=== PATIENT | male | born 1940 | race Caucasian/White ===

== ENCOUNTER 2023-01-02 13:15 | Outpatient (RCR) | payer MEDICARE, SELFPAY | END 2023-05-02 23:59 | disposition home or self-care (01) | PROVIDERS: PCP Family Medicine; Visit Provider Family Medicine | DX: R41.3 Other amnesia (principal); R29.6 Repeated falls; Z51.89 Encounter for other specified aftercare | CPT/HCPCS: 97165; 97535 ==

== ENCOUNTER 2023-03-12 10:10 | Emergency (ER) | payer MEDICARE, BC, SELFPAY ==
[2023-03-12 10:23] VITALS: BP 113/68; PULSE 103; RESP 18; TEMP 36.9; O2SAT 95; BMI 29.8
--- NOTE | 2023-03-12 10:35 | CRLHL7_ITS ---
For Patients: As a result of the Cures Act, medical imaging exams and procedure reports are released immediately into your electronic medical record. You may view this report before your referring provider. If you have questions, please contact your health care provider. Indication: Fever Technique: Chest 2 views Comparison: None Findings/Impression: Cardiovascular and mediastinum: Normal heart size with atherosclerotic calcification. Lungs and pleural spaces: Elevated left hemidiaphragm. No pleural effusion or pneumothorax. No acute consolidation. Bones and soft tissues: Old healed surgical neck left humeral fracture. Dictated by Javi Torres MD @ 03/12/2023 12:23:05 PM (Electronically Signed)
--- NOTE | 2023-03-12 10:46 | ED_ITS ---
HPI - General Adult General Chief complaint: Fever Stated complaint: Fever, lethargy Time Seen by Provider: 03/12/23 10:20 Source: patient Limitations: no limitations History of Present Illness HPI narrative: 83-year-old male presenting today with 3 days of not feeling well. States that he has had a fevers high as 101.6. He feels achy, tired and weak. Appetite has been good. He denies any diarrhea, endorses constipation on and off. He denies any urinary symptoms such as increased frequency urgency or dysuria but he states that his urine looks off. He denies chest or abdominal pain. He has a very mild cough. He does have tinnitus which has worsened over the last couple days. No changes in his hearing. He has a mild headache. No pain in his neck or back that are new. Patient is a resident at [facility]. Past medical history significant for BPH, depression, recent PE on anticoagulation therapy, dementia. Related Data Home Medications Medication Instructions Recorded Confirmed donepezil 10 mg tablet 10 mg PO DAILY 03/12/23 03/12/23 rivaroxaban 20 mg tablet (Xarelto) 20 mg PO QPM 03/12/23 03/12/23 sertraline 50 mg tablet 50 mg PO DAILY 03/12/23 03/12/23 tamsulosin 0.4 mg capsule 0.4 mg PO DAILY 03/12/23 03/12/23 Previous Rx's Medication Instructions Recorded cephalexin 500 mg capsule 500 mg PO TID 7 days #21 caps 03/12/23 Allergies Allergy/AdvReac Type Severity Reaction Status Date / Time aspirin Allergy Verified 03/12/23 10:26 Review of Systems Status of ROS: Reports: 10 or more systems reviewed and unremarkable except as noted in History and below Exam Narrative: Exam Narrative: Well-nourished well-developed patient in no acute distress. Alert and oriented. Answers questions appropriately. Mood and affect are appropriate. Thoughts are goal oriented and rational. No tangential or magical thinking noted. Patient speaks in full sentences without needing to catch his breath. Speech is not slurred or pressured. HEENT: Normocephalic atraumatic. Pupils are equally round reactive to light. Extraocular muscles are intact. Conjunctivae are moist without any icterus noted. Slightly dry mucous membranes. Posterior pharynx is normal. Neck is soft without any lymphadenopathy or thyromegaly. No masses are appreciated. Cardiovascular: Heart is tachycardic with regular rhythm, S1 and S2 are present without any murmurs. Lungs: Clear to auscultation bilaterally no wheezes rhonchi or rales are appreciated. Patient takes deep breaths without any discomfort. Abdomen: Soft and nontender nondistended with normal bowel sounds. Abdomen is protuberant. Patient tells me this is not new. Extremities: Bilateral lower extremities show 2+ pitting edema. Skin: Well perfused without any obvious rashes. Const: Vital Signs, click to edit/add: Vital Signs - 24 hr 03/12/23 10:23 Temperature 98.4 F Pulse Rate [Right Pulse Oximeter] 103 H Respiratory Rate 18 Blood Pressure [Ri ght Upper Arm] 113/68 Pulse Oximetry 95 Oxygen Delivery Me thod Room Air Course Course ED Course: EKG, read by me, shows sinus tachycardia with a pulse of 103. Lab work done included a CBC, chemistries: Both unremarkable. UA does look grossly positive for signs of infection. Triple swab is positive for COVID-19. Discussed with the patient that the Paxlovid is available, however, it does interact with his rivaroxaban and COVID administration is not recommended. Given that the patient is generally doing pretty well, I think it is okay for him to continue treating his symptoms as is. Vital Signs Vital signs: Initial Vital Signs Temperature 98.4 F 03/12/23 10:23 Temperature Source Temporal Artery Scan 03/12/23 10:23 Pulse Rate 103 H 03/12/23 10:23 Respiratory Rate 18 03/12/23 10:23 Blood Pressure 113/68 03/12/23 10:23 Blood Pressure Mean 83 03/12/23 10:23 Blood Pressure Position Sitting 03/12/23 10:23 Pulse Oximetry 95 03/12/23 10:23 Oxygen Delivery Method Room Air 03/12/23 10:23 Vital Signs Temperature 98.4 F 03/12/23 10:23 Pulse Rate 103 H 03/12/23 10:23 Respiratory Rate 18 03/12/23 10:23 Blood Pressure 113/68 03/12/23 10:23 Pulse Oximetry 95 03/12/23 10:23 Oxygen Delivery Method Room Air 03/12/23 10:23 Temperature 98.4 F 01/29/24 10:23 Pulse Rate 103 H 03/12/23 10:23 Respiratory Rate 18 03/12/23 10:23 Blood Pressure 113/68 03/12/23 10:23 Pulse Oximetry 95 03/12/23 10:23 Oxygen Delivery Method Room Air 03/12/23 10:23 Medical Decision Making MDM Narrative Medical decision making narrative: 83-year-old male with COVID-19. We discussed symptomatic treatment reasons for follow-up. Probable UTI. Will cover patient with Keflex. Mild dehydration-recommend increased fluid intake. Lab Data Lab results reviewed: Yes I reviewed the patient's lab results Labs: Lab Results 03/12/23 03/12/23 03/12/23 Range/Units 10:45 10:48 Unknown WBC 9.57 (4.50-11.00) K/uL RBC 4.87 (4.30-5.90) m/uL Hgb 15.1 (13.5-17.5) gm/dL Hct 48.2 (37.0-53.0) % MCV 99 (80-100) fL MCH 31 (26-34) pg MCHC 31 L (32-36) gm/dL RDW Coeff of Marisa 13.3 (11.5-15.5) % Plt Count 188 (140-440) K/uL Neut % (Auto) 79.6 H (42.0-72.0) % Lymph % (Auto) 10.1 L (20-44) % [place] % (Auto) 8.4 (0.0-11.0) % Eos % (Auto) 1.4 (0.0-7.0) % Baso % (Auto) 0.2 (0.0-3.0) % Neut # (Auto) 7.60 H (1.7-7.0) K/uL Lymph # (Auto) 1.00 (0.90-2.90) K/uL [place] # (Auto) 0.80 (0.00-0.90) K/UL Eos # (Auto) 0.13 (0.00-0.50) K/uL Baso # (Auto) 0.02 (0.00-0.30) K/uL Abs Immat Gran (auto) 0.03 (0.00-0.30) K/uL Imm/Tot Granulo (auto) 0.3 % Sodium 140 (135-149) mmol/L Potassium 3.9 (3.6-5.1) mmol/L Chloride 101 (96-114) mmol/L Carbon Dioxide 33 H (20-32) mmol/L Anion Gap 6 L (7-15) mEq/L BUN 20 (7-30) mg/dL Creatinine 1.0 (0.5-1.5) mg/dL Estimated Creat Clear 59.28 Estimated GFR 74 ml/min Glucose 113 (60-115) mg/dL Calcium 8.9 (8.4-10.6) mg/dL Urine Color Christian A (Yellow) Urine Appearance Cloudy A (Clear) Urine pH 5.5 (5.0-8.5) Ur Specific [place] >= 1.030 (1.000-1.030) Urine Protein 1+ A (Negative) Urine Glucose (UA) Negative (Negative) Urine Ketones Negative (Negative) Urine Blood 1+ A (Negative) Urine Nitrite Negative (Negative) Urine Bilirubin 1+ A (Negative) Urine Urobilinogen 1.0 (0.2-1.0) Ur Leukocyte Esterase 1+ A (Negative) Urine RBC 2-5 A (0-2) Urine WBC 50-100 A (0-5) Urine WBC Clumps Few A (None) Ur Squamous Epith Cells Few (None-Few) Urine Bacteria Moderate A (None) Urine Mucus Few A (None) SARS-CoV-2 (PCR) POSITIVE SARS-CoV-2 A (Negative) Influenza Type A (PCR) Negative PCR FLU A (Negative) Influenza Type B (PCR) Negative PCR FLU B (Negative) RSV (PCR) Negative PCR RSV (Negative) Imaging Data Chest x-ray: Attestation: I have reviewed the pertinent imaging results. Radiologist's impression: Chest 2 views Comparison: None Findings/Impression: Cardiovascular and mediastinum: Normal heart size with atherosclerotic calcification. Lungs and pleural spaces: Elevated left hemidiaphragm. No pleural effusion or pneumothorax. No acute consolidation. Bones and soft tissues: Old healed surgical neck left humeral fracture. ECG Data Attestation: I personally reviewed and interpreted this ECG as follows: Discharge Plan Discharge Clinical Impression: COVID-19, Dehydration, mild, Acute UTI Patient Disposition: Home, Self-Care Condition: Stable Additional Instructions: The medication to treat COVID-19,Paxlovid, is not recommended for you at this time as it interacts with your medications. Therefore at this time, I recommend that you rest as much as you need to, eat nutritious meals and increase the amount of fluid your drinking every day. It also appears that you likely have a bladder infection-antibiotics have been sent to the pharmacy, take all as directed. Lastly, it appears that you are slightly dehydrated. Again, increased the amount of fluid that you are drinking every day. Prescriptions: New cephalexin 500 mg capsule 500 mg PO TID 7 Days Qty: 21 0RF No Action donepezil 10 mg tablet 10 mg PO DAILY tamsulosin 0.4 mg capsule 0.4 mg PO DAILY sertraline 50 mg tablet 50 mg PO DAILY Xarelto 20 mg tablet 20 mg PO QPM Follow Up/Referrals: Ruperto Kearns MD [Primary Care Provider] - Stand Alone Forms: Tal Medical Info Instructions
--- OUTSIDE RECORDS SUMMARY | 2023-03-12 10:47 | XMS_ITS | Clinical Summary ---
Author Name Unknown Organization [facility] Address [place], [place] [address] Care Team Providers Care Wastewater Operator Name Role Phone Ruperto Kearns MD Primary Care Provider [phone] Allergies Active Allergy Reactions Criticality Noted Date Comments Aspirin Hives 12/01/2022 Medications Medication Sig Dispensed Refills Start Date End Date Status rivaroxaban (Xarelto) 20 mg tabletIndications: Pulmonary embolism, bilateral (HC) Take 1 Tablet (20 mg) by mouth once daily with evening meal. 90 Tablet 3 01/17/2023 Active sertraline (ZOLOFT) 50 mg tabletIndications: Anxiety Take 1 Tablet (50 mg) by mouth once daily. 90 Tablet 3 01/17/2023 Active tamsulosin (FLOMAX) 0.4 mg capsuleIndications :BPH without urinary obstruction Take 1 Capsule (0.4 mg) by mouth once daily after a meal. 90 Capsule 3 01/17/2023 Active donepeziL (ARICEPT) 10 mg tabletIndications: Dementia in Alzheimer's disease (HC) Take 1 Tablet (10 mg) by mouth at bedtime. 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 BPH without urinary obstruction 12/01/2022 Encounters Date Type Department Care Team Description 03/12/2023 Nurse Triage [facility] [address] [place] [address] Ruperto Kearns MD Weak (Weak , fevers, ) 02/28/2023 9:15 AM SQL DATABASE PROGRAMMER Office Visit [facility] [address] [place] [address] Ruperto Kearns MD Medication Management (Follow up) 02/28/2023 Travel 02/20/2023 11:30 AM SQL DATABASE PROGRAMMER Office Visit [facility] [address] [place] [address] Gopal Jiang AuD Hearing Aid (Consultation) 02/20/2023 Travel 02/15/2023 2:00 PM SQL DATABASE PROGRAMMER Office Visit [facility] [address] [place] [address] Gopal Jiang, AuD Hearing Problem 02/15/2023 Travel 01/17/2023 11:45 AM SQL DATABASE PROGRAMMER Ancillary Procedure [address] [address] 01/17/2023 10:05 AM SQL DATABASE PROGRAMMER Office Visit [address] [address] Ruperto Kearns MD Medicare ANNUAL (subsequent) Visit (84 years); Laceration (Fell last night and patient has a cut on left knee now ) 01/17/2023 Travel 12/12/2022 Orders Only [facility] Scanner 1 scan: (1-Ord) INCOMING RECORDS-CT, [facility], 12/12/2022 from Last 3 Months Immunizations Name Administration Dates Next Due Hepatitis A (Adult) 05/04/2015 Hepatitis B (Adult) 05/04/2015 Influenza, High-dose Inactivated 12/04/2018,11/12 Influenza, High-dose Quadriv alent Inactivated 11/30/2022,01/04/2022,12/02/2020 Influenza, Injectable, Mdck, Quadrivalent, W/preservative 10/27/2019 Meningococcal Vaccine (Menomune) 07/19/2004 Td, Preservative Free (age >= 7 Years) 5 Tdap 09/30/2016 Zoster (Shingrix-RZV, recombinant) 07/29/2019 Family History Medical History Relation Name Comments Benign prostatic hyperplasia Brother Heart attack Father he of this at 65 Sarcoidosis Mother she of thi s at 55 Good Health Sister Relation Name Status Comments Brother Alive Father Mother Sister Alive Social History Tobacco Use Types Packs/Day Years Used Date Smoking Tobacco: Never Passive Smoke Exposure: Past Smokeless Tobacco: Never Tobacco Cessation:Counseling Given: Not Answered Alcohol Use Standard Drinks/Week Comments Not Currently 0 (1 standard drink = 0.6 oz pur e alcohol) PHQ-2 Answer Date Recorded PHQ-2 TOTAL SCORE 2 01/17/2023 Social Connections Answer Date Recorded Frequency of Communication with Friends and Fami ly 0 02/28/2023 Alcohol Use Answer Date Recorded How often do you have a drink containing alcohol ? 2 01/17/2023 How many drinks containing a lcohol do you have on a typical day when you are drinking? 0 01/17/2023 How often do you have five or more drinks on one occasion? 0 01/17/2023 Financial Resource Strain Answer Date R ecorded Difficulty of Paying Living Expenses 3 02/28/2023 Difficulty of Paying Living Expenses Not on file 02/28/2023 Food Insecurity Answer Date Recorded Worried About Running Out of Food in the Last Ye ar 1 02/28/2023 Transportation Needs Answer Date Record ed Lack of Transportation (Medical) 1 02/28/2023 Housing Stability Answer Date Recorded Unable to Pay for Housing in the Last Year 1 02/28/2023 Sex and Gender Information Value Date Recorded Sex Assigned at Male 11/06/2022 9:44 AM CDT Gender Identity Male 11/06/2022 9:44 AM CDT Sexual Orientation Bisexual 11/06/2022 9: 44 AM CDT Obstetrics History Last Filed Vital Signs Vital Sign Reading Time Taken Comments Blood Pressure 93/64 02/28/2023 9:19 AM SQL DATABASE PROGRAMMER Pulse 90 02/28/2023 10:12 AM SQL DATABASE PROGRAMMER Temperature - - Respiratory Rate - - Oxygen Saturation 93% 02/28/2023 9:19 AM SQL DATABASE PROGRAMMER Inhaled Oxygen Concentration - - Weight 104 kg (229 lb 3.2 oz) 02/28/2023 9:19 AM SQL DATABASE PROGRAMMER Height 178.8 cm (5' 10.39) 12/01/2022 11:19 AM CDT Body Mass Index 32.52 12/01/2022 11:19 AM CDT Plan of Treatment Upcoming Encounters Date Type Department Care Team (Late st Contact Info) Description 03/20/2023 2:30 PM SQL DATABASE PROGRAMMER Office Visit [facility] [address] [place] [address] Gopal Jiang, AuD [address] [place] [phone] 04/04/2023 10:30 AM SQL DATABASE PROGRAMMER Office Visit [facility] [address] [place] [address] Gopal Jiang, AuD [address] [place] [phone] 05/29/2023 9:35 AM CDT Office Visit [facility] [address] [place] [address] Ruperto Kearns MD [address] [place] [address] Health Maintenance Due Date Last Done Comments Pneumococcal series for age 65+ (1 of 1 - PCV) 2003 Zoster (shingles) series for age 50+ (2 of 2) 09/23/2019 07/29/2019 BMI (ht and wt on same day) for age 18+ 12/02/2023 12/01/2022 Medicare Wellness for age 65+ 01/17/2024 01/17/2023 Depression screening for age 12+ 01/18/2024 01/18/20 Tetanus booster 09/30/2026 09/30/2016, 07/19/2004 Tdap Completed 09/30/2016 COVID-19 vaccine series Completed 11/28/19, 05/30/2021, 11/22/2020, Additional history exists Influenza for age 65+ Completed 11/30/2022 , 01/04/2022, 12/02/2020, Additional history exists Procedures Procedure Name Priority Date/Time Associated Diagnosis Comments MI COMPRE AUDIOMETRY THRESHOLD EVAL SP RECOGNIJ Routine 02/15/2023 12:00 AM SQL DATABASE PROGRAMMER Sensorineural hearing loss (SNHL) of both ears XR KNEE 3 VIEWS LEFT Routine 01/17/2023 12:01 PM SQL DATABASE PROGRAMMER Injury of left knee, initial encounter CBC WITH AUTO DIFFERENTIAL Routine 01/17/2023 11:47 AM SQL DATABASE PROGRAMMER Pulmonary embolism, bilateral (HC) BASIC METABOLIC PANEL Routine 01/17/2023 11:47 AM SQL DATABASE PROGRAMMER Pulmonary embolism, bilateral (HC) CBC WITH AUTO DIFFERENTIAL Routine 01/17/2023 11:47 AM SQL DATABASE PROGRAMMER Pulmonary embolism, bilateral (HC) ALT (SGPT) Routine 01/17/2023 11:47 AM SQL DATABASE PROGRAMMER Pulmonary embolism, bilateral (HC) SCAN CORRESP-IMAGING 12/12/2022 12:00 AM CDT from Last 3 Months Results * MI COMPRE AUDIOMETRY THRESHOLD EVAL SP RECOGNIJ (02/15/2023 12:00 AM SQL DATABASE PROGRAMMER) Gopal [employer] * XR KNEE 3 VIEWS LEFT (01/17/2023 12:01 PM SQL DATABASE PROGRAMMER) Anatomical Region Laterality Modality KNEES, KNEE L Computed Radiogr aphy 01/17/2023 12:1 8 PM SQL DATABASE PROGRAMMER Narrative 01/17/2023 12:18 PM SQL DATABASE PROGRAMMER For Patients: ??As a result of the Cures Act, medical imaging exams and procedure reports are released immediately into your electronic medical record. ??You may view this report before your referring provider. ??If you have questions, please contact your health care provider. Indication: Knee pain Technique: Left knee 3 views Comparison: None Findings: Osteopenia. Mild spurring at the medial tibial spine. Vascular calcifications. Small joint effusion. Mild patellofemoral narrowing and spurring. Impression: Mild degenerative joint disease and small joint effusion. No fracture. Dictated by Raleigh Burt MD @ Jan ??2022 12:18PM (Electronically Signed) ?? Procedure Note Raleigh Burt MD - 01/17/2023 For Patients: As a result of the Cures Act, medical imagingexams and procedure reports are released immediately into your electronicmedical record. You may view this report before your referring provider.If you have questions, please contact your health care provider. Indication: Knee pain Technique: Left knee 3 views Comparison: None Findings: Osteopenia. Mild spurring at the medial tibial spine. Vascularcalcifications. Small joint effusion. Mild patellofemoral narrowing andspurring. Impression: Mild degenerative joint disease and small joint effusion. No fracture. Dictated by Ralegih Burt MD @ Jan 17 2023 12:18PM (Electronically Signed) Ruperto Kearns MD GENERAL IMAGING * (ABNORMAL) CBC WITH AUTO DIFFERENTIAL (01/17/2023 11:47 AM SQL DATABASE PROGRAMMER) WHITE BLOOD COUNT 6.4 4.5 - 11.0 thou/cu mm 01/17/2023 12:03 PM [facility] RED BLOOD COUNT 4.63 4.30 - 5.90 mil/cu mm 01/17/2023 12:03 PM [facility] HEMOGLOBIN 14.8 13.5 - 17.5 g/dL 01/17/2023 12:03 PM [facility] HEMATOCRIT 46.5 37.0 - 53.0 % 01/17/2023 12:03 PM [facility] MCV 100 80 - 100 fL 01/17/2023 12:03 PM [facility] MCH 32.0 26.0 - 34.0 pg 01/17/2023 12:03 PM [facility] MCHC 31.8(L) 32.0 - 36.0 g/dL 01/17/2023 12:03 PM [facility] RDW 14.0 11.5 - 15.5 % 01/17/2023 12:03 PM [facility] PLATELET COUNT 183 140 - 440 thou/cu mm 01/17/2023 12:03 PM [facility] MPV 9.6 6.5 - 11.0 fL 01/17/2023 12:03 PM [facility] % NEUT 66.8 % 01/17/2023 12:03 PM SQL DATABASE PROGRAMMER [facility] % LYMPH 18.2 % 01/17/2023 12:03 PM SQL DATABASE PROGRAMMER [facility] % MONO 12.0 % 01/17/2023 12:03 PM [facility] % EOS 2.5 % 01/17/2023 12:03 PM [facility] % BASO 0.5 % 01/17/2023 12:03 PM [facility] ABSOLUTE NEUTROPHILS 4.3 1.7 - 7.0 thou/cu mm 01/17/2023 12:03 PM [facility] ABSOLUTE LYMPHOCYTES 1.2 0.9 - 2.9 thou/cu mm 01/17/2023 12:03 PM [facility] ABSOLUTE MONOCYTES 0.8 <0.9 thou/cu mm 01/17/2023 12:03 PM [facility] ABSOLUTE EOSINOPHILS 0.2 <0.5 thou/cu mm 01/17/2023 12:03 PM [facility] ABSOLUTE BASOPHILS 0.0 <0.3 thou/cu mm 01/17/2023 12:03 PM [facility] Blood BLOOD SPECIMEN / Unknown Venipuncture / Unknown 01/17/2023 11:47 AM SQL DATABASE PROGRAMMER 01/17/2023 11:48 AM SQL DATABASE PROGRAMMER Ruperto Kearns MD HEMATOLOGY [facility] [address] [place] [address], * (ABNORMAL) ALT (SGPT) (01/17/2023 11:47 AM SQL DATABASE PROGRAMMER) ALT (SGPT) 9(L) 10 - 50 IU/L 01/17/2023 10:[address] [facility] Blood BLOOD SPECIMEN / Unknown Venipuncture / Unknown 01/17/2023 11:47 AM SQL DATABASE PROGRAMMER 01/17/2023 11:48 AM [facility] Ruperto Kearns MD CHEMISTRY [facility] [address] [place] [id number], * (ABNORMAL) BASIC METABOLIC PANEL (01/17/2023 11:47 AM SQL DATABASE PROGRAMMER) SODIUM 144 136 - 145 mmol/L 01/17/2023 10:[address] [facility] POTASSIUM 4.6 3.5 - 5.1 mmol/L 01/17/2023 10:[address] [facility] CHLORIDE 104 98 - 107 mmol/L 01/17/2023 10:[address] [facility] CO2,TOTAL 30(H) 22 - 29 mmol/L 01/17/2023 10:[address] [facility] ANION GAP 10 5 - 18 01/17/2023 10:[address] [facility] GLUCOSE 82 70 - 99 mg/dL 01/17/2023 10:[address] [facility] CALCIUM 9.2 8.8 - 10.2 mg/dL 01/17/2023 10:[address] [facility] BUN 16 8 - 23 mg/dL 01/17/2023 10:[address] [facility] CREATININE 1.00 0.70 - 1.20 mg/dL 01/17/2023 10:[address] [facility] BUN/CREAT RATIO 16 10 - 20 3 10:[address] [facility] eGFR 74(L) >90 mL/min/1.7 3m2 01/17/2023 10:[address] [facility] Comment:As of 2021, eG FR is calculated by the CKD-EPI creatinine equation without race adjustment. ??eGFR can be influenced by muscle mass, exercise, and diet. ??The reported eGFR is an estimation only and is only applicable if the renal function is stable. Blood BLOOD SPECIMEN / Unknown Venipuncture / Unknown 01/17/2023 11:47 AM SQL DATABASE PROGRAMMER 01/17/2023 11:48 AM SQL DATABASE PROGRAMMER Ruperto Kearns MD CHEMISTRY [facility] [address] [place] [address], [place] * SCAN CORRESP-IMAGING (12/12/2022 12:00 AM CDT) Anatomical Region Laterality Modality Other Scanner OTHER from Last 3 Months Care Teams Wastewater Operator Relationship Specialty Start Date End Date Ruperto Kearns MD [address] [place] [address] PCP - General Family Practice 09/05/22
[2023-03-12 10:55] LABS: Basophils Absolute Auto 0.02 K/uL (0.00-0.30); Basophils Percent Auto 0.2 % (0.0-3.0); Eosinophils Absolute Auto 0.13 K/uL (0.00-0.50); Eosinophils Percent Auto 1.4 % (0.0-7.0); Hematocrit 48.2 % (37.0-53.0); Hemoglobin* 15.1 gm/dL (13.5-17.5); Immature Granulocytes Abs Auto 0.03 K/uL (0.00-0.30); Immature Granulocytes Pct Auto 0.3 %; Lymphocytes Percent Auto 10.1 % (20-44); Mean Corpuscular HGB Conc 31 gm/dL (32-36); Mean Corpuscular Hemoglobin 31 pg (26-34); Mean Corpuscular Volume 99 fL (80-100); Monocytes Percent Auto 8.4 % (0.0-11.0); Neutrophils Percent Auto 79.6 % (42.0-72.0); Platelet Count* 188 K/uL (140-440); RDW Coefficient of Variation % 13.3 % (11.5-15.5); Red Blood Count 4.87 m/uL (4.30-5.90); White Blood Count* 9.57 K/uL (4.50-11.00)
[2023-03-12 10:56] LABS: Slide Review Reflex No
[2023-03-12 11:05] LABS: Chloride* 101 mmol/L (96-114); Potassium* 3.9 mmol/L (3.6-5.1); Sodium* 140 mmol/L (135-149)
[2023-03-12 11:08] LABS: Anion Gap 6 mEq/L (7-15); Blood Urea Nitrogen* 20 mg/dL (7-30); Carbon Dioxide* 33 mmol/L (20-32); Est. Creatinine Clearance* 59.28; Estimated Glomerular Filt Rate 74 ml/min
[2023-03-12 11:09] LABS: Calcium* 8.9 mg/dL (8.4-10.6); Glucose* 113 mg/dL (60-115)
[2023-03-12 11:59] LABS: Appearance Urine Cloudy (Clear); Bilirubin Urine 1+ (Negative); Blood Urine 1+ (Negative); Color Urine Orange (Yellow); Glucose Urine Negative (Negative); Ketones Urine Negative (Negative); Leukocyte Esterase Urine 1+ (Negative); Nitrite Urine Negative (Negative); Protein Urine 1+ (Negative); Specific Gravity Urine >= 1.030 (1.000-1.030); pH Urine 5.5 (5.0-8.5)
[2023-03-12 12:36] LABS: PCR FLU A Negative PCR FLU A (Negative); PCR FLU B Negative PCR FLU B (Negative); PCR RSV Negative PCR RSV (Negative); SARS PCR* POSITIVE SARS-CoV-2 (Negative)
[2023-03-12 12:46] LABS: Bacteria Urine Moderate; Squamous Epithelial Cell Urine Few (None-Few); WBC Clumps Urine Few; WBC Urine 50-100 (0-5)
[2023-03-12 12:50] LABS: Mucus Urine Few
== END 2023-03-12 13:11 | disposition home or self-care (01) ==
PROVIDERS: Emergency Provider Family Medicine; PCP Family Medicine
DX: U07.1 COVID-19 (principal); N39.0 Urinary tract infection, site not specified
CPT/HCPCS: 36415; 71046; 80048; 81001; 85025; 87086; 87631; 93005; 99284

== ENCOUNTER 2023-06-15 15:31 | Outpatient (CLI) | payer MEDICARE, BC, SELFPAY ==
--- OUTSIDE RECORDS SUMMARY | 2023-06-19 17:37 | XMS_ITS | Clinical Summary ---
Author Name Unknown Organization [facility] Address [place], [place] [address] Care Team Providers Care Lead Designer Name Role Phone Ruperto Kearns MD Primary Care Provider [phone]- [phone] Allergies Active Allergy Reactions Criticality Noted Date [...] Type Department Care Team Description 06/06/2023 Refill [facility] [address] [place] [address] Ruperto Kearns MD Refill Request (Donepezil) 05/29/2023 9:35 AM CDT Office Visit [facility] [address] [place] [address] Ruperto Kearns MD Medication Management (Routine follow up) 05/29/2023 Travel 05/02/2023 9:40 AM CDT Telemedicine [facility] [address] [place] [address] Ruperto Kearns MD Depression; Telehealth (No vitals obtained for virtual visit) 05/02/2023 Travel 04/30/2023 9:00 AM CDT Office Visit [facility] [address] [place] [address] Gopal Jiang, [facility] 04/30/2023 Travel 04/04/2023 10:30 AM LABORATORY MECHANICAL 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 Office Visit [facility] [address] [place] [address] Gopal Jiang, [facility] 04/04/2023 Travel from Last 3 Months Immunizations Name [...] Description 08/14/2023 9:35 AM CDT Office Visit [facility] [address] [place] [address] Ruperto Kearns MD [address] [place] [address] Health Maintenance Due Date Last Done Comments [...] growth (<1,000 CFU/mL) 05/30/2023 3:07 PM CDT [facility] Urine URINE SPECIMEN / Unknown Non-Blood / Unknown 05/29/2023 10:59 AM CDT 05/29/2023 10:59 AM CDT Ruperto Kearns MD MICROBIOLOGY [facility] [address] [place] [id number], * UA W/ SEDIMENT EXAM REFLEXED PER CRITERIA (05/29/2023 10:59 AM CDT) COLOR Yellow Yellow Color 05/29/2023 11:05 AM CDT [facility] CLARITY Clear Clear Clarity 05/29/2023 11:05 AM CDT [facility] SPECIFIC GRAVITY,URINE 1.025 1.010, 1.015, 1.020, 1.025 05/29/2023 11:05 AM CDT [facility] PH,URINE 5.5 6.0, 7.0, 8.0, 5.5, 6.5, 7.5, 8.5 05/29/2023 11:05 AM CDT [facility] UROBILINOGEN, QUALITATIVE Normal Normal EU/dl 05/29/2023 11:05 AM CDT [facility] PROTEIN, URINE Negative Negative mg/dL 05/29/2023 11:05 AM CDT [facility] GLUCOSE, URINE Negative Negative mg/dL 05/29/2023 11:05 AM CDT [facility] KETONES,URINE Negative Negative mg/dL 05/29/2023 11:05 AM CDT [facility] BILIRUBIN,URI NE Negative Negative 05/29/2023 11:05 AM CDT [facility] OCCULT BLOOD,URINE Negative Negative 05/29/2023 11:05 AM CDT [facility] NITRITE Negative Negative 05/29/2023 11:05 AM CDT [facility] LEUKOCYTE ESTERASE Negative Negative 05/29/2023 11:05 AM CDT [facility] Urine URINE SPECIMEN / Unknown Non-Blood / Unknown 05/29/2023 10:59 AM CDT 05/29/2023 10:59 AM CDT Ruperto Kearns MD URINE [facility] [address] [place] [address], from Last 3 Months Care Teams Lead Designer Relationship Specialty Start Date End Date Ruperto Kearns MD [address] [place] [address] PCP - General Family Practice 09/05/22
== END 2023-06-15 15:32 | disposition home or self-care (01) ==
LOC: AMB 06-19 17:35
PROVIDERS: PCP Family Medicine; Visit Provider Family Medicine
DX: S09.93XA Unspecified injury of face, initial encounter (principal); W18.39XA Other fall on same level, initial encounter; Y92.096 Garden or yard of other non-institutional residence as the place of occurrence of the external cause
CPT/HCPCS: A0998

== ENCOUNTER 2023-06-15 16:18 | Emergency (ER) | payer MEDICARE, BC, SELFPAY ==
[2023-06-15 16:27] VITALS: BP 132/84; PULSE 104; RESP 16; TEMP 36.9; O2SAT 95; BMI 32.5
--- NOTE | 2023-06-15 16:40 | ED.GENADULT ---
HPI - General Adult General Chief complaint: Fall/Minor Trauma Stated complaint: Fell twice-hit head and knee. No Loss of con Time Seen by Provider: 06/15/23 16:40 History of Present Illness HPI narrative: Patient here today after falling twice outside while pushing groceries back to his assisted living facility from the grocery store. was present as well. He states he tripped because of the weight of the groceries on his wheelchair and going down an hill. No LOC . Abrasion to left knee and small abrasion to right tenriism area. He does take Xarelto 83-year-old man presenting to the emergency depart after a few falls. These sound to be trip and fall events. Had been pushing groceries. Apparently using wheelchair to hold groceries? Tripped while going down a must small decline. Sounds as though may have hit his head. No neck or back pain. No abdominal pain. No chest pain. Also bumped his knee. Is anticoagulated. No loss of consciousness. Is anxious to get out of the ER as there is a concert at [employer] that he would like to attend. He jokes that the wind may have knocked him over Related Data Home Medications ?Medication ?Instructions ?Recorded ?Confirmed donepezil 10 mg tablet 10 mg PO DAILY 03/12/23 07/07/23 rivaroxaban 20 mg tablet (Xarelto) 20 mg PO QPM 03/12/23 07/07/23 tamsulosin 0.4 mg capsule 0.4 mg PO DAILY 03/12/23 07/07/23 sertraline 100 mg tablet 100 mg PO QAM 06/15/23 07/07/23 Allergies Allergy/AdvReac Type Severity Reaction Status Date / Time aspirin Allergy Verified 07/07/23 07:09 [facility] Social History Smoking Status: Never smoker Do you use any of these nicotine containing products: None Second hand tobacco smoke exposure: No How often do you have a drink containing alcohol: never How often do you have six or more drinks on one occasion: Never AUDIT-C Alcohol total score: 0 Non-prescribed substance use: denies use service: No Exam Narrative: Exam Narrative: Pleasant. NAD. Cranial nerves 2-12 intact. Pupils are equal. Breathing easily. Lungs appear to be clear. Heart in mildly elevated rate in a regular rhythm. Abdomen is soft and nontender. Does appear to have light abrasion or maybe more of a contusion about the right tenriism. Light abrasion at the left knee as well. Flexing extending the knee without difficulty. Rotates the hips without difficulty. No pain to palpation of the neck or back. Forearms with intradermal bruising consistent with age and anticoagulation. Const: Vital Signs, click to edit/add: Vital Signs - 24 hr 06/15/23 16:27 Temperature 98.4 F Pulse Rate [Pulse Oximeter] 104 H Respiratory Rate 16 Blood Pressure [Ri ght Upper Arm] 132/84 Pulse Oximetry 95 Oxygen Delivery Me thod Room Air Documenting provider has reviewed patient's vital signs: yes Course Vital Signs Vital signs: Initial Vital Signs Temperature 98.4 F 06/15/23 16:27 Temperature Source Temporal Artery Scan 06/15/23 16:27 Pulse Rate 104 H 06/15/23 16:27 Pulse Rhythm Regular 06/15/23 16:27 Respiratory Rate 16 06/15/23 16:27 Blood Pressure 132/84 06/15/23 16:27 Blood Pressure Mean 100 06/15/23 16:27 Blood Pressure Position Sitting 06/15/23 16:27 Pulse Oximetry 95 06/15/23 16:27 Oxygen Delivery Method Room Air 06/15/23 16:27 Vital Signs Temperature 98.4 F 06/15/23 16:27 Pulse Rate 104 H 06/15/23 16:27 Respiratory Rate 16 06/15/23 16:27 Blood Pressure 132/84 06/15/23 16:27 Pulse Oximetry 95 06/15/23 16:27 Oxygen Delivery Method Room Air 06/15/23 16:27 Temperature 98.4 F 06/15/23 16:27 Pulse Rate 104 H 06/15/23 16:27 Respiratory Rate 16 06/15/23 16:27 Blood Pressure 132/84 06/15/23 16:27 Pulse Oximetry 95 06/15/23 16:27 Oxygen Delivery Method Room Air 06/15/23 16:27 Medical Decision Making MDM Narrative Medical decision making narrative: Considering anticoagulation and what looks to have been injury to the head, it would be prudent to scan head. I do not think needs imaging elsewhere. CT head is unremarkable by my read for acute abnormality. Radiology over-read below Study:?CT-Head W/O-06/15/2023 5:08:01 PM Ordering Physician:ADÁN Final Report: INDICATION: Falls. Likely trauma. TECHNIQUE: Noncontrast CT images of the brain. COMPARISON: None. FINDINGS: [id number] diffuse cerebral volume loss. No mass effect or midline shift. The prescott-white differentiation is maintained. No acute intracranial hemorrhage or pathologic extra-axial fluid collection. Patchy hypoattenuation in the supratentorial white matter, suggestive of moderate chronic microvascular ischemic changes. Dense intracranial atherosclerotic calcifications. Thinning of the ocular lenses. The calvarium is intact. The visualized paranasal sinuses and mastoid air cells are clear. IMPRESSION: No acute intracranial hemorrhage or mass effect. Cleaned wounds. See patient discharge plan for further discussion/plan Medical Records Medical records reviewed: Yes I reviewed the patient's medical records Discharge Plan Discharge Clinical Impression: Closed head injury, Contusion, Abrasion, Fall Patient Disposition: Home w/ Parent or Adult Condition: Improved Additional Instructions: I would consider icing the areas that hurt a couple of times daily over the next few days. Follow-up for re-evaluation for persistent increasing pain, repeated vomiting, unusual somnolence, severe headache. Continue to ambulate only with your walker. Be aware of prevailing winds. I hope you can enjoy the concert this evening. Prescriptions: No Action donepezil 10 mg tablet 10 mg PO DAILY tamsulosin 0.4 mg capsule 0.4 mg PO DAILY Xarelto 20 mg tablet 20 mg PO QPM sertraline 100 mg tablet 100 mg PO QAM Follow Up/Referrals: Ruperto Kearns MD [Primary Care Provider] - Stand Alone Forms: [employer] Info Instructions
--- NOTE | 2023-06-15 16:53 | CT_ITS ---
Patient: LAMAR CHARLTON Facility:?[facility] Patient ID:?[id number] Site Patient ID:?[id number] Site :?[id number] Study:?CT-Head W/O-06/15/2023 5:08:01 PM Ordering Physician:ADÁN Final Report: INDICATION: Falls. Likely trauma. TECHNIQUE: Noncontrast CT images of the brain. COMPARISON: None. FINDINGS: [id number] diffuse cerebral volume loss. No mass effect or midline shift. The prescott-white differentiation is maintained. No acute intracranial hemorrhage or pathologic extra-axial fluid collection. Patchy hypoattenuation in the supratentorial white matter, suggestive of moderate chronic microvascular ischemic changes. Dense intracranial atherosclerotic calcifications. Thinning of the ocular lenses. The calvarium is intact. The visualized paranasal sinuses and mastoid air cells are clear. IMPRESSION: No acute intracranial hemorrhage or mass effect. Please note that all CT scans at this facility use dose modulation, iterative reconstruction, and/or weight-based dosing when appropriate to reduce radiation dose to as low as reasonably achievable. Dictated by Lucian Bradley MD @ 06/15/2023 5:27:55 PM Signed by:?Lucina Bradley MD @06/15/2023 5:27:55 PM (Electronic Signature)
--- OUTSIDE RECORDS SUMMARY | 2023-06-15 17:10 | XMS_ITS | Clinical Summary ---
Author Name Unknown Organization [facility] Address [place], [place] [address] Care Team Providers Care Ram Press Operator Name Role Phone Ruperto Kearns MD Primary Care Provider [phone]- [phone] Allergies Active Allergy Reactions Criticality Noted Date Comments Aspirin Hives 12/01/2022 Medications Medication Sig Dispensed Refills Start Date End Date Status rivaroxaban (Xarelto) 20 mg tabletIndications :Pulmonary embolism, bilateral (HC) Take 1 Tablet (20 mg) by mouth once daily with evening meal. 90 Tablet 3 01/17/2023 Active donepeziL (ARICEPT) 10 mg tabletIndications :Dementia in Alzheimer's disease (HC) Take 1 Tablet (10 mg) by mouth at bedtime. 90 Tablet 3 02/28/2023 Active sertraline (ZOLOFT) 100 mg tabletIndications :Depression, recurrent (HC) Take 1 Tablet (100 mg) by mouth every morning. 90 Tablet 3 05/02/2023 Active tamsulosin (FLOMAX) 0.4 mg capsuleIndication s:BPH without urinary obstruction Take 2 Capsules (0.8 mg) by mouth once daily after a meal. 180 Capsule 3 05/29/2023 Active tamsulosin (FLOMAX) 0.4 mg capsuleIndication s:BPH without urinary obstruction Take 1 Capsule (0.4 mg) by mouth once daily after a meal. 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 BPH without urinary obstruction 12/01/2022 Encounters Date Type Department Care Team Description 06/06/2023 Refill [facility] [address] [place] [address] Ruperto Kearns MD Refill Request (Donepezil) 05/29/2023 9:35 AM CDT Office Visit [facility] [address] [place] [address] Ruperto Kearns MD Medication Management (Routine follow up) 05/29/2023 Travel 05/02/2023 9:40 AM CDT Telemedicine [facility] [address] [place] [address] Ruperto Kearns MD Depression; Telehealth (No vitals obtained for virtual visit) 05/02/2023 Travel 04/30/2023 9:00 AM CDT Office Visit [address] [address] Gopal Jiang [facility] 04/30/2023 Travel 04/04/2023 10:30 AM PIG FARMER Office Visit [address] [address] Gopal Jiang [facility] 04/04/2023 Travel 03/20/2023 2:30 PM PIG FARMER Office Visit [address] [address] Gopal Jiang [facility] (Fitting) 03/20/2023 Travel from Last 3 Months Immunizations Name Administration [...] PHQ-2 Answer Date Recorded PHQ-2 TOTAL SCORE 3 05/29/2023 Social Connections Answer Date Recorded Frequency of [...] Male 11/06/2022 9:44 AM CDT Sexual Orientation Straight 05/02/2023 8: 55 AM CDT Obstetrics History Last Filed Vital Signs Vital Sign Reading Time Taken Comments Blood Pressure 120/82 05/29/2023 9:37 AM CDT Pulse 70 05/29/2023 10:28 AM CDT Temperature - - Respiratory Rate - - Oxygen Saturation 94% 05/29/2023 9:37 AM CDT Inhaled Oxygen Concentration - - Weight 103.9 kg (229 lb) 05/29/2023 9:37 AM CDT Height 178.8 cm (5' 10.39) 12/01/2022 11:19 AM CDT Body Mass Index 32.49 12/01/2022 11:19 AM CDT Plan of Treatment Upcoming Encounters Date Type Department Care Team (Late st Contact Info) Description 08/14/2023 9:35 AM CDT Office Visit [facility] [address] [place] [address] Rupreto Kearns MD [address] [place] [address] Health Maintenance Due Date Last Done Comments Pneumococcal series for age 65+ (1 of 1 - PCV) 2003 Zoster (shingles) series for age 50+ (2 of 2) 09/23/2019 07/29/2019 Influenza for age 65+ 10/14/2023 11/30/2022 , 01/04/2022, 12/02/2020, Additional history exists BMI (ht and wt on same day) for age 18+ 12/02/2023 12/01/2022 Medicare Wellness for age 65+ 01/18/2024 01/17/2023 Depression screening for age 12+ 05/28/2024 05/29/2023, 05/02/2023, 01/17/2023 Tetanus booster 09/30/2026 09/30/2016, 07/19/2004 Tdap Completed 09/30/2016 COVID-19 vaccine series Completed 11/28/19, 05/30/2021, 11/22/2020, Additional history exists Procedures Procedure Name Priority Date/Time Associated Diagnosis Comments URINE CULTURE Routine 05/29/2023 10:59 AM CDT Nocturnal enuresis UA W/ SEDIMENT EXAM REFLEXED PER CRITERIA Routine 05/29/2023 10:59 AM CDT Nocturnal enuresis from Last 3 Months Results * URINE CULTURE (05/29/2023 10:59 AM CDT) CULTURE No growth (<1,000 CFU/mL) 05/30/2023 3:07 PM CDT [facility] Urine URINE SPECIMEN / Unknown Non-Blood / Unknown 05/29/2023 10:59 AM CDT 05/29/2023 10:59 AM CDT Ruperto Kearns MD MICROBIOLOGY [facility] [address] [place] [address], [place] * UA W/ SEDIMENT EXAM REFLEXED PER CRITERIA (05/29/2023 10:59 AM CDT) COLOR Yellow Yellow Color 05/29/2023 11:05 AM CDT [facility] CLARITY Clear Clear Clarity 05/29/2023 11:05 AM CDT [facility] SPECIFIC GRAVITY,URINE 1.025 1.010, 1.015, 1.020, 1.025 05/29/2023 11:05 AM T [facility] PH,URINE 5.5 6.0, 7.0, 8.0, 5.5, 6.5, 7.5, 8.5 05/29/2023 11:05 AM CDT [facility] UROBILINOGEN, QUALITATIVE Normal Normal EU/dl 05/29/2023 11:05 AM T [facility] PROTEIN, URINE Negative Negative mg/dL 05/29/2023 11:05 AM CDT [facility] GLUCOSE, URINE Negative Negative mg/dL 05/29/2023 11:05 AM T [facility] KETONES,URINE Negative Negative mg/dL 05/29/2023 11:05 AM CDT [facility] BILIRUBIN,URI NE Negative Negative 05/29/2023 11:05 AM CDT [facility] OCCULT BLOOD,URINE Negative Negative 05/29/2023 11:05 AM CDT [facility] NITRITE Negative Negative 05/29/2023 11:05 AM CDT [facility] LEUKOCYTE ESTERASE Negative Negative 05/29/2023 11:05 AM T [facility] Urine URINE SPECIMEN / Unknown Non-Blood / Unknown 05/29/2023 10:59 AM CDT 05/29/2023 10:59 AM CDT Ruperto Kearns MD URINE [facility] [address] [place] [address], [place] [phone] from Last 3 Months Care Teams Ram Press Operator Relationship Specialty Start Date End Date Ruperto Kearns MD [address] [place] [address] PCP - General Family Practice 09/05/22
== END 2023-06-15 18:09 | disposition home or self-care (01) ==
PROVIDERS: Emergency Provider Family Medicine; PCP Family Medicine
DX: S00.31XA Abrasion of nose, initial encounter (principal); S01.511A Laceration without foreign body of lip, initial encounter; W06.XXXA Fall from bed, initial encounter
CPT/HCPCS: 70450; 99283; 99284

== ENCOUNTER 2023-07-07 06:25 | Outpatient (CLI) | payer MEDICARE, BC, SELFPAY ==
--- OUTSIDE RECORDS SUMMARY | 2023-07-13 06:20 | XMS_ITS | Clinical Summary ---
Author Organization [employer] [facility] [employer] [facility] Address [place], [place] [address] Care Team Providers Care [employer] Name Role Phone Ruperto Kearns MD Primary Care Provider +1- [phone] Allergies Active Allergy Reactions Criticality Noted Date [...] Encounters Date Type Department Care Team Description 07/10/2023 Orders Only [facility] Scanner 1 scan: (1-Ord) INCOMING RECORDS-CT, [facility], 07/10/2023 07/10/2023 Telephone [facility] [address] [place] [place] [id number] Ruperto Kearns MD Physical Therapy; Occ Therapy 07/07/2023 Orders Only [facility] Scanner 1 scan: (1-Ord) SN[place], HEAD/ BRAIN WO CON, 07/07/2023 06/15/2023 Orders Only [facility] Scanner 1 scan: (1-Ord) [facility], CT HEAD/BRAIN WO, 06/15/2023 06/06/2023 Refill [facility] [address] [place] [address] Ruperto Kearns MD Refill Request (Donepezil) 05/29/2023 9:35 AM CDT Office Visit [facility] [address] [place] [address] Ruperto Kearns MD Medication Management (Routine follow up) 05/29/2023 Travel 05/02/2023 9:40 AM CDT Telemedicine [facility] [address] [place] [address] Ruperto Kearns MD Depression; Telehealth (No vitals obtained for virtual visit) 05/02/2023 Travel 04/30/2023 9:00 AM CDT Office Visit [facility] [address] [place] [address] Gopal Jiang, AuD Hearing Aid 04/30/2023 Travel [...] Description 08/14/2023 9:35 AM CDT Office Visit [facility] [address] [place] [address] Ruperto Kearns MD [address] [place] [address] Health Maintenance Due Date Last Done Comments [...] Procedure Name Priority Date/Time Associated Diagnosis Comments SCAN CORRESP-IMAGING 07/10/2023 12:00 AM CDT SCAN-CT INTERPRETATION 4 12:00 AM CDT SCAN-CT INTERPRETATION 4 12:00 AM CDT URINE CULTURE Routine 05/29/2023 10:59 AM CDT Nocturnal enuresis UA W/ SEDIMENT EXAM REFLEXED PER CRITERIA Routine 05/29/2023 10:59 AM CDT Nocturnal enuresis from Last 3 Months Results * SCAN CORRESP-IMAGING (07/10/2023 12:00 AM CDT) Anatomical Region Laterality Modality Other Scanner OTHER * SCAN-CT INTERPRETATION (07/07/2023 12:00 AM CDT) Only the most recent of2 resultswithin the time period is included. Anatomical Region Laterality Modality Other Scanner OTHER * URINE CULTURE (05/29/2023 10:59 AM CDT) CULTURE No growth (<1,000 CFU/mL) 05/30/2023 3:07 PM CDT [facility] Urine URINE SPECIMEN / Unknown Non-Blood / Unknown 05/29/2023 10:59 AM CDT 05/29/2023 10:59 AM CDT Ruperto Kearns MD MICROBIOLOGY [facility] [address] [place] [id number], * UA W/ SEDIMENT EXAM REFLEXED PER CRITERIA (05/29/2023 10:59 AM CDT) COLOR Yellow Yellow Color 05/29/2023 11:05 AM CDT [facility] CLARITY Clear Clear Clarity 05/29/2023 11:05 AM CDT [facility] SPECIFIC GRAVITY,URINE 1.025 1.010, 1.015, 1.020, 1.025 05/29/2023 11:05 AM CDT [facility] PH,URINE 5.5 6.0, 7.0, 8.0, 5.5, 6.5, 7.5, 8.5 05/29/2023 11:05 AM CDT [facility] UROBILINOGEN, QUALITATIVE Normal Normal EU/dl 05/29/2023 11:05 AM CDT [facility] PROTEIN, URINE Negative Negative mg/dL 05/29/2023 11:05 AM CDT [facility] GLUCOSE, URINE Negative Negative mg/dL 05/29/2023 11:05 AM CDT [facility] KETONES,URINE Negative Negative mg/dL 05/29/2023 11:05 AM CDT [facility] BILIRUBIN,URI NE Negative Negative 05/29/2023 11:05 AM CDT [facility] OCCULT BLOOD,URINE Negative Negative 05/29/2023 11:05 AM CDT [facility] NITRITE Negative Negative 05/29/2023 11:05 AM CDT [facility] LEUKOCYTE ESTERASE Negative Negative 05/29/2023 11:05 AM CDT [facility] Urine URINE SPECIMEN / Unknown Non-Blood / Unknown 05/29/2023 10:59 AM CDT 05/29/2023 10:59 AM CDT Ruperto Kearns MD URINE [facility] [address] [place] [address], from Last 3 Months Care Teams [employer] Relationship Specialty Start Date End Date Ruperto Kearns MD [address] [place] [address] PCP - General Family Practice 09/05/22
== END 2023-07-07 06:26 | disposition home or self-care (01) ==
LOC: AMB 07-13 06:18
PROVIDERS: PCP Family Medicine; Visit Provider Family Medicine
DX: S09.90XA Unspecified injury of head, initial encounter (principal); W06.XXXA Fall from bed, initial encounter; Y92.032 Bedroom in apartment as the place of occurrence of the external cause
CPT/HCPCS: A0425; A0427

== ENCOUNTER 2023-07-07 06:49 | Emergency (ER) | payer MEDICARE, BC, SELFPAY ==
--- NOTE | 2023-07-07 06:56 | ED.GENADULT ---
HPI - General Adult General Time Seen by Provider: 06:56 Date Seen: 07/07/23 Chief complaint: Fall/Minor Trauma Stated complaint: Fall Time Seen by Provider: 07/07/23 07:02 Source: patient, EMS, RN notes reviewed and old records reviewed Mode of arrival: EMS Limitations: no limitations History of Present Illness HPI narrative: 83-year-old male brought in by ambulance after a fall at home. Patient thinks he rolled out of bed, hit his head but is unsure what he hit it on. Also complaining of some right upper chest pain. Denies neck pain, back pain, abdominal pain, pain in the arms or legs. Related Data Home Medications ?Medication ?Instructions ?Recorded ?Confirmed donepezil 10 mg tablet 10 mg PO DAILY 03/12/23 07/07/23 rivaroxaban 20 mg tablet (Xarelto) 20 mg PO QPM 03/12/23 07/07/23 tamsulosin 0.4 mg capsule 0.4 mg PO DAILY 03/12/23 07/07/23 sertraline 100 mg tablet 100 mg PO QAM 06/15/23 07/07/23 Allergies Allergy/AdvReac Type Severity Reaction Status Date / Time aspirin Allergy Verified 07/07/23 07:09 [facility] Social History How often do you have a drink containing alcohol: never AUDIT-C Alcohol total score: 0 Non-prescribed substance use: denies use Exam Narrative: Exam Narrative: Airway- intact Breathing- nonlabored, lungs are clear Circulation- heart is regular Disability- GCS 15, no focal neurologic deficits General: Well-developed and well-nourished, no acute distress Head: Swelling abrasion of the right forehead with abrasion on the nasal bridge Eyes: Pupils are equal reactive, extraocular motions intact, conjunctiva clear ENT: 6 mm chevron laceration on the inner lower lip, no loose teeth Neck: No midline cervical tenderness, full spontaneous range of motion the neck, trachea midline, no adenopathy Heart: Regular rate and rhythm no murmurs or thrills Lungs: Clear to auscultation bilaterally without wheezes or crackles, right upper chest tenderness Abdomen: Soft, nontender, nondistended with active bowel sounds Musculoskeletal: No tenderness, deformity, or edema Neurologic: Awake, alert, and oriented x3, no gross focal neurologic deficits, cranial nerves intact as tested Psych: Mood and affect are appropriate Skin: No rashes Const: Vital Signs, click to edit/add: Vital Signs - 24 hr 07/07/23 07:09 Temperature 98 F Pulse Rate [Pulse Oximeter] 71 Respiratory Rate 20 Blood Pressure [Ri ght Upper Arm] 163/80 H Pulse Oximetry 97 Oxygen Delivery Me thod Room Air Course Course ED Course: Patient seen examined, additional information from EMS. Also reviewed prior emergency department note from June 14 when he was seen for a fall also, had some abrasions and hit his head at that time as well. Patient presents today after rolling out of bed, has abrasion contusion of the right forehead as well as nasal bridge. Also has a laceration of the inner lip on the right lower but no loose teeth or dental fractures. He is complaining of some right-sided chest pain, no deformity, no tenderness the clavicle but does have some tenderness of the ribs on that side. CT scan of the head, neck, face, and chest are ordered. Lungs are clear, no diminished breath sounds on the right to suggest pneumothorax or hemothorax at this time. Reevaluation(s) Time of Reevaluation #1: 07:28 Reevaluation #1: CT scan of the head intermittently interpreted by me is negative for acute findings. CT scan of the chest independently interpreted by me does not demonstrate hemothorax, pneumothorax, or rib fracture. Time of Reevaluation #2: 07:57 Reevaluation #2: Reviewed radiology interpretation of CT scan of the head, face, and cervical spine, all of which are negative for acute findings other than right frontal hematoma which is seen on physical exam. Time of Reevaluation #3: 08:13 Reevaluation #3: Reviewed radiology interpretation chest CT which is negative for acute traumatic findings. Patient is stable for discharge Vital Signs Vital signs: Initial Vital Signs Temperature 98 F 07/07/23 07:09 Temperature Source Temporal Artery Scan 07/07/23 07:09 Pulse Rate 71 07/07/23 07:09 Respiratory Rate 20 07/07/23 07:09 Blood Pressure 163/80 H 07/07/23 07:09 Blood Pressure Mean 107 H 07/07/23 07:09 Pulse Oximetry 97 07/07/23 07:09 Oxygen Delivery Method Room Air 07/07/23 07:09 Vital Signs Temperature 98 F 07/07/23 07:09 Pulse Rate 71 07/07/23 07:09 Respiratory Rate 20 07/07/23 07:09 Blood Pressure 163/80 H 07/07/23 07:09 Pulse Oximetry 97 07/07/23 07:09 Oxygen Delivery Method Room Air 07/07/23 07:09 Temperature 98 F 07/07/23 07:09 Pulse Rate 71 07/07/23 07:09 Respiratory Rate 20 07/07/23 07:09 Blood Pressure 163/80 H 07/07/23 07:09 Pulse Oximetry 97 07/07/23 07:09 Oxygen Delivery Method Room Air 07/07/23 07:09 Discharge Plan Discharge Instructions: Contusion in Adults (ED), Facial Contusion (ED), Dental Laceration (ED) Additional Instructions: Soft/liquid diet for 1 week Discharge Diet: Other Diet Detail: Soft/liquid diet Prescriptions: No Action donepezil 10 mg tablet 10 mg PO DAILY tamsulosin 0.4 mg capsule 0.4 mg PO DAILY Xarelto 20 mg tablet 20 mg PO QPM sertraline 100 mg tablet 100 mg PO QAM Follow Up/Referrals: Ruperto Kearns MD [Primary Care Provider] - Stand Alone Forms: [facility] Inst[facility]
--- NOTE | 2023-07-07 07:02 | CRLHL7_ITS ---
For Patients: As a result of the Century Cures Act, medical imaging exams and procedure reports are released immediately into your electronic medical record. You may view this report before your referring provider. If you have questions, please contact your health care provider. INDICATION: fall, head injury TECHNIQUE: CT cervical spine without contrast. COMPARISON: None. FINDINGS: Vertebrae: Alignment is normal. There are no fractures or suspicious bony lesions. Discs and facet joints: There are mild-moderate diffuse degenerative changes in the disc spaces and facet joints. Degenerative grade 1 anterolisthesis of C6 on C7. Extraspinal findings: Paraspinous soft tissues are unremarkable. IMPRESSION: 1. No sign of acute cervical spine fracture. 2. Multilevel degenerative spondylosis. Please note that all CT scans at this facility use dose modulation, iterative reconstruction, and/or weight-based dosing when appropriate to reduce radiation dose to as low as reasonably achievable. Dictated by Linus Munoz MD @ 07/07/2023 7:48:08 AM (Electronically Signed)
--- NOTE | 2023-07-07 07:02 | CRLHL7_ITS ---
For Patients: As a result of the Century Cures Act, medical imaging exams and procedure reports are released immediately into your electronic medical record. You may view this report before your referring provider. If you have questions, please contact your health care provider. INDICATION: fall, head injury TECHNIQUE: Head CT without contrast. COMPARISON: CT head June 15, 2023. FINDINGS: CSF spaces: Global parenchymal volume loss. Brain parenchyma and extra-axial spaces: There are nonspecific low attenuation white matter changes consistent with chronic microvascular disease. No sign of mass effect, hemorrhage, or midline shift. Skull base and calvarium: The visualized paranasal sinuses and mastoid air cells demonstrate no acute or significant findings. The visualized orbits are grossly unremarkable. Small right frontal scalp contusion without evidence of underlying skull fracture. Carotid siphon atherosclerotic calcifications. IMPRESSION: 1. Small right frontal scalp contusion without evidence of underlying skull fracture or intracranial hemorrhage. 2. Global parenchymal volume loss and chronic microvascular ischemic changes. Please note that all CT scans at this facility use dose modulation, iterative reconstruction, and/or weight-based dosing when appropriate to reduce radiation dose to as low as reasonably achievable. Dictated by Linus Munoz MD @ 07/07/2023 7:43:58 AM (Electronically Signed)
--- NOTE | 2023-07-07 07:02 | CRLHL7_ITS ---
For Patients: As a result of the Century Cures Act, medical imaging exams and procedure reports are released immediately into your electronic medical record. You may view this report before your referring provider. If you have questions, please contact your health care provider. INDICATION: fall, right chest pain rt shoulder pain TECHNIQUE: CT chest without contrast. COMPARISON: None. FINDINGS: Lungs and pleura: Marked elevation of left hemidiaphragm with basilar atelectasis. No pleural effusions, pleural thickening, or pneumothorax. Heart and vasculature: Heart size is normal. Thoracic aorta and pulmonary artery are normal in caliber.Coronary artery and thoracic aortic calcifications. Lymph nodes/mediastinum: No mediastinal, hilar, or axillary adenopathy. Chest wall: No masses. Upper abdomen: No significant findings. Bones: Age-indeterminate mild T8 anterior wedge compression deformity. Suspect that this is chronic given appearance but cannot be certain. IMPRESSION: 1. Age-indeterminate mild T8 anterior wedge compression deformity. Suspect that this is chronic given appearance but cannot be certain. 2. Otherwise, no evidence of traumatic injury to the chest on this unenhanced CT. 3. Coronary artery and thoracic aortic calcifications. 4. Marked elevation of left hemidiaphragm with basilar atelectasis. Please note that all CT scans at this facility use dose modulation, iterative reconstruction, and/or weight-based dosing when appropriate to reduce radiation dose to as low as reasonably achievable. Dictated by Linus Munoz MD @ 07/07/2023 8:12:48 AM (Electronically Signed)
--- NOTE | 2023-07-07 07:04 | CRLHL7_ITS ---
For Patients: As a result of the Cures Act, medical imaging exams and procedure reports are released immediately into your electronic medical record. You may view this report before your referring provider. If you have questions, please contact your health care provider. INDICATION: fall, head injury TECHNIQUE: CT maxillofacial without contrast. COMPARISON: None. FINDINGS: Facial bones: No fractures or bone lesions. Specifically the nasal bones, temporomandibular joints, maxilla and mandible appear intact. Orbits and globes: Unremarkable. Globes are intact. No sign of intraorbital hemorrhage or emphysema. Sinuses: Minimal mucosal thickening of the maxillary sinuses. Soft tissues: Small right frontal scalp contusion. IMPRESSION: 1. No evidence of facial fracture. 2. Small right frontal scalp contusion. Please note that all CT scans at this facility use dose modulation, iterative reconstruction, and/or weight-based dosing when appropriate to reduce radiation dose to as low as reasonably achievable. Dictated by Linus Munoz MD @ 07/07/2023 7:54:09 AM (Electronically Signed)
[2023-07-07 07:09] VITALS: BP 163/80; PULSE 71; RESP 20; TEMP 36.6; O2SAT 97
--- OUTSIDE RECORDS SUMMARY | 2023-07-07 07:31 | XMS_ITS | Clinical Summary ---
Author Organization [employer] Address [place], [place] [address] Care Team Providers Care Cripple Chaser Name Role Phone Ruperto Kearns MD Primary Care Provider [phone]- [phone] Allergies Active Allergy Reactions Criticality Noted Date Comments Aspirin Hives 12/01/2022 Medications Medication Sig Dispensed Refills Start Date End Date Status rivaroxaban (Xarelto) 20 mg tabletIndications:Pu lmonary embolism, bilateral (HC) Take 1 Tablet (20 mg) by mouth once daily with evening meal. 90 Tablet 3 01/17/2023 Active donepeziL (ARICEPT) 10 mg tabletIndications:De mentia in Alzheimer's disease (HC) Take 1 Tablet (10 mg) by mouth at bedtime. 90 Tablet 3 02/28/2023 Active sertraline (ZOLOFT) 100 mg tabletIndications:De pression, recurrent (HC) Take 1 Tablet (100 mg) by mouth every morning. 90 Tablet 3 05/02/2023 Active tamsulosin (FLOMAX) 0.4 mg capsuleIndications:B PH without urinary obstruction Take 2 Capsules (0.8 mg) by mouth once daily after a meal. 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 BPH without urinary obstruction 12/01/2022 Encounters Date Type Department Care Team Description 06/15/2023 Orders Only [facility] Scanner 1 scan: (1-Ord) [facility], CT HEAD/BRAIN WO, 06/15/2023 06/06/2023 Refill [facility] [address] [facility] [place] [address] Ruperto Kearns MD Refill Request (Donepezil) 05/29/2023 9:35 AM CDT Office Visit [facility] [address] [place] [address] Ruperto Kearns MD Medication Management (Routine follow up) 05/29/2023 Travel 05/02/2023 9:40 AM CDT Telemedicine [facility] [address] [place] [address] Ruperto Kearns MD Depression; Telehealth (No vitals obtained for virtual visit) 05/02/2023 Travel 04/30/2023 9:00 AM CDT Office Visit [facility] [address] [place] [address] Gopal Jiang, AuD Hearing Aid 04/30/2023 Travel from Last 3 Months Immunizations Name [...] Description 08/14/2023 9:35 AM CDT Office Visit [facility] [address] [place] [address] Ruperto Kearns MD [address] [place] [address] Health Maintenance Due Date Last Done Comments [...] Procedure Name Priority Date/Time Associated Diagnosis Comments SCAN-CT INTERPRETATION 12:00 AM CDT URINE CULTURE Routine 05/29/2023 10:59 AM CDT Nocturnal enuresis UA W/ SEDIMENT EXAM REFLEXED PER CRITERIA Routine 05/29/2023 10:59 AM CDT Nocturnal enuresis from Last 3 Months Results * SCAN-CT INTERPRETATION (06/15/2023 12:00 AM CDT) Anatomical Region Laterality Modality Other Scanner OTHER * URINE CULTURE (05/29/2023 10:59 AM CDT) CULTURE No growth (<1,000 CFU/mL) 05/30/2023 3:07 PM CDT [facility] Urine URINE SPECIMEN / Unknown Non-Blood / Unknown 05/29/2023 10:59 AM CDT 05/29/2023 10:59 AM CDT Ruperto Kearns MD MICROBIOLOGY [facility] [address] [place] [address], [place] * UA W/ SEDIMENT EXAM REFLEXED PER CRITERIA (05/29/2023 10:59 AM CDT) COLOR Yellow Yellow Color 05/29/2023 11:05 AM CDT [facility] CLARITY Clear Clear Clarity 05/29/2023 11:05 AM CDT [facility] SPECIFIC GRAVITY,URINE 1.025 1.010, 1.015, 1.020, 1.025 05/29/2023 11:05 AM CDT [facility] PH,URINE 5.5 6.0, 7.0, 8.0, 5.5, 6.5, 7.5, 8.5 05/29/2023 11:05 AM CDT [facility] UROBILINOGEN, QUALITATIVE Normal Normal EU/dl 05/29/2023 11:05 AM CDT [facility] PROTEIN, URINE Negative Negative mg/dL 05/29/2023 11:05 AM CDT [facility] GLUCOSE, URINE Negative Negative mg/dL 05/29/2023 11:05 AM CDT [facility] KETONES,URINE Negative Negative mg/dL 05/29/2023 11:05 AM CDT [facility] BILIRUBIN,URI NE Negative Negative 05/29/2023 11:05 AM CDT [facility] OCCULT BLOOD,URINE Negative Negative 05/29/2023 11:05 AM CDT [facility] NITRITE Negative Negative 05/29/2023 11:05 AM CDT [facility] LEUKOCYTE ESTERASE Negative Negative 05/29/2023 11:05 AM T [facility] Urine URINE SPECIMEN / Unknown Non-Blood / Unknown 05/29/2023 10:59 AM CDT 05/29/2023 10:59 AM CDT Ruperto Kearns MD URINE [facility] [address] [place] [address], [place] [phone] from Last 3 Months Care Teams Cripple Chaser Relationship Specialty Start Date End Date Ruperto Kearns MD [address] [place] [address] PCP - General Family Practice 09/05/22
== END 2023-07-07 08:34 | disposition home or self-care (01) ==
LOC: ED 07:29
PROVIDERS: Emergency Provider Family Medicine; PCP Family Medicine
DX: R07.89 Other chest pain (principal); S01.511A Laceration without foreign body of lip, initial encounter; W06.XXXA Fall from bed, initial encounter
CPT/HCPCS: 70450; 70486; 71250; 72125; 99285; 99291; G0390

== ENCOUNTER 2023-10-23 13:45 | Outpatient (RCR) | payer MEDICARE, BC, SELFPAY | END 2024-02-12 07:34 | disposition home or self-care (01) | PROVIDERS: PCP Family Medicine; Visit Provider Family Medicine | DX: R26.81 Unsteadiness on feet (principal); Z91.81 History of falling; W19.XXXD Unspecified fall, subsequent encounter; Z51.89 Encounter for other specified aftercare | CPT/HCPCS: 97110; 97112; 97116; 97161 ==

== ENCOUNTER 2023-10-29 14:29 | Outpatient (CLI) | payer MEDICARE, BC, SELFPAY ==
--- OUTSIDE RECORDS SUMMARY | 2023-10-31 00:56 | XMS_ITS | Clinical Summary ---
Author Organization [facility] Address [place], [place] [address] Care Team Providers Care Shampoo Technician Name Role Phone Ruperto Kearns MD Primary Care Provider [phone] Allergies Active Allergy Reactions Criticality Noted Date [...] Encounters Date Type Department Care Team Description 10/29/2023 Orders Only [facility] Scanner 1 scan: (1-Ord) [facility], US ABDOMEN LIMITED , 10/29/2023 10/29/2023 Orders Only [facility] Scanner 1 scan: (1-Ord) [facility], CT HEAD/BRAIN WO CON, 10/29/2023 10/29/2023 Orders Only [facility] Scanner 1 scan: (1-Ord) [place], XR CHEST 1V PORTABLE, 10/29/2023 08/14/2023 9:35 AM CDT Office Visit [facility] [address] [place] [address] Ruperto Kearns MD Medication Management (Routine follow [...] st Contact Info) Description 01/21/2024 9:15 AM LCAC OPERATOR Orders Only [facility] [address] [place] [address] Lab, [place] 01/23/2024 9:15 AM LCAC OPERATOR Office Visit [facility] [address] [place] [address] Ruperto Kearns MD [address] [place] [address] Health Maintenance Due Date Last Done Comments RSV vaccine for adults or (1 - 1-dose 60+ series) 1998 Pneumococcal series for age 65+ (1 of 1 - PCV) 2003 Zoster (shingles) series for age 50+ (2 of 2) 09/23/2019 07/29/2019 COVID-19 vaccine series (6 - 2022-24 season) 2023 11/27/2022, 05/30/2021, 11/22/2020, Additional history exists Influenza for age 65+ 10/14/2023 11/30/2022 , 01/04/2022, 12/02/2020, Additional history exists BMI (ht and wt on same day) for age 18+ 12/02/2023 12/01/2022 Medicare Wellness for age 65+ 01/18/2024 01/17/2023 Depression screening for age 12+ 08/13/2024 08/14/2023, 05/29/2023, 05/02/2023, Additional history exists Tetanus booster 09/30/2026 09/30/2016, 07/19/2004 Tdap Completed 09/30/2016 Procedures Procedure Name Priority Date/Time Associated Diagnosis Comments SCAN-ULTRASOUND REPORT 12:00 AM CDT SCAN-CT INTERPRETATION 12:00 AM CDT SCAN-RADIOLOGY REPORT 10/29/2023 12:00 AM CDT from Last 3 Months Results * SCAN-RADIOLOGY REPORT (10/29/2023 12:00 AM CDT) Anatomical Region Laterality Modality Other Scanner OTHER * SCAN-ULTRASOUND REPORT (10/29/2023 12:00 AM CDT) Anatomical Region Laterality Modality Other Scanner OTHER * SCAN-CT INTERPRETATION (10/29/2023 12:00 AM CDT) Anatomical Region Laterality Modality Other Scanner OTHER from Last 3 Months Care Teams Shampoo Technician Relationship Specialty Start Date End Date Ruperto Kearns MD [address] [place] [address] PCP - General Family Practice 09/05/22
== END 2023-10-29 14:30 | disposition home or self-care (01) ==
LOC: AMB 10-31 00:55
PROVIDERS: PCP Family Medicine; Visit Provider Family Medicine
DX: R53.1 Weakness (principal); M79.605 Pain in left leg
CPT/HCPCS: A0425; A0429

== ENCOUNTER 2023-10-29 15:09 | Inpatient (IN) | payer MEDICARE, BC, SELFPAY ==
[2023-10-29] VITALS (29 sets, daily range): BP systolic 109–157; BP diastolic 66–94; PULSE 98–137; RESP 18–24; TEMP 36.6–38.6; O2SAT 90–95; BMI 30.9
--- NOTE | 2023-10-29 15:22 | ED_ITS ---
HPI - Weakness General Time Seen by Provider: 15:22 <Mirlande Uriostegui MD - Last Filed: 11/01/23 14:08> Date Seen: 10/29/23 <Mirlande Uriostegui MD - Last Filed: 11/01/23 14:08> Chief complaint: Weakness <Mirlande Uriostegui MD - Last Filed: 11/01/23 14:08> Stated complaint: fall <Mirlande Uriostegui MD - Last Filed: 11/01/23 14:08> Time Seen by Provider: 10/29/23 15:18 <Mirlande Uriostegui MD - Last Filed: 11/01/23 14:08> Source: patient and RN notes reviewed <Mirlande Uriostegui MD - Last Filed: 11/01/23 14:08> Mode of arrival: ambulatory <Mirlande Uriostegui MD - Last Filed: 11/01/23 14:08> Limitations: no limitations <Mirlande Uriostegui MD - Last Filed: 11/01/23 14:08> History of Present Illness HPI Narrative: This 83-year-old male is brought in by EMS from [facility] for 2 falls today and patient feeling weak. On arrival patient is febrile here. He states he has felt achy the last couple a days. He has not noted a fever. When I ask if he has abdominal pain he states ?probably?. He he then states that he has not eaten all day., asked if he has any abdominal pain at this time he states no. He has had no nausea vomiting, no diarrhea. Denies any cough for urinary symptoms. Denies any sore throat, no congestion. He told nursing staff that he might have some stomach problems. Patient does have dementia. Per EMS his heart rate was 130-140, EKG was not done. Patient is anticoagulated on Xarelto. He does have a history of falls. <Mirlande Uriostegui MD - Last Filed: 11/01/23 14:08> Related Data Home medications: Home Medications ?Medication ?Instructions ?Recorded ?Confirmed donepezil 10 mg tablet 10 mg PO HS 03/12/23 10/29/23 rivaroxaban 20 mg tablet (Xarelto) 20 mg PO QPM 03/12/23 10/29/23 tamsulosin 0.4 mg capsule 0.8 mg PO DAILY 03/12/23 10/29/23 sertraline 100 mg tablet 100 mg PO QAM 06/15/23 10/29/23 Previous Rx's ?Medication ?Instructions ?Recorded cephalexin 500 mg capsule 500 mg PO TID #15 caps 11/01/23 <Mirlande Uriostegui MD - Last Filed: 11/01/23 14:08> Allergies/Adverse reactions: Allergies Allergy/AdvReac Type Severity Reaction Status Date / Time aspirin Allergy Verified 07/07/23 07:09 <Mirlande Uriostegui MD - Last Filed: 11/01/23 14:08> [facility] Medical History: Medical History Depression, recurrent ?F33.9 - Major depressive disorder, recurrent, unspecified (ICD-10) Alzheimer dementia ?G30.9 - Alzheimer's disease, unspecified (ICD-10) ?F02.80 - Dementia in other diseases classified elsewhere, unspecified severity, without behavioral disturbance, psychotic disturbance, mood disturbance, and anxiety (ICD-10) BPH without obstruction/lower urinary tract symptoms ?N40.0 - Benign prostatic hyperplasia without lower urinary tract symptoms (ICD-10) Pulmonary embolism ?I26.99 - Other pulmonary embolism without acute cor pulmonale (ICD-10) COVID-19 ?U07.1 - COVID-19 (ICD-10) Health care directive on file ?Z78.9 - Other specified health status (ICD-10) <Mirlande Uriostegui MD - Last Filed: 11/01/23 14:08> Surgical History: Surgical History (Updated 10/29/23 @ 23:16 by Samantha Marie MD) H/O abdominal surgery ?Z98.890 - Other specified postprocedural states (ICD-10) <Mirlande Uriostegui MD - Last Filed: 11/01/23 14:08> Social History: Social History (Updated 10/29/23 @ 23:17 by Samantha Marie MD) Narrative: Living at [facility] with his . His daughter, Nargis, is here with him today. Denies tobacco or alcohol use. What is your current living situation?: I presently have a place to live Problems where you live: no known problems Problems where you live details: N/A In the past 12 months, utilities in danger of being shut off: no In past 12 months, lack of transportation kept you from medical appts, meetings, work, or getting things needed for daily living: no In the past 12 mos, have been you worried that your food would run out before you had money to buy more?: never true In the past 12 mos, the food you bought just didn't last and you didn't have money to buy more?: never true Smoking Status: Never smoker Do you use any of these nicotine containing products: None Second hand tobacco smoke exposure: No How often do you have a drink containing alcohol: monthly or less How often do you have six or more drinks on one occasion: Never AUDIT-C Alcohol total score: 1 Non-prescribed substance use: denies use How often does anyone, including family, friends and others, physically hurt you : never How often does anyone, including family, friends and others, insult or talk down to you: never How often does anyone, including family, friends and others, threaten you with harm: never How often does anyone, including family, friends and others, scream or curse at you: never service: No <Mirlande Uriostegui MD - Last Filed: 11/01/23 14:08> Exam Const: Vital Signs, click to edit/add: Vital Signs - 24 hr 10/29/23 15:17 10/29/23 15:23 10/29/23 15:24 Temperature 100.9 F H Pulse Rate 128 H Pulse Rate [Pulse Oximeter] 121 H Respiratory Rate 20 Blood Pressure 151/91 H Blood Pressure [Ri ght Upper Arm] 146/84 H Pulse Oximetry 92 93 Oxygen Delivery Me thod Room Air 10/29/23 15:30 10/29/23 15:30 10/29/23 15:31 Temperature Pulse Rate 121 H 113 H Pulse Rate [Pulse Oximeter] Respiratory Rate Blood Pressure 157/94 H Blood Pressure [Ri ght Upper Arm] Pulse Oximetry 95 92 92 Oxygen Delivery Me thod 10/29/23 15:45 10/29/23 16:00 10/29/23 16:01 Temperature Pulse Rate 117 H 117 H 112 H Pulse Rate [Pulse Oximeter] Respiratory Rate Blood Pressure 151/88 H Blood Pressure [Ri ght Upper Arm] Pulse Oximetry 94 91 90 Oxygen Delivery Me thod 10/29/23 16:15 10/29/23 16:30 10/29/23 16:31 Temperature Pulse Rate 124 H 117 H 118 H Pulse Rate [Pulse Oximeter] Respiratory Rate Blood Pressure 127/91 H Blood Pressure [Ri ght Upper Arm] Pulse Oximetry 91 92 92 Oxygen Delivery Ne thod 10/29/23 16:45 10/29/23 16:50 10/29/23 17:00 Temperature 101.4 F H Pulse Rate 113 H 136 H Pulse Rate [Pulse Oximeter] Respiratory Rate Blood Pressure Blood Pressure [Ri ght Upper Arm] Pulse Oximetry 93 91 Oxygen Delivery Me thod 10/29/23 17:01 10/29/23 17:02 10/29/23 17:15 Temperature Pulse Rate 137 H 125 H 134 H Pulse Rate [Pulse Oximeter] Respiratory Rate Blood Pressure 145/84 H Blood Pressure [Ri ght Upper Arm] Pulse Oximetry 95 93 [facility] 17:30 10/29/23 17:31 10/29/23 17:45 Temperature Pulse Rate 134 H 135 H 133 H Pulse Rate [Pulse Oximeter] Respiratory Rate Blood Pressure 140/75 H Blood Pressure [Ri ght Upper Arm] Pulse Oximetry 94 94 93 Oxygen Delivery Ne thod 10/29/23 18:00 Temperature 101.2 F H Pulse Rate Pulse Rate [Pulse Oximeter] Respiratory Rate 18 Blood Pressure Blood Pressure [Ri ght Upper Arm] Pulse Oximetry [facility] This 83-year-old male is seen in exam room 3. He is lying in the bed but alert, interactive. Sclera clear, pupils equal round reactive, conjugate gaze. Symmetrical facial function. Face is slightly flushed but no rash. Skin is warm and dry. Neck without any jugular venous distension, no cervical adenopathy, no thyromegaly masses or nodules. Erythematous lesions left neck that certainly could be a skin cancer, is not infected. With assistance I am able to sit him up, poor effort but do not hear any wheezing or crackles, no tachypnea. CV is fast but regular, harsh systolic murmur heard, normal S1-S2, no S3-S4. Abdomen looks slightly distended but is completely soft, he has no complaints of any abdominal pain on palpation, no rebound or guarding. Bowel sounds are present. Do not feel any masses or any organomegaly. He has trace pretibial edema along his lower shins, no other skin changes noted. <Mirlande Uriostegui MD - Last Filed: 11/01/23 14:08> Vital Signs, click to edit/add: Vital Signs - 24 hr 10/29/23 15:17 10/29/23 15:23 10/29/23 15:24 Temperature 100.9 F H Pulse Rate 128 H Pulse Rate [Pulse Oximeter] 121 H Respiratory Rate 20 Blood Pressure 151/91 H Blood Pressure [Ri ght Upper Arm] 146/84 H Pulse Oximetry 92 93 Oxygen Delivery Me thod Room Air 10/29/23 15:30 10/29/23 15:30 10/29/23 15:31 Temperature Pulse Rate 121 H 113 H Pulse Rate [Pulse Oximeter] Respiratory Rate Blood Pressure 157/94 H Blood Pressure [Ri ght Upper Arm] Pulse Oximetry 95 92 92 Oxygen Delivery Me thod 10/29/23 15:45 10/29/23 16:00 10/29/23 16:01 Temperature Pulse Rate 117 H 117 H 112 H Pulse Rate [Pulse Oximeter] Respiratory Rate Blood Pressure 151/88 H Blood Pressure [Ri ght Upper Arm] Pulse Oximetry 94 91 90 Oxygen Delivery Me thod 10/29/23 16:15 10/29/23 16:30 10/29/23 16:31 Temperature Pulse Rate 124 H 117 H 118 H Pulse Rate [Pulse Oximeter] Respiratory Rate Blood Pressure 127/91 H Blood Pressure [Ri ght Upper Arm] Pulse Oximetry 91 92 92 Oxygen Delivery Me thod 10/29/23 16:45 10/29/23 16:50 10/29/23 17:00 Temperature 101.4 F H Pulse Rate 113 H 136 H Pulse Rate [Pulse Oximeter] Respiratory Rate Blood Pressure Blood Pressure [Ri ght Upper Arm] Pulse Oximetry 93 91 Oxygen Delivery Me thod 10/29/23 17:01 10/29/23 17:02 10/29/23 17:15 Temperature Pulse Rate 137 H 125 H 134 H Pulse Rate [Pulse Oximeter] Respiratory Rate Blood Pressure 145/84 H Blood Pressure [Ri ght Upper Arm] Pulse Oximetry 95 93 92 Oxygen Delivery Me thod 10/29/23 17:30 10/29/23 17:31 10/29/23 17:45 Temperature Pulse Rate 134 H 135 H 133 H Pulse Rate [Pulse Oximeter] Respiratory Rate Blood Pressure 140/75 H Blood Pressure [Ri ght Upper Arm] Pulse Oximetry 94 94 93 Oxygen Delivery Me thod 10/29/23 18:00 Temperature 101.2 F H Pulse Rate Pulse Rate [Pulse Oximeter] Respiratory Rate 18 Blood Pressure Blood Pressure [Ri ght Upper Arm] Pulse Oximetry Oxygen Delivery Me thod <Aubrey Joshi MD - Last Filed: 10/29/23 18:27> Documenting provider has reviewed patient's vital signs: yes <Mirlande Uriostegui MD - Last Filed: 11/01/23 14:08> Course Course ED Course: This [age]-year-old male is febrile, obviously infectious etiology need to be considered. His sources nonfocal at this point. Certainly this could be COVID or other viral illness, pneumonia, urinary. Will get a full complement of labs. Will give him some Tylenol and see how his pulse response to that. Blood culture not done at this point due to the severe shortage but may need to be considered depending on his workup here. Have done a procalcitonin. We certainly are seen significant COVID, patient is not hypoxic. Will have him on cardiac monitoring and pulse oximetry. Will get an EKG to define his tachyc ardia. <Mirlande Uriostegui MD - Last Filed: 11/01/23 14:08> Reevaluation(s) Time of Reevaluation #1: 16:12 <Mirlande Uriostegui MD - Last Filed: 11/01/23 14:08> Reevaluation #1: Patient's lactate is mildly elevated at 2.9 in his white count is significantly elevated. Have ordered a L of normal saline over 2 hours at this point, will ask nursing staff to do in and out catheter. If there is no evidence of infection on the chest x-ray or urine, likely need to proceed with CT imaging. <Mirlande Uriostegui MD - Last Filed: 11/01/23 14:08> Vital Signs Vital signs: Initial Vital Signs Temperature 100.9 F H 10/29/23 15:17 Temperature Source Temporal Artery Scan 10/29/23 15:17 Pulse Rate 121 H 10/29/23 15:17 Respiratory Rate 20 10/29/23 15:17 Blood Pressure 146/84 H 10/29/23 15:17 Blood Pressure Mean 104 10/29/23 15:17 Blood Pressure Position Supine 10/29/23 15:17 Pulse Oximetry 92 10/29/23 15:17 Oxygen Delivery Method Room Air 10/29/23 15:17 Vital Signs Temperature 100.9 F H 10/29/23 15:17 Pulse Rate 121 H 10/29/23 15:17 Respiratory Rate 20 10/29/23 15:17 Blood Pressure 146/84 H 10/29/23 15:17 Pulse Oximetry 92 10/29/23 15:17 Oxygen Delivery Method Room Air 10/29/23 15:17 Temperature 97.8 F 11/01/23 08:07 Pulse Rate 82 11/01/23 08:07 Respiratory Rate 20 11/01/23 08:07 Blood Pressure 118/79 11/01/23 08:07 Pulse Oximetry 94 11/01/23 08:07 Oxygen Delivery Method Room Air 11/01/23 08:07 Oxygen Flow Rate 1 10/31/23 02:24 <Mirlande Uriostegui MD - Last Filed: 11/01/23 14:08> Initial Vital Signs Temperature 100.9 F H 10/29/23 15:17 Temperature Source Temporal Artery Scan 10/29/23 15:17 Pulse Rate 121 H 10/29/23 15:17 Respiratory Rate 20 10/29/23 15:17 Blood Pressure 146/84 H 10/29/23 15:17 Blood Pressure Mean 104 10/29/23 15:17 Blood Pressure Position Supine 10/29/23 15:17 Pulse Oximetry 92 10/29/23 15:17 Oxygen Delivery Method Room Air 10/29/23 15:17 Vital Signs Temperature 100.9 F H 10/29/23 15:17 Pulse Rate 121 H 10/29/23 15:17 Respiratory Rate 20 10/29/23 15:17 Blood Pressure 146/84 H 10/29/23 15:17 Pulse Oximetry 92 10/29/23 15:17 Oxygen Delivery Method Room Air 10/29/23 15:17 Temperature 97.8 F 11/01/23 08:07 Pulse Rate 82 11/01/23 08:07 Respiratory Rate 20 11/01/23 08:07 Blood Pressure 118/79 11/01/23 08:07 Pulse Oximetry 94 11/01/23 08:07 Oxygen Delivery Method Room Air 11/01/23 08:07 Oxygen Flow Rate 1 10/31/23 02:24 <Aubrey Joshi MD - Last Filed: 10/29/23 18:27> Medications Administered Medications: Discontinued Medications Generic Name Dose Route Start Last Admin Trade Name Freq PRN Reason Stop Dose Admin Acetaminophen 1,000 mg 10/29/23 15:34 10/29/23 15:48 Acetaminophen 500 Mg Tablet PO 10/29/23 15:35 1,000 mg ONCE ONE Administration Acetaminophen 975 mg 10/29/23 20:28 10/30/23 21:44 Acetaminophen 325 Mg Tablet PO 975 mg Q6H PRN Administration pain or fever Donepezil HCl 10 mg 10/29/23 23:15 10/31/23 20:30 Donepezil 10 Mg Tablet PO 10 mg HS LORI Administration Sodium Chloride 1,000 mls @ 500 mls/hr 10/29/23 16:11 10/29/23 18:30 0.9 % Sodium Chloride 1000 Ml IV 10/29/23 18:10 Infused .Q2H LORI Infusion Ceftriaxone Sodium 1 gm/ 100 mls @ 200 mls/hr 10/29/23 18:45 10/29/23 22:37 Sodium Chloride IVPB 10/29/23 19:14 Infused ONCE ONE Infusion Ceftriaxone Sodium 1 gm/ 100 mls @ 200 mls/hr 10/29/23 18:25 10/29/23 21:20 Sodium Chloride IVPB 10/29/23 18:26 Infused ONCE ONE Infusion Ceftriaxone Sodium 2 gm/ 100 mls @ 200 mls/hr 10/30/23 12:00 10/31/23 02:05 Sodium Chloride IVPB Infused Q24H LORI Infusion Sodium Chloride 1,000 mls @ 500 mls/hr 10/30/23 23:24 10/31/23 02:05 0.9 % Sodium Chloride 1000 Ml IV 10/31/23 01:23 Infused .Q2H LORI Infusion Ceftriaxone Sodium 2 gm/ 100 mls @ 200 mls/hr 10/31/23 13:05 11/01/23 10:39 Sodium Chloride IVPB 200 mls/hr Q24H LORI Administration Melatonin 3 mg 10/29/23 20:28 10/31/23 20:30 Melatonin 3 Mg Tablet PO 3 mg HS PRN Administration Insomnia Omeprazole 20 mg 10/30/23 11:40 10/30/23 12:43 Omeprazole [address] PO 10/30/23 11:41 20 mg ONCE ONE Administration Omeprazole 20 mg 10/31/23 07:00 11/01/23 06:24 Omeprazole [address] PO 20 mg DAILY@0700 LORI Administration Rivaroxaban 20 mg 10/29/23 23:15 10/31/23 18:19 Rivaroxaban 10 Mg Tablet PO 20 mg QPM LORI Administration Sertraline HCl 100 mg 10/30/23 09:00 11/01/23 08:15 Sertraline 100 Mg Tablet PO 100 mg QAM LORI Administration Sodium Chloride 5 ml 10/29/23 21:00 11/01/23 08:15 Sodium Chloride 0.9 % (Flush) 10 Ml Syringe IVF 5 ml BID LORI Administration Sodium Chloride 250 ml 10/30/23 00:15 11/01/23 03:14 0.9 % Sodium Chloride 250 Ml IV Not Given Q24H LORI Tamsulosin HCl 0.8 mg 10/30/23 09:00 11/01/23 08:15 Tamsulosin Hcl 0.4 Mg Capsule PO 0.8 mg DAILY LORI Administration <Mirlande Uriostegui MD - Last Filed: 11/01/23 14:08> Discontinued Medications Generic Name Dose Route Start Last Admin Trade Name Freq PRN Reason Stop Dose Admin Acetaminophen 1,000 mg 10/29/23 15:34 10/29/23 15:48 Acetaminophen 500 Mg Tablet PO 10/29/23 15:35 1,000 mg ONCE ONE Administration Acetaminophen 975 mg 10/29/23 20:28 10/30/23 21:44 Acetaminophen 325 Mg Tablet PO 975 mg Q6H PRN Administration pain or fever Donepezil HCl 10 mg 10/29/23 23:15 10/31/23 20:30 Donepezil 10 Mg Tablet PO 10 mg HS LORI Administration Sodium Chloride 1,000 mls @ 500 mls/hr 10/29/23 16:11 10/29/23 18:30 0.9 % Sodium Chloride 1000 Ml IV 10/29/23 18:10 Infused .Q2H LORI Infusion Ceftriaxone Sodium 1 gm/ 100 mls @ 200 mls/hr 10/29/23 18:45 10/29/23 22:37 Sodium Chloride IVPB 10/29/23 19:14 Infused ONCE ONE Infusion Ceftriaxone Sodium 1 gm/ 100 mls @ 200 mls/hr 10/29/23 18:25 10/29/23 21:20 Sodium Chloride IVPB 10/29/23 18:26 Infused ONCE ONE Infusion Ceftriaxone Sodium 2 gm/ 100 mls @ 200 mls/hr 10/30/23 12:00 10/31/23 02:05 Sodium Chloride IVPB Infused Q24H LORI Infusion Sodium Chloride 1,000 mls @ 500 mls/hr 10/30/23 23:24 10/31/23 02:05 0.9 % Sodium Chloride 1000 Ml IV 10/31/23 01:23 Infused .Q2H LORI Infusion Ceftriaxone Sodium 2 gm/ 100 mls @ 200 mls/hr 10/31/23 13:05 11/01/23 10:39 Sodium Chloride IVPB 200 mls/hr Q24H LORI Administration Melatonin 3 mg 10/29/23 20:28 10/31/23 20:30 Melatonin 3 Mg Tablet PO 3 mg HS PRN Administration Insomnia Omeprazole 20 mg 10/30/23 11:40 10/30/23 12:43 Omeprazole [address] PO 10/30/23 11:41 20 mg ONCE ONE Administration Omeprazole 20 mg 10/31/23 07:00 11/01/23 06:24 Omeprazole [address] PO 20 mg DAILY@0700 LORI Administration Rivaroxaban 20 mg 10/29/23 23:15 10/31/23 18:19 Rivaroxaban 10 Mg Tablet PO 20 mg QPM LORI Administration Sertraline HCl 100 mg 10/30/23 09:00 11/01/23 08:15 Sertraline 100 Mg Tablet PO 100 mg QAM LORI Administration Sodium Chloride 5 ml 10/29/23 21:00 11/01/23 08:15 Sodium Chloride 0.9 % (Flush) 10 Ml Syringe IVF 5 ml BID LORI Administration Sodium Chloride 250 ml 10/30/23 00:15 11/01/23 03:14 0.9 % Sodium Chloride 250 Ml IV Not Given Q24H LORI Tamsulosin HCl 0.8 mg 10/30/23 09:00 11/01/23 08:15 Tamsulosin Hcl 0.4 Mg Capsule PO 0.8 mg DAILY LORI Administration <Aubrey Joshi MD - Last Filed: 10/29/23 18:27> MDM - Weakness MDM Narrative Medical decision making narrative: This patient comes in as a poor historian but describes some weakness and not feeling right for several days. He arrives with increased heart rate and a fever and is tripping triggers for sepsis workup. His initial lactate returned at 2.9. The patient received a L of normal saline intravenously but Dr. Patricio did not want to give more fluids as he has findings of congestive heart failure. The patient did have a culture drawn and after culture was obtained he did receive a g of Rocephin intravenously. Repeat lactate is ordered and pending. Urinalysis shows evidence of urinary tract infection as the cause for his symptoms. I did speak with the hospitalist on-call, Dr. Marie, who agrees to his admission. <Aubrey Joshi MD - Last Filed: 10/29/23 18:27> Lab Data Attestation: I reviewed the patient's lab results. <Mirlande Uriostegui MD - Last Filed: 11/01/23 14:08> Labs: Lab Results 10/29/23 10/29/23 10/29/23 Range/Units 15:40 16:43 18:25 WBC 19.38 H (4.50-11.00) K/uL RBC 5.20 (4.30-5.90) m/uL Hgb 16.2 (13.5-17.5) gm/dL Hct 50.6 (37.0-53.0) % MCV 97 (80-100) fL MCH 31 (26-34) pg MCHC 32 (32-36) gm/dL RDW Coeff of Marisa 13.3 (11.5-15.5) % Plt Count 180 (140-440) K/uL Neut % (Auto) 89.8 H (42.0-72.0) % Lymph % (Auto) 2.3 L (20-44) % Clarke % (Auto) 7.2 (0.0-11.0) % Eos % (Auto) 0.0 (0.0-7.0) % Baso % (Auto) 0.2 (0.0-3.0) % Neut # (Auto) 17.40 H (1.7-7.0) K/uL Lymph # (Auto) 0.40 L (0.90-2.90) K/uL Clarke # (Auto) 1.40 H (0.00-0.90) K/UL Eos # (Auto) 0.00 (0.00-0.50) K/uL Baso # (Auto) 0.00 (0.00-0.30) K/uL Abs Immat Gran (auto) 0.10 (0.00-0.30) K/uL Imm/Tot Granulo (auto) 0.5 % Sodium 137 (135-149) mmol/L Potassium 4.1 (3.6-5.1) mmol/L Chloride 98 (96-114) mmol/L Carbon Dioxide 28 (20-32) mmol/L Anion Gap 11 (7-15) mEq/L BUN 19 (7-30) mg/dL Creatinine 1.1 (0.5-1.5) mg/dL Estimated Creat Clear Estimated GFR 66 ml/min Glucose 121 H (60-115) mg/dL Lactate 2.9 H 1.1 (0.5-1.9) mmol/L Calcium 9.3 (8.4-10.6) mg/dL Total Bilirubin 1.2 (0.1-1.5) mg/dL AST 24 (12-35) U/L ALT 16 (4-50) U/L Alkaline Phosphatase 69 (40-150) U/L Troponin I < 0.01 L (0.01-0.04) ng/mL C-Reactive Protein 3.0 H (0.5-1.0) mg/dL NT-Pro-B Natriuret Pep 496 pg/mL Total Protein 7.7 (6.0-8.3) g/dL Albumin 4.5 (3.3-5.0) g/dL Procalcitonin 0.13 (<0.50) ng/mL Urine Color Yellow (Yellow) Urine Appearance Clear (Clear) Urine pH 7.5 (5.0-8.5) Ur Specific [employer] 1.020 (1.000-1.030) Urine Protein Trace A (Negative) Urine Glucose (UA) Negative (Negative) Urine Ketones Negative (Negative) Urine Blood Trace-intact A (Negative) Urine Nitrite Positive A (Negative) Urine Bilirubin Negative (Negative) Urine Urobilinogen 2.0 A (0.2-1.0) Ur Leukocyte Esterase Trace A (Negative) Urine RBC 0-2 (0-2) Urine WBC 5-10 A (0-5) Ur Squamous Epith Cells None (None-Few) Urine Bacteria Moderate A (None) SARS-CoV-2 (PCR) Negative SARS-CoV-2 (Negative) Influenza Type A (PCR) Negative PCR FLU A (Negative) Influenza Type B (PCR) Negative PCR FLU B (Negative) RSV (PCR) Negative PCR RSV (Negative) 10/30/23 Range/Units 06:02 WBC 20.37 H (4.50-11.00) K/uL RBC 4.61 (4.30-5.90) m/uL Hgb 14.0 (13.5-17.5) gm/dL Hct 44.6 (37.0-53.0) % MCV 97 (80-100) fL MCH 30 (26-34) pg MCHC 31 L (32-36) gm/dL RDW Coeff of Marisa 13.5 (11.5-15.5) % Plt Count 139 L (140-440) K/uL Neut % (Auto) 88.2 H (42.0-72.0) % Lymph % (Auto) 3.2 L (20-44) % Clarke % (Auto) 6.5 (0.0-11.0) % Eos % (Auto) 0.0 (0.0-7.0) % Baso % (Auto) 0.1 (0.0-3.0) % Neut # (Auto) 18.00 H (1.7-7.0) K/uL Lymph # (Auto) 0.70 L (0.90-2.90) K/uL Clarke # (Auto) 1.30 H (0.00-0.90) K/UL Eos # (Auto) 0.00 (0.00-0.50) K/uL Baso # (Auto) 0.00 (0.00-0.30) K/uL Abs Immat Gran (auto) 0.40 H (0.00-0.30) K/uL Imm/Tot Granulo (auto) 2.0 % Sodium 135 (135-149) mmol/L Potassium 3.7 (3.6-5.1) mmol/L Chloride 101 (96-114) mmol/L Carbon Dioxide 27 (20-32) mmol/L Anion Gap 7 (7-15) mEq/L BUN 17 (7-30) mg/dL Creatinine 0.9 (0.5-1.5) mg/dL Estimated Creat Clear 59.28 Estimated GFR 84 ml/min Glucose 134 H (60-115) mg/dL Lactate (0.5-1.9) mmol/L Calcium 8.3 L (8.4-10.6) mg/dL Total Bilirubin 1.5 (0.1-1.5) mg/dL AST 21 (12-35) U/L ALT 13 (4-50) U/L Alkaline Phosphatase 58 (40-150) U/L Troponin I (0.01-0.04) ng/mL C-Reactive Protein 16.3 H (0.5-1.0) mg/dL NT-Pro-B Natriuret Pep pg/mL Total Protein 6.3 (6.0-8.3) g/dL Albumin 3.6 (3.3-5.0) g/dL Procalcitonin (<0.50) ng/mL Urine Color (Yellow) Urine Appearance (Clear) Urine pH (5.0-8.5) Ur Specific [employer] (1.000-1.030) Urine Protein (Negative) Urine Glucose (UA) (Negative) Urine Ketones (Negative) Urine Blood (Negative) Urine Nitrite (Negative) Urine Bilirubin (Negative) Urine Urobilinogen (0.2-1.0) Ur Leukocyte Esterase (Negative) Urine RBC (0-2) Urine WBC (0-5) Ur Squamous Epith Cells (None-Few) Urine Bacteria (None) SARS-CoV-2 (PCR) (Negative) Influenza Type A (PCR) (Negative) Influenza Type B (PCR) (Negative) RSV (PCR) (Negative) <Mirlande Uriostegui MD - Last Filed: 11/01/23 14:08> Lab Results 10/29/23 10/29/23 10/29/23 Range/Units 15:40 16:43 18:25 WBC 19.38 H (4.50-11.00) K/uL RBC 5.20 (4.30-5.90) m/uL Hgb 16.2 (13.5-17.5) gm/dL Hct 50.6 (37.0-53.0) % MCV 97 (80-100) fL MCH 31 (26-34) pg MCHC 32 (32-36) gm/dL RDW Coeff of Marisa 13.3 (11.5-15.5) % Plt Count 180 (140-440) K/uL Neut % (Auto) 89.8 H (42.0-72.0) % Lymph % (Auto) 2.3 L (20-44) % Clarke % (Auto) 7.2 (0.0-11.0) % Eos % (Auto) 0.0 (0.0-7.0) % Baso % (Auto) 0.2 (0.0-3.0) % Neut # (Auto) 17.40 H (1.7-7.0) K/uL Lymph # (Auto) 0.40 L (0.90-2.90) K/uL Clarke # (Auto) 1.40 H (0.00-0.90) K/UL Eos # (Auto) 0.00 (0.00-0.50) K/uL Baso # (Auto) 0.00 (0.00-0.30) K/uL Abs Immat Gran (auto) 0.10 (0.00-0.30) K/uL Imm/Tot Granulo (auto) 0.5 % Sodium 137 (135-149) mmol/L Potassium 4.1 (3.6-5.1) mmol/L Chloride 98 (96-114) mmol/L Carbon Dioxide 28 (20-32) mmol/L Anion Gap 11 (7-15) mEq/L BUN 19 (7-30) mg/dL Creatinine 1.1 (0.5-1.5) mg/dL Estimated Creat Clear Estimated GFR 66 ml/min Glucose 121 H (60-115) mg/dL Lactate 2.9 H 1.1 (0.5-1.9) mmol/L Calcium 9.3 (8.4-10.6) mg/dL Total Bilirubin 1.2 (0.1-1.5) mg/dL AST 24 (12-35) U/L ALT 16 (4-50) U/L Alkaline Phosphatase 69 (40-150) U/L Troponin I < 0.01 L (0.01-0.04) ng/mL C-Reactive Protein 3.0 H (0.5-1.0) mg/dL NT-Pro-B Natriuret Pep 496 pg/mL Total Protein 7.7 (6.0-8.3) g/dL Albumin 4.5 (3.3-5.0) g/dL Procalcitonin 0.13 (<0.50) ng/mL Urine Color Yellow (Yellow) Urine Appearance Clear (Clear) Urine pH 7.5 (5.0-8.5) Ur Specific [employer] 1.020 (1.000-1.030) Urine Protein Trace A (Negative) Urine Glucose (UA) Negative (Negative) Urine Ketones Negative (Negative) Urine Blood Trace-intact A (Negative) Urine Nitrite Positive A (Negative) Urine Bilirubin Negative (Negative) Urine Urobilinogen 2.0 A (0.2-1.0) Ur Leukocyte Esterase Trace A (Negative) Urine RBC 0-2 (0-2) Urine WBC 5-10 A (0-5) Ur Squamous Epith Cells None (None-Few) Urine Bacteria Moderate A (None) SARS-CoV-2 (PCR) Negative SARS-CoV-2 (Negative) Influenza Type A (PCR) Negative PCR FLU A (Negative) Influenza Type B (PCR) Negative PCR FLU B (Negative) RSV (PCR) Negative PCR RSV (Negative) 10/30/23 Range/Units 06:02 WBC 20.37 H (4.50-11.00) K/uL RBC 4.61 (4.30-5.90) m/uL Hgb 14.0 (13.5-17.5) gm/dL Hct 44.6 (37.0-53.0) % MCV 97 (80-100) fL MCH 30 (26-34) pg MCHC 31 L (32-36) gm/dL RDW Coeff of Marisa 13.5 (11.5-15.5) % Plt Count 139 L (140-440) K/uL Neut % (Auto) 88.2 H (42.0-72.0) % Lymph % (Auto) 3.2 L (20-44) % Clarke % (Auto) 6.5 (0.0-11.0) % Eos % (Auto) 0.0 (0.0-7.0) % Baso % (Auto) 0.1 (0.0-3.0) % Neut # (Auto) 18.00 H (1.7-7.0) K/uL Lymph # (Auto) 0.70 L (0.90-2.90) K/uL Clarke # (Auto) 1.30 H (0.00-0.90) K/UL Eos # (Auto) 0.00 (0.00-0.50) K/uL Baso # (Auto) 0.00 (0.00-0.30) K/uL Abs Immat Gran (auto) 0.40 H (0.00-0.30) K/uL Imm/Tot Granulo (auto) 2.0 % Sodium 135 (135-149) mmol/L Potassium 3.7 (3.6-5.1) mmol/L Chloride 101 (96-114) mmol/L Carbon Dioxide 27 (20-32) mmol/L Anion Gap 7 (7-15) mEq/L BUN 17 (7-30) mg/dL Creatinine 0.9 (0.5-1.5) mg/dL Estimated Creat Clear 59.28 Estimated GFR 84 ml/min Glucose 134 H (60-115) mg/dL Lactate (0.5-1.9) mmol/L Calcium 8.3 L (8.4-10.6) mg/dL Total Bilirubin 1.5 (0.1-1.5) mg/dL AST 21 (12-35) U/L ALT 13 (4-50) U/L Alkaline Phosphatase 58 (40-150) U/L Troponin I (0.01-0.04) ng/mL C-Reactive Protein 16.3 H (0.5-1.0) mg/dL NT-Pro-B Natriuret Pep pg/mL Total Protein 6.3 (6.0-8.3) g/dL Albumin 3.6 (3.3-5.0) g/dL Procalcitonin (<0.50) ng/mL Urine Color (Yellow) Urine Appearance (Clear) Urine pH (5.0-8.5) Ur Specific [employer] (1.000-1.030) Urine Protein (Negative) Urine Glucose (UA) (Negative) Urine Ketones (Negative) Urine Blood (Negative) Urine Nitrite (Negative) Urine Bilirubin (Negative) Urine Urobilinogen (0.2-1.0) Ur Leukocyte Esterase (Negative) Urine RBC (0-2) Urine WBC (0-5) Ur Squamous Epith Cells (None-Few) Urine Bacteria (None) SARS-CoV-2 (PCR) (Negative) Influenza Type A (PCR) (Negative) Influenza Type B (PCR) (Negative) RSV (PCR) (Negative) <Aubrey Joshi MD - Last Filed: 10/29/23 18:27> Imaging Data Chest x-ray: Attestation: I have reviewed the pertinent imaging results. <Mirlande Dotson MD - Last Filed: 11/01/23 14:08> Radiologist's impression: Patient: LAMAR CHARLTON Facility:?[facility] [place] Patient ID:?[id number] Site Patient ID:?[id number]. Site :?[id number] Study:?XRay-Chest 1 VIEW PORTABLE-10/29/2023 3:50:33 PM Ordering Physician:Christopher Nogueira Final Report: INDICATION: Fever TECHNIQUE: Chest radiograph 1 view on 2 films COMPARISON: 03/12/2023 FINDINGS: The sensitivity and specificity of the exam are severely limited by the patient`s body habitus. Mediastinum: The mediastinum is normal in appearance. The heart silhouette is normal in size and morphology. Severe elevation of the left hemidiaphragm is noted without change and may be due to diaphragmatic paralysis or weakness. Lung: Mild pulmonary vascular congestion, bibasilar atelectasis, and mild suspected perihilar edema noted. No sign of pleural effusion seen. No pneumothorax is identified. Bone and Soft tissue: Remote fracture deformity of the left proximal humerus is noted. IMPRESSION: 1. Mild pulmonary vascular congestion, bibasilar atelectasis, and mild suspected perihilar edema noted. Dictated by Bennett Davis MD @ 10/29/2023 4:26:40 PM Dictated by: Bennett Davis MD @ 10/29/2023 16:26:43 (Electronic Signature) <Mirlande Uriostegui MD - Last Filed: 11/01/23 14:08> ECG Data Attestation: I personally reviewed and interpreted this ECG as follows: (Sinus tachycardia with a premature supraventricular complex, 122 beats per minute.) <Mirlande Uriostegui MD - Last Filed: 11/01/23 14:08> ECG interpretation date: 10/29/23 <Mirlande Uriostegui MD - Last Filed: 11/01/23 14:08> ECG interpretation time: 15:39 <Mirlande Uriostegui MD - Last Filed: 11/01/23 14:08> Prior ECG tracings: available for review <Mirlande Uriostegui MD - Last Filed: 11/01/23 14:08> Discharge Plan Discharge Clinical Impression: Urinary tract infection, Sepsis <Mirlande Uriostegui MD - Last Filed: 11/01/23 14:08> Patient Disposition: Admitted As Inpatient <Mirlande Uriostegui MD - Last Filed: 11/01/23 14:08> Condition: Unchanged <Mirlande Uriostegui MD - Last Filed: 11/01/23 14:08> Activity Level: Activity as Tolerated and Use Walker <Mirlande Uriostegui MD - Last Filed: 11/01/23 14:08> Activity as Tolerated and Use Walker <Aubrey Joshi MD - Last Filed: 10/29/23 18:27> Discharge Diet: Regular <Mirlande Uriostegui MD - Last Filed: 11/01/23 14:08> Regular <Aubrey Joshi MD - Last Filed: 10/29/23 18:27>
--- NOTE | 2023-10-29 15:30 | CRLHL7_ITS ---
For Patients: As a result of the Cures Act, medical imaging exams and procedure reports are released immediately into your electronic medical record. You may view this report before your referring provider. If you have questions, please contact your health care provider. INDICATION: Fever TECHNIQUE: Chest radiograph 1 view on 2 films COMPARISON: 03/12/2023 FINDINGS: The sensitivity and specificity of the exam are severely limited by the patient`s body habitus. Mediastinum: The mediastinum is normal in appearance. The heart silhouette is normal in size and morphology. Severe elevation of the left hemidiaphragm is noted without change and may be due to diaphragmatic paralysis or weakness. Lung: Mild pulmonary vascular congestion, bibasilar atelectasis, and mild suspected perihilar edema noted. No sign of pleural effusion seen. No pneumothorax is identified. Bone and Soft tissue: Remote fracture deformity of the left proximal humerus is noted. IMPRESSION: 1. Mild pulmonary vascular congestion, bibasilar atelectasis, and mild suspected perihilar edema noted. Dictated by Bennett Davis MD @ 10/29/2023 4:26:40 PM Dictated by: Bennett Davis MD @ 10/29/2023 16:26:43 (Electronically Signed)
[2023-10-29 15:48] LABS: Lactate* 2.9 mmol/L (0.5-1.9)
[2023-10-29] MEDS: ACETAMINOPHEN 500 MG TABLET 1000 MG PO (15:48)
[2023-10-29 15:52] LABS: Basophils Percent Auto 0.2 % (0.0-3.0); Hematocrit 50.6 % (37.0-53.0); Hemoglobin* 16.2 gm/dL (13.5-17.5); Immature Granulocytes Pct Auto 0.5 %; Lymphocytes Percent Auto 2.3 % (20-44); Mean Corpuscular HGB Conc 32 gm/dL (32-36); Mean Corpuscular Hemoglobin 31 pg (26-34); Mean Corpuscular Volume 97 fL (80-100); Monocytes Percent Auto 7.2 % (0.0-11.0); Neutrophils Percent Auto 89.8 % (42.0-72.0); Platelet Count* 180 K/uL (140-440); RDW Coefficient of Variation % 13.3 % (11.5-15.5); White Blood Count* 19.38 K/uL (4.50-11.00)
[2023-10-29 15:54] LABS: Slide Review Reflex No
--- OUTSIDE RECORDS SUMMARY | 2023-10-29 15:55 | XMS_ITS | Clinical Summary ---
Author Organization [employer] [facility] Address [place], [place] [address] Care Team Providers Care [employer] Name Role Phone Ruperto Kearns MD Primary Care Provider [phone] Allergies Active Allergy Reactions Criticality Noted Date [...] recurrent 01/17/2023 Pulmonary embolism on right 12/01/2022 Overview (12/01/2022): He was told he needed to be on lifelong anticoagulation. BPH without urinary obstruction 12/01/2022 Encounters Date Type Department Care Team Description 08/14/2023 9:35 AM CDT Office Visit [facility] [address] [place] [address] Ruperto Kearns MD Medication Management (Routine follow up) 08/14/2023 Travel from Last 3 Months Immunizations Name [...] Not Answered Alcohol Use Standard Drinks/Week Comments Yes 0 (1 standard drink = 0.6 oz pur e alcohol) PHQ-2 Answer Date Recorded PHQ-2 TOTAL SCORE 2 08/14/2023 Social Connections Answer Date Recorded Frequency of [...] Sign Reading Time Taken Comments Blood Pressure 112/74 08/14/2023 9:47 AM CDT Pulse 82 08/14/2023 9:47 AM CDT Temperature - - Respiratory Rate - - Oxygen Saturation 95% 08/14/2023 9:47 AM CDT Inhaled Oxygen Concentration - - Weight 102 kg (224 lb 14.4 oz) 08/14/2023 9:47 A M CDT Height 178.8 cm (5' 10.39) 12/01/2022 11:19 AM CDT Body Mass Index 31.91 12/01/2022 11:19 AM CDT Plan of Treatment Upcoming Encounters Date Type Department Care Team (Late st Contact Info) Description 01/21/2024 9:15 AM [employer] Orders Only [facility] [address] [place] [address] Jluián Trujillo 01/23/2024 9:15 AM [employer] Office Visit [facility] [address] [place] [address] Ruperto Kearns MD [address] [place] [address] Health Maintenance Due Date Last Done Comments RSV vaccine for adults or (1 - 1-dose 60+ series) 1998 Pneumococcal series for age 65+ (1 of 1 - PCV) 2003 Zoster (shingles) series for age 50+ (2 of 2) 09/23/2019 07/29/2019 COVID-19 vaccine series (2022- season) 2023 11/27/2022, 05/30/2021, 11/22/2020, Additional history exists Influenza for age 65+ 10/14/2023 11/30/2022 , 01/04/2022, 12/02/2020, Additional history exists BMI (ht and wt on same day) for age 18+ 12/02/2023 12/01/2022 Medicare Wellness for age 65+ 01/18/2024 01/17/2023 Depression screening for age 12+ 08/13/2024 08/14/2023, 05/29/2023, 05/02/2023, Additional history exists Tetanus booster 09/30/2026 09/30/2016, 07/19/2004 Tdap Completed 09/30/2016 Care Teams [employer] Relationship Specialty Start Date End Date Ruperto Kearns MD [address] [facility] [place] [address] PCP - General Family Practice 09/05/22
[2023-10-29 16:02] LABS: Albumin* 4.5 g/dL (3.3-5.0); Chloride* 98 mmol/L (96-114)
[2023-10-29 16:03] LABS: Potassium* 4.1 mmol/L (3.6-5.1); Sodium* 137 mmol/L (135-149)
[2023-10-29 16:05] LABS: Bilirubin Total* 1.2 mg/dL (0.1-1.5); Creatinine* 1.1 mg/dL (0.5-1.5); Estimated Glomerular Filt Rate 66 ml/min
[2023-10-29 16:06] LABS: Alanine Aminotransferase* 16 U/L (4-50); Alkaline Phosphatase* 69 U/L (40-150); Anion Gap 11 mEq/L (7-15); Aspartate Amino Transferase* 24 U/L (12-35); Blood Urea Nitrogen* 19 mg/dL (7-30); Calcium* 9.3 mg/dL (8.4-10.6); Carbon Dioxide* 28 mmol/L (20-32); Glucose* 121 mg/dL (60-115); Total Protein* 7.7 g/dL (6.0-8.3)
[2023-10-29 16:23] LABS: NT Pro B Type NatriureticPept* 496 pg/mL; Procalcitonin* 0.13 ng/mL (<0.50); Troponin I* < 0.01 ng/mL (0.01-0.04)
[2023-10-29 16:30] LABS: PCR FLU A Negative PCR FLU A (Negative); PCR FLU B Negative PCR FLU B (Negative); PCR RSV Negative PCR RSV (Negative); SARS PCR* Negative SARS-CoV-2 (Negative)
[2023-10-29] MEDS: 0.9 % SODIUM CHLORIDE 1000 ml 1,000 ML 500 ML IV (16:35)
[2023-10-29 16:48] LABS: Appearance Urine Clear (Clear); Bilirubin Urine Negative (Negative); Blood Urine Trace-intact (Negative); Color Urine Yellow (Yellow); Glucose Urine Negative (Negative); Ketones Urine Negative (Negative); Leukocyte Esterase Urine Trace (Negative); Nitrite Urine Positive (Negative); Protein Urine Trace (Negative); pH Urine 7.5 (5.0-8.5)
--- NOTE | 2023-10-29 17:06 | ED.NURSE ---
Straight cath done on pt, pt drained 75cc. Groin appearing bright red.
[2023-10-29 17:25] LABS: Bacteria Urine Moderate; RBC Urine 0-2 (0-2)
[2023-10-29] MEDS: cefTRIAXone 1 GM in 0.9 % SODIUM CHLORIDE Mini-bag 100 ML IVPB ×2 (18:27→21:45)
[2023-10-29 18:30] LABS: Lactate* 1.1 mmol/L (0.5-1.9)
--- NOTE | 2023-10-29 18:42 | ED.NURSE ---
Pt report given to tatiana HILARIO. Pt to room 247
--- NOTE | 2023-10-29 18:43 | ED.NURSE ---
[facility] called to update on pt status, no one answered. Voicemail left for them to call back.
--- NOTE | 2023-10-29 20:28 | CRLHL7_ITS ---
For Patients: As a result of the Century Cures Act, medical imaging exams and procedure reports are released immediately into your electronic medical record. You may view this report before your referring provider. If you have questions, please contact your health care provider. INDICATION: Right upper quadrant abdominal Pain, nausea, fever, diarrhea TECHNIQUE: Ultrasound abdomen limited. Sonographic images of the right upper quadrant were obtained using prescott-scale and color Doppler images. COMPARISON: None FINDINGS: Liver: The liver parenchyma is normal in echotexture. Gallbladder: The neck of the gallbladder is not well demonstrated. No gallstones or sludge seen in the lumen. The gallbladder wall is normal in appearance. No pericholecystic fluid is present. No sonographic Sanchez???s sign is present. Common bile duct: 5 mm. No intrahepatic biliary ductal dilatation seen. Pancreas: The visualized portions of the pancreatic head and body are normal in appearance. Right Kidney: 13 cm. No hydronephrosis or ureterectasis is seen. Vascular: The visualized abdominal aorta and IVC are unremarkable. IMPRESSION: 1. The right upper quadrant is unremarkable in appearance. Dictated by Bennett Davis MD @ 10/29/2023 10:55:03 PM Dictated by: Bennett Davis MD @ 10/29/2023 22:58:49 (Electronically Signed)
--- NOTE | 2023-10-29 20:28 | CRLHL7_ITS ---
For Patients: As a result of the Century Cures Act, medical imaging exams and procedure reports are released immediately into your electronic medical record. You may view this report before your referring provider. If you have questions, please contact your health care provider. INDICATION: Falls, confusion, headache, nausea, fever, sepsis, distended abd, RUQ pain TECHNIQUE: CT of the head without contrast. Coronal and sagittal reformats. Bone and soft tissue algorithms. COMPARISON: CT 07/07/2023 FINDINGS: No acute intracranial hemorrhage or extra-axial collection. No evidence of acute cortical infarction. No mass effect or midline shift. Moderate generalized parenchymal volume loss. Moderate regions of decreased attenuation within the periventricular and subcortical white matter of both cerebral hemispheres most likely reflect chronic microvascular ischemic disease and age related change in this patient. Vascular calcifications within the carotid siphons and vertebral arteries. Orbital contents are normal. No calvarial fractures. No lytic or sclerotic osseous lesions within the calvarium or skull base. Scalp and other imaged soft tissue structures are normal. Mastoid air cells are clear. IMPRESSION: No acute intracranial abnormality. No significant changes compared to the prior study. Please note that all CT scans at this facility use dose modulation, iterative reconstruction, and/or weight-based dosing when appropriate to reduce radiation dose to as low as reasonably achievable. Dictated by Raleigh Mackenzie MD @ 10/29/2023 10:03:55 PM (Electronically Signed)
--- NOTE | 2023-10-29 20:28 | CRLHL7_ITS ---
For Patients: As a result of the Century Cures Act, medical imaging exams and procedure reports are released immediately into your electronic medical record. You may view this report before your referring provider. If you have questions, please contact your health care provider. INDICATION: Falls, confusion, headache, nausea, fever, sepsis, distended abdominal, right upper quadrant pain TECHNIQUE: CT Abdomen and pelvis with i.v. contrast. Coronal and sagittal reformats were obtained. CONTRAST: 111 mL Isovue 370 COMPARISON: 07/07/2023 FINDINGS: Lower chest: On image 1, there is a focus of gas density in the anterior left chest is partially visualized and may be due to volume averaging with the lung base. No pneumoperitoneum is seen within the abdomen. Severe elevation of the left hemidiaphragm is noted without interval change. Liver: Unremarkable. Spleen: Unremarkable. Pancreas: Unremarkable. Gallbladder: Unremarkable. Kidney: Unremarkable. No kidney or ureteral stones or obstruction seen. Adrenal: Unremarkable. Bowel: Large amount of colonic stool is present in the rectosigmoid colon. There is a bowel staple line near the junction of the descending and sigmoid colon. The appendix is normal in appearance and size. Vascular: Unremarkable. Lymph: Unremarkable. Peritoneum: Unremarkable. No significant ascites is noted. Pelvis: Moderate enlargement of the prostate gland is noted. The bladder is decompressed and difficult to evaluate but there is suspected mild wall thickening with infiltration of the perivesicular fat. Soft tissue: Unremarkable. Bone: A chronic compression deformity of T8 is present without interval change. IMPRESSION: 1. The bladder is decompressed and difficult to evaluate but there is suspected mild wall thickening with infiltration of the perivesicular fat. Correlation with urinalysis is recommended to exclude cystitis. Dictated by Bennett Davis MD @ 10/29/2023 10:13:36 PM Please note that all CT scans at this facility use dose modulation, iterative reconstruction, and/or weight-based dosing when appropriate to reduce radiation dose to as low as reasonably achievable. Dictated by: Bennett Davis MD @ 10/29/2023 22:13:45 (Electronically Signed)
[2023-10-29] MEDS: SODIUM CHLORIDE 0.9 % (FLUSH) 10 ML SYRINGE 5 ML IVF (21:45)
[2023-10-29] MEDS: ACETAMINOPHEN 325 MG TABLET 975 MG PO (21:46)
--- NOTE | 2023-10-29 23:09 | PM.IMHP1 ---
Hospitalist- H&P: HPI History of Present Illness Date Seen: 10/29/23 Chief complaint: fall Narrative: Judah Roger is a 83 year old male with a history of dementia who lives with his at [facility] and has become weak and confused over the last day. He also notes that he has had some nausea off and on lately. He thinks he might have diarrhea as well. He thinks he might have some abdominal pain at times, but cannot give me details of this. His daughter tells me that he has fallen twice today. The patient confirms this but says he did not had anything and did not lose consciousness. He is on Xarelto for history of PE. He notes increased frequency of urination. Denies dysuria. He complains of a headache. In the ER he was febrile and tachycardic. Lactate was elevated. He was not hypotensive. He was given IV fluid bolus of 1 L and ceftriaxone IV. Lactate came down to 1.1. Review of Systems Status of ROS: Reports: unobtainable due to medical condition (dementia) and unobtainable due to mental status (confusion) PFSH PFSH Medical History Depression, recurrent ?F33.9 - Major depressive disorder, recurrent, unspecified (ICD-10) Alzheimer dementia ?G30.9 - Alzheimer's disease, unspecified (ICD-10) ?F02.80 - Dementia in other diseases classified elsewhere, unspecified severity, without behavioral disturbance, psychotic disturbance, mood disturbance, and anxiety (ICD-10) BPH without obstruction/lower urinary tract symptoms ?N40.0 - Benign prostatic hyperplasia without lower urinary tract symptoms (ICD-10) Pulmonary embolism ?I26.99 - Other pulmonary embolism without acute cor pulmonale (ICD-10) COVID-19 ?U07.1 - COVID-19 (ICD-10) Health care directive on file ?Z78.9 - Other specified health status (ICD-10) Surgical History (Updated 10/29/23 @ 23:16 by Samantha Marie MD) H/O abdominal surgery ?Z98.890 - Other specified postprocedural states (ICD-10) Social History (Updated 10/29/23 @ 23:17 by Samantha Marie MD) Narrative: Living at [facility] with his . His daughter, Nargis, is here with him today. Denies tobacco or alcohol use. What is your current living situation?: I presently have a place to live Problems where you live: no known problems Problems where you live details: N/A In the past 12 months, utilities in danger of being shut off: no In past 12 months, lack of transportation kept you from medical appts, meetings, work, or getting things needed for daily living: no In the past 12 mos, have been you worried that your food would run out before you had money to buy more?: never true In the past 12 mos, the food you bought just didn't last and you didn't have money to buy more?: never true Smoking Status: Never smoker Do you use any of these nicotine containing products: None Second hand tobacco smoke exposure: No How often do you have a drink containing alcohol: monthly or less How often do you have six or more drinks on one occasion: Never AUDIT-C Alcohol total score: 1 Non-prescribed substance use: denies use How often does anyone, including family, friends and others, physically hurt you: never How often does anyone, including family, friends and others, insult or talk down to you: never How often does anyone, including family, friends and others, threaten you with harm: never How often does anyone, including family, friends and others, scream or curse at you: never service: No Meds Home Medications and Allergies Home Medications ?Medication ?Instructions ?Recorded ?Confirmed ?Type donepezil 10 mg tablet 10 mg PO HS 03/12/23 10/29/23 History rivaroxaban 20 mg tablet (Xarelto) 20 mg PO QPM 03/12/23 10/29/23 History tamsulosin 0.4 mg capsule 0.8 mg PO DAILY 03/12/23 10/29/23 History sertraline 100 mg tablet 100 mg PO QAM 06/15/23 10/29/23 History Allergies Allergy/AdvReac Type Severity Reaction Status Date / Time aspirin Allergy Verified 07/07/23 07:09 Exam Narrative: Exam Narrative: General: No acute distress. Awake alert oriented x3. HEENT: Normocephalic atraumatic, pupils equally round and reactive to light and accommodation. Oropharynx clear. Mucous membranes are moist. No cervical lymphadenopathy, thyromegaly or carotid bruits. No JVD. Cardiovascular: Tachycardia, regular. No murmurs, gallops, or rubs. Chest: No increased work of breathing. Clear to auscultation bilaterally. No crackles or wheezes. Abdomen: Bowel sounds present. Soft, distended, mildly tender in the right upper quadrant. No hepatosplenomegaly or masses. Extremities: No edema, no cyanosis or clubbing. Skin: No jaundice, no pallor, no rashes. Neuro: There are no focal deficits. Romberg is negative. Cranial nerves 2-12 are intact. Extraocular movements are full. No nystagmus. No facial asymmetry. Tongue is midline. Strength is 5/5 in all 4 extremities. Light touch sensation is intact in face body and extremities. Const: Vital Signs, click to edit/add: Vital Signs - 24 hr 10/29/23 15:17 10/29/23 15:23 10/29/23 15:24 Temperature 100.9 F H Pulse Rate 128 H Pulse Rate [Left P ulse Oximeter] Pulse Rate [Pulse Oximeter] 121 H Respiratory Rate 20 Blood Pressure 151/91 H Blood Pressure [Ri ght Arm] Blood Pressure [Ri ght Upper Arm] 146/84 H Pulse Oximetry 92 93 Oxygen Delivery Me thod Room Air Oxygen Flow Rate 10/29/23 15:30 10/29/23 15:30 10/29/23 15:31 Temperature Pulse Rate 121 H 113 H Pulse Rate [Left P ulse Oximeter] Pulse Rate [Pulse Oximeter] Respiratory Rate Blood Pressure 157/94 H Blood Pressure [Ri ght Arm] Blood Pressure [Ri ght Upper Arm] Pulse Oximetry 95 92 92 Oxygen Delivery Me thod Oxygen Flow Rate 10/29/23 15:45 10/29/23 16:00 10/29/23 16:01 Temperature Pulse Rate 117 H 117 H 112 H Pulse Rate [Left P ulse Oximeter] Pulse Rate [Pulse Oximeter] Respiratory Rate Blood Pressure 151/88 H Blood Pressure [Ri ght Arm] Blood Pressure [Ri ght Upper Arm] Pulse Oximetry 94 91 90 Oxygen Delivery Me thod Oxygen Flow Rate 10/29/23 16:15 10/29/23 16:30 10/29/23 16:31 Temperature Pulse Rate 124 H 117 H 118 H Pulse Rate [Left P ulse Oximeter] Pulse Rate [Pulse Oximeter] Respiratory Rate Blood Pressure 127/91 H Blood Pressure [Ri ght Arm] Blood Pressure [Ri ght Upper Arm] Pulse Oximetry 91 92 92 Oxygen Delivery Me thod Oxygen Flow Rate 10/29/23 16:45 10/29/23 16:50 10/29/23 17:00 Temperature 101.4 F H Pulse Rate 113 H 136 H Pulse Rate [Left P ulse Oximeter] Pulse Rate [Pulse Oximeter] Respiratory Rate Blood Pressure Blood Pressure [Ri ght Arm] Blood Pressure [Ri ght Upper Arm] Pulse Oximetry 93 91 Oxygen Delivery Me thod Oxygen Flow Rate 10/29/23 17:01 10/29/23 17:02 10/29/23 17:15 Temperature Pulse Rate 137 H 125 H 134 H Pulse Rate [Left P ulse Oximeter] Pulse Rate [Pulse Oximeter] Respiratory Rate Blood Pressure 145/84 H Blood Pressure [Ri ght Arm] Blood Pressure [Ri ght Upper Arm] Pulse Oximetry 95 93 92 Oxygen Delivery Me thod Oxygen Flow Rate 10/29/23 17:30 10/29/23 17:31 10/29/23 17:45 Temperature Pulse Rate 134 H 135 H 133 H Pulse Rate [Left P ulse Oximeter] Pulse Rate [Pulse Oximeter] Respiratory Rate Blood Pressure 140/75 H Blood Pressure [Ri ght Arm] Blood Pressure [Ri ght Upper Arm] Pulse Oximetry 94 94 93 Oxygen Delivery Me thod Oxygen Flow Rate 10/29/23 18:00 10/29/23 18:00 10/29/23 18:01 Temperature 101.2 F H Pulse Rate 132 H 133 H Pulse Rate [Left P ulse Oximeter] Pulse Rate [Pulse Oximeter] Respiratory Rate 18 Blood Pressure 142/90 H Blood Pressure [Ri ght Arm] Blood Pressure [Ri ght Upper Arm] Pulse Oximetry 93 95 Oxygen Delivery Me thod Oxygen Flow Rate 10/29/23 18:17 10/29/23 18:30 10/29/23 18:31 Temperature Pulse Rate 131 H 127 H 125 H Pulse Rate [Left P ulse Oximeter] Pulse Rate [Pulse Oximeter] Respiratory Rate Blood Pressure 132/76 Blood Pressure [Ri ght Arm] Blood Pressure [Ri ght Upper Arm] Pulse Oximetry 94 93 91 Oxygen Delivery Me thod Oxygen Flow Rate 10/29/23 19:19 10/29/23 19:19 10/29/23 19:19 Temperature 98.1 F 98 F Pulse Rate Pulse Rate [Left P ulse Oximeter] 134 H 129 H Pulse Rate [Pulse Oximeter] Respiratory Rate 20 24 24 Blood Pressure Blood Pressure [Ri ght Arm] 109/91 H 112/66 Blood Pressure [Ri ght Upper Arm] Pulse Oximetry 93 95 Oxygen Delivery Me thod Room Air Room Air Room Air Oxygen Flow Rate 0 10/29/23 19:40 10/29/23 22:30 10/29/23 23:00 Temperature 99 F Pulse Rate Pulse Rate [Left P ulse Oximeter] 98 Pulse Rate [Pulse Oximeter] Respiratory Rate 24 24 Blood Pressure Blood Pressure [Ri ght Arm] 148/87 H 122/79 Blood Pressure [Ri ght Upper Arm] Pulse Oximetry 93 93 Oxygen Delivery Me thod Room Air Room Air Oxygen Flow Rate 0 0 Hospitalist - H&P: Result Labs Labs: Short CBC 10/29/23 Range/Units 15:40 WBC 19.38 H (4.50-11.00) K/uL Hgb 16.2 (13.5-17.5) gm/dL Hct 50.6 (37.0-53.0) % Plt Count 180 (140-440) K/uL BMP 10/29/23 15:40 Sodium 137 Potassium 4.1 Chloride 98 Carbon Dioxide 28 BUN 19 Creatinine 1.1 Glucose 121 H Calcium 9.3 Cardiac Enzymes 10/29/23 Range/Units 15:40 Troponin I < 0.01 L (0.01-0.04) ng/mL Liver Function 10/29/23 Range/Units 15:40 Total Bilirubin 1.2 (0.1-1.5) mg/dL AST 24 (12-35) U/L ALT 16 (4-50) U/L Alkaline Phosphatase 69 (40-150) U/L Albumin 4.5 (3.3-5.0) g/dL Urine 10/29/23 Range/Units 16:43 Urine Color Yellow (Yellow) Urine Appearance Clear (Clear) Urine pH 7.5 (5.0-8.5) Ur Specific [place] 1.020 (1.000-1.030) Urine Protein Trace A (Negative) Urine Glucose (UA) Negative (Negative) 10/29/2023 1533 EKG: Sinus tachycardia with premature supraventricular complexes, 122 beats per minute. Increased RS ratio in V1, consider early transition or posterior infarct. 10/29/20232201 EKG: Sinus tachycardia, 101 beats per minute, otherwise normal EKG. Ordering Physician: Mirlande Uriostegui M.D. Date of Service: 10/29/23 Procedure(s): XR chest 1V portable Accession Number(s): [id number] cc: Ruperto Kearns M.D.; Mirlande Uriostegui M.D.~ For Patients: As a result of the Cures Act, medical imaging exams and procedure reports are released immediately into your electronic medical record. You may view this report before your referring provider. If you have questions, please contact your health care provider. INDICATION: Fever TECHNIQUE: Chest radiograph 1 view on 2 films COMPARISON: 03/12/2023 FINDINGS: The sensitivity and specificity of the exam are severely limited by the patient`s body habitus. Mediastinum: The mediastinum is normal in appearance. The heart silhouette is normal in size and morphology. Severe elevation of the left hemidiaphragm is noted without change and may be due to diaphragmatic paralysis or weakness. Lung: Mild pulmonary vascular congestion, bibasilar atelectasis, and mild suspected perihilar edema noted. No sign of pleural effusion seen. No pneumothorax is identified. Bone and Soft tissue: Remote fracture deformity of the left proximal humerus is noted. IMPRESSION: 1. Mild pulmonary vascular congestion, bibasilar atelectasis, and mild suspected perihilar edema noted. Dictated by Bennett Davis MD @ 10/29/2023 4:26:40 PM Dictated by: Bennett Davis MD @ 10/29/2023 16:26:43 (Electronically Signed) Ordering Physician: Samantha Marie M.D. Date of Service: 10/29/23 Procedure(s): US abdomen limited Accession Number(s): [id number] cc: Samantha Marie M.D.; Ruperto Kearns M.D.~ For Patients: As a result of the Cures Act, medical imaging exams and procedure reports are released immediately into your electronic medical record. You may view this report before your referring provider. If you have questions, please contact your health care provider. INDICATION: Right upper quadrant abdominal Pain, nausea, fever, diarrhea TECHNIQUE: Ultrasound abdomen limited. Sonographic images of the right upper quadrant were obtained using prescott-scale and color Doppler images. COMPARISON: None FINDINGS: Liver: The liver parenchyma is normal in echotexture. Gallbladder: The neck of the gallbladder is not well demonstrated. No gallstones or sludge seen in the lumen. The gallbladder wall is normal in appearance. No pericholecystic fluid is present. No sonographic Sanchez???s sign is present. Common bile duct: 5 mm. No intrahepatic biliary ductal dilatation seen. Pancreas: The visualized portions of the pancreatic head and body are normal in appearance. Right Kidney: 13 cm. No hydronephrosis or ureterectasis is seen. Vascular: The visualized abdominal aorta and IVC are unremarkable. IMPRESSION: 1. The right upper quadrant is unremarkable in appearance. Dictated by Bennett Davis MD @ 10/29/2023 10:55:03 PM Dictated by: Bennett Davis MD @ 10/29/2023 22:58:49 (Electronically Signed) Ordering Physician: Samantha Marie M.D. Date of Service: 10/29/23 Procedure(s): CT abdomen pelvis w con Accession Number(s): [id number] cc: Samantha Marie M.D.; Ruperto Kearns M.D.~ For Patients: As a result of the Century Cures Act, medical imaging exams and procedure reports are released immediately into your electronic medical record. You may view this report before your referring provider. If you have questions, please contact your health care provider. INDICATION: Falls, confusion, headache, nausea, fever, sepsis, distended abdominal, right upper quadrant pain TECHNIQUE: CT Abdomen and pelvis with i.v. contrast. Coronal and sagittal reformats were obtained. CONTRAST: 111 mL Isovue 370 COMPARISON: 07/07/2023 FINDINGS: Lower chest: On image 1, there is a focus of gas density in the anterior left chest is partially visualized and may be due to volume averaging with the lung base. No pneumoperitoneum is seen within the abdomen. Severe elevation of the left hemidiaphragm is noted without interval change. Liver: Unremarkable. Spleen: Unremarkable. Pancreas: Unremarkable. Gallbladder: Unremarkable. Kidney: Unremarkable. No kidney or ureteral stones or obstruction seen. Adrenal: Unremarkable. Bowel: Large amount of colonic stool is present in the rectosigmoid colon. There is a bowel staple line near the junction of the descending and sigmoid colon. The appendix is normal in appearance and size. Vascular: Unremarkable. Lymph: Unremarkable. Peritoneum: Unremarkable. No significant ascites is noted. Pelvis: Moderate enlargement of the prostate gland is noted. The bladder is decompressed and difficult to evaluate but there is suspected mild wall thickening with infiltration of the perivesicular fat. Soft tissue: Unremarkable. Bone: A chronic compression deformity of T8 is present without interval change. IMPRESSION: 1. The bladder is decompressed and difficult to evaluate but there is suspected mild wall thickening with infiltration of the perivesicular fat. Correlation with urinalysis is recommended to exclude cystitis. Dictated by Bennett Davis MD @ 10/29/2023 10:13:36 PM Please note that all CT scans at this facility use dose modulation, iterative reconstruction, and/or weight-based dosing when appropriate to reduce radiation dose to as low as reasonably achievable. Dictated by: Bennett Davis MD @ 10/29/2023 22:13:45 (Electronically Signed) Ordering Physician: Samantha Marie M.D. Date of Service: 10/29/23 Procedure(s): CT head/brain wo con Accession Number(s): [id number] cc: Samantha Marie M.D.; Ruperto Kearns M.D.~ For Patients: As a result of the Century Cures Act, medical imaging exams and procedure reports are released immediately into your electronic medical record. You may view this report before your referring provider. If you have questions, please contact your health care provider. INDICATION: Falls, confusion, headache, nausea, fever, sepsis, distended abd, RUQ pain TECHNIQUE: CT of the head without contrast. Coronal and sagittal reformats. Bone and soft tissue algorithms. COMPARISON: CT 07/07/2023 FINDINGS: No acute intracranial hemorrhage or extra-axial collection. No evidence of acute cortical infarction. No mass effect or midline shift. Moderate generalized parenchymal volume loss. Moderate regions of decreased attenuation within the periventricular and subcortical white matter of both cerebral hemispheres most likely reflect chronic microvascular ischemic disease and age related change in this patient. Vascular calcifications within the carotid siphons and vertebral arteries. Orbital contents are normal. No calvarial fractures. No lytic or sclerotic osseous lesions within the calvarium or skull base. Scalp and other imaged soft tissue structures are normal. Mastoid air cells are clear. IMPRESSION: No acute intracranial abnormality. No significant changes compared to the prior study. Please note that all CT scans at this facility use dose modulation, iterative reconstruction, and/or weight-based dosing when appropriate to reduce radiation dose to as low as reasonably achievable. Dictated by Raleigh Mackenzie MD @ 10/29/2023 10:03:55 PM (Electronically Signed) Assessment and Plan Assessment and plan (1) Sepsis: Problem comment: - severe sepsis with fever, tachycardia, tachypnea, elevated white count, elevated lactate. He was not hypotensive. He was given 1 L normal saline in the emergency department and lactate has normalized. Blood pressure remained stable. He remains tachycardic. A repeat EKG as above shows sinus tachycardia. I suspect the source is urinary tract infection as below. - Due to right upper quadrant pain and bloating, I obtained CT abdomen and pelvis and right upper quadrant ultrasound. These were unremarkable with the exception of possible bladder wall thickening, concern for cystitis. Also note that LFTs were unremarkable. Status: Acute (2) Urinary tract infection: Problem comment: - AP he likely has urinary tract infection. Urinalysis is abnormal, he is having increased urinary frequency, and there is possible bladder wall thickening consistent with cystitis on CT abdomen pelvis today. Continue Rocephin started in the emergency department. Await blood cultures and urine culture. Status: Acute (3) Alzheimer dementia: Problem comment: Continue donepezil Status: Chronic (4) Sinus tachycardia: Problem comment: May be related to sepsis versus other. Patient has a history of BPH and now has probable urinary tract infection. Will obtain bladder scan to look for urinary retention. Status: Acute Plan PT and OT to evaluate as patient has had weakness associated with sepsis. Continue rivaroxaban for history of PE
[2023-10-29] MEDS: RIVAROXABAN 10 MG TABLET 20 MG PO (23:57)
[2023-10-29] MEDS: DONEPEZIL 10 MG TABLET PO (23:57)
[2023-10-30] VITALS (8 sets, daily range): BP systolic 83–120; BP diastolic 45–80; PULSE 81–112; RESP 18–24; TEMP 36.7–37.4; O2SAT 90–94
[2023-10-30] MEDS: 0.9 % SODIUM CHLORIDE 250 ml IV (02:09)
[2023-10-30] MEDS: MELATONIN 3 MG TABLET PO ×2 (02:10→21:43)
[2023-10-30] MEDS: ACETAMINOPHEN 325 MG TABLET 975 MG PO ×2 (04:06→21:44)
--- NOTE | 2023-10-30 06:06 | PC.NURSE ---
End of shift : Pt AXO x3, cooperative, and pleasant. Occasional forgetfulness/confusion, hx of dementia. Pt ripped off TELE stickers multiple times. Pt denied CP/SOB/N/V. Pt stated having a headache. PRN Tylenol given, and warm wash cloth applied. Pt was diaphoretic during the night, removed covers and turned down the temperature. Pt remained afebrile during shift. TELE: sinus tach. Pt x1 GB and W. Pt urinated a small amount in the toilet during shift. Bladder scanned Pt per MD orders and there was a scant amount of fluid found.?Pt tolerating fluids well. Pt states ?not having much of an appetite.? PRN melatonin given per Pt upon request and stating, ?I don't sleep well.? Pt appears resting comfortably with call light in reach. ?
[2023-10-30 06:19] LABS: Basophils Percent Auto 0.1 % (0.0-3.0); Hematocrit 44.6 % (37.0-53.0); Lymphocytes Percent Auto 3.2 % (20-44); Mean Corpuscular HGB Conc 31 gm/dL (32-36); Mean Corpuscular Hemoglobin 30 pg (26-34); Mean Corpuscular Volume 97 fL (80-100); Monocytes Percent Auto 6.5 % (0.0-11.0); Neutrophils Percent Auto 88.2 % (42.0-72.0); Platelet Count* 139 K/uL (140-440); RDW Coefficient of Variation % 13.5 % (11.5-15.5); Red Blood Count 4.61 m/uL (4.30-5.90); White Blood Count* 20.37 K/uL (4.50-11.00)
[2023-10-30 06:22] LABS: Slide Review Reflex No
[2023-10-30 06:32] LABS: Chloride* 101 mmol/L (96-114)
[2023-10-30 06:33] LABS: Albumin* 3.6 g/dL (3.3-5.0); Sodium* 135 mmol/L (135-149)
[2023-10-30 06:34] LABS: Potassium* 3.7 mmol/L (3.6-5.1)
[2023-10-30 06:36] LABS: Alanine Aminotransferase* 13 U/L (4-50); Alkaline Phosphatase* 58 U/L (40-150); Anion Gap 7 mEq/L (7-15); Aspartate Amino Transferase* 21 U/L (12-35); Bilirubin Total* 1.5 mg/dL (0.1-1.5); Carbon Dioxide* 27 mmol/L (20-32); Creatinine* 0.9 mg/dL (0.5-1.5); Est. Creatinine Clearance* 59.28; Estimated Glomerular Filt Rate 84 ml/min; Total Protein* 6.3 g/dL (6.0-8.3)
[2023-10-30 06:37] LABS: Blood Urea Nitrogen* 17 mg/dL (7-30); Calcium* 8.3 mg/dL (8.4-10.6); Glucose* 134 mg/dL (60-115)
[2023-10-30 06:53] LABS: C Reactive Protein* 16.3 mg/dL (0.5-1.0)
[2023-10-30] MEDS: SODIUM CHLORIDE 0.9 % (FLUSH) 10 ML SYRINGE 5 ML IVF ×2 (09:08→21:43)
[2023-10-30] MEDS: TAMSULOSIN HCL 0.4 MG CAPSULE 0.8 MG PO (09:08)
[2023-10-30] MEDS: SERTRALINE 100 MG TABLET PO (09:08)
--- NOTE | 2023-10-30 12:41 | P.IMPN_ITS ---
Progress Note: A&P Assessment and plan (1) Sepsis: Problem details: - severe sepsis with fever, tachycardia, tachypnea, elevated white count, elevated lactate. He was not hypotensive. He was given 1 L normal saline in the emergency department and lactate has normalized. Blood pressure remained stable. He remains tachycardic. A repeat EKG as above shows sinus tachycardia. I suspect the source is urinary tract infection as below. - Due to right upper quadrant pain and bloating, I obtained CT abdomen and pelvis and right upper quadrant ultrasound. These were unremarkable with the exception of possible bladder wall thickening, concern for cystitis. Also note that LFTs were unremarkable. Status: Acute (2) Urinary tract infection: Problem details: - AP he likely has urinary tract infection. Urinalysis is abnormal, he is having increased urinary frequency, and there is possible bladder wall thickening consistent with cystitis on CT abdomen pelvis today. Continue Rocephin started in the emergency department. Await blood cultures and urine culture. Status: Acute (3) Alzheimer dementia: Problem details: Continue donepezil. At risk for hospital delirium Status: Chronic (4) Sinus tachycardia: Problem details: May be related to sepsis versus other. Patient has a history of BPH and now has probable urinary tract infection. Will obtain bladder scan to look for urinary retention. Status: Acute (5) BPH without obstruction/lower urinary tract symptoms: Problem details: Check bladder scan Status: Acute Plan Patient is admitted with the to the hospital for ongoing treatment of sepsis. Continue in hospital pending clinical course and cultures. Therapy to evaluate functional status for possible return to [facility]. Time Spent With Patient Total time spent: Total time spent today is 60 minutes in coordination of care discussing with patient and family ongoing evaluation management of sepsis Subjective Date Seen: 10/30/23 Interval history: Judah Roger is a 83 year old male with a history of dementia who lives with his at the [facility] assisted living and has become weak and confused over the last day. He also notes that he has had some nausea off and on lately. He thinks he might have diarrhea as well. He thinks he might have some abdominal pain at times, but cannot give me details of this. His daughter tells me that he has fallen twice today. The patient confirms this but says he did not had anything and did not lose consciousness. He is on Xarelto for history of PE. He notes increased frequency of urination. Denies dysuria. He complains of a headache. In the ER he was febrile and tachycardic. Lactate was elevated. He was not hypotensive. He was given IV fluid bolus of 1 L and ceftriaxone IV. Lactate came down to 1.1. Sepsis thought secondary to urinary infection is working diagnosis Today patient reports no concerns. He is seen with his and daughter. He is somewhat confused and only limited ability to give history. and daughter indicate that he has had weakness and falls yesterday. Fever was noted. No other obvious acute symptoms of illness He does have chronic urinary incontinence according to his family. Does not recall being diagnosed with prostate problems but he is on chronic tamsulosin. He does report that he has chronic problems with burping or belching as well. No chest pain. No aspiration that he or is are aware Exam Narrative: Exam Narrative: He is alert and appears in no distress. He is sitting up in a chair eating breakfast and talking with his family. Head is without obvious trauma. Eyes normal. Pupils equal round reactive to light. Extraocular movements are full. Visual caballero are intact. Oropharynx is normal. Tongue is midline. No facial asymmetry. Neck is supple without mass or adenopathy. Respirations are clear to auscultation. Cardiovascular: S1, S2, regular tachycardia. No murmur gall op or rub. Abdomen: Bowel sounds active. Abdomen is protuberant but without any tenderness or mass. External genitalia normal. He moves all 4 extremities with full and symmetric strength in all 4 extremities [id number] and heel-hollingsworth are normal without ataxia. Const: Vital Signs, click to edit/add: Vital Signs - 24 hr 10/29/23 15:17 10/29/23 15:23 10/29/23 15:24 Temperature 100.9 F H Pulse Rate 128 H Pulse Rate [Left P ulse Oximeter] Pulse Rate [Pulse Oximeter] 121 H Respiratory Rate 20 Blood Pressure 151/91 H Blood Pressure [Ri ght Arm] Blood Pressure [Ri ght Upper Arm] 146/84 H Pulse Oximetry 92 93 Oxygen Delivery Me thod Room Air Oxygen Flow Rate 10/29/23 15:30 10/29/23 15:30 10/29/23 15:31 Temperature Pulse Rate 121 H 113 H Pulse Rate [Left P ulse Oximeter] Pulse Rate [Pulse Oximeter] Respiratory Rate Blood Pressure 157/94 H Blood Pressure [Ri ght Arm] Blood Pressure [Ri ght Upper Arm] Pulse Oximetry 95 92 92 Oxygen Delivery Me thod Oxygen Flow Rate 10/29/23 15:45 10/29/23 16:00 10/29/23 16:01 Temperature Pulse Rate 117 H 117 H 112 H Pulse Rate [Left P ulse Oximeter] Pulse Rate [Pulse Oximeter] Respiratory Rate Blood Pressure 151/88 H Blood Pressure [Ri ght Arm] Blood Pressure [Ri ght Upper Arm] Pulse Oximetry 94 91 90 Oxygen Delivery Me thod Oxygen Flow Rate 10/29/23 16:15 10/29/23 16:30 10/29/23 16:31 Temperature Pulse Rate 124 H 117 H 118 H Pulse Rate [Left P ulse Oximeter] Pulse Rate [Pulse Oximeter] Respiratory Rate Blood Pressure 127/91 H Blood Pressure [Ri ght Arm] Blood Pressure [Ri ght Upper Arm] Pulse Oximetry 91 92 92 Oxygen Delivery Me thod Oxygen Flow Rate 10/29/23 16:45 10/29/23 16:50 10/29/23 17:00 Temperature 101.4 F H Pulse Rate 113 H 136 H Pulse Rate [Left P ulse Oximeter] Pulse Rate [Pulse Oximeter] Respiratory Rate Blood Pressure Blood Pressure [Ri ght Arm] Blood Pressure [Ri ght Upper Arm] Pulse Oximetry 93 91 Oxygen Delivery Me thod Oxygen Flow Rate 10/29/23 17:01 10/29/23 17:02 10/29/23 17:15 Temperature Pulse Rate 137 H 125 H 134 H Pulse Rate [Left P ulse Oximeter] Pulse Rate [Pulse Oximeter] Respiratory Rate Blood Pressure 145/84 H Blood Pressure [Ri ght Arm] Blood Pressure [Ri ght Upper Arm] Pulse Oximetry 95 93 92 Oxygen Delivery Me thod Oxygen Flow Rate 10/29/23 17:30 10/29/23 17:31 10/29/23 17:45 Temperature Pulse Rate 134 H 135 H 133 H Pulse Rate [Left P ulse Oximeter] Pulse Rate [Pulse Oximeter] Respiratory Rate Blood Pressure 140/75 H Blood Pressure [Ri ght Arm] Blood Pressure [Ri ght Upper Arm] Pulse Oximetry 94 94 93 Oxygen Delivery Me thod Oxygen Flow Rate 10/29/23 18:00 10/29/23 18:00 10/29/23 18:01 Temperature 101.2 F H Pulse Rate 132 H 133 H Pulse Rate [Left P ulse Oximeter] Pulse Rate [Pulse Oximeter] Respiratory Rate 18 Blood Pressure 142/90 H Blood Pressure [Ri ght Arm] Blood Pressure [Ri ght Upper Arm] Pulse Oximetry 93 95 Oxygen Delivery Me thod Oxygen Flow Rate 10/29/23 18:17 10/29/23 18:30 10/29/23 18:31 Temperature Pulse Rate 131 H 127 H 125 H Pulse Rate [Left P ulse Oximeter] Pulse Rate [Pulse Oximeter] Respiratory Rate Blood Pressure 132/76 Blood Pressure [Ri ght Arm] Blood Pressure [Ri ght Upper Arm] Pulse Oximetry 94 93 91 Oxygen Delivery Me thod Oxygen Flow Rate 10/29/23 19:19 10/29/23 19:19 10/29/23 19:19 Temperature 98.1 F 98 F Pulse Rate Pulse Rate [Left P ulse Oximeter] 134 H 129 H Pulse Rate [Pulse Oximeter] Respiratory Rate 20 24 24 Blood Pressure Blood Pressure [Ri ght Arm] 109/91 H 112/66 Blood Pressure [Ri ght Upper Arm] Pulse Oximetry 93 95 Oxygen Delivery Me thod Room Air Room Air Room Air Oxygen Flow Rate 0 10/29/23 19:40 10/29/23 22:30 10/29/23 23:00 Temperature 99 F Pulse Rate Pulse Rate [Left P ulse Oximeter] 98 Pulse Rate [Pulse Oximeter] Respiratory Rate 24 24 Blood Pressure Blood Pressure [Ri ght Arm] 148/87 H 122/79 Blood Pressure [Ri ght Upper Arm] Pulse Oximetry 93 93 Oxygen Delivery Me thod Room Air Room Air Oxygen Flow Rate 0 0 10/29/23 23:00 10/30/23 02:11 10/30/23 07:00 Temperature 99.3 F Pulse Rate 111 H 95 Pulse Rate [Left P ulse Oximeter] 106 H Pulse Rate [Pulse Oximeter] Respiratory Rate 24 Blood Pressure Blood Pressure [Ri ght Arm] 120/79 Blood Pressure [Ri ght Upper Arm] Pulse Oximetry 92 Oxygen Delivery Me thod Room Air Oxygen Flow Rate 0 10/30/23 07:00 10/30/23 07:00 10/30/23 07:00 Temperature Pulse Rate Pulse Rate [Left P ulse Oximeter] 93 93 Pulse Rate [Pulse Oximeter] Respiratory Rate 18 18 18 Blood Pressure Blood Pressure [Ri ght Arm] 116/80 Blood Pressure [Ri t Upper Arm] Pulse Oximetry 92 92 Oxygen Delivery Me thod Room Air Room Air Oxygen Flow Rate 0 0 Documenting provider has reviewed patient's vital signs: yes Labs Labs: Laboratory Results - last 24 hr 10/29/23 10/29/23 10/29/23 15:40 16:43 18:25 WBC 19.38 H RBC 5.20 Hgb 16.2 Hct 50.6 MCV 97 MCH 31 MCHC 32 RDW Coeff of Marisa 13.3 Plt Count 180 Neut % (Auto) 89.8 H Lymph % (Auto) 2.3 L [place] % (Auto) 7.2 Eos % (Auto) 0.0 Baso % (Auto) 0.2 Neut # (Auto) 17.40 H Lymph # (Auto) 0.40 L [place] # (Auto) 1.40 H Eos # (Auto) 0.00 Baso # (Auto) 0.00 Abs Immat Gran (auto) 0.10 Imm/Tot Granulo (auto) 0.5 Sodium 137 Potassium 4.1 Chloride 98 Carbon Dioxide 28 Anion Gap 11 BUN 19 Creatinine 1.1 Estimated Creat Clear Estimated GFR 66 Glucose 121 H Lactate 2.9 H 1.1 Calcium 9.3 Total Bilirubin 1.2 AST 24 ALT 16 Alkaline Phosphatase 69 Troponin I < 0.01 L C-Reactive Protein 3.0 H NT-Pro-B Natriuret Pep 496 Total Protein 7.7 Albumin 4.5 Procalcitonin 0.13 Urine Color Yellow Urine Appearance Clear Urine pH 7.5 Ur Specific [place] 1.020 Urine Protein Trace A Urine Glucose (UA) Negative Urine Ketones Negative Urine Blood Trace-intact A Urine Nitrite Positive A Urine Bilirubin Negative Urine Urobilinogen 2.0 A Ur Leukocyte Esterase Trace A Urine RBC 0-2 Urine WBC 5-10 A Ur Squamous Epith Cells None Urine Bacteria Moderate A SARS-CoV-2 (PCR) Negative SARS-CoV-2 Influenza Type A (PCR) Negative PCR FLU A Influenza Type B (PCR) Negative PCR FLU B RSV (PCR) Negative PCR RSV 10/30/23 06:02 WBC 20.37 H RBC 4.61 Hgb 14.0 Hct 44.6 MCV 97 MCH 30 MCHC 31 L RDW Coeff of Marisa 13.5 Plt Count 139 L Neut % (Auto) 88.2 H Lymph % (Auto) 3.2 L Newton % (Auto) 6.5 Eos % (Auto) 0.0 Baso % (Auto) 0.1 Neut # (Auto) 18.00 H Lymph # (Auto) 0.70 L [place] # (Auto) 1.30 H Eos # (Auto) 0.00 Baso # (Auto) 0.00 Abs Immat Gran (auto) 0.40 H Imm/Tot Granulo (auto) 2.0 Sodium 135 Potassium 3.7 Chloride 101 Carbon Dioxide 27 Anion Gap 7 BUN 17 Creatinine 0.9 Estimated Creat Clear 59.28 Estimated GFR 84 Glucose 134 H Lactate Calcium 8.3 L Total Bilirubin 1.5 AST 21 ALT 13 Alkaline Phosphatase 58 Troponin I C-Reactive Protein 16.3 H NT-Pro-B Natriuret Pep Total Protein 6.3 Albumin 3.6 Procalcitonin Urine Color Urine Appearance Urine pH Ur Specific [place] Urine Protein Urine Glucose (UA) Urine Ketones Urine Blood Urine Nitrite Urine Bilirubin Urine Urobilinogen Ur Leukocyte Esterase Urine RBC Urine WBC Ur Squamous Epith Cells Urine Bacteria SARS-CoV-2 (PCR) Influenza Type A (PCR) Influenza Type B (PCR) RSV (PCR)
[2023-10-30] MEDS: OMEPRAZOLE 20 MG CAPSULE DR PO (12:43)
[2023-10-30] MEDS: cefTRIAXone 2 GM in 0.9 % SODIUM CHLORIDE Mini-bag 100 ML IVPB (12:46)
[2023-10-30] MEDS: RIVAROXABAN 10 MG TABLET 20 MG PO (19:07)
[2023-10-30] MEDS: DONEPEZIL 10 MG TABLET PO (21:43)
[2023-10-31] VITALS (10 sets, daily range): BP systolic 86–123; BP diastolic 56–82; PULSE 74–110; RESP 18–20; TEMP 36.6–37; O2SAT 91–96
[2023-10-31] MEDS: 0.9 % SODIUM CHLORIDE 1000 ml 1,000 ML 500 ML IV (00:20)
[2023-10-31] MEDS: OMEPRAZOLE 20 MG CAPSULE DR PO (06:44)
--- NOTE | 2023-10-31 06:48 | PC.NURSE ---
End of shift : Pt AXO x3, cooperative, and pleasant. Occasional forgetfulness/confusion, hx of dementia. Pt denied CP/SOB/N/V. Pt stated having a headache as far as pain. PRN Tylenol requested and given; aromatherapy patch applied. Pt noted relief. Pt remained afebrile during shift. PRN melatonin requested. Pt had low bps @ 2300 VS, MD notified, and NS bolus given. 0300 VS: continued soft bps automatic and manually. MD notified, no further interventions per MD orders. See worklist.?TELE: NSR. Pt x1 GB and W. Incontinent of the bladder, wet brief during shift. Pt tolerating fluids/diet well. IV L AC SL, IV R HAND SL. Pt appears resting comfortably with call light in reach. ??
[2023-10-31 06:50] LABS: Lactate* 1.4 mmol/L (0.5-1.9)
[2023-10-31 06:54] LABS: Basophils Percent Auto 0.2 % (0.0-3.0); Eosinophils Percent Auto 1.5 % (0.0-7.0); Hematocrit 43.8 % (37.0-53.0); Hemoglobin* 13.7 gm/dL (13.5-17.5); Immature Granulocytes Pct Auto 1.3 %; Lymphocytes Percent Auto 9.9 % (20-44); Mean Corpuscular HGB Conc 31 gm/dL (32-36); Mean Corpuscular Hemoglobin 31 pg (26-34); Mean Corpuscular Volume 98 fL (80-100); Monocytes Percent Auto 8.9 % (0.0-11.0); Neutrophils Percent Auto 78.2 % (42.0-72.0); Platelet Count* 136 K/uL (140-440); RDW Coefficient of Variation % 13.6 % (11.5-15.5); Red Blood Count 4.45 m/uL (4.30-5.90); White Blood Count* 14.37 K/uL (4.50-11.00)
[2023-10-31 07:00] LABS: Slide Review Reflex No
[2023-10-31 07:12] LABS: Chloride* 103 mmol/L (96-114); Potassium* 4.2 mmol/L (3.6-5.1); Sodium* 138 mmol/L (135-149)
[2023-10-31 07:14] LABS: Est. Creatinine Clearance* 59.28; Estimated Glomerular Filt Rate 74 ml/min
[2023-10-31 07:15] LABS: Anion Gap 6 mEq/L (7-15); Blood Urea Nitrogen* 23 mg/dL (7-30); Carbon Dioxide* 29 mmol/L (20-32)
[2023-10-31 07:16] LABS: Calcium* 8.1 mg/dL (8.4-10.6); Glucose* 97 mg/dL (60-115)
[2023-10-31 07:32] LABS: C Reactive Protein* 22.5 mg/dL (0.5-1.0)
[2023-10-31] MEDS: SERTRALINE 100 MG TABLET PO (08:59)
[2023-10-31] MEDS: TAMSULOSIN HCL 0.4 MG CAPSULE 0.8 MG PO (08:59)
[2023-10-31] MEDS: SODIUM CHLORIDE 0.9 % (FLUSH) 10 ML SYRINGE 5 ML IVF ×2 (09:00→20:31)
[2023-10-31] MEDS: cefTRIAXone 2 GM in 0.9 % SODIUM CHLORIDE Mini-bag 100 ML IVPB (13:11)
--- NOTE | 2023-10-31 13:14 | PM.IMPN1 ---
Progress Note: A&P Assessment and plan (1) Sepsis: Problem details: Clinically improving. Fever resolved. Tachycardia and tachypnea resolved. Elevated lactate resolved - severe sepsis with fever, tachycardia, tachypnea, elevated white count, elevated lactate. Likely source urinary with pansensitive E coli Status: Acute (2) Urinary tract infection: Problem details: - AP he likely has urinary tract infection. Urinalysis is abnormal, he is having increased urinary frequency, and there is possible bladder wall thickening consistent with cystitis on CT abdomen pelvis today. Continue Rocephin started in the emergency department. Await blood cultures. Urine culture has pansensitive E coli Status: Acute (3) Alzheimer dementia: Problem details: Continue donepezil. At risk for hospital delirium Status: Chronic (4) Sinus tachycardia: Problem details: Resolved with treatment of sepsis Status: Acute (5) BPH without obstruction/lower urinary tract symptoms: Problem details: Bladder scan shows no significant residual. Status: Acute Plan Continue in hospital for ongoing evaluation management of sepsis and urinary infection. Therapy to assess. Anticipate discharge to home tomorrow if he is able to ambulate. Time Spent With Patient Total time spent: Total time spent today is 35 minutes in evaluation management and discussion with other providers ongoing evaluation management Subjective Date Seen: 10/31/23 Interval history: Judah Roger is a 83 year old male with a history of dementia who lives with his at [facility] and has become weak and confused over the last day. He also notes that he has had some nausea off and on lately. He thinks he might have diarrhea as well. He thinks he might have some abdominal pain at times, but cannot give me details of this. His daughter tells me that he has fallen twice today. The patient confirms this but says he did not had anything and did not lose consciousness. He is on Xarelto for history of PE. He notes increased frequency of urination. Denies dysuria. He complains of a headache. In the ER he was febrile and tachycardic. Lactate was elevated. He was not hypotensive. He was given IV fluid bolus of 1 L and ceftriaxone IV. Lactate came down to 1.1. Sepsis thought secondary to urinary infection is working diagnosis 10/30/2023: patient reports no concerns. He is seen with his and daughter. He is somewhat confused and only limited ability to give history. and daughter indicate that he has had weakness and falls yesterday. Fever was noted. No other obvious acute symptoms of illness He does have chronic urinary incontinence according to his family. Does not recall being diagnosed with prostate problems but he is on chronic tamsulosin. He does report that he has chronic problems with burping or belching as well. No chest pain. No aspiration that he or is are aware. 10/31/2023: Patient reports feeling well today. He is not oriented to his circumstances. Confused and pleasant. Bladder scan yesterday showed minimal postvoid residual. Urine culture growing pansensitive E coli Exam Narrative: Exam Narrative: He is alert and pleasant and confused. Respirations are clear to auscultation. Cardiovascular: S1, S2, regular rate and rhythm. No tachycardia. Abdomen: Bowel sounds active. Abdomen is soft without tenderness or mass. Extremities with 1+ edema bilaterally Const: Vital Signs, click to edit/add: Vital Signs - 24 hr 10/30/23 15:00 10/30/23 15:00 10/30/23 15:00 Temperature Pulse Rate 109 H Pulse Rate [Left P ulse Oximeter] 112 H Respiratory Rate 18 18 Blood Pressure [Le ft Arm] Blood Pressure [Ri ght Arm] Pulse Oximetry 92 Oxygen Delivery Me thod Room Air Oxygen Flow Rate 0 10/30/23 15:00 10/30/23 19:00 10/30/23 23:00 Temperature 98.1 F 98.5 F Pulse Rate 81 Pulse Rate [Left P ulse Oximeter] 112 H 96 Respiratory Rate 18 18 Blood Pressure [Le ft Arm] Blood Pressure [Ri ght Arm] 113/80 102/69 Pulse Oximetry 92 93 Oxygen Delivery Me thod Room Air Room Air Oxygen Flow Rate 0 10/30/23 23:30 10/30/23 23:45 10/31/23 00:22 Temperature 98.4 F Pulse Rate Pulse Rate [Left P ulse Oximeter] 97 Respiratory Rate 22 22 Blood Pressure [Le ft Arm] 83/45 L Blood Pressure [Ri ght Arm] 99/61 101/63 Pulse Oximetry 90 90 Oxygen Delivery Me thod Room Air Room Air Oxygen Flow Rate 0 10/31/23 02:24 10/31/23 08:06 10/31/23 09:56 Temperature 98.6 F 97.8 F Pulse Rate Pulse Rate [Left P ulse Oximeter] 74 78 Respiratory Rate 20 18 18 Blood Pressure [Le ft Arm] 100/60 120/75 Blood Pressure [Ri ght Arm] 86/56 L Pulse Oximetry 94 96 94 Oxygen Delivery Me thod Nasal Cannula Room Air Room Air Oxygen Flow Rate 1 10/31/23 09:58 Temperature Pulse Rate 96 Pulse Rate [Left P ulse Oximeter] Respiratory Rate Blood Pressure [Le ft Arm] Blood Pressure [Ri ght Arm] Pulse Oximetry Oxygen Delivery Me thod Oxygen Flow Rate Labs Labs: Laboratory Results - last 24 hr 10/31/23 06:08 WBC 14.37 H RBC 4.45 Hgb 13.7 Hct 43.8 MCV 98 MCH 31 MCHC 31 L RDW Coeff of Marisa 13.6 Plt Count 136 L Neut % (Auto) 78.2 H Lymph % (Auto) 9.9 L [place] % (Auto) 8.9 Eos % (Auto) 1.5 Baso % (Auto) 0.2 Neut # (Auto) 11.20 H Lymph # (Auto) 1.40 [place] # (Auto) 1.30 H Eos # (Auto) 0.20 Baso # (Auto) 0.00 Abs Immat Gran (auto) 0.20 Imm/Tot Granulo (auto) 1.3 Sodium 138 Potassium 4.2 Chloride 103 Carbon Dioxide 29 Anion Gap 6 L BUN 23 Creatinine 1.0 Estimated Creat Clear 59.28 Estimated GFR 74 Glucose 97 Lactate 1.4 Calcium 8.1 L C-Reactive Protein 22.5 H
--- NOTE | 2023-10-31 13:55 | PC.SOCIAL ---
Addendum entered by CHARY Galaviz 11/01/23 11:48: Discharge planning/late entry: egg worker spoke to pt again in the afternoon of 10/31/2023 about doing PT/OT through [facility] that comes to [facility]. Pt shared that he really likes his physical therapist, Gordy, [facility], but he is willing to work with [facility], as well. Pt shared he was looking forward to returning home. Social work to follow-up as needed. Original Note: Discharge planning: Met with pt today to discuss PT/OT at home at [facility] where pt resides through [facility](home care PT/OT agency that comes to [facility] to meet with residents there for therapies). Pt stated he would think about it. egg worker spoke to pt's daughter, Nargis, and she shared that sometimes her father can be stubborn, but she does think that it would be good for him and that he would participate. Pt was completing outpatient PT/OT recently before admitting into the hospital and enjoyed going to those appointments. Pt did state to this worker when meeting with him that he doesn't have a car. egg worker will check back in with the pt to discuss PT/OT at home. egg worker also left a message with Norma, nurse at [facility], to connect about services. Social work to follow-up as needed.
[2023-10-31 15:57] LABS: C.Difficile Negative (Negative); CDIFFEPI 027 PRESUMPTIVE NEGATIVE (Negative)
[2023-10-31] MEDS: RIVAROXABAN 10 MG TABLET 20 MG PO (18:19)
[2023-10-31] MEDS: DONEPEZIL 10 MG TABLET PO (20:30)
[2023-10-31] MEDS: MELATONIN 3 MG TABLET PO (20:30)
[2023-11-01 03:00] VITALS: BP 143/85; PULSE 104; RESP 18; TEMP 36.8; O2SAT 93
[2023-11-01] MEDS: OMEPRAZOLE 20 MG CAPSULE DR PO (06:24)
[2023-11-01 06:32] LABS: Basophils Absolute Auto 0.02 K/uL (0.00-0.30); Basophils Percent Auto 0.3 % (0.0-3.0); Eosinophils Absolute Auto 0.12 K/uL (0.00-0.50); Eosinophils Percent Auto 1.7 % (0.0-7.0); Hematocrit 41.5 % (37.0-53.0); Hemoglobin* 13.1 gm/dL (13.5-17.5); Immature Granulocytes Abs Auto 0.04 K/uL (0.00-0.30); Immature Granulocytes Pct Auto 0.6 %; Lymphocytes Percent Auto 8.7 % (20-44); Mean Corpuscular HGB Conc 32 gm/dL (32-36); Mean Corpuscular Hemoglobin 31 pg (26-34); Mean Corpuscular Volume 98 fL (80-100); Monocytes Percent Auto 10.1 % (0.0-11.0); Neutrophils Percent Auto 78.6 % (42.0-72.0); Platelet Count* 139 K/uL (140-440); RDW Coefficient of Variation % 13.4 % (11.5-15.5); Red Blood Count 4.22 m/uL (4.30-5.90); White Blood Count* 7.12 K/uL (4.50-11.00)
[2023-11-01 06:33] LABS: Slide Review Reflex No
--- NOTE | 2023-11-01 06:41 | PC.NURSE ---
End of shift : Pt AXO x3, cooperative, and pleasant. Occasional forgetfulness/confusion, hx of dementia. Pt denied CP/SOB/N/V/H. PRN melatonin?requested and given. Pt remained afebrile during shift. Pt x1 GB and W. Incontinent of the bladder, wet brief during shift. Pt tolerating fluids/diet well. IV L AC SL, IV R HAND SL. Pt had severe confusion this am when awaking, real estate underwriter reoriented and spent time with patient using therapeutic communication. Pt appears resting comfortably in a chair drinking coffee with call light in reach. ?? ?
[2023-11-01 06:43] LABS: Chloride* 105 mmol/L (96-114); Potassium* 3.7 mmol/L (3.6-5.1); Sodium* 136 mmol/L (135-149)
[2023-11-01 06:46] LABS: Creatinine* 0.8 mg/dL (0.5-1.5); Est. Creatinine Clearance* 59.28; Estimated Glomerular Filt Rate 87 ml/min
[2023-11-01 06:47] LABS: Anion Gap 3 mEq/L (7-15); Blood Urea Nitrogen* 23 mg/dL (7-30); Calcium* 8.2 mg/dL (8.4-10.6); Carbon Dioxide* 28 mmol/L (20-32); Glucose* 101 mg/dL (60-115)
[2023-11-01 07:00] VITALS: PULSE 103; RESP 18; O2SAT 94
[2023-11-01 07:02] LABS: C Reactive Protein* 12.4 mg/dL (0.5-1.0)
[2023-11-01 08:07] VITALS: BP 118/79; PULSE 82; RESP 20; TEMP 36.6; O2SAT 94
[2023-11-01] MEDS: TAMSULOSIN HCL 0.4 MG CAPSULE 0.8 MG PO (08:15)
[2023-11-01] MEDS: SERTRALINE 100 MG TABLET PO (08:15)
[2023-11-01] MEDS: SODIUM CHLORIDE 0.9 % (FLUSH) 10 ML SYRINGE 5 ML IVF (08:15)
[2023-11-01] MEDS: cefTRIAXone 2 GM in 0.9 % SODIUM CHLORIDE Mini-bag 100 ML IVPB (10:39)
--- NOTE | 2023-11-01 12:54 | PC.SOCIAL ---
Discharge planning: Pt will discharge back to [facility] today with PT/OT home care orders for [facility] who come to [facility] for therapy services for residents that live there. Pt's daughter, Nargis, will be picking him up and bringing him back to [facility]. food service worker spoke with Norma at [facility] who is aware that the pt is discharging today. food service worker sent Norma pt's PT/OT home care orders via secure email. food service worker also faxed over pt's discharge orders and progress notes from his hospital stay with physical and occupational therapy at her request. Social work to follow-up as needed.
--- NOTE | 2023-11-01 14:53 | PM.DS1 ---
DS: Providers Provider Date Seen: 11/01/23 Date of admission: 10/30/23 07:09 Primary care physician: Ruperto Kearns MD Admitting Clinician: Samantha Marie MD Attending Physician on discharge: Ananda Jonas MD Date of Discharge: 11/01/23 DS: Diagnosis Discharge Diagnosis (1) Sepsis: Status: Acute Problem details: Due to E coli urinary tract infection. Pansensitive E coli. Treated with ceftriaxone in the hospital and Keflex on discharge. Clinically resolved. Fever resolved. Tachycardia and tachypnea resolved. Elevated lactate resolved - severe sepsis with fever, tachycardia, tachypnea, elevated white count, elevated lactate. (2) Urinary tract infection: Status: Acute Problem details: Urinalysis is abnormal, he is having increased urinary frequency, and there is possible bladder wall thickening consistent with cystitis on CT abdomen pelvis today. Continue Rocephin started in the emergency department. Blood cultures negative at 48 hours. Urine culture has pansensitive E coli (3) Alzheimer dementia: Status: Chronic Problem details: Continue donepezil. At risk for hospital delirium (4) Urinary incontinence: Status: Acute Problem details: Patient has chronic urinary incontinence. Bladder scan here showed less than 10 mL postvoid residual. On tamsulosin chronically. DS: Summary Hospital Course Hospital Course: Interval history: Judah Roger is a 83 year old male with a history of dementia who lives with his at [facility] and has become weak and confused over the last day. He also notes that he has had some nausea off and on lately. He thinks he might have diarrhea as well. He thinks he might have some abdominal pain at times, but cannot give me details of this. His daughter tells me that he has fallen twice today. The patient confirms this but says he did not had anything and did not lose consciousness. He is on Xarelto for history of PE. He notes increased frequency of urination. Denies dysuria. He complains of a headache. In the ER he was febrile and tachycardic. Lactate was elevated. He was not hypotensive. He was given IV fluid bolus of 1 L and ceftriaxone IV. Lactate came down to 1.1. Sepsis thought secondary to urinary infection is working diagnosis 10/30/2023: patient reports no concerns. He is seen with his and daughter. He is somewhat confused and only limited ability to give history. and daughter indicate that he has had weakness and falls yesterday. Fever was noted. No other obvious acute symptoms of illness He does have chronic urinary incontinence according to his family. Does not recall being diagnosed with prostate problems but he is on chronic tamsulosin. He does report that he has chronic problems with burping or belching as well. No chest pain. No aspiration that he or is are aware. 10/31/2023: Patient reports feeling well today. He is not oriented to his circumstances. Confused and pleasant. Bladder scan yesterday showed minimal postvoid residual. Urine culture growing pansensitive E coli 11/01/2023: Patient reports feeling well today he has no concerns. He has had no fever. He is ambulating well with his walker. Status at Discharge Functional status at discharge: uses cane/walker Overall status at discharge: patient is progressing back to baseline Time Spent with Patient Time attestation: Total time spent providing and/or coordinating discharge services: 35 minutes Time spent: Greater than 30 minutes Exam Narrative: Exam Narrative: He is alert and appears in no distress. Pleasant and cooperative and very forgetful. Respirations are clear to auscultation. Cardiovascular: S1, S2, regular rate and rhythm. Abdomen: Bowel sounds active. Abdomen is soft without tenderness or mass. Const: Vital Signs, click to edit/add: Vital Signs - 24 hr 10/31/23 15:00 10/31/23 15:00 10/31/23 15:00 Temperature 98.1 F Pulse Rate 104 H Pulse Rate [Bilate ral Dorsalis Pedis ] Pulse Rate [Left P ulse Oximeter] 84 Respiratory Rate 20 18 Blood Pressure [Le ft Arm] 107/80 Blood Pressure [Ri ght Arm] Pulse Oximetry 96 96 Oxygen Delivery Me thod Room Air Room Air 10/31/23 19:00 10/31/23 21:46 10/31/23 22:26 Temperature 98.5 F Pulse Rate 99 Pulse Rate [Bilate ral Dorsalis Pedis ] Pulse Rate [Left P ulse Oximeter] 110 H Respiratory Rate 18 Blood Pressure [Le ft Arm] Blood Pressure [Ri ght Arm] 113/82 Pulse Oximetry 92 91 Oxygen Delivery Me thod Room Air Room Air 10/31/23 22:26 11/01/23 03:00 11/01/23 07:00 Temperature 98.5 F 98.3 F Pulse Rate Pulse Rate [Bilate ral Dorsalis Pedis ] Pulse Rate [Left P ulse Oximeter] 99 104 H Respiratory Rate 18 18 18 Blood Pressure [Le ft Arm] 143/85 H Blood Pressure [Ri ght Arm] 123/81 Pulse Oximetry 91 93 94 Oxygen Delivery Me thod Room Air Room Air Room Air 11/01/23 07:00 11/01/23 08:07 Temperature 97.8 F Pulse Rate 103 H Pulse Rate [Bilate ral Dorsalis Pedis ] 82 Pulse Rate [Left P ulse Oximeter] Respiratory Rate 20 Blood Pressure [Le ft Arm] 118/79 Blood Pressure [Ri ght Arm] Pulse Oximetry 94 Oxygen Delivery Me thod Room Air Documenting provider has reviewed patient's vital signs: yes DS: Data Data Completed and Pending Labs on day of discharge: Labs from last 24 hours 11/01/23 10/31/23 05:46 14:34 WBC 7.12 RBC 4.22 L Hgb 13.1 L Hct 41.5 MCV 98 MCH 31 MCHC 32 RDW Coeff of Marisa 13.4 Plt Count 139 L Neut % (Auto) 78.6 H Lymph % (Auto) 8.7 L [place] % (Auto) 10.1 Eos % (Auto) 1.7 Baso % (Auto) 0.3 Neut # (Auto) 5.60 Lymph # (Auto) 0.60 L [place] # (Auto) 0.70 Eos # (Auto) 0.12 Baso # (Auto) 0.02 Abs Immat Gran (auto) 0.04 Imm/Tot Granulo (auto) 0.6 Sodium 136 Potassium 3.7 Chloride 105 Carbon Dioxide 28 Anion Gap 3 L BUN 23 Creatinine 0.8 Estimated Creat Clear 59.28 Estimated GFR 87 Glucose 101 Calcium 8.2 L C-Reactive Protein 12.4 H Stl C. diff Tox B Gene Negative Stl C. diff [id number] PRESUMPTIVE NEGATIVE Preliminary micro results at discharge 10/29/23 16:25 Blood Culture - Preliminary Blood NO GROWTH AFTER 48 HOURS Imaging Chest x-ray: Radiologist's impression: INDICATION: Fever TECHNIQUE: Chest radiograph 1 view on 2 films COMPARISON: 03/12/2023 FINDINGS: The sensitivity and specificity of the exam are severely limited by the patient`s body habitus. Mediastinum: The mediastinum is normal in appearance. The heart silhouette is normal in size and morphology. Severe elevation of the left hemidiaphragm is noted without change and may be due to diaphragmatic paralysis or weakness. Lung: Mild pulmonary vascular congestion, bibasilar atelectasis, and mild suspected perihilar edema noted. No sign of pleural effusion seen. No pneumothorax is identified. Bone and Soft tissue: Remote fracture deformity of the left proximal humerus is noted. IMPRESSION: 1. Mild pulmonary vascular congestion, bibasilar atelectasis, and mild suspected perihilar edema noted. US - abdomen: Radiologist's impression: INDICATION: Right upper quadrant abdominal Pain, nausea, fever, diarrhea TECHNIQUE: Ultrasound abdomen limited. Sonographic images of the right upper quadrant were obtained using prescott-scale and color Doppler images. COMPARISON: None FINDINGS: Liver: The liver parenchyma is normal in echotexture. Gallbladder: The neck of the gallbladder is not well demonstrated. No gallstones or sludge seen in the lumen. The gallbladder wall is normal in appearance. No pericholecystic fluid is present. No sonographic Sanchez???s sign is present. Common bile duct: 5 mm. No intrahepatic biliary ductal dilatation seen. Pancreas: The visualized portions of the pancreatic head and body are normal in appearance. Right Kidney: 13 cm. No hydronephrosis or ureterectasis is seen. Vascular: The visualized abdominal aorta and IVC are unremarkable. IMPRESSION: 1. The right upper quadrant is unremarkable in appearance. CT scan - abdomen: Radiologist's impression: NDICATION: Falls, confusion, headache, nausea, fever, sepsis, distended abdominal, right upper quadrant pain TECHNIQUE: CT Abdomen and pelvis with i.v. contrast. Coronal and sagittal reformats were obtained. CONTRAST: 111 mL Isovue 370 COMPARISON: 07/07/2023 FINDINGS: Lower chest: On image 1, there is a focus of gas density in the anterior left chest is partially visualized and may be due to volume averaging with the lung base. No pneumoperitoneum is seen within the abdomen. Severe elevation of the left hemidiaphragm is noted without interval change. Liver: Unremarkable. Spleen: Unremarkable. Pancreas: Unremarkable. Gallbladder: Unremarkable. Kidney: Unremarkable. No kidney or ureteral stones or obstruction seen. Adrenal: Unremarkable. Bowel: Large amount of colonic stool is present in the rectosigmoid colon. There is a bowel staple line near the junction of the descending and sigmoid colon. The appendix is normal in appearance and size. Vascular: Unremarkable. Lymph: Unremarkable. Peritoneum: Unremarkable. No significant ascites is noted. Pelvis: Moderate enlargement of the prostate gland is noted. The bladder is decompressed and difficult to evaluate but there is suspected mild wall thickening with infiltration of the perivesicular fat. Soft tissue: Unremarkable. Bone: A chronic compression deformity of T8 is present without interval change. IMPRESSION: 1. The bladder is decompressed and difficult to evaluate but there is suspected mild wall thickening with infiltration of the perivesicular fat. Correlation with urinalysis is recommended to exclude cystitis. CT scan - head: Radiologist's impression: INDICATION: Falls, confusion, headache, nausea, fever, sepsis, distended abd, RUQ pain TECHNIQUE: CT of the head without contrast. Coronal and sagittal reformats. Bone and soft tissue algorithms. COMPARISON: CT 07/07/2023 FINDINGS: No acute intracranial hemorrhage or extra-axial collection. No evidence of acute cortical infarction. No mass effect or midline shift. Moderate generalized parenchymal volume loss. Moderate regions of decreased attenuation within the periventricular and subcortical white matter of both cerebral hemispheres most likely reflect chronic microvascular ischemic disease and age related change in this patient. Vascular calcifications within the carotid siphons and vertebral arteries. Orbital contents are normal. No calvarial fractures. No lytic or sclerotic osseous lesions within the calvarium or skull base. Scalp and other imaged soft tissue structures are normal. Mastoid air cells are clear. IMPRESSION: No acute intracranial abnormality. No significant changes compared to the prior study. Please note that all CT scans at this facility use dose modulation, iterative reconstruction, and/or weight-based dosing when appropriate to reduce radiation dose to as low as reasonably achievable. Discharge Plan Discharge Disposition: Home, Self-Care Date of Admission: 10/30/23 07:09 Attending Provider on Discharge: Inder Jonas Primary Care Provider: Ruperto Kearns Condition: Unchanged Anticipated Discharge Date/Time: 11/01/23 09:39 Discharge Medications: New cephalexin 500 mg capsule 500 mg PO TID Qty: 15 0RF Continued donepezil 10 mg tablet 10 mg PO HS tamsulosin 0.4 mg capsule 0.8 mg PO DAILY Xarelto 20 mg tablet 20 mg PO QPM sertraline 100 mg tablet 100 mg PO QAM Discharge Orders: Discharge Order (Routine); Ordered 11/01/23 Ordered By: Inder Jonas Patient Education: Cephalexin (By mouth), Urinary Tract Infection in Men (DC) Additional Instructions: You are very ill when you came to the hospital. The cause of this appears to be a urinary tract infection. The antibiotics we gave you were affective in treating your urinary tract infection. I have prescribed an oral antibiotic, cephalexin, to take 3 times a day for 5 more days. Activity Level: Activity as Tolerated and Use Walker Discharge Diet: Regular Follow Up Appointments: Ruperto Kearns MD [Primary Care Provider] - (Follow-up in 5-7 days) Forms: [employer] Info Instructions
== END 2023-11-01 12:00 | disposition home or self-care (01) | DRG 872 ==
LOC: ED 18:27 → MEDSURG 18:40
PROVIDERS: Emergency Medicine Emergency Medical Services; Family Medicine; Admitting Provider Family Medicine; Emergency Provider Family Medicine; PCP Family Medicine; Visit Provider Family Medicine
DX: A41.9 Sepsis, unspecified organism (principal); N39.0 Urinary tract infection, site not specified; F33.9 Major depressive disorder, recurrent, unspecified; R65.20 Severe sepsis without septic shock; B96.20 Unspecified Escherichia coli [E. coli] as the cause of diseases classified elsewhere; G30.9 Alzheimer's disease, unspecified; F02.80 Dementia in other diseases classified elsewhere, unspecified severity, without behavioral disturbance, psychotic disturbance, mood disturbance, and anxiety; R32 Unspecified urinary incontinence; N40.0 Benign prostatic hyperplasia without lower urinary tract symptoms; Z86.711 Personal history of pulmonary embolism; Z79.01 Long term (current) use of anticoagulants; R00.0 Tachycardia, unspecified
CPT/HCPCS: 36415; 51798; 70450; 71045; 74177; 76705; 80048; 80053; 81001; 83605; 83880; 84145; 84484; 85025; 86140; 87040; 87086; 87186; 87493; 87631; 93005; 94761; 97110; 97116; 97162; 97165; 97530; 97535; 99285; G0378; A9270; J0696; J7030; J7050; Q9967

== ENCOUNTER 2024-04-02 22:09 | Emergency (ER) | payer MEDICARE, BC, SELFPAY ==
--- OUTSIDE RECORDS SUMMARY | 2024-04-02 22:10 | XMS_ITS | Clinical Summary ---
Author Organization [facility] Address [address] [place] [address] Care Team Providers Care Cena Name Role Phone Ruperto Kearns MD Primary Care Provider [phone] Allergies Active Allergy Reactions Criticality Noted Date Comments Aspirin Hives 12/01/2022 Medications rivaroxaban (Xarelto) 20 mg tabletIndication s:Pulmonary embolism, bilateral (HC) Take 1 Tablet (20 mg) by mouth once daily with evening meal. 28 Tablet 12 5 Active tamsulosin 0.4 mg capsuleIndicatio ns:BPH without urinary obstruction Take 2 Capsules (0.8 mg) by mouth once daily after a meal. 180 Capsule 3 5 Active sertraline (ZOLOFT) 100 mg tabletIndication s:Depression, recurrent Take 1 Tablet (100 mg) by mouth once daily in the morning. 90 Tablet 3 5 Active donepeziL (ARICEPT) 10 mg tabletIndication s:Dementia in Alzheimer's disease (HC) 1 tablet daily in the evening 2 hours before bed. 90 Tablet 3 5 Active melatonin 5 mg tab tabletIndication s:Insomnia, idiopathic Take 1 Tablet (5 mg) by mouth at bedtime. 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 BPH without urinary obstruction 12/01/2022 Encounters Date Type Department Care Team Description 03/27/2024 2:55 PM INCIDENT RESPONSE COORDINATOR Office Visit [facility] [address] [place] [address] Joanie George PA Throat Problem 03/27/2024 Travel 02/27/2024 2:25 PM INCIDENT RESPONSE COORDINATOR Office Visit [facility] [address] [place] [address] Ruperto Kearns MD Medicare ANNUAL (subsequent) Visit (86 years); Immunization/Injectio n 02/27/2024 Travel 02/26/2024 Refill [facility] [address] [place] [address] Ruperto Kearns MD Refill Request (Donepezil) 01/21/2024 9:15 AM INCIDENT RESPONSE COORDINATOR Orders Only [facility] [address] [place] [address] Lab, [facility] 01/21/2024 Travel 01/19/2024 Travel 01/16/2024 Travel from Last 3 Months Immunizations Name Administration Dates Next Due COVID-19 VACCINE SPIKEVAX (M ODERNA 50MCG/0.5ML) 12YO+ PFS 02/27/2024 Hepatitis A (Adult) 05/04/2015 Hepatitis B (Adult) 05/04/2015 Influenza, High-dose Inactivated 12/04/2018,11/12 Influenza, High-dose Quadriv alent Inactivated 11/30/2022,01/04/2022,12/02/2020 Influenza, Inactivated IIV3 (Age 65+ Years) Preserv Free 02/27/2024 Influenza, Injectable, Mdck, Quadrivalent, W/preservative 10/27/2019 Meningococcal [...] drink = 0.6 oz pur e alcohol) less than monthly PHQ-2 Answer Date Recorded PHQ-2 TOTAL SCORE 4 02/27/2024 Social Connections Answer Date Recorded Do you often feel lonely or isolated from those around you? 0 03/27/2024 Alcohol Use Answer Date Recorded How often do you have a drink containing alcohol ? 1 02/27/2024 How many drinks containing a lcohol do you have on a typical day when you are drinking? 0 02/27/2024 How often do you have five or more drinks on one occasion? 0 02/27/2024 Financial Resource Strain Answer Date R ecorded Difficulty of Paying Living Expenses 3 03/27/2024 Difficulty of Paying Living Expenses Not on file 03/27/2024 Food Insecurity Answer Date Recorded Do you worry your food will run out before you are able to buy more? 1 03/27/2024 Transportation Needs Answer Date Record ed Does lack of transportation keep you from medica l appointments? 1 03/27/2024 Does lack of transportation keep you from work, meetings or getting things that you need? 1 03/27/2024 Housing Stability Answer Date Recorded What is your housing situation today? 1 03/27/2024 Utilities Answer Date Recorded Do you have trouble paying f or utilities (for example, heat, electricity, water, phone)? 1 03/27/2024 Sex and Gender Information Value Date Recorded Sex Assigned at Male 11/06/2022 9:44 AM CDT Legal Sex Male 12:34 PM CDT Gender Identity Male 11/06/2022 9:44 AM CDT Sexual Orientation Straight 05/02/2023 8: 55 AM CDT Obstetrics History Last Filed Vital Signs Vital Sign Reading Time Taken Comments Blood Pressure 122/82 03/27/2024 2:26 PM INCIDENT RESPONSE COORDINATOR Pulse 84 03/27/2024 2:26 PM INCIDENT RESPONSE COORDINATOR Temperature 36.8 C (98.2 F) 03/27/2024 2:26 PM INCIDENT RESPONSE COORDINATOR Respiratory Rate - - Oxygen Saturation 95% 03/27/2024 2:26 PM INCIDENT RESPONSE COORDINATOR Inhaled Oxygen Concentration - - Weight 102.3 kg (225 lb 9.6 oz) 02/27/2024 2:41 PM INCIDENT RESPONSE COORDINATOR Height 178.8 cm (5' 10.39) 12/01/2022 11:19 AM CDT Body Mass Index 32.01 12/01/2022 11:19 AM CDT Plan of Treatment Upcoming Encounters Date Type Department Care Team (Late st Contact Info) Description 05/28/2024 10:30 AM CDT Office Visit [facility] [address] [place] [address] Ruperto Kearns MD [address] [place] [address] Health Maintenance Due Date Last Done Comments Pneumococcal series for age 50+ (1 of 1 - PCV) 02/08/1988 RSV vaccine for adults or (1 - 1-dose 75+ series) 2013 Zoster (shingles) series for age 50+ (2 of 2) 09/23/2019 07/29/2019 BMI (ht and wt on same day) for age 18+ 12/02/2023 12/01/2022 Depression screening for age 12+ 02/26/2025 02/27/2024, 08/14/2023, 05/29/2023, Additional history exists Medicare Wellness for age 65+ 02/27/2025 02/27/2024, 01/17/2023 Tetanus booster 09/30/2026 09/30/2016, 07/19/2004 Tdap Completed 09/30/2016 COVID-19 vaccine series Completed 02/26/19, 11/27/2022, 05/30/2021, Additional history exists Influenza for age 65+ Completed 02/27/2024 , 11/30/2022, 01/04/2022, Additional history exists Procedures Procedure Name Priority Date/Time Associated Diagnosis Comments BASIC METABOLIC PANEL Routine 01/21/2024 9:38 AM INCIDENT RESPONSE COORDINATOR Pulmonary embolism on right (HC) ALT (SGPT) Routine 01/21/2024 9:38 AM INCIDENT RESPONSE COORDINATOR Pulmonary embolism on right (HC) CBC WITH AUTO DIFFERENTIAL Routine 01/21/2024 9:38 AM INCIDENT RESPONSE COORDINATOR Pulmonary embolism on right (HC) from Last 3 Months Results * (ABNORMAL) CBC AND DIFFERENTIAL (01/21/2024 9:38 AM INCIDENT RESPONSE COORDINATOR) WHITE BLOOD CELL COUNT 7.2 3.8 - 10.8 Thousand/u L [facility] RED BLOOD CELL COUNT 5.06 4.20 - 5.80 Million/uL [facility] HEMOGLOBIN 15.2 13.2 - 17.1 g/dL [facility] HEMATOCRIT 47.6 38.5 - 50.0 % [facility] MCV 94.1 80.0 - 100.0 fL [facility] MCH 30.0 27.0 - 33.0 pg [facility] MCHC 31.9(L) 32.0 - 36.0 g/dL [facility] Comment: For adults, a slight decrease in the calculated MCHC value (in the range of 30 to 32 g/dL) is most likely not clinically significant; however, it should be interpreted with caution in correlation with other red cell parameters and the patient's clinical condition. RDW 12.9 11.0 - 15.0 % [facility] PLATELET COUNT 219 140 - 400 Thousand/u L [facility] MPV 10.0 7.5 - 12.5 fL [facility] ABSOLUTE NEUTROPHILS 4,522 1,500 - 7,800 cells/uL [facility] ABSOLUTE LYMPHOCYTES 1,634 850 - 3,900 cells/uL [facility] ABSOLUTE MONOCYTES 706 200 - 950 cells/uL [facility] ABSOLUTE EOSINOPHILS 252 15 - 500 cells/uL [facility] ABSOLUTE BASOPHILS 86 0 - 200 cells/uL [facility] NEUTROPHILS 62.8 % [facility] LYMPHOCYTES 22.7 % [facility] MONOCYTES 9.8 % [facility] EOSINOPHILS 3.5 % [facility] BASOPHILS 1.2 % [facility] Blood BLOOD SPECIMEN / Unknown 01/21/2024 9:38 AM INCIDENT RESPONSE COORDINATOR 01/21/2024 9:38 AM INCIDENT RESPONSE COORDINATOR Ruperto Kearns MD HEMATOLOGY Final Resu lt [facility] [address] [place] [id number], [place] [phone] [facility] [address] [place] [address] * ALT (SGPT) (01/21/2024 9:38 AM INCIDENT RESPONSE COORDINATOR) ALT 9 9 - 46 U/L [facility] Blood BLOOD SPECIMEN / Unknown 01/21/2024 9:38 AM INCIDENT RESPONSE COORDINATOR 01/21/2024 9:38 AM INCIDENT RESPONSE COORDINATOR Ruperto Kearns MD CHEMISTRY Final Resu lt Performing Organization Address [facility] Co de Phone Number [facility] [address] [address], [place] [phone] [facility] [address] [place] [address] * (ABNORMAL) BASIC METABOLIC PANEL (01/21/2024 9:38 AM INCIDENT RESPONSE COORDINATOR) GLUCOSE 95 65 - 99 mg/dL [facility] Comment: Fasting reference interval UREA NITROGEN (BUN) 19 7 - 25 mg/dL [facility] CREATININE 1.20 0.70 - 1.22 mg/dL [facility] EGFR 59(L) > OR = 60 mL/min/1. 73m2 [facility] BUN/CREATININE RATIO SEE NOTE: 6 - 22 (calc) [facility] Comment: Not Reported: BUN and Creatinine are within reference range. SODIUM 144 135 - 146 mmol/L [facility] POTASSIUM 4.4 3.5 - 5.3 mmol/L [facility] CHLORIDE 104 98 - 110 mmol/L [facility] CARBON DIOXIDE 28 20 - 32 mmol/L [facility] ELECTROLYTE BALANCE 12 7 - 17 mmol/L (calc) [facility] CALCIUM 9.0 8.6 - 10.3 mg/dL [facility] Blood BLOOD SPECIMEN / Unknown 01/21/2024 9:38 AM INCIDENT RESPONSE COORDINATOR 01/21/2024 9:38 AM INCIDENT RESPONSE COORDINATOR us Ruperto Kearns MD CHEMISTRY Final Resu lt [facility] [address] [place] [address], [facility] [address] [place] [address] from Last 3 Months Insurance [employer] [place] [place] [employer] [place] ONLY Care Teams Cena Relationship Specialty Start Date End Date Ruperto Kearns MD [facility] [place] [address] PCP - General Family Practice 09/05/22
[2024-04-02 22:19] VITALS: BP 145/101; PULSE 93; RESP 20; TEMP 38.3; O2SAT 95; BMI 30.5
--- NOTE | 2024-04-02 22:48 | ED_ITS ---
HPI - General Adult General Chief complaint: Fever Stated complaint: Weakness, fever Time Seen by Provider: 04/02/24 22:45 History of Present Illness HPI narrative: Pt called from [facility] where he resides for lift assist. When EMS arrived they observed pt to be weak, unsteady and fever of 104. Blood sugar 125 . Pt states he began feeling unwell with weakness and fatigue yesterday. Denies other symptoms. Pt. just had 's this past week, states he is feeling sad and hurts. 84-year-old man presenting to the emergency department via EMS with concern for weakness. EMS was called to residence for lift assist or Mr. Roger was noted to be quite weak and with a fever measured to 104. Started to feel unwell yesterday. Is not having any pain other than his heart, emotions as had for spouse this week. She in early February I believe. Is not feeling specifically short of breath. Has not had diarrhea. No dysuria. Noted history of UTIs. Related Data Home Medications ?Medication ?Instructions ?Recorded ?Confirmed donepezil 10 mg tablet 10 mg PO HS 03/12/23 10/29/23 rivaroxaban 20 mg tablet (Xarelto) 20 mg PO QPM 03/12/23 10/29/23 tamsulosin 0.4 mg capsule 0.8 mg PO DAILY 03/12/23 10/29/23 sertraline 100 mg tablet 100 mg PO QAM 06/15/23 10/29/23 Previous Rx's ?Medication ?Instructions ?Recorded cephalexin 500 mg capsule 500 mg PO TID #15 caps 11/01/23 Allergies Allergy/AdvReac Type Severity Reaction Status Date / Time aspirin Allergy Verified 07/07/23 07:09 Review of Systems Status of ROS: Reports: 6 or more systems reviewed and unremarkable except as noted in History and below PFSH PFSH Medical History Urinary incontinence ?R32 - Unspecified urinary incontinence (ICD-10) Depression, recurrent ?F33.9 - Major depressive disorder, recurrent, unspecified (ICD-10) Alzheimer dementia ?G30.9 - Alzheimer's disease, unspecified (ICD-10) ?F02.80 - Dementia in other diseases classified elsewhere, unspecified severity, without behavioral disturbance, psychotic disturbance, mood disturbance, and anxiety (ICD-10) BPH without obstruction/lower urinary tract symptoms ?N40.0 - Benign prostatic hyperplasia without lower urinary tract symptoms (ICD-10) Pulmonary embolism ?I26.99 - Other pulmonary embolism without acute cor pulmonale (ICD-10) COVID-19 ?U07.1 - COVID-19 (ICD-10) Health care directive on file ?Z78.9 - Other specified health status (ICD-10) Surgical History H/O abdominal surgery ?Z98.890 - Other specified postprocedural states (ICD-10) Social History Narrative: Living at [facility] with his . His daughter, Nargis, is here with him today. Denies tobacco or alcohol use. What is your current living situation?: I presently have a place to live Problems where you live: no known problems Problems where you live details: N/A In the past 12 months, utilities in danger of being shut off: no In past 12 months, lack of transportation kept you from medical appts, meetings, work, or getting things needed for daily living: no In the past 12 mos, have been you worried that your food would run out before you had money to buy more?: never true In the past 12 mos, the food you bought just didn't last and you didn't have money to buy more?: never true Smoking Status: Never smoker Do you use any of these nicotine containing products: None Second hand tobacco smoke exposure: No How often do you have a drink containing alcohol: monthly or less How many standard drinks containing alcohol do you have on a typical day: 1 or 2 How often do you have six or more drinks on one occasion: Never AUDIT-C Alcohol total score: 1 Non-prescribed substance use: denies use How often does anyone, including family, friends and others, physically hurt you : never How often does anyone, including family, friends and others, insult or talk down to you: never How often does anyone, including family, friends and others, threaten you with harm: never How often does anyone, including family, friends and others, scream or curse at you: never service: No Exam Narrative: Exam Narrative: Pleasant. Does appear fatigued. Hesitant and slower in communication. Skin is rather warm. There is a 1 cm fleshy a nodule at the left neck looks similar to basal cell. Neck otherwise is supple and without lymphadenopathy. Oropharynx is moist and nonerythematous. Lungs are clear. Heart is in elevated rate. Trace systolic murmur I think. Extremities with mild pretibial pitting edema. Abdomen is overweight soft and nontender. Const: Vital Signs, click to edit/add: Vital Signs - 24 hr 04/02/24 22:19 04/02/24 23:15 04/02/24 23:28 Temperature 101 F H 101 F H Pulse Rate Pulse Rate [Pulse Oximeter] 93 Respiratory Rate 20 18 Blood Pressure Blood Pressure [Le ft Arm] 130/80 Blood Pressure [Le ft Upper Arm] 145/101 H Pulse Oximetry 95 96 94 Oxygen Delivery Me thod Room Air Room Air 04/02/24 23:31 04/02/24 23:46 04/03/24 00:01 Temperature Pulse Rate 87 79 Pulse Rate [Pulse Oximeter] Respiratory Rate 13 66 H 21 Blood Pressure 131/92 H 133/87 107/79 Blood Pressure [Le ft Arm] Blood Pressure [Le ft Upper Arm] Pulse Oximetry 90 93 Oxygen Delivery Me thod 04/03/24 00:18 Temperature 98.0 F Pulse Rate 77 Pulse Rate [Pulse Oximeter] Respiratory Rate 16 Blood Pressure Blood Pressure [Le ft Arm] Blood Pressure [Le ft Upper Arm] Pulse Oximetry 96 Oxygen Delivery Me thod Documenting provider has reviewed patient's vital signs: yes Course Vital Signs Vital signs: Initial Vital Signs Temperature 101 F H 04/02/24 22:19 Temperature Source Temporal Artery Scan 04/02/24 22:19 Pulse Rate 93 04/02/24 22:19 Respiratory Rate 20 04/02/24 22:19 Blood Pressure 145/101 H 04/02/24 22:19 Blood Pressure Mean 115 H 04/02/24 22:19 Blood Pressure Position Supine 04/02/24 22:19 Pulse Oximetry 95 04/02/24 22:19 Oxygen Delivery Method Room Air 04/02/24 22:19 Vital Signs Temperature 101 F H 04/02/24 22:19 Pulse Rate 93 04/02/24 22:19 Respiratory Rate 20 04/02/24 22:19 Blood Pressure 145/101 H 04/02/24 22:19 Pulse Oximetry 95 04/02/24 22:19 Oxygen Delivery Method Room Air 04/02/24 22:19 Temperature 98.0 F 04/03/24 00:18 Pulse Rate 77 04/03/24 00:18 Respiratory Rate 16 04/03/24 00:18 Blood Pressure 107/79 04/03/24 00:01 Pulse Oximetry 96 04/03/24 00:18 Oxygen Delivery Method Room Air 04/02/24 23:28 Medications Administered Medications: Discontinued Medications Generic Name Dose Route Start Last Admin Trade Name Corey PRN Reason Stop Dose Admin Sodium Chloride 1,000 mls @ 1,000 mls/hr 04/02/24 22:58 04/03/24 00:28 0.9 % Sodium Chloride 1000 Ml IV 04/02/24 23:57 Infused .Q1H ONE Infusion Ibuprofen 800 mg 04/02/24 22:58 04/02/24 23:20 Ibuprofen 400 Mg Tablet PO 04/02/24 22:59 800 mg ONCE ONE Administration Medical Decision Making MDM Narrative Medical decision making narrative: Fever. Unclear source at this point. During community prevalence would look for COVID or influenza a particularly. Screen urine given history. Is not having cough that might need to check a chest looking for pneumonia. I would do blood culture no check lactate looking for further evidence of sepsis. Given normal saline IV and ibuprofen. Monitor for improvement of fever. Labs overall reassuring with normal white count and lactate and negative swabs. On reassessment appears to have more energy. Color improved. Is no longer febrile at 98?. Chest x-ray one view independently reviewed by me challenged by rotation but I do not see clear infiltrate. Elevation of left hemidiaphragm. Urinalysis is a cath specimen has he has not been able to urinate yet. Looks positive. Review of records for last urine culture results shows E coli in October 2023 (see below). Pansensitive. Order for dose of Rocephin anticipate continuing with cephalexin Specimen: [id number] COMP Collected: 10/29/23 Received: 10/29/23 Source: Urine CC Sp Descrip: Sub Dr: Mirlande Uriostegui M.D. Other Dr: Procedure Result Site Urine Culture* Final ML Organism 1 Escherichia coli Ur [place] Count >100,000 CFU/ml E coli DIEGO RX --------- --- Ampicillin <=2 S Ampicillin/Sulbactam <=2 S Cefazolin <=4 S Cefepime <=1 S Cefoxitin <=4 S Ceftazidime <=1 S Ceftriaxone <=1 S Ciprofloxacin <=0.25 S Ertapenem <=0.5 S Gentamicin <=1 S Imipenem <=0.25 S Levofloxacin <=0.12 S Nitrofurantoin <=16 S Tobramycin <=1 S Trimethoprim/Sulfamethoxazole <=20 S Piperacillin/Tazobactam <=4 S As noted, looks improved. Will need to ambulate at usual ability with his walker prior to departure. Heading off change of shift while receiving Rocephin. Stay well-hydrated. I am impressed that the fever you had initially measured represents a urinary tract infection but we have not found any other source at this point. You received a dose of ceftriaxone also known as Rocephin here in the emergency department. Urine and blood cultures are pending. Continuing with cephalexin as prescribed from [facility] over this next week. Can take ibuprofen or acetaminophen for fever or pain. Return for worsening weakness, persistent fever, vomiting. Medical Records Medical records reviewed: Yes I reviewed the patient's medical records Lab Data Lab results reviewed: Yes I reviewed the patient's lab results Labs: Lab Results 04/02/24 04/02/24 04/03/24 Range/Units 22:13 23:20 00:05 WBC 8.16 (4.50-11.00) K/uL RBC 4.92 (4.30-5.90) m/uL Hgb 14.6 (13.5-17.5) gm/dL Hct 46.9 (37.0-53.0) % MCV 95 (80-100) fL MCH 30 (26-34) pg MCHC 31 L (32-36) gm/dL RDW Coeff of Marisa 14.6 (11.5-15.5) % Plt Count 158 (140-440) K/uL Neut % (Auto) 81.6 H (42.0-72.0) % Lymph % (Auto) 7.5 L (20-44) % [place] % (Auto) 10.0 (0.0-11.0) % Eos % (Auto) 0.1 (0.0-7.0) % Baso % (Auto) 0.2 (0.0-3.0) % Neut # (Auto) 6.70 (1.7-7.0) K/uL Lymph # (Auto) 0.60 L (0.90-2.90) K/uL [place] # (Auto) 0.80 (0.00-0.90) K/UL Eos # (Auto) 0.01 (0.00-0.50) K/uL Baso # (Auto) 0.02 (0.00-0.30) K/uL Abs Immat Gran (auto) 0.05 (0.00-0.30) K/uL Imm/Tot Granulo (auto) 0.6 % Sodium 133 L (135-149) mmol/L Potassium 3.9 (3.6-5.1) mmol/L Chloride 99 (96-114) mmol/L Carbon Dioxide 29 (20-32) mmol/L Anion Gap 5 L (7-15) mEq/L BUN 21 (7-30) mg/dL Creatinine 1.1 (0.5-1.5) mg/dL Estimated Creat Clear 52.91 Estimated GFR 65 ml/min Glucose 117 H (60-115) mg/dL Lactate 0.9 (0.5-1.9) mmol/L Calcium 8.3 L (8.4-10.6) mg/dL Urine Color Yellow (Yellow) Urine Appearance Slightly Cloudy A (Clear) Urine pH 5.5 (5.0-8.5) Ur Specific Central 1.015 (1.000-1.030) Urine Protein Trace A (Negative) Urine Glucose (UA) Negative (Negative) Urine Ketones Trace A (Negative) Urine Blood 3+ A (Negative) Urine Nitrite Positive A (Negative) Urine Bilirubin Negative (Negative) Urine Urobilinogen 0.2 (0.2-1.0) Ur Leukocyte Esterase 2+ A (Negative) SARS-CoV-2 (PCR) Negative SARS-CoV-2 (Negative) Influenza Type A (PCR) Negative PCR FLU A (Negative) Influenza Type B (PCR) Negative PCR FLU B (Negative) RSV (PCR) Negative PCR RSV (Negative) Discharge Plan Discharge Clinical Impression: Urinary tract infection, Fever Condition: Improved Additional Instructions: Stay well-hydrated. I am impressed that the fever you had initially measured represents a urinary tract infection but we have not found any other source at this point. You received a dose of ceftriaxone also known as Rocephin here in the emergency department. Urine and blood cultures are pending. Continuing with cephalexin as prescribed from [facility] over this next week. Can take ibuprofen or acetaminophen for fever or pain. Return for worsening weakness, persistent fever, vomiting. Prescriptions: No Action cephalexin 500 mg capsule 500 mg PO TID Qty: 15 0RF donepezil 10 mg tablet 10 mg PO HS tamsulosin 0.4 mg capsule 0.8 mg PO DAILY Xarelto 20 mg tablet 20 mg PO QPM sertraline 100 mg tablet 100 mg PO QAM Follow Up/Referrals: Ruperto Kearns MD [Primary Care Provider] -
[2024-04-02 23:09] LABS: PCR FLU A Negative PCR FLU A (Negative); PCR FLU B Negative PCR FLU B (Negative); PCR RSV Negative PCR RSV (Negative); SARS PCR* Negative SARS-CoV-2 (Negative)
--- OUTSIDE RECORDS SUMMARY | 2024-04-02 23:12 | XMS_ITS | Clinical Summary ---
Author Organization [facility] Address [address] [place] [id number] Care Team Providers Care Heeler Machine Name Role Phone Ruperto Kearns MD Primary Care Provider [phone] Allergies Active Allergy Reactions Criticality Noted Date [...] Department Care Team Description 03/27/2024 2:55 PM [employer] Office Visit [facility] [address] [place] [address] Joanie George PA Throat Problem 03/27/2024 Travel 02/27/2024 2:25 PM [employer] Office Visit [facility] [address] [place] [address] Ruperto Kearns MD Medicare ANNUAL (subsequent) Visit (86 years); Immunization/Injectio n 02/27/2024 Travel 02/26/2024 Refill [facility] [address] [place] [address] Ruperto Kearns MD Refill Request (Donepezil) 01/21/2024 9:15 AM [employer] Orders Only [facility] [address] [place] [address] Lab, [place] [facility] 01/21/2024 Travel 01/19/2024 Travel [...] Comments Blood Pressure 122/82 03/27/2024 2:26 PM [employer] Pulse 84 03/27/2024 2:26 PM [employer] Temperature 36.8 C (98.2 F) 03/27/2024 2:26 PM [employer] Respiratory Rate - - Oxygen Saturation 95% 03/27/2024 2:26 PM [employer] Inhaled Oxygen Concentration - - Weight 102.3 kg (225 lb 9.6 oz) 02/27/2024 2:41 PM [employer] Height 178.8 cm (5' 10.39) 12/01/2022 11:19 AM CDT Body Mass Index 32.01 12/01/2022 11:19 AM CDT Plan of Treatment Upcoming Encounters Date Type Department Care Team (Late st Contact Info) Description 05/28/2024 10:30 AM CDT Office Visit [facility] [address] [place] [address] Ruperto Kearns MD [address] [place] [address] Health Maintenance Due Date Last Done Comments [...] BASIC METABOLIC PANEL Routine 01/21/2024 9:38 AM [employer] Pulmonary embolism on right (HC) ALT (SGPT) Routine 01/21/2024 9:38 AM [employer] Pulmonary embolism on right (HC) CBC WITH AUTO DIFFERENTIAL Routine 01/21/2024 9:38 AM [employer] Pulmonary embolism on right (HC) from Last 3 Months Results * (ABNORMAL) CBC AND DIFFERENTIAL (01/21/2024 9:38 AM [employer]) WHITE BLOOD CELL COUNT 7.2 3.8 - 10.8 Thousand/u L [facility] RED BLOOD CELL COUNT 5.06 4.20 - 5.80 Million/uL [facility] HEMOGLOBIN 15.2 13.2 - 17.1 g/dL [facility] HEMATOCRIT 47.6 38.5 - 50.0 % [facility] MCV 94.1 80.0 - 100.0 fL [facility] [...] BLOOD SPECIMEN / Unknown 01/21/2024 9:38 AM [employer] 01/21/2024 9:38 AM [employer] Ruperto Kearns MD HEMATOLOGY Final Resu lt [facility] [address] [place] [id number], [place] [phone] [facility] [address] [place] [address] * ALT (SGPT) (01/21/2024 9:38 AM [employer]) ALT 9 9 - 46 U/L [facility] Blood BLOOD SPECIMEN / Unknown 01/21/2024 9:38 AM [employer] 01/21/2024 9:38 AM [employer] Ruperto Kearns MD CHEMISTRY Final Resu lt Performing Organization Address [facility] Co de Phone Number [facility] [address] [address], [place] [phone] [facility] [address] [place] [address] * (ABNORMAL) BASIC METABOLIC PANEL (01/21/2024 9:38 AM [employer]) GLUCOSE 95 65 - 99 mg/dL [facility] [...] BLOOD SPECIMEN / Unknown 01/21/2024 9:38 AM [employer] 01/21/2024 9:38 AM [employer] us Ruperto Kearns MD CHEMISTRY Final Resu lt [facility] [address] [place] [address], [facility] [address] [place] [address] from Last 3 Months Insurance BLUE [employer]OSS [place] BLUE MR PB ONLY Care Teams Heeler Machine Relationship Specialty Start Date End Date Ruperto Kearns MD [facility] [place] [address] PCP - General Family Practice 09/05/22
[2024-04-02 23:15] VITALS: O2SAT 96
[2024-04-02] MEDS: IBUPROFEN 400 MG TABLET 800 MG PO (23:20)
[2024-04-02] MEDS: 0.9 % SODIUM CHLORIDE 1000 ml 1,000 ML IV (23:20)
[2024-04-02 23:28] VITALS: BP 130/80; RESP 18; TEMP 38.3; O2SAT 94
[2024-04-02 23:28] LABS: Lactate* 0.9 mmol/L (0.5-1.9)
[2024-04-02 23:31] VITALS: BP 131/92; PULSE 87; RESP 13; O2SAT 90
[2024-04-02 23:38] LABS: Basophils Absolute Auto 0.02 K/uL (0.00-0.30); Basophils Percent Auto 0.2 % (0.0-3.0); Eosinophils Absolute Auto 0.01 K/uL (0.00-0.50); Eosinophils Percent Auto 0.1 % (0.0-7.0); Hematocrit 46.9 % (37.0-53.0); Hemoglobin* 14.6 gm/dL (13.5-17.5); Immature Granulocytes Abs Auto 0.05 K/uL (0.00-0.30); Immature Granulocytes Pct Auto 0.6 %; Lymphocytes Percent Auto 7.5 % (20-44); Mean Corpuscular HGB Conc 31 gm/dL (32-36); Mean Corpuscular Hemoglobin 30 pg (26-34); Mean Corpuscular Volume 95 fL (80-100); Neutrophils Percent Auto 81.6 % (42.0-72.0); Platelet Count* 158 K/uL (140-440); RDW Coefficient of Variation % 14.6 % (11.5-15.5); Red Blood Count 4.92 m/uL (4.30-5.90); White Blood Count* 8.16 K/uL (4.50-11.00)
[2024-04-02 23:39] LABS: Slide Review Reflex No
[2024-04-02 23:46] VITALS: BP 133/87; RESP 66
[2024-04-03 00:01] VITALS: BP 107/79; PULSE 79; RESP 21; O2SAT 93
[2024-04-03 00:17] LABS: Chloride* 99 mmol/L (96-114); Potassium* 3.9 mmol/L (3.6-5.1); Sodium* 133 mmol/L (135-149)
[2024-04-03 00:18] VITALS: PULSE 77; RESP 16; TEMP 36.7; O2SAT 96
[2024-04-03 00:20] LABS: Anion Gap 5 mEq/L (7-15); Blood Urea Nitrogen* 21 mg/dL (7-30); Calcium* 8.3 mg/dL (8.4-10.6); Carbon Dioxide* 29 mmol/L (20-32); Creatinine* 1.1 mg/dL (0.5-1.5); Est. Creatinine Clearance* 52.91; Estimated Glomerular Filt Rate 65 ml/min; Glucose* 117 mg/dL (60-115)
--- NOTE | 2024-04-03 00:26 | CRLHL7_ITS ---
For Patients: As a result of the Cures Act, medical imaging exams and procedure reports are released immediately into your electronic medical record. You may view this report before your referring provider. If you have questions, please contact your health care provider. INDICATION: Fever, weakness. TECHNIQUE: Chest 1 view. COMPARISON: Chest radiographs dated 10/29/2023. FINDINGS: Similar cardiomediastinal contours, allowing for partial obscuration by the chronically asymmetrically elevated left hemidiaphragm. No discretely visualized lung consolidation. No sign of pleural effusion. No pneumothorax. No acute osseous or soft tissue findings. IMPRESSION: No acute findings. Dictated by Deo Germain MD @ 04/03/2024 12:46:02 AM (Electronically Signed)
[2024-04-03 00:57] LABS: Appearance Urine Slightly Cloudy (Clear); Bilirubin Urine Negative (Negative); Blood Urine 3+ (Negative); Color Urine Yellow (Yellow); Glucose Urine Negative (Negative); Ketones Urine Trace (Negative); Leukocyte Esterase Urine 2+ (Negative); Nitrite Urine Positive (Negative); Protein Urine Trace (Negative); Specific Gravity Urine 1.015 (1.000-1.030); Urobilinogen Urine 0.2 (0.2-1.0); pH Urine 5.5 (5.0-8.5)
[2024-04-03 01:01] VITALS: BP 104/70; PULSE 75; RESP 16; TEMP 36.6; O2SAT 94
[2024-04-03 01:05] LABS: Amorphous Sediment Urine Few; Bacteria Urine Many; Squamous Epithelial Cell Urine Moderate (None-Few); WBC Urine 25-50 (0-5)
[2024-04-03] MEDS: cefTRIAXone 1 GM in 0.9 % SODIUM CHLORIDE Mini-bag 100 ML IVPB (01:10)
[2024-04-03 01:12] VITALS: TEMP 36.7
== END 2024-04-03 01:47 | disposition home or self-care (01) ==
PROVIDERS: Emergency Provider Family Medicine; PCP Family Medicine
DX: N39.0 Urinary tract infection, site not specified (principal); R50.9 Fever, unspecified
CPT/HCPCS: 36415; 51798; 71045; 80048; 81001; 83605; 85025; 87040; 87086; 87631; 94761; 96365; 99284; A9270; J0696; J7030

== ENCOUNTER 2024-04-03 09:59 | Outpatient (CLI) | payer MEDICARE, BC, SELFPAY | END 2024-04-03 10:00 | disposition home or self-care (01) | LOC: AMB 10:01 | PROVIDERS: PCP Family Medicine; Visit Provider Family Medicine | DX: R53.1 Weakness (principal); R50.9 Fever, unspecified | CPT/HCPCS: A0425; A0429 ==

== ENCOUNTER 2024-06-28 15:38 | Outpatient (CLI) | payer MEDICARE, BC, SELFPAY | END 2024-06-28 15:39 | disposition home or self-care (01) | LOC: AMB 06-30 11:50 | PROVIDERS: PCP Family Medicine; Visit Provider Internal Medicine | DX: R53.1 Weakness (principal); R41.0 Disorientation, unspecified | CPT/HCPCS: A0425; A0427 ==

== ENCOUNTER 2024-06-28 16:24 | Emergency (ER) | payer MEDICARE, BC, SELFPAY ==
[2024-06-28] VITALS (13 sets, daily range): BP systolic 99–120; BP diastolic 65–85; PULSE 80–104; RESP 18; TEMP 37.6; O2SAT 90–95; BMI 30.9
--- NOTE | 2024-06-28 16:56 | ED.WEAKNESS ---
HPI - Weakness General Date Seen: 06/28/24 Chief complaint: Weakness Stated complaint: sick Time Seen by Provider: 06/28/24 16:33 Source: patient, EMS and other ( nursing staff from assisted living) Mode of arrival: EMS Limitations: no limitations History of Present Illness HPI Narrative: Patient is an 84-year-old male presenting to the emergency department for weakness. per report from EMS and from phone conversation with his assisted living facility the patient typically walks around with a walker and comes to all his meals. Today he not come to breakfast or lunch which is abnormal for him. When nursing staff went in there to check on him he did not eat his lunch either the was brought to his room. They were helping him up for a transfer when he slid to the ground and was unable to get back up. usually he is able to get back up if he does slightly brown. Typically he walks with a walker. They also think he seems more confused than baseline but does have some cognitive impairment at baseline. When asked the patient was going on he states he is confused why he was brought in. He has not know what is wrong with him. Does seem to know where he is but is not sure why he is here. He denies pain anywhere. Has not noticed any dysuria. Has not noticed any foul-smelling urine. Denies chest pain or shortness of breath. Has not had a cough. Not aware of any fevers. Related Data Home Medications ?Medication ?Instructions ?Recorded ?Confirmed donepezil 10 mg tablet 10 mg PO HS 03/12/23 06/28/24 rivaroxaban 20 mg tablet (Xarelto) 20 mg PO QPM 03/12/23 06/28/24 tamsulosin 0.4 mg capsule 0.8 mg PO DAILY 03/12/23 06/28/24 sertraline 100 mg tablet 100 mg PO QAM 06/15/23 06/28/24 Previous Rx's ?Medication ?Instructions ?Recorded cephalexin 500 mg capsule 500 mg PO TID #15 caps 11/01/23 Allergies Allergy/AdvReac Type Severity Reaction Status Date / Time aspirin Allergy Verified 06/28/24 16:29 Review of Systems Status of ROS: Reports: 10 or more systems reviewed and unremarkable except as noted in History and below PFSH PFSH Medical History Urinary incontinence ?R32 - Unspecified urinary incontinence (ICD-10) Depression, recurrent ?F33.9 - Major depressive disorder, recurrent, unspecified (ICD-10) Alzheimer dementia ?G30.9 - Alzheimer's disease, unspecified (ICD-10) ?F02.80 - Dementia in other diseases classified elsewhere, unspecified severity, without behavioral disturbance, psychotic disturbance, mood disturbance, and anxiety (ICD-10) BPH without obstruction/lower urinary tract symptoms ?N40.0 - Benign prostatic hyperplasia without lower urinary tract symptoms (ICD-10) Pulmonary embolism ?I26.99 - Other pulmonary embolism without acute cor pulmonale (ICD-10) COVID-19 ?U07.1 - COVID-19 (ICD-10) Health care directive on file ?Z78.9 - Other specified health status (ICD-10) Surgical History H/O abdominal surgery ?Z98.890 - Other specified postprocedural states (ICD-10) Social History Narrative: Living at [facility] with his . His daughter, Nargis, is here with him today. Denies tobacco or alcohol use. What is your current living situation?: I presently have a place to live Problems where you live: no known problems Problems where you live details: N/A In the past 12 months, utilities in danger of being shut off: no In past 12 months, lack of transportation kept you from medical appts, meetings, work, or getting things needed for daily living: no In the past 12 mos, have been you worried that your food would run out before you had money to buy more?: never true In the past 12 mos, the food you bought just didn't last and you didn't have money to buy more?: never true Smoking Status: Never smoker Do you use any of these nicotine containing products: None Second hand tobacco smoke exposure: No How often do you have a drink containing alcohol: monthly or less How many standard drinks containing alcohol do you have on a typical day: 1 or 2 How often do you have six or more drinks on one occasion: Never AUDIT-C Alcohol total score: 1 Non-prescribed substance use: denies use How often does anyone, including family, friends and others, physically hurt you: never How often does anyone, including family, friends and others, insult or talk down to you: never How often does anyone, including family, friends and others, threaten you with harm: never How often does anyone, including family, friends and others, scream or curse at you: never service: No Exam Narrative: Exam Narrative: Const: Well-nourished, Well-developed, in mild distress Eyes: PERRL, no conjunctival injection, and symmetrical lids HENT: Atraumatic external nose and ears. Moist mucous membranes. Neck: Symmetric, trachea midline, No thyromegaly. CVS: RRR, No murmurs or gallops. Peripheral pulses 2+ and equal in all extremities RESP: Unlabored respiratory effort. Clear to auscultation bilaterally. GI: Nontender/Nondistended, No rebound or guarding. MSK:Extremities w/o deformity, Normal Active ROM Skin: Warm, Dry. No rashes or lesions. Neuro: Normal Muscle tone, No focal neurological deficits. Psych: Awake, Alert, & Oriented to self and place but not situation. Appropriate mood and affect. Const: Vital Signs, click to edit/add: Vital Signs - 24 hr 06/28/24 16:25 06/28/24 17:01 06/28/24 17:02 Temperature 99.6 F Pulse Rate 98 97 Pulse Rate [Right Pulse Oximeter] 104 H Respiratory Rate 18 Blood Pressure 114/77 Blood Pressure [Le ft Upper Arm] 118/85 Pulse Oximetry 92 93 93 Oxygen Delivery Me thod Room Air 06/28/24 17:15 06/28/24 17:16 06/28/24 17:30 Temperature Pulse Rate 97 93 88 Pulse Rate [Right Pulse Oximeter] Respiratory Rate Blood Pressure 120/73 Blood Pressure [Le ft Upper Arm] Pulse Oximetry 95 94 94 Oxygen Delivery Me thod 06/28/24 17:31 06/28/24 17:53 06/28/24 17:54 Temperature Pulse Rate 93 85 80 Pulse Rate [Right Pulse Oximeter] Respiratory Rate Blood Pressure 99/69 120/77 Blood Pressure [Le ft Upper Arm] Pulse Oximetry 95 90 91 Oxygen Delivery Me thod 06/28/24 18:00 06/28/24 18:01 06/28/24 18:31 Temperature Pulse Rate 88 87 Pulse Rate [Right Pulse Oximeter] Respiratory Rate Blood Pressure 104/75 106/65 Blood Pressure [Le ft Upper Arm] Pulse Oximetry 94 94 Oxygen Delivery Me thod 06/28/24 19:02 Temperature Pulse Rate Pulse Rate [Right Pulse Oximeter] Respiratory Rate Blood Pressure 116/76 Blood Pressure [Le ft Upper Arm] Pulse Oximetry Oxygen Delivery Me thod Course Vital Signs Vital signs: Initial Vital Signs Temperature 99.6 F 06/28/24 16:25 Temperature Source Temporal Artery Scan 06/28/24 16:25 Pulse Rate 104 H 06/28/24 16:25 Pulse Rhythm Regular 06/28/24 16:25 Pulse Strength 3+ Normal 06/28/24 16:25 Respiratory Rate 18 06/28/24 16:25 Blood Pressure 118/85 06/28/24 16:25 Blood Pressure Mean 96 06/28/24 16:25 Blood Pressure Position Sitting 06/28/24 16:25 Pulse Oximetry 92 06/28/24 16:25 Oxygen Delivery Method Room Air 06/28/24 16:25 Vital Signs Temperature 99.6 F 06/28/24 16:25 Pulse Rate 104 H 06/28/24 16:25 Respiratory Rate 18 06/28/24 16:25 Blood Pressure 118/85 06/28/24 16:25 Pulse Oximetry 92 06/28/24 16:25 Oxygen Delivery Method Room Air 06/28/24 16:25 Temperature 99.6 F 06/28/24 16:25 Pulse Rate 87 06/28/24 18:01 Respiratory Rate 18 06/28/24 16:25 Blood Pressure 116/76 06/28/24 19:02 Pulse Oximetry 94 06/28/24 18:01 Oxygen Delivery Method Room Air 06/28/24 16:25 Medications Administered Medications: Discontinued Medications Generic Name Dose Route Start Last Admin Trade Name Freq PRN Reason Stop Dose Admin Sodium Chloride 1,000 mls @ 1,000 mls/hr 06/28/24 17:30 06/28/24 18:06 0.9 % Sodium Chloride 1000 Ml IV 06/28/24 18:29 1,000 mls/hr .Q1H LORI Administration Potassium Bicarbonate 25 meq 06/28/24 17:26 06/28/24 18:05 Potassium Bicarb 25 Meq Effervescent Tab PO 06/28/24 17:27 25 meq ONCE ONE Administration MDM - Weakness MDM Narrative Medical decision making narrative: patient is an 84-year-old male presenting the emergency department for weakness. The differential diagnosis of generalized weakness is broad and includes infection, electrolyte abnormalities, ACS, arrhythmia, hypoglycemia, electrolyte abnormality, respiratory failure, anemia, hypothyroidism, dehydration, medication induced etc. Ordered EKG and troponin look for signs of ACS. Also order viral swabs were possible infection. urinalysis ordered for signs of UTI and also order magnesium, CMP, CBC. He is tachycardic of 104 and a lactate and blood cultures will be ordered. Lab work returned showing no concerning abnormalities. Sodium was slightly low at 129 I will give him some fluids. Symptoms may be from dehydration. I spoke to his daughter who states he appears to be at his mental baseline. Urinalysis shows no obvious UTI. Is not having any respiratory symptoms or signs of pneumonia. Heart rate came back down to the 80s prior to any fluid given. He is feeling much better after the fluids and was able to ambulate adequately after the fluids were done. I do believe his symptoms were likely from dehydration. His family is comfortable with his discharge. Lab Data Labs: Lab Results 06/28/24 06/28/24 06/28/24 Range/Units 16:54 16:55 17:48 WBC 7.82 (4.50-11.00) K/uL RBC 4.22 L (4.30-5.90) m/uL Hgb 12.9 L (13.5-17.5) gm/dL Hct 40.6 (37.0-53.0) % MCV 96 (80-100) fL MCH 31 (26-34) pg MCHC 32 (32-36) gm/dL RDW Coeff of Marisa 14.0 (11.5-15.5) % Plt Count 261 (140-440) K/uL Neut % (Auto) 89.1 H (42.0-72.0) % Lymph % (Auto) 3.1 L (20-44) % [place] % (Auto) 7.2 (0.0-11.0) % Eos % (Auto) 0.1 (0.0-7.0) % Baso % (Auto) 0.1 (0.0-3.0) % Neut # (Auto) 7.00 (1.7-7.0) K/uL Lymph # (Auto) 0.20 L (0.90-2.90) K/uL [place] # (Auto) 0.60 (0.00-0.90) K/UL Eos # (Auto) 0.01 (0.00-0.50) K/uL Baso # (Auto) 0.01 (0.00-0.30) K/uL Abs Immat Gran (auto) 0.03 (0.00-0.30) K/uL Imm/Tot Granulo (auto) 0.4 % Sodium 129 L (135-149) mmol/L Potassium 3.4 L (3.6-5.1) mmol/L Chloride 90 L (96-114) mmol/L Carbon Dioxide 29 (20-32) mmol/L Anion Gap 10 (7-15) mEq/L BUN 17 (7-30) mg/dL Creatinine 1.0 (0.5-1.5) mg/dL Estimated Creat Clear 58.20 Estimated GFR 73 ml/min Glucose 100 (60-115) mg/dL Lactate 1.1 (0.5-1.9) mmol/L Calcium 9.8 (8.4-10.6) mg/dL Magnesium 1.6 (1.5-2.6) mg/dL Total Bilirubin 1.5 (0.1-1.5) mg/dL AST 34 (12-35) U/L ALT 27 (4-50) U/L Alkaline Phosphatase 99 (40-150) U/L Troponin I < 0.01 (0.01-0.04) ng/mL Total Protein 7.4 (6.0-8.3) g/dL Albumin 4.8 (3.3-5.0) g/dL Urine Color Yellow (Yellow) Urine Appearance Clear (Clear) Urine pH 6.0 (5.0-8.5) Ur Specific [place] 1.020 (1.000-1.030) Urine Protein 1+ A (Negative) Urine Glucose (UA) Negative (Negative) Urine Ketones Trace A (Negative) Urine Blood 1+ A (Negative) Urine Nitrite Negative (Negative) Urine Bilirubin 1+ A (Negative) Urine Urobilinogen 1.0 (0.2-1.0) Ur Leukocyte Esterase Negative (Negative) Urine RBC 2-5 A (0-2) Urine WBC 2-5 (0-5) Ur Squamous Epith Cells Moderate A (None-Few) Urine Bacteria Few A (None) Urine Mucus Moderate A (None) SARS-CoV-2 (PCR) Negative SARS-CoV-2 (Negative) Influenza Type A (PCR) Negative PCR FLU A (Negative) Influenza Type B (PCR) Negative PCR FLU B (Negative) RSV (PCR) Negative PCR RSV (Negative) ECG Data Attestation: I personally reviewed and interpreted this ECG as follows: Prior ECG tracings: available for review Interpretation: Normal sinus rhythm with a rate of 90 beats per minute, normal intervals, normal axis, no ST or T-wave abnormalities. Appears similar previous EKG on file Discharge Plan Discharge Clinical Impression: Dehydration Patient Disposition: Home w/ Parent or Adult Condition: Stable Instructions: Dehydration (DC) Additional Instructions: I do believe his symptoms were related to dehydration. No other abnormalities were seen on his lab work. Return to emergency department for new or worsening symptoms. At this time is urinalysis shows no obvious signs of UTI but if the culture comes back positive we will that you guys now. Prescriptions: No Action cephalexin 500 mg capsule 500 mg PO TID Qty: 15 0RF donepezil 10 mg tablet 10 mg PO HS tamsulosin 0.4 mg capsule 0.8 mg PO DAILY Xarelto 20 mg tablet 20 mg PO QPM sertraline 100 mg tablet 100 mg PO QAM Follow Up/Referrals: Ruperto Kearns MD [Primary Care Provider] - Stand Alone Forms: MyHealth Info Instructions
[2024-06-28 17:09] LABS: Basophils Absolute Auto 0.01 K/uL (0.00-0.30); Basophils Percent Auto 0.1 % (0.0-3.0); Eosinophils Absolute Auto 0.01 K/uL (0.00-0.50); Eosinophils Percent Auto 0.1 % (0.0-7.0); Hematocrit 40.6 % (37.0-53.0); Hemoglobin* 12.9 gm/dL (13.5-17.5); Immature Granulocytes Abs Auto 0.03 K/uL (0.00-0.30); Immature Granulocytes Pct Auto 0.4 %; Lactate Sepsis w/Reflex* 1.1 mmol/L (0.5-1.9); Lymphocytes Percent Auto 3.1 % (20-44); Mean Corpuscular HGB Conc 32 gm/dL (32-36); Mean Corpuscular Hemoglobin 31 pg (26-34); Mean Corpuscular Volume 96 fL (80-100); Monocytes Percent Auto 7.2 % (0.0-11.0); Neutrophils Percent Auto 89.1 % (42.0-72.0); Platelet Count* 261 K/uL (140-440); Red Blood Count 4.22 m/uL (4.30-5.90); White Blood Count* 7.82 K/uL (4.50-11.00)
[2024-06-28 17:13] LABS: Albumin* 4.8 g/dL (3.3-5.0); Chloride* 90 mmol/L (96-114); Potassium* 3.4 mmol/L (3.6-5.1); Sodium* 129 mmol/L (135-149)
[2024-06-28 17:16] LABS: Alanine Aminotransferase* 27 U/L (4-50); Alkaline Phosphatase* 99 U/L (40-150); Anion Gap 10 mEq/L (7-15); Aspartate Amino Transferase* 34 U/L (12-35); Bilirubin Total* 1.5 mg/dL (0.1-1.5); Blood Urea Nitrogen* 17 mg/dL (7-30); Carbon Dioxide* 29 mmol/L (20-32); Estimated Glomerular Filt Rate 73 ml/min; Slide Review Reflex No; Total Protein* 7.4 g/dL (6.0-8.3)
[2024-06-28 17:17] LABS: Calcium* 9.8 mg/dL (8.4-10.6); Glucose* 100 mg/dL (60-115); Magnesium* 1.6 mg/dL (1.5-2.6)
[2024-06-28 17:51] LABS: Troponin I* < 0.01 ng/mL (0.01-0.04)
[2024-06-28 17:53] LABS: PCR FLU A Negative PCR FLU A (Negative); PCR FLU B Negative PCR FLU B (Negative); PCR RSV Negative PCR RSV (Negative); SARS PCR* Negative SARS-CoV-2 (Negative)
[2024-06-28] MEDS: POTASSIUM BICARB 25 MEQ EFFERVESCENT TAB PO (18:05)
[2024-06-28] MEDS: 0.9 % SODIUM CHLORIDE 1000 ml 1,000 ML IV (18:06)
[2024-06-28 18:09] LABS: Appearance Urine Clear (Clear); Bilirubin Urine 1+ (Negative); Blood Urine 1+ (Negative); Color Urine Yellow (Yellow); Glucose Urine Negative (Negative); Ketones Urine Trace (Negative); Leukocyte Esterase Urine Negative (Negative); Nitrite Urine Negative (Negative); Protein Urine 1+ (Negative)
[2024-06-28 18:19] LABS: Bacteria Urine Few; Mucus Urine Moderate; Squamous Epithelial Cell Urine Moderate (None-Few)
--- OUTSIDE RECORDS SUMMARY | 2024-06-29 17:35 | XMS_ITS | Clinical Summary ---
Author Organization [facility] Address [address] [place] [id number] Care Team Providers Care Operations Scheduler Name Role Phone Ruperto Kearns MD Primary Care Provider [phone] Allergies Active Allergy Reactions Criticality Noted Date Comments Aspirin Hives 12/01/2022 Medications rivaroxaban (Xarelto) 20 mg tabletIndication s:Pulmonary embolism, bilateral (HC) Take 1 Tablet (20 mg) by mouth once daily with evening meal. 28 Tablet 12 5 Active tamsulosin 0.4 mg capsuleIndicatio ns:BPH without urinary obstruction Take 2 Capsules (0.8 mg) by mouth once daily after a meal. 180 Capsule 3 5 Active donepeziL (ARICEPT) 10 mg tabletIndication s:Dementia in Alzheimer's disease (HC) 1 tablet daily in the evening 2 hours before bed. 90 Tablet 3 5 Active melatonin 5 mg tab tabletIndication s:Insomnia, idiopathic Take 1 Tablet (5 mg) by mouth at bedtime. 90 Tablet 3 5 Active sertraline 100 mg tabletIndication s:Depression, recurrent Take 1.5 Tablets (150 mg) by mouth once daily in the morning. 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 BPH without urinary obstruction 12/01/2022 Encounters Date Type Department Care Team Description 05/28/2024 10:30 AM CDT Office Visit [facility] [address] [place] [address] Ruperto Kearns MD Medication Management (med check) 05/28/2024 Travel 04/30/2024 3:15 PM CDT [facility] [address] [address] Ruperto Kearns MD Anxiety; Depression (Symptoms getting worse) 04/30/2024 Travel 04/03/2024 Orders Only [facility] Scanner 1 scan: (1-Ord) [place], CHEST 1V PORTABLE, 04/03/2024 from Last 3 Months Immunizations Immunization Administration Dates Next Due COVID-19 VACCINE SPIKEVAX [...] PHQ-2 Answer Date Recorded PHQ-2 TOTAL SCORE 6 04/30/2024 Social Connections Answer Date Recorded Do you [...] Sign Reading Time Taken Comments Blood Pressure 114/72 05/28/2024 10:46 AM CDT Pulse 86 05/28/2024 10:46 AM CDT Temperature 36.9 C (98.4 F) 04/30/2024 3:22 PM CDT Respiratory Rate - - Oxygen Saturation 96% 05/28/2024 10:46 AM CDT Inhaled Oxygen Concentration - - Weight 99.1 kg (218 lb 8 oz) 05/28/2024 10:46 AM CDT Height 178.8 cm (5' 10.39) 12/01/2022 11:19 AM CDT Body Mass Index 31 12/01/2022 11:19 AM CDT Plan of Treatment Upcoming Encounters Date Type Department Care Team (Late st Contact Info) Description 08/13/2024 10:30 AM CDT Office Visit [facility] [address] [place] [address] Ruperto Kearns MD [address] [place] [address] Health Maintenance Due Date Last Done Comments Pneumococcal series for age 50+ (1 of 1 - PCV) 02/08/1988 RSV vaccine for adults or (1 - 1-dose 75+ series) 2013 Zoster (shingles) series for age 50+ (2 of 2) 09/23/2019 07/29/2019 BMI (ht and wt on same day) for age 18+ 12/02/2023 12/01/2022 COVID-19 vaccine series ( season) 2024 02/27/2024, 11/27/2022, 05/30/2021, Additional history exists Medicare Wellness for age 65+ 02/27/2025 02/27/2024, 01/17/2023 Tetanus booster 09/30/2026 09/30/2016, 07/19/2004 Tdap Completed 09/30/2016 Influenza Vaccine Completed 02/27/2024, , 12/04/2018, Additional history exists Procedures Procedure Name Priority Date/Time Associated Diagnosis Comments SCAN-RADIOLOGY REPORT 04/03/2024 12:00 AM PEN TENDER from Last 3 Months Results * SCAN-RADIOLOGY REPORT (04/03/2024 12:00 AM PEN TENDER) Anatomical Region Laterality Modality Other us Scanner OTHER Final Result from Last 3 Months Insurance BLUE CROSS [place] BLUE MR PB ONLY Advance Directives Documents on File Type Date Recorded 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
== END 2024-06-28 20:26 | disposition home or self-care (01) ==
PROVIDERS: Emergency Provider Student in an Organized Health Care Education/Training Program; PCP Family Medicine
DX: E86.0 Dehydration (principal)
CPT/HCPCS: 36415; 80053; 81001; 83605; 83735; 84484; 85025; 87040; 87086; 87631; 99283; 99284; A9270; J7030

== ENCOUNTER 2024-06-29 09:36 | Outpatient (CLI) | payer MEDICARE, BC, SELFPAY | END 2024-06-29 09:37 | disposition home or self-care (01) | LOC: AMB 06-30 13:45 | PROVIDERS: PCP Family Medicine; Visit Provider Emergency Medicine | DX: R41.82 Altered mental status, unspecified (principal); R53.1 Weakness | CPT/HCPCS: A0425; A0429 ==

== ENCOUNTER 2024-06-29 10:18 | Inpatient (IN) | payer MEDICARE, BC, SELFPAY ==
[2024-06-29] VITALS (31 sets, daily range): BP systolic 86–112; BP diastolic 53–72; PULSE 76–115; RESP 16–28; TEMP 35.9–36.9; O2SAT 92–98; BMI 30.9; BMI 29.5
--- NOTE | 2024-06-29 10:32 | CRLHL7_ITS ---
For Patients: As a result of the Century Cures Act, medical imaging exams and procedure reports are released immediately into your electronic medical record. You may view this report before your referring provider. If you have questions, please contact your health care provider. INDICATION: Shortness of breath. TECHNIQUE: Chest 1 views. COMPARISON: 04/03/2024. FINDINGS: Cardiovasculature and mediastinum: Heart size is normal. Unremarkable mediastinum. Lungs and pleural spaces: Left infrahilar opacity is indistinct. Remainder of the lungs and pleural spaces are clear. No pneumothorax. Bones and soft tissues: Elevation of the left diaphragm, unchanged. IMPRESSION: Left infrahilar opacity could be secondary to compressive atelectasis from an elevated diaphragm which is chronic. No other findings to explain shortness of breath. Dictated by Saul Beltran MD @ 06/29/2024 12:03:57 PM (Electronically Signed)
--- NOTE | 2024-06-29 10:38 | ED_ITS ---
HPI - General Adult General Date Seen: 06/29/24 Chief complaint: Weakness Stated complaint: Weakness Time Seen by Provider: 06/29/24 10:29 History of Present Illness HPI narrative: Patient is an 84-year-old from [facility], here yesterday for generalized weakness and possibly a little more confused than usual, does have a baseline history of Alzheimer's dementia. Evaluation yesterday was pretty unrevealing, was given some fluids and discharge back home. Brought in today because of confusion. He comes in by EMS smelling strongly of urine, he is in clothes that are drenched, unclear whether this is urine or sweat or a combination of both. He does have a saturated depends on. His daughter says that she was with him until about 9:00 a.m. last night and he seemed better than the knee is this morning. They usually go in to give him his meds and help him get dressed around 9:00 a.m., and when they found him he was or ill-appearing. Reportedly had blood pressures in the 80s, medics given 500 mL of normal saline. No reported fevers today although there may have been fevers yesterday apparently. He was reportedly diaphoretic earlier. He does not provide a lot of history, he denies pain, his daughter says that he has been complaining the past couple of days of pain under his armpits, and has seemed a little more confused than usual over the past week. Related Data Home Medications ?Medication ?Instructions ?Recorded ?Confirmed donepezil 10 mg tablet 10 mg PO HS 03/12/23 06/29/24 rivaroxaban 20 mg tablet (Xarelto) 20 mg PO QPM 03/12/23 06/29/24 tamsulosin 0.4 mg capsule 0.8 mg PO DAILY 03/12/23 06/29/24 sertraline 100 mg tablet 150 mg PO QAM 06/15/23 06/29/24 melatonin 5 mg tablet 5 mg PO HS 06/29/24 06/29/24 Allergies Allergy/AdvReac Type Severity Reaction Status Date / Time aspirin Allergy Verified 06/29/24 10:32 Review of Systems Status of ROS: Reports: unobtainable due to medical condition PFSH PFSH Medical History History of pulmonary embolism ?Z86.711 - Personal history of pulmonary embolism (ICD-10) Urinary incontinence ?R32 - Unspecified urinary incontinence (ICD-10) Depression, recurrent ?F33.9 - Major depressive disorder, recurrent, unspecified (ICD-10) Alzheimer dementia ?G30.9 - Alzheimer's disease, unspecified (ICD-10) ?F02.80 - Dementia in other diseases classified elsewhere, unspecified severity, without behavioral disturbance, psychotic disturbance, mood disturbance, and anxiety (ICD-10) BPH without obstruction/lower urinary tract symptoms ?N40.0 - Benign prostatic hyperplasia without lower urinary tract symptoms (ICD-10) Pulmonary embolism ?I26.99 - Other pulmonary embolism without acute cor pulmonale (ICD-10) COVID-19 ?U07.1 - COVID-19 (ICD-10) Health care directive on file ?Z78.9 - Other specified health status (ICD-10) Surgical History H/O abdominal surgery ?Z98.890 - Other specified postprocedural states (ICD-10) Social History Narrative: Living at [facility] with his . His daughter, Nargis, is here with him today. Denies tobacco or alcohol use. What is your current living situation?: I presently have a place to live Problems where you live: no known problems Problems where you live details: N/A In the past 12 months, utilities in danger of being shut off: no In past 12 months, lack of transportation kept you from medical appts, meetings, work, or getting things needed for daily living: no In the past 12 mos, have been you worried that your food would run out before you had money to buy more?: never true In the past 12 mos, the food you bought just didn't last and you didn't have money to buy more?: never true Smoking Status: Never smoker Do you use any of these nicotine containing products: None Second hand tobacco smoke exposure: No How often do you have a drink containing alcohol: monthly or less How many standard drinks containing alcohol do you have on a typical day: 1 or 2 How often do you have six or more drinks on one occasion: Never AUDIT-C Alcohol total score: 1 Non-prescribed substance use: denies use How often does anyone, including family, friends and others, physically hurt you : never How often does anyone, including family, friends and others, insult or talk down to you: never How often does anyone, including family, friends and others, threaten you with harm: never How often does anyone, including family, friends and others, scream or curse at you: never service: No Exam Narrative: Exam Narrative: Vital signs reviewed In general, an alert elderly male. Head: Normocephalic, atraumatic. Eyes: Sclera mildly injected bilaterally. Pupils are equal. ENT: Mucous membranes moist. Neck: Supple without adenopathy. No meningeal signs. Heart: Mildly tachycardic, regular. Lungs: Clear anteriorly, no increased work of breathing. Abdomen: Soft, nontender to palpation. Obese. Extremities: Well perfused, pulses intact. No significant edema. Neurologic: He is awake, he answers some questions, but not all. He was oriented to person and place, not time. It sounds like this is pretty close to baseline. Follows commands. Skin: Warm, not currently diaphoretic but his hair is damp, seems as if he was recently diaphoretic. Affect: Normal. Const: Vital Signs, click to edit/add: Vital Signs - 24 hr 06/29/24 10:20 06/29/24 10:24 06/29/24 10:40 Temperature 96.6 F L Pulse Rate 112 H Pulse Rate [Left P ulse Oximeter] 108 H Respiratory Rate 20 Blood Pressure Blood Pressure [Le ft Upper Arm] 91/61 Pulse Oximetry 92 94 Oxygen Delivery Me thod Nasal Cannula Nasal Cannula Oxygen Flow Rate 2 2 06/29/24 10:45 06/29/24 10:47 06/29/24 11:00 Temperature Pulse Rate 115 H 112 H 111 H Pulse Rate [Left P ulse Oximeter] Respiratory Rate 28 H Blood Pressure 91/59 L Blood Pressure [Le ft Upper Arm] Pulse Oximetry 95 94 93 Oxygen Delivery Me thod Nasal Cannula Oxygen Flow Rate 2 06/29/24 11:02 06/29/24 11:15 06/29/24 11:16 Temperature Pulse Rate 114 H 109 H 109 H Pulse Rate [Left P ulse Oximeter] Respiratory Rate 28 H Blood Pressure 94/65 91/66 Blood Pressure [Le ft Upper Arm] Pulse Oximetry 94 95 96 Oxygen Delivery Me thod Nasal Cannula Oxygen Flow Rate 2 06/29/24 11:30 06/29/24 11:32 06/29/24 11:35 Temperature Pulse Rate 108 H 108 H 108 H Pulse Rate [Left P ulse Oximeter] Respiratory Rate Blood Pressure 86/64 L 100/67 Blood Pressure [Le ft Upper Arm] Pulse Oximetry 96 96 97 Oxygen Delivery Me thod Oxygen Flow Rate 06/29/24 11:45 06/29/24 12:00 06/29/24 12:02 Temperature Pulse Rate 104 H 99 104 H Pulse Rate [Left P ulse Oximeter] Respiratory Rate 26 H Blood Pressure 95/67 Blood Pressure [Le ft Upper Arm] Pulse Oximetry 97 97 97 Oxygen Delivery Me thod Nasal Cannula Oxygen Flow Rate 2 06/29/24 12:22 06/29/24 12:27 06/29/24 12:30 Temperature Pulse Rate 103 H 104 H 104 H Pulse Rate [Left P ulse Oximeter] Respiratory Rate Blood Pressure 99/65 Blood Pressure [Le ft Upper Arm] Pulse Oximetry 94 94 94 Oxygen Delivery Me thod Oxygen Flow Rate 06/29/24 12:31 06/29/24 12:35 Temperature Pulse Rate 101 H 102 H Pulse Rate [Left P ulse Oximeter] Respiratory Rate 26 H Blood Pressure 86/65 L 97/71 Blood Pressure [Le ft Upper Arm] Pulse Oximetry 98 97 Oxygen Delivery Me thod Nasal Cannula Oxygen Flow Rate 2 Course Course ED Course: Patient presents with hypotension, tachycardia, his recorded temperature here is mildly hypothermic. Dementia, not able to provide much history. Evaluation yesterday was unrevealing, but would suspect possible sepsis, infectious source unclear at this time. Other diagnostic considerations would be metabolic derangement, acute coronary syndrome, he is currently anticoagulated on Xarelto, PE less likely. To start, will obtain labs, give another 500 mL of normal saline, I would like to see a chest x-ray make sure he does not have any evidence of fluid overload before giving large amounts of fluid given that he had IV fluids yesterday. He does not have a prior listed history of congestive heart failure however. Patient had 2 L of fluid here, I have ordered another 500 mL, 30 mL/kilos based on his actual body weight would be 3 L but based on ideal body weight would be 2300. I think 2500 is reasonable landing point for now. His blood pressures are remaining in the 90-100 range but his maps are in the 70s. I did a chest x- ray, I found this kind of hard to interpret as he was somewhat rotated, radiology noted perhaps compressive atelectasis. His labs are notable for an elevated white blood cell count today of 15.8, it was normal yesterday. Hemoglobin is 12.6, he does have a left shift with 91.4% neutrophils. Metabolic panel overall pretty normal, blood sugar is 151. His LFTs are unremarkable, CRP is 16.4 procalcitonin is 28.5 and lactate was 1.6. It took a while to get a urine as other things were going on, but ultimately this did come back showing 25-50 red cells and 10-25 white cells, again yesterday was unremarkable. His initial point of care troponin was 1.25, an EKG showed sinus tachycardia with a ventricular rate of 108 but I do not see acute ST segment changes. Unremarkable T-waves. I did recheck a 2nd troponin a little over an hour later was 1.31. I did a CT scan of his chest abdomen and pelvis, looking for pneumonia, or any intra-abdominal source, signs of pyelonephritis etcetera. I did not see evidence of PE, he is anticoagulated. I did not see significant consolidation, does have some atelectasis at the bases. In the abdomen, maybe a little stranding around the kidneys, no hydronephrosis. I reviewed all of the radiology reads, there are some minor findings in the abdomen which I do not think likely are related to his sepsis picture. I have talked at length with his daughter in terms of how aggressively she thinks he would want to manage things. He has dementia, his in February and she said that she thinks he is very lonely. His POLST says DNR DNI, they are okay with treating things but she does not think he would want anything aggressive done. As such, they are okay with staying here in medical management for whatever we were able to manage. He had Zosyn 3.375 g IV for presumed urinary tract infection with sepsis. Be admitted to our hospitalist service. Vital Signs Vital signs: Initial Vital Signs Oxygen Delivery Method Nasal Cannula 06/29/24 10:20 Oxygen Flow Rate 2 06/29/24 10:20 Vital Signs Oxygen Delivery Method Nasal Cannula 06/29/24 10:20 Oxygen Flow Rate 2 06/29/24 10:20 Temperature 96.6 F L 06/29/24 10:24 Pulse Rate 102 H 06/29/24 12:35 Respiratory Rate 26 H 06/29/24 12:35 Blood Pressure 97/71 06/29/24 12:35 Pulse Oximetry 97 06/29/24 12:35 Oxygen Delivery Method Nasal Cannula 06/29/24 12:35 Oxygen Flow Rate 2 06/29/24 12:35 Medications Administered Medications: Discontinued Medications Generic Name Dose Route Start Last Admin Trade Name Freq PRN Reason Stop Dose Admin Sodium Chloride 1,000 mls @ 1,000 mls/hr 06/29/24 10:45 06/29/24 11:37 0.9 % Sodium Chloride 1000 Ml IV 06/29/24 11:44 Not Given .Q1H LORI Sodium Chloride 500 mls @ 500 mls/hr 06/29/24 11:22 06/29/24 11:50 0.9 % Sodium Chloride 500 Ml IV 06/29/24 12:21 Infused .Q1H ONE Infusion Sodium Chloride 1,000 mls @ 1,000 mls/hr 06/29/24 11:30 06/29/24 12:50 0.9 % Sodium Chloride 1000 Ml IV 06/29/24 12:29 Infused .Q1H LORI Infusion Piperacillin Sod/Tazobactam 100 mls @ 100 mls/hr 06/29/24 11:55 06/29/24 13:35 Sod 3.375 gm/ Sodium Chloride IVPB 06/29/24 11:56 Infused ONCE ONE Infusion Medical Decision Making Lab Data Lab results reviewed: Yes I reviewed the patient's lab results Labs: Lab Results 06/29/24 06/29/24 06/29/24 Range/Units 10:50 12:25 12:30 WBC 15.80 H (4.50-11.00) K/uL RBC 4.12 L (4.30-5.90) m/uL Hgb 12.6 L (13.5-17.5) gm/dL Hct 39.7 (37.0-53.0) % MCV 96 (80-100) fL MCH 31 (26-34) pg MCHC 32 (32-36) gm/dL RDW Coeff of Marisa 14.1 (11.5-15.5) % Plt Count 217 (140-440) K/uL Neut % (Auto) 91.4 H (42.0-72.0) % Lymph % (Auto) 2.1 L (20-44) % [place] % (Auto) 5.5 (0.0-11.0) % Eos % (Auto) 0.0 (0.0-7.0) % Baso % (Auto) 0.1 (0.0-3.0) % Neut # (Auto) 14.40 H (1.7-7.0) K/uL Lymph # (Auto) 0.30 L (0.90-2.90) K/uL [place] # (Auto) 0.90 (0.00-0.90) K/UL Eos # (Auto) 0.00 (0.00-0.50) K/uL Baso # (Auto) 0.00 (0.00-0.30) K/uL Abs Immat Gran (auto) 0.10 (0.00-0.30) K/uL Imm/Tot Granulo (auto) 0.9 % Sodium 138 (135-149) mmol/L Potassium 3.5 L (3.6-5.1) mmol/L Chloride 105 (96-114) mmol/L Carbon Dioxide 26 (20-32) mmol/L Anion Gap 7 (7-15) mEq/L BUN 21 (7-30) mg/dL Creatinine 1.1 (0.5-1.5) mg/dL Estimated Creat Clear 52.91 Estimated GFR 65 ml/min Glucose 151 H (60-115) mg/dL Lactate 1.6 (0.5-1.9) mmol/L Calcium 8.3 L (8.4-10.6) mg/dL Total Bilirubin 0.7 (0.1-1.5) mg/dL Direct Bilirubin 0.4 (0.0-0.5) mg/dL AST 68 H (12-35) U/L ALT 26 (4-50) U/L Alkaline Phosphatase 60 (40-150) U/L C-Reactive Protein 16.4 H (0.5-1.0) mg/dL NT-Pro-B Natriuret Pep 3430 pg/mL Total Protein 6.4 (6.0-8.3) g/dL Albumin 3.4 (3.3-5.0) g/dL Procalcitonin 28.50 H (<0.50) ng/mL TSH 0.982 (0.270-4.200) uIU/mL Urine Color [place] A (Yellow) Urine Appearance Cloudy A (Clear) Urine pH 5.5 (5.0-8.5) Ur Specific [place] 1.020 (1.000-1.030) Urine Protein 2+ A (Negative) Urine Glucose (UA) Negative (Negative) Urine Ketones Trace A (Negative) Urine Blood 3+ A (Negative) Urine Nitrite Negative (Negative) Urine Bilirubin 2+ A (Negative) Urine Urobilinogen 4.0 A (0.2-1.0) Ur Leukocyte Esterase Negative (Negative) Urine RBC 25-50 A (0-2) Urine WBC 10-25 A (0-5) Ur Squamous Epith Cells Few (None-Few) Amorphous Sediment Moderate A (None) Other Sediment FEW GRANULAR CASTS (None) Urine Bacteria Moderate A (None) Urine Mucus Many A (None) Lab Acknowledgement POC Troponin I 1.25 H 1.31 H (0.01-0.04) ng/ml 06/29/24 Range/Units 13:38 WBC (4.50-11.00) K/uL RBC (4.30-5.90) m/uL Hgb (13.5-17.5) gm/dL Hct (37.0-53.0) % MCV (80-100) fL MCH (26-34) pg MCHC (32-36) gm/dL RDW Coeff of Marisa (11.5-15.5) % Plt Count (140-440) K/uL Neut % (Auto) (42.0-72.0) % Lymph % (Auto) (20-44) % [place] % (Auto) (0.0-11.0) % Eos % (Auto) (0.0-7.0) % Baso % (Auto) (0.0-3.0) % Neut # (Auto) (1.7-7.0) K/uL Lymph # (Auto) (0.90-2.90) K/uL [place] # (Auto) (0.00-0.90) K/UL Eos # (Auto) (0.00-0.50) K/uL Baso # (Auto) (0.00-0.30) K/uL Abs Immat Gran (auto) (0.00-0.30) K/uL Imm/Tot Granulo (auto) % Sodium (135-149) mmol/L Potassium (3.6-5.1) mmol/L Chloride (96-114) mmol/L Carbon Dioxide (20-32) mmol/L Anion Gap (7-15) mEq/L BUN (7-30) mg/dL Creatinine (0.5-1.5) mg/dL Estimated Creat Clear Estimated GFR ml/min Glucose (60-115) mg/dL Lactate (0.5-1.9) mmol/L Calcium (8.4-10.6) mg/dL Total Bilirubin (0.1-1.5) mg/dL Direct Bilirubin (0.0-0.5) mg/dL AST (12-35) U/L ALT (4-50) U/L Alkaline Phosphatase (40-150) U/L C-Reactive Protein (0.5-1.0) mg/dL NT-Pro-B Natriuret Pep pg/mL Total Protein (6.0-8.3) g/dL Albumin (3.3-5.0) g/dL Procalcitonin (<0.50) ng/mL TSH (0.270-4.200) uIU/mL Urine Color (Yellow) Urine Appearance (Clear) Urine pH (5.0-8.5) Ur Specific [place] (1.000-1.030) Urine Protein (Negative) Urine Glucose (UA) (Negative) Urine Ketones (Negative) Urine Blood (Negative) Urine Nitrite (Negative) Urine Bilirubin (Negative) Urine Urobilinogen (0.2-1.0) Ur Leukocyte Esterase (Negative) Urine RBC (0-2) Urine WBC (0-5) Ur Squamous Epith Cells (None-Few) Amorphous Sediment (None) Other Sediment (None) Urine Bacteria (None) Urine Mucus (None) Lab Acknowledgement Test Added POC Troponin I (0.01-0.04) ng/ml Imaging Data CT Chest/Ab/Pelvis: Attestation: I have reviewed the pertinent imaging results. Radiologist's impression: Patient: Judah Roger MR#: [id number] : 1940 Acct:[id number] Loc: ED Service Date: 06/29/[address]: Ordering Physician: Neha Spicer M.D. Date of Service: 06/29/24 Procedure(s): CT abdomen pelvis w con Accession Number(s): [id number] cc: Neha Spicer M.D.; Ruperto Kearns M.D.~ For Patients: As a result of the Cures Act, medical imaging exams and procedure reports are released immediately into your electronic medical record. You may view this report before your referring provider. If you have questions, please contact your health care provider. INDICATION: Sepsis. TECHNIQUE: CT abdomen and pelvis acquired with 95 mL Isovue 370 IV contrast. COMPARISON: [address] abdomen and pelvis PE chest 29 Jun 2024. FINDINGS: Lower chest: Unremarkable. Liver: Mild diffuse low attenuation steatosis. Spleen: Unremarkable. Pancreas: Unremarkable. Gallbladder and bile ducts: Unremarkable. Kidneys: Unremarkable. Adrenal glands: Unremarkable. GI tract: Small focus of fluid and inflammation dorsal from the gastric cardia just abutting the diaphragm and medial spleen margin (image 38 series 2). Some subtle peripheral enhancement. No inflammation or dilatation of large or small bowel. Appendix is not apparent. Moderate dilatation of the proximal sigmoid anastomotic staple site. This is chronic but somewhat increased from before. No wall thickening. No mass. Vascular structures: Negative. No sign of aneurysm. Lymph nodes: Unremarkable. Miscellaneous: Unremarkable. No free air or significant free fluid. Pelvic Organs: Unremarkable. Bones: Unremarkable for age. IMPRESSION: Possible diverticulum or ill-defined fluid collection posterior from the gastric cardia under the hemidiaphragm. This would be an unusual position for gastric ulcer. No definite source for sepsis. Chronic increased aneurysmal dilatation at the site of proximal sigmoid primary anastomosis. Please note that all CT scans at this facility use dose modulation, iterative reconstruction, and/or weight-based dosing when appropriate to reduce radiation dose to as low as reasonably achievable. Dictated by Alberto Andrews MD @ 06/29/2024 1:17:14 PM Patient: Judah Roger MR#: [id number] : 1940 Acct:[id number] Loc: ED Service Date: 06/29/[address]: Ordering Physician: Neha Spicer M.D. Date of Service: 06/29/24 Procedure(s): CT angio chest PE protocol Accession Number(s): [id number] cc: Neha Spicer M.D.; Ruperto Kearns M.D.~ For Patients: As a result of the Cures Act, medical imaging exams and procedure reports are released immediately into your electronic medical record. You may view this report before your referring provider. If you have questions, please contact your health care provider. INDICATION: Hypoxia. TECHNIQUE: CT chest was acquired with 95 cc Omnipaque 350 IV contrast. Coronal and MIP reconstructions were performed. COMPARISON: CT 07/07/2023 FINDINGS: Lungs and pleura: No suspicious nodules or infiltrates. No pleural effusions, pleural thickening, or pneumothorax. Heart and vasculature: Aneurysmal dilatation ascending thoracic aorta measuring 4.8 centimeters. No pulmonary emboli seen. Heart is enlarged. Lymph nodes/mediastinum: No mediastinal, hilar, or axillary adenopathy. Chest wall: No masses. Upper abdomen: Marked elevation of the left hemidiaphragm. With right-sided mild mediastinal shift which is unchanged. There is no effusion. Basilar mild atelectasis. Bones: No aggressive. Mild T8 compression deformity unchanged IMPRESSION: 1. No pulmonary emboli. No acute pulmonary findings. Basilar atelectasis. Marked elevation left hemidiaphragm unchanged 2. 4.8 centimeter aneurysmal dilatation of the ascending thoracic aorta. Please note that all CT scans at this facility use dose modulation, iterative reconstruction, and/or weight-based dosing when appropriate to reduce radiation dose to as low as reasonably achievable. Dictated by Radha Arrieta MD @ 06/29/2024 1:10:50 PM Chest x-ray: Attestation: I have reviewed the pertinent imaging results. Radiologist's impression: Patient: Judah Roger MR#: [id number] : 1940 Acct:[id number] Loc: ED Service Date: 06/29/[address]: Ordering Physician: Neha Spicer M.D. Date of Service: 06/29/24 Procedure(s): XR chest 1V portable Accession Number(s): [id number] cc: Neha Spicer M.D.; Ruperto Kearns M.D.~ For Patients: As a result of the Century Cures Act, medical imaging exams and procedure reports are released immediately into your electronic medical record. You may view this report before your referring provider. If you have questions, please contact your health care provider. INDICATION: Shortness of breath. TECHNIQUE: Chest 1 views. COMPARISON: 04/03/2024. FINDINGS: Cardiovasculature and mediastinum: Heart size is normal. Unremarkable mediastinum. Lungs and pleural spaces: Left infrahilar opacity is indistinct. Remainder of the lungs and pleural spaces are clear. No pneumothorax. Bones and soft tissues: Elevation of the left diaphragm, unchanged. IMPRESSION: Left infrahilar opacity could be secondary to compressive atelectasis from an elevated diaphragm which is chronic. No other findings to explain shortness of breath. Dictated by Saul Beltran MD @ 06/29/2024 12:03:57 PM
[2024-06-29] MEDS: 0.9 % SODIUM CHLORIDE 500 ML 500 ML IV (10:55)
[2024-06-29 10:57] LABS: Lactate Sepsis w/Reflex* 1.6 mmol/L (0.5-1.9)
[2024-06-29 11:00] LABS: Basophils Percent Auto 0.1 % (0.0-3.0); Hematocrit 39.7 % (37.0-53.0); Hemoglobin* 12.6 gm/dL (13.5-17.5); Immature Granulocytes Pct Auto 0.9 %; Lymphocytes Percent Auto 2.1 % (20-44); Mean Corpuscular HGB Conc 32 gm/dL (32-36); Mean Corpuscular Hemoglobin 31 pg (26-34); Mean Corpuscular Volume 96 fL (80-100); Monocytes Percent Auto 5.5 % (0.0-11.0); Neutrophils Percent Auto 91.4 % (42.0-72.0); Platelet Count* 217 K/uL (140-440); RDW Coefficient of Variation % 14.1 % (11.5-15.5); Red Blood Count 4.12 m/uL (4.30-5.90)
[2024-06-29 11:15] LABS: Albumin* 3.4 g/dL (3.3-5.0); Chloride* 105 mmol/L (96-114)
[2024-06-29 11:16] LABS: Potassium* 3.5 mmol/L (3.6-5.1); Sodium* 138 mmol/L (135-149)
[2024-06-29 11:17] LABS: Slide Review Reflex No
[2024-06-29 11:18] LABS: Blood Urea Nitrogen* 21 mg/dL (7-30); Creatinine* 1.1 mg/dL (0.5-1.5); Est. Creatinine Clearance* 52.91; Estimated Glomerular Filt Rate 65 ml/min
[2024-06-29 11:19] LABS: Alanine Aminotransferase* 26 U/L (4-50); Alkaline Phosphatase* 60 U/L (40-150); Anion Gap 7 mEq/L (7-15); Aspartate Amino Transferase* 68 U/L (12-35); Bilirubin Direct* 0.4 mg/dL (0.0-0.5); Bilirubin Total* 0.7 mg/dL (0.1-1.5); Calcium* 8.3 mg/dL (8.4-10.6); Carbon Dioxide* 26 mmol/L (20-32); Glucose* 151 mg/dL (60-115); Total Protein* 6.4 g/dL (6.0-8.3)
[2024-06-29 11:32] LABS: C Reactive Protein* 16.4 mg/dL (0.5-1.0); NT Pro B Type NatriureticPept* 3430 pg/mL
--- NOTE | 2024-06-29 11:36 | CRLHL7_ITS ---
For Patients: As a result of the Century Cures Act, medical imaging exams and procedure reports are released immediately into your electronic medical record. You may view this report before your referring provider. If you have questions, please contact your health care provider. INDICATION: Hypoxia. TECHNIQUE: CT chest was acquired with 95 cc Omnipaque 350 IV contrast. Coronal and MIP reconstructions were performed. COMPARISON: CT 07/07/2023 FINDINGS: Lungs and pleura: No suspicious nodules or infiltrates. No pleural effusions, pleural thickening, or pneumothorax. Heart and vasculature: Aneurysmal dilatation ascending thoracic aorta measuring 4.8 centimeters. No pulmonary emboli seen. Heart is enlarged. Lymph nodes/mediastinum: No mediastinal, hilar, or axillary adenopathy. Chest wall: No masses. Upper abdomen: Marked elevation of the left hemidiaphragm. With right-sided mild mediastinal shift which is unchanged. There is no effusion. Basilar mild atelectasis. Bones: No aggressive. Mild T8 compression deformity unchanged IMPRESSION: 1. No pulmonary emboli. No acute pulmonary findings. Basilar atelectasis. Marked elevation left hemidiaphragm unchanged 2. 4.8 centimeter aneurysmal dilatation of the ascending thoracic aorta. Please note that all CT scans at this facility use dose modulation, iterative reconstruction, and/or weight-based dosing when appropriate to reduce radiation dose to as low as reasonably achievable. Dictated by Radha Arrieta MD @ 06/29/2024 1:10:50 PM (Electronically Signed)
[2024-06-29 11:50] LABS: TSH With Reflex to FT4* 0.982 uIU/mL (0.270-4.200)
[2024-06-29] MEDS: 0.9 % SODIUM CHLORIDE 1000 ml 1,000 ML IV (11:50)
[2024-06-29 12:05] LABS: Troponin, Point-of-Care* 1.25 ng/ml (0.01-0.04)
--- NOTE | 2024-06-29 12:10 | CRLHL7_ITS ---
For Patients: As a result of the Century Cures Act, medical imaging exams and procedure reports are released immediately into your electronic medical record. You may view this report before your referring provider. If you have questions, please contact your health care provider. INDICATION: Sepsis. TECHNIQUE: CT abdomen and pelvis acquired with 95 mL Isovue 370 IV contrast. COMPARISON: [address] abdomen and pelvis PE chest 29 Jun 2024. FINDINGS: Lower chest: Unremarkable. Liver: Mild diffuse low attenuation steatosis. Spleen: Unremarkable. Pancreas: Unremarkable. Gallbladder and bile ducts: Unremarkable. Kidneys: Unremarkable. Adrenal glands: Unremarkable. GI tract: Small focus of fluid and inflammation dorsal from the gastric cardia just abutting the diaphragm and medial spleen margin (image 38 series 2). Some subtle peripheral enhancement. No inflammation or dilatation of large or small bowel. Appendix is not apparent. Moderate dilatation of the proximal sigmoid anastomotic staple site. This is chronic but somewhat increased from before. No wall thickening. No mass. Vascular structures: Negative. No sign of aneurysm. Lymph nodes: Unremarkable. Miscellaneous: Unremarkable. No free air or significant free fluid. Pelvic Organs: Unremarkable. Bones: Unremarkable for age. IMPRESSION: Possible diverticulum or ill-defined fluid collection posterior from the gastric cardia under the hemidiaphragm. This would be an unusual position for gastric ulcer. No definite source for sepsis. Chronic increased aneurysmal dilatation at the site of proximal sigmoid primary anastomosis. Please note that all CT scans at this facility use dose modulation, iterative reconstruction, and/or weight-based dosing when appropriate to reduce radiation dose to as low as reasonably achievable. Dictated by Alberto Andrews MD @ 06/29/2024 1:17:14 PM (Electronically Signed)
[2024-06-29] MEDS: PIPERACILLIN/TAZOBACTAM 3.375 GM in 0.9 % SODIUM CHLORIDE Mini-bag 100 ML IVPB ×2 (12:35→18:51)
[2024-06-29 12:39] LABS: Appearance Urine Cloudy (Clear); Bilirubin Urine 2+ (Negative); Blood Urine 3+ (Negative); Color Urine Orange (Yellow); Glucose Urine Negative (Negative); Ketones Urine Trace (Negative); Leukocyte Esterase Urine Negative (Negative); Nitrite Urine Negative (Negative); Protein Urine 2+ (Negative); pH Urine 5.5 (5.0-8.5)
[2024-06-29 12:50] LABS: Amorphous Sediment Urine Moderate; Bacteria Urine Moderate; RBC Urine 25-50 (0-2); Squamous Epithelial Cell Urine Few (None-Few)
[2024-06-29 12:51] LABS: Mucus Urine Many; Other Sediment Urine FEW GRANULAR CASTS
[2024-06-29 12:52] LABS: Troponin, Point-of-Care* 1.31 ng/ml (0.01-0.04)
--- NOTE | 2024-06-29 13:36 | P.IMHP_ITS ---
Assessment and Plan Assessment and plan (1) Sepsis: Problem comment: Reported fevers at [facility], hypotensive (MAP 70s), tachycardic, tachypneic, WBC 15.8 with left shift Lactate 1.6, procalcitonin 28.5, CRP 16.4 CXR without acute infectious process CT chest abdomen pelvis without definite source for sepsis BC x 2 pending, UC from 06/28 and 06/29 pending History of E coli UTI sepsis - working diagnosis for now Zosyn and vancomycin - deescalate when appropriate Received 2.5 L IVF NS in ED Saline lock for now and encourage oral intake Daughter verbalizes consent for use of pressors if necessary. Does not want her father transferred to ICU level care, would consider alternative management options if progresses/worsens or no improvement Status: Acute (2) Urinary tract infection: Problem comment: Suspected source of sepsis for now UA cloudy, 3+ blood, WBC 10/25, moderate bacteria, however nitrites and LE negative Was not started on abx in ED yesterday 06/28 UC pending from 06/28 and 06/29 Continue Zosyn and vancomycin, deescalating when appropriate H/o E coli UTI Status: Acute (3) Shortness of breath: Problem comment: Without hypoxia CT negative for PE or acute pulmonary findings, shows basilar atelectasis, marked elevation left hemidiaphragm -chronic BNP 3430 May need diuresis if becomes fluid overloaded Oxygen supplementation per nasal cannula for comfort in setting of acute sepsis, wean as able Status: Acute (4) Elevated troponin: Problem comment: POC troponin in ED 1.25 -> 1.31 EKG in the ED earlier this morning shows NSR, rate 99, QTC 451 Daughter verbalizes she does not want her father transferred for ICU or cardiac interventions. Therefore, will not trend troponin Status: Acute (5) Weakness: Problem comment: In setting of sepsis PT/OT when able Status: Acute (6) Alzheimer dementia: Problem comment: Continue donepezil. At risk for hospital delirium, monitor Status: Chronic (7) BPH without obstruction/lower urinary tract symptoms: Problem comment: Tamsulosin Status: Acute (8) Urinary incontinence: Problem comment: Patient has chronic urinary incontinence. On tamsulosin chronically. Status: Acute (9) History of pulmonary embolism: Problem comment: Lifelong anticoagulation, rivaroxaban Status: Acute Total Time Spent Total Time Spent: Today I spent 90 minutes seeing the patient, reviewing [facility] and EPIC notes/diagnostics, discussing the care plan with our care time that includes social work, PT/OT, pharmacy, RT, mcfp and documenting my impressions and plan in the medical record. Hospitalist- H&P: HPI History of Present Illness Date Seen: 06/29/24 Chief complaint: Weakness Narrative: Judah Roger is a 84 year old male past medical history significant for BPH, urinary incontinence, h/o PE on chronic anticoaulation, depression, alzheimer dementia is admitted to the medical floor from the ED for sepsis, working diagnosis UTI for now. Patient was seen in the ED yesterday returns today with increased confusion and weakness, shortness of breath, reported fevers. Malodorous urine noted in the ED. Found to be septic with tachypnea, tachycardia, hypotension. History of E coli UTI sepsis in the past. Has been started on Zosyn and has received 2 L IV NS in the ED. UA yesterday was negative for nitrites and LE, few WBC. No antibiotic prescribed. Currently, patient denies headache or dizziness. Denies chest pain. Mild persistent shortness of breath on 2 L NC with mild tachypnea noted. Denies abdominal or flank pain. Urinates on his own. No change in bowels. No recent nausea or vomiting. Resident at [facility]. PCP is Dr. Kearns. Daughter, Nargis, is POA. Nonsmoker. Rare alcohol use. Wishes to be DNR/DNI. Review of Systems Narrative: REVIEW OF SYSTEMS: Complete review of systems performed and negative unless otherwise stated in HPI or below. PFSH PFSH Medical History History of pulmonary embolism ?Z86.711 - Personal history of pulmonary embolism (ICD-10) Urinary incontinence ?R32 - Unspecified urinary incontinence (ICD-10) Depression, recurrent ?F33.9 - Major depressive disorder, recurrent, unspecified (ICD-10) Alzheimer dementia ?G30.9 - Alzheimer's disease, unspecified (ICD-10) ?F02.80 - Dementia in other diseases classified elsewhere, unspecified severity, without behavioral disturbance, psychotic disturbance, mood disturbance, and anxiety (ICD-10) BPH without obstruction/lower urinary tract symptoms ?N40.0 - Benign prostatic hyperplasia without lower urinary tract symptoms (ICD-10) Pulmonary embolism ?I26.99 - Other pulmonary embolism without acute cor pulmonale (ICD-10) COVID-19 ?U07.1 - COVID-19 (ICD-10) Health care directive on file ?Z78.9 - Other specified health status (ICD-10) Surgical History H/O abdominal surgery ?Z98.890 - Other specified postprocedural states (ICD-10) Social History Narrative: Living at [facility] with his . His daughter, Nargis, is here with him today. Denies tobacco or alcohol use. What is your current living situation?: I presently have a place to live Problems where you live: no known problems Problems where you live details: none In the past 12 months, utilities in danger of being shut off: no In past 12 months, lack of transportation kept you from medical appts, meetings, work, or getting things needed for daily living: yes In the past 12 mos, have been you worried that your food would run out before you had money to buy more?: never true In the past 12 mos, the food you bought just didn't last and you didn't have money to buy more?: never true Highest level of school completed/degree received: Bachelor's degree Smoking Status: Never smoker Do you use any of these nicotine containing products: None Second hand tobacco smoke exposure: No How often do you have a drink containing alcohol: monthly or less How many standard drinks containing alcohol do you have on a typical day: 1 or 2 How often do you have six or more drinks on one occasion: Never AUDIT-C Alcohol total score: 1 Non-prescribed substance use: denies use Caffeine: Yes (ceffee) How often does anyone, including family, friends and others, physically hurt you : never How often does anyone, including family, friends and others, insult or talk down to you: never How often does anyone, including family, friends and others, threaten you with harm: never How often does anyone, including family, friends and others, scream or curse at you: never service: No Health Related Social Needs: transportation insecurity (Z59.82) Meds Home Medications and Allergies Home Medications ?Medication ?Instructions ?Recorded ?Confirmed ?Type donepezil 10 mg tablet 10 mg PO HS 03/12/23 06/29/24 History rivaroxaban 20 mg tablet (Xarelto) 20 mg PO QPM 03/12/23 06/29/24 History tamsulosin 0.4 mg capsule 0.8 mg PO DAILY 03/12/23 06/29/24 History sertraline 100 mg tablet 150 mg PO QAM 06/15/23 06/29/24 History melatonin 5 mg tablet 5 mg PO HS 06/29/24 06/29/24 History Allergies Allergy/AdvReac Type Severity Reaction Status Date / Time aspirin Allergy Verified 06/29/24 10:32 Exam Narrative: Exam Narrative: PHYSICAL EXAM General: Pleasant, smiling, appears tired but otherwise NAD HEENT: Normocephalic, atraumatic, sclera white, EOMI, oral mucosa moist Cardiovascular: RRR, S1S2. No pitting edema currently Pulmonary: CTA bilaterally without rhonchi, rales, expiratory wheezes. Mild tachypnea on 2 L Abdominal: Soft, nondistended, no guarding, NTTP Neurological: Alert, answering questions appropriately currently, no obvious confusion, cranial nerves intact, no focal findings Extremities: No gross joint deformity or swelling. AROMI. Neurovascularly intact Skin: Warm, dry. Const: Vital Signs, click to edit/add: Vital Signs - 24 hr 06/29/24 10:24 06/29/24 10:40 06/29/24 10:45 Temperature 96.6 F L Pulse Rate 112 H 115 H Pulse Rate [Left P ulse Oximeter] 108 H Respiratory Rate 20 Blood Pressure Blood Pressure [Le ft Upper Arm] 91/61 Pulse Oximetry 92 94 95 Oxygen Delivery Me thod Nasal Cannula Oxygen Flow Rate 2 06/29/24 10:47 06/29/24 11:00 06/29/24 11:02 Temperature Pulse Rate 112 H 111 H 114 H Pulse Rate [Left P ulse Oximeter] Respiratory Rate 28 H Blood Pressure 91/59 L 94/65 Blood Pressure [Le ft Upper Arm] Pulse Oximetry 94 93 94 Oxygen Delivery Me thod Nasal Cannula Oxygen Flow Rate 2 06/29/24 11:15 06/29/24 11:16 06/29/24 11:30 Temperature Pulse Rate 109 H 109 H 108 H Pulse Rate [Left P ulse Oximeter] Respiratory Rate 28 H Blood Pressure 91/66 Blood Pressure [Le ft Upper Arm] Pulse Oximetry 95 96 96 Oxygen Delivery Me thod Nasal Cannula Oxygen Flow Rate 2 06/29/24 11:32 06/29/24 11:35 06/29/24 11:45 Temperature Pulse Rate 108 H 108 H 104 H Pulse Rate [Left P ulse Oximeter] Respiratory Rate Blood Pressure 86/64 L 100/67 Blood Pressure [Le ft Upper Arm] Pulse Oximetry 96 97 97 Oxygen Delivery Me thod Oxygen Flow Rate 06/29/24 12:00 06/29/24 12:02 06/29/24 12:22 Temperature Pulse Rate 99 104 H 103 H Pulse Rate [Left P ulse Oximeter] Respiratory Rate 26 H Blood Pressure 95/67 Blood Pressure [Le ft Upper Arm] Pulse Oximetry 97 97 94 Oxygen Delivery Me thod Nasal Cannula Oxygen Flow Rate 2 06/29/24 12:27 06/29/24 12:30 06/29/24 12:31 Temperature Pulse Rate 104 H 104 H 101 H Pulse Rate [Left P ulse Oximeter] Respiratory Rate Blood Pressure 99/65 86/65 L Blood Pressure [Le ft Upper Arm] Pulse Oximetry 94 94 98 Oxygen Delivery Me thod Oxygen Flow Rate 06/29/24 12:35 Temperature Pulse Rate 102 H Pulse Rate [Left P ulse Oximeter] Respiratory Rate 26 H Blood Pressure 97/71 Blood Pressure [Le ft Upper Arm] Pulse Oximetry 97 Oxygen Delivery Me thod Nasal Cannula Oxygen Flow Rate 2 Hospitalist - H&P: Result Labs Labs: Short CBC 06/29/24 Range/Units 10:50 WBC 15.80 H (4.50-11.00) K/uL Hgb 12.6 L (13.5-17.5) gm/dL Hct 39.7 (37.0-53.0) % Plt Count 217 (140-440) K/uL BMP 06/29/24 10:50 Sodium 138 Potassium 3.5 L Chloride 105 Carbon Dioxide 26 BUN 21 Creatinine 1.1 Glucose 151 H Calcium 8.3 L Liver Function 06/29/24 Range/Units 10:50 Total Bilirubin 0.7 (0.1-1.5) mg/dL Direct Bilirubin 0.4 (0.0-0.5) mg/dL AST 68 H (12-35) U/L ALT 26 (4-50) U/L Alkaline Phosphatase 60 (40-150) U/L Albumin 3.4 (3.3-5.0) g/dL Urine 06/29/24 Range/Units 12:30 Urine Color [place] A (Yellow) Urine Appearance Cloudy A (Clear) Urine pH 5.5 (5.0-8.5) Ur Specific [place] 1.020 (1.000-1.030) Urine Protein 2+ A (Negative) Urine Glucose (UA) Negative (Negative) ECG Attestation: I personally reviewed and interpreted this ECG as follows: ECG interpretation date: 06/29/24 Interpretation: NSR, rate 99 Imaging Chest x-ray: Attestation: I have reviewed the pertinent imaging results. Radiologist's impression: Cardiovasculature and mediastinum: Heart size is normal. Unremarkable mediastinum. Lungs and pleural spaces: Left infrahilar opacity is indistinct. Remainder of the lungs and pleural spaces are clear. No pneumothorax. Bones and soft tissues: Elevation of the left diaphragm, unchanged. IMPRESSION: Left infrahilar opacity could be secondary to compressive atelectasis from an elevated diaphragm which is chronic. No other findings to explain shortness of breath. CTA chest: Attestation: I have reviewed the pertinent imaging results. Radiologist's impression: Lungs and pleura: No suspicious nodules or infiltrates. No pleural effusions, pleural thickening, or pneumothorax. Heart and vasculature: Aneurysmal dilatation ascending thoracic aorta measuring 4.8 centimeters. No pulmonary emboli seen. Heart is enlarged. Lymph nodes/mediastinum: No mediastinal, hilar, or axillary adenopathy. Chest wall: No masses. Upper abdomen: Marked elevation of the left hemidiaphragm. With right-sided mild mediastinal shift which is unchanged. There is no effusion. Basilar mild atelectasis. Bones: No aggressive. Mild T8 compression deformity unchanged IMPRESSION: 1. No pulmonary emboli. No acute pulmonary findings. Basilar atelectasis. Marked elevation left hemidiaphragm unchanged 2. 4.8 centimeter aneurysmal dilatation of the ascending thoracic aorta. CT abdomen pelvis: Attestation: I have reviewed the pertinent imaging results. Radiologist's impression: Lower chest: Unremarkable. Liver: Mild diffuse low attenuation steatosis. Spleen: Unremarkable. Pancreas: Unremarkable. Gallbladder and bile ducts: Unremarkable. Kidneys: Unremarkable. Adrenal glands: Unremarkable. GI tract: Small focus of fluid and inflammation dorsal from the gastric cardia just abutting the diaphragm and medial spleen margin (image 38 series 2). Some subtle peripheral enhancement. No inflammation or dilatation of large or small bowel. Appendix is not apparent. Moderate dilatation of the proximal sigmoid anastomotic staple site. This is chronic but somewhat increased from before. No wall thickening. No mass. Vascular structures: Negative. No sign of aneurysm. Lymph nodes: Unremarkable. Miscellaneous: Unremarkable. No free air or significant free fluid. Pelvic Organs: Unremarkable. Bones: Unremarkable for age. IMPRESSION: Possible diverticulum or ill-defined fluid collection posterior from the gastric cardia under the hemidiaphragm. This would be an unusual position for gastric ulcer. No definite source for sepsis. Chronic increased aneurysmal dilatation at the site of proximal sigmoid primary anastomosis.
[2024-06-29] MEDS: VANCOMYCIN 1.75 GM/350 ML 1.75 GM/350 ML PIGGYBACK IVPB (14:48)
[2024-06-29] MEDS: RIVAROXABAN 10 MG TABLET 20 MG PO (17:40)
[2024-06-29 18:21] LABS: Lactate* 5.2 mmol/L (0.5-1.9)
[2024-06-29] MEDS: LACTATED RINGERS 1000 ML 1,000 ML 500 ML IV (18:26)
--- NOTE | 2024-06-29 18:55 | P.CCN_ITS ---
Subjective Subjective Time Seen by Provider: 18:00 Interval history: 84-year-old male admitted today with fevers, weakness, low blood pressure. Was seen yesterday in the emergency department with similar symptoms but no obvious sign of infection. Got worse overnight. Today it appears he has a urinary tract infection which has been a cause of his admission with sepsis in the past. On admission he was treated with IV fluids, vancomycin, piperacillin tazobactam. I saw him earlier, around 3:00 p.m. and he looked well. He was confused and forgetful as is his baseline. Breathing was unlabored. He was well perfused in his extremities and he had a adequate blood pressure. Later this afternoon the nurse noted his blood pressure was a little lower and he was borderline tachycardic. Repeat lactate came back elevated at 5.2 compared to 1.6 in the emergency department. Objective Objective Data Details: Blood pressure is 92/57 and pulse is 98. O2 sat is 96% on room air. He is a lert and appears in no distress. He is confused but speech is clear. Respirations are clear to auscultation without wheezing rales or rhonchi. Breathing is unlabored on room air. Cardiovascular: S1, S2, regular rate and rhythm. No murmur gallop or rub. Abdomen: Bowel sounds active. Abdomen is soft without tenderness or mass. Extremities without significant edema. He has intact pedal pulses and good capillary refill. Feet are warm to touch. Assessment and Plan Assessment and plan (1) Sepsis: Problem comment: Reported fevers at [facility], hypotensive (MAP 70s), tachycardic, tachypneic, WBC 15.8 with left shift Lactate 1.6, procalcitonin 28.5, CRP 16.4. Lactate now increased to 5.2. CXR without acute infectious process CT chest abdomen pelvis without definite source for sepsis BC x 2 pending, UC from 06/28 and 06/29 pending History of E coli UTI sepsis - working diagnosis for now Zosyn and vancomycin - deescalate when appropriate Received 2.5 L IVF NS in ED Saline lock for now and encourage oral intake Daughter verbalizes consent for use of pressors if necessary. Does not want her father transferred to ICU level care, would consider alternative management options if progresses/worsens or no improvement Status: Acute Plan With increase in lactate will give additional fluid bolus. Continue broad- spectrum antibiotics, close monitoring of vital signs. Change status to CCU. Total Time Spent Total Time Spent: Total time spent in critical care evaluation management is 45 minutes
--- NOTE | 2024-06-29 19:03 | PC.NURSE ---
End of Shift: Patient pleasant and cooperative, orient to self, place, and situation. Patient with soft BP's MD aware but stable, lungs clear, BS WNL, IV running LR bolus and antibiotic. Patient denies pain and is 1 assist walker. Patient ambulated to the toilet and had a BM. Duong is intact and draining. Patient tolerating regular diet. Patient is comfortably sitting in recliner.
[2024-06-29] MEDS: MELATONIN 3 MG TABLET 6 MG PO (20:11)
[2024-06-29] MEDS: SODIUM CHLORIDE 0.9 % (FLUSH) 10 ML SYRINGE 5 ML IVF (20:12)
[2024-06-29] MEDS: DONEPEZIL 10 MG TABLET PO (20:12)
[2024-06-29] MEDS: SENNOSIDES/DOCUSATE TABLET 1 TAB PO (20:12)
[2024-06-29 20:29] LABS: Lactate* 2.3 mmol/L (0.5-1.9)
[2024-06-30] VITALS (12 sets, daily range): BP systolic 96–133; BP diastolic 57–94; PULSE 61–101; RESP 18–24; TEMP 36.3–36.8; O2SAT 90–97
[2024-06-30] MEDS: PIPERACILLIN/TAZOBACTAM 3.375 GM in 0.9 % SODIUM CHLORIDE Mini-bag 100 ML IVPB ×4 (01:20→18:55)
[2024-06-30 06:18] LABS: Hematocrit 36.7 % (37.0-53.0); Hemoglobin* 11.4 gm/dL (13.5-17.5); Mean Corpuscular HGB Conc 31 gm/dL (32-36); Mean Corpuscular Hemoglobin 30 pg (26-34); Mean Corpuscular Volume 98 fL (80-100); Platelet Count* 195 K/uL (140-440); Red Blood Count 3.76 m/uL (4.30-5.90); White Blood Count* 14.31 K/uL (4.50-11.00)
[2024-06-30 06:20] LABS: Slide Review Reflex No
--- NOTE | 2024-06-30 06:35 | PC.NURSE ---
-: pleasant and cooperative. A x 1 with gb and walker to BR. 2 large soft BMs, 1 incont. Duong patent and draining bloody urine, no clots noted, Duong occasionally leaking from penis with ambulation ? bladder scanned for 5mL. Pt reports discomfort from Duong ? production underwriter believes there is some trauma d/t Duong insertion. BP improved following bolus, lactate improved as well. Encouraging PO fluid intake. HR 90s-110 now down to 60s-70s at end of shift. Afebrile throughout shift. Pts gown was moist, production underwriter changed the gown & linens, bed bath given.
[2024-06-30 06:46] LABS: C Reactive Protein* 17.9 mg/dL (0.5-1.0)
[2024-06-30 06:48] LABS: Sodium* 139 mmol/L (135-149)
[2024-06-30 06:49] LABS: Anion Gap 5 mEq/L (7-15); Blood Urea Nitrogen* 26 mg/dL (7-30); Calcium* 8.3 mg/dL (8.4-10.6); Carbon Dioxide* 29 mmol/L (20-32); Chloride* 105 mmol/L (96-114); Estimated Glomerular Filt Rate 73 ml/min; Glucose* 107 mg/dL (60-115); Potassium* 3.6 mmol/L (3.6-5.1)
--- NOTE | 2024-06-30 07:17 | PM.IMPN1 ---
Assessment and Plan Assessment and plan (1) Sepsis: Problem comment: - subjective fevers at [place], hypotensive (MAP 70s), tachycardic, tachypneic, WBC 15.8 with left shift - lactate 1.6 (up to 5.2, then down to 2.3) - CXR without acute infectious process, CT chest abdomen pelvis without definite source for sepsis - history of E Coli UTI sepsis, currently has blood and urine cultures pending - on Zosyn and Vancomycin (06/29/24), IVFs. STOPPING Vancomycin 06/30 given no growth on cultures and negative MRSA screen - goals of care do not include transfer Status: Acute (2) Urinary tract infection: Problem comment: - UA cloudy, 3+ blood, WBC 10/25, moderate bacteria, however nitrites and LE negative - culture pending, h/o E coli UTI Status: Acute (3) Elevated troponin: Problem comment: - POC troponin in ED 1.25 -> 1.31 (however, serum troponin negative) - EKG in the ER on admission without STEMI - Daughter verbalizes she does not want her father transferred for ICU or cardiac interventions, patient without CP so will not trend troponin Status: Acute (4) Weakness: Problem comment: - in setting of acute illness, therapies ordered Status: Acute (5) Shortness of breath: Problem comment: - no hypoxia - CT negative for PE or acute pulmonary findings, shows basilar atelectasis, marked elevation left hemidiaphragm -chronic - BNP 3430 - follow clinically, appears improved 06/30 Status: Acute (6) History of pulmonary embolism: Problem comment: - on lifelong anticoagulation with rivaroxaban Status: Acute Plan - per above - daughter Nargis updated at bedside, questions answered Subjective Date Seen: 06/30/24 Interval history: Judah was admitted to the hospital yesterday for presumed sepsis (fever, hypotension, WBC 15 with PMN predominance, elevated lactate). CT C/A/P without obvious nidus of infection. History of E Coli UTI, currently NGTD on urine and blood culture. On Zosyn and Vancomycin, tolerating well. This morning, BPs have improved from 80/50s to 100s/60s, no tachycardia or hypoxia. WBC 14 <-- 15 on admission. Reynaldo is seeing therapies today, ambulating without chest pain or dizziness. No concerns for hospitalist team. Amenable to taking Duong out today. Exam Narrative: Exam Narrative: GEN: Alert and sitting comfortably in bedside chair, nontoxic HEENT: EOMIs bilaterally, no scleral icterus CV: RRR, No concerning murmurs R: LCTA bilaterally without concerning wheezing, air movement adequate Ext: wwp, no concerning edema Skin: Scattered SKs, no concerning rashes or lesions Neuro: No focal deficits, ambulating with walker Psych: MCI evident, no agitation Const: Vital Signs, click to edit/add: Vital Signs - 24 hr 06/29/24 10:20 06/29/24 10:24 06/29/24 10:40 Temperature 96.6 F L Pulse Rate 112 H Pulse Rate [Left P ulse Oximeter] 108 H Pulse Rate [Pulse Oximeter] Respiratory Rate 20 Blood Pressure Blood Pressure [Le ft Arm] Blood Pressure [Le ft Upper Arm] 91/61 Pulse Oximetry 92 94 Oxygen Delivery Me thod Nasal Cannula Nasal Cannula Oxygen Flow Rate 2 2 06/29/24 10:45 06/29/24 10:47 06/29/24 11:00 Temperature Pulse Rate 115 H 112 H 111 H Pulse Rate [Left P ulse Oximeter] Pulse Rate [Pulse Oximeter] Respiratory Rate 28 H Blood Pressure 91/59 L Blood Pressure [Le ft Arm] Blood Pressure [Le ft Upper Arm] Pulse Oximetry 95 94 93 Oxygen Delivery Me thod Nasal Cannula Oxygen Flow Rate 2 06/29/24 11:02 06/29/24 11:15 06/29/24 11:16 Temperature Pulse Rate 114 H 109 H 109 H Pulse Rate [Left P ulse Oximeter] Pulse Rate [Pulse Oximeter] Respiratory Rate 28 H Blood Pressure 94/65 91/66 Blood Pressure [Le ft Arm] Blood Pressure [Le ft Upper Arm] Pulse Oximetry 94 95 96 Oxygen Delivery Me thod Nasal Cannula Oxygen Flow Rate 2 06/29/24 11:30 06/29/24 11:32 06/29/24 11:35 Temperature Pulse Rate 108 H 108 H 108 H Pulse Rate [Left P ulse Oximeter] Pulse Rate [Pulse Oximeter] Respiratory Rate Blood Pressure 86/64 L 100/67 Blood Pressure [Le ft Arm] Blood Pressure [Le ft Upper Arm] Pulse Oximetry 96 96 97 Oxygen Delivery Me thod Oxygen Flow Rate 06/29/24 11:45 06/29/24 12:00 06/29/24 12:02 Temperature Pulse Rate 104 H 99 104 H Pulse Rate [Left P ulse Oximeter] Pulse Rate [Pulse Oximeter] Respiratory Rate 26 H Blood Pressure 95/67 Blood Pressure [Le ft Arm] Blood Pressure [Le ft Upper Arm] Pulse Oximetry 97 97 97 Oxygen Delivery Me thod Nasal Cannula Oxygen Flow Rate 2 06/29/24 12:22 06/29/24 12:27 06/29/24 12:30 Temperature Pulse Rate 103 H 104 H 104 H Pulse Rate [Left P ulse Oximeter] Pulse Rate [Pulse Oximeter] Respiratory Rate Blood Pressure 99/65 Blood Pressure [Le ft Arm] Blood Pressure [Le ft Upper Arm] Pulse Oximetry 94 94 94 Oxygen Delivery Me thod Oxygen Flow Rate 06/29/24 12:31 06/29/24 12:35 06/29/24 13:44 Temperature Pulse Rate 101 H 102 H Pulse Rate [Left P ulse Oximeter] Pulse Rate [Pulse Oximeter] Respiratory Rate 26 H 16 Blood Pressure 86/65 L 97/71 Blood Pressure [Le ft Arm] Blood Pressure [Le ft Upper Arm] Pulse Oximetry 98 97 93 Oxygen Delivery Me thod Nasal Cannula Room Air Oxygen Flow Rate 2 06/29/24 13:44 06/29/24 15:12 06/29/24 15:15 Temperature 98.5 F Pulse Rate 103 H Pulse Rate [Left P ulse Oximeter] Pulse Rate [Pulse Oximeter] 103 H Respiratory Rate 16 Blood Pressure Blood Pressure [Le ft Arm] 112/72 Blood Pressure [Le ft Upper Arm] Pulse Oximetry 93 94 Oxygen Delivery Me thod Room Air Room Air Oxygen Flow Rate 06/29/24 15:18 06/29/24 15:47 06/29/24 15:56 Temperature 97.8 F Pulse Rate Pulse Rate [Left P ulse Oximeter] Pulse Rate [Pulse Oximeter] 98 98 Respiratory Rate 18 24 Blood Pressure Blood Pressure [Le ft Arm] 87/56 L 96/53 L Blood Pressure [Le ft Upper Arm] Pulse Oximetry 96 Oxygen Delivery Me thod Room Air Oxygen Flow Rate 06/29/24 19:00 06/29/24 19:36 06/29/24 20:00 Temperature Pulse Rate 100 Pulse Rate [Left P ulse Oximeter] Pulse Rate [Pulse Oximeter] 99 Respiratory Rate 16 Blood Pressure Blood Pressure [Le ft Arm] 92/57 L Blood Pressure [Le ft Upper Arm] Pulse Oximetry Oxygen Delivery Me thod Oxygen Flow Rate 06/29/24 20:10 06/29/24 22:00 06/29/24 23:12 Temperature 97.8 F 98.3 F Pulse Rate 100 Pulse Rate [Left P ulse Oximeter] Pulse Rate [Pulse Oximeter] 77 76 Respiratory Rate 16 18 Blood Pressure Blood Pressure [Le ft Arm] 95/69 107/69 Blood Pressure [Le ft Upper Arm] Pulse Oximetry 95 94 Oxygen Delivery Me thod Room Air Room Air Oxygen Flow Rate 06/30/24 00:00 06/30/24 02:30 06/30/24 03:17 Temperature 98.3 F 98.2 F Pulse Rate 69 Pulse Rate [Left P ulse Oximeter] Pulse Rate [Pulse Oximeter] 81 70 Respiratory Rate 24 24 Blood Pressure Blood Pressure [Le ft Arm] 111/77 96/57 L Blood Pressure [Le ft Upper Arm] Pulse Oximetry 90 93 Oxygen Delivery Me thod Room Air Room Air Oxygen Flow Rate 06/30/24 04:00 06/30/24 06:00 Temperature 97.4 F L 97.8 F Pulse Rate Pulse Rate [Left P ulse Oximeter] Pulse Rate [Pulse Oximeter] 70 61 Respiratory Rate 20 20 Blood Pressure Blood Pressure [Le ft Arm] 100/64 101/69 Blood Pressure [Le ft Upper Arm] Pulse Oximetry 97 93 Oxygen Delivery Me thod Room Air Room Air Oxygen Flow Rate Labs Labs: Laboratory Results - last 24 hr 06/29/24 06/29/24 06/29/24 10:50 12:25 12:30 WBC 15.80 H RBC 4.12 L Hgb 12.6 L Hct 39.7 MCV 96 MCH 31 MCHC 32 RDW Coeff of Marisa 14.1 Plt Count 217 Neut % (Auto) 91.4 H Lymph % (Auto) 2.1 L [place] % (Auto) 5.5 Eos % (Auto) 0.0 Baso % (Auto) 0.1 Neut # (Auto) 14.40 H Lymph # (Auto) 0.30 L [place] # (Auto) 0.90 Eos # (Auto) 0.00 Baso # (Auto) 0.00 Abs Immat Gran (auto) 0.10 Imm/Tot Granulo (auto) 0.9 Sodium 138 Potassium 3.5 L Chloride 105 Carbon Dioxide 26 Anion Gap 7 BUN 21 Creatinine 1.1 Estimated Creat Clear 52.91 Estimated GFR 65 Glucose 151 H Lactate 1.6 Calcium 8.3 L Total Bilirubin 0.7 Direct Bilirubin 0.4 AST 68 H ALT 26 Alkaline Phosphatase 60 C-Reactive Protein 16.4 H NT-Pro-B Natriuret Pep 3430 Total Protein 6.4 Albumin 3.4 Procalcitonin 28.50 H TSH 0.982 Urine Color [place] A Urine Appearance Cloudy A Urine pH 5.5 Ur Specific [place] 1.020 Urine Protein 2+ A Urine Glucose (UA) Negative Urine Ketones Trace A Urine Blood 3+ A Urine Nitrite Negative Urine Bilirubin 2+ A Urine Urobilinogen 4.0 A Ur Leukocyte Esterase Negative Urine RBC 25-50 A Urine WBC 10-25 A Ur Squamous Epith Cells Few Amorphous Sediment Moderate A Other Sediment FEW GRANULAR CASTS Urine Bacteria Moderate A Urine Mucus Many A Lab Acknowledgement POC Troponin I 1.25 H 1.31 H 06/29/24 06/29/24 06/29/24 13:38 18:02 20:23 WBC RBC Hgb Hct MCV MCH MCHC RDW Coeff of Marisa Plt Count Neut % (Auto) Lymph % (Auto) [place] % (Auto) Eos % (Auto) Baso % (Auto) Neut # (Auto) Lymph # (Auto) [place] # (Auto) Eos # (Auto) Baso # (Auto) Abs Immat Gran (auto) Imm/Tot Granulo (auto) Sodium Potassium Chloride Carbon Dioxide Anion Gap BUN Creatinine Estimated Creat Clear Estimated GFR Glucose Lactate 5.2 H* 2.3 H Calcium Total Bilirubin Direct Bilirubin AST ALT Alkaline Phosphatase C-Reactive Protein NT-Pro-B Natriuret Pep Total Protein Albumin Procalcitonin TSH Urine Color Urine Appearance Urine pH Ur Specific [place] Urine Protein Urine Glucose (UA) Urine Ketones Urine Blood Urine Nitrite Urine Bilirubin Urine Urobilinogen Ur Leukocyte Esterase Urine RBC Urine WBC Ur Squamous Epith Cells Amorphous Sediment Other Sediment Urine Bacteria Urine Mucus Lab Acknowledgement Test Added POC Troponin I 06/30/24 05:53 WBC 14.31 H RBC 3.76 L Hgb 11.4 L Hct 36.7 L MCV 98 MCH 30 MCHC 31 L RDW Coeff of Marisa Plt Count 195 Neut % (Auto) Lymph % (Auto) [place] % (Auto) Eos % (Auto) Baso % (Auto) Neut # (Auto) Lymph # (Auto) [place] # (Auto) Eos # (Auto) Baso # (Auto) Abs Immat Gran (auto) Imm/Tot Granulo (auto) Sodium 139 Potassium 3.6 Chloride 105 Carbon Dioxide 29 Anion Gap 5 L BUN 26 Creatinine 1.0 Estimated Creat Clear 58.20 Estimated GFR 73 Glucose 107 Lactate Calcium 8.3 L Total Bilirubin Direct Bilirubin AST ALT Alkaline Phosphatase C-Reactive Protein 17.9 H NT-Pro-B Natriuret Pep Total Protein Albumin Procalcitonin TSH Urine Color Urine Appearance Urine pH Ur Specific [place] Urine Protein Urine Glucose (UA) Urine Ketones Urine Blood Urine Nitrite Urine Bilirubin Urine Urobilinogen Ur Leukocyte Esterase Urine RBC Urine WBC Ur Squamous Epith Cells Amorphous Sediment Other Sediment Urine Bacteria Urine Mucus Lab Acknowledgement POC Troponin I
[2024-06-30] MEDS: SERTRALINE 100 MG TABLET 150 MG PO (08:47)
[2024-06-30] MEDS: TAMSULOSIN HCL 0.4 MG CAPSULE 0.8 MG PO (08:48)
[2024-06-30] MEDS: 0.9 % SODIUM CHLORIDE 1000 ml 1,000 ML 75 ML IV (10:52)
--- NOTE | 2024-06-30 14:31 | PC.SOCIAL ---
Addendum entered and electronically signed by Susan Lama LCSW 06/30/24 15:40: MAYDA spoke with Monica and provided update on PT/OT recs for homecare PT/OT. Monica states there shouldn't be concerns with him coming back as long as he's no more than an assist of 1, as they don't have any lifts. Monica states for home care they use [facility] and MAYDA would need to send referral directly to them. MAYDA to update Monica in the morning. Original Note: Discharge planning: MAYDA called [facility] and left a voicemail for nursing to call back. MAYDA received voicemail from Monica requested a call back at [phone]. MAYDA called Monica back, however, she had left for the day. The mortgage counselor states they will reach out to her and she may call MAYDA back today or tomorrow.
[2024-06-30 15:11] LABS: Basophils Percent Auto 0.1 % (0.0-3.0); Eosinophils Percent Auto 0.9 % (0.0-7.0); Hematocrit 37.3 % (37.0-53.0); Hemoglobin* 11.7 gm/dL (13.5-17.5); Immature Granulocytes Pct Auto 0.5 %; Lymphocytes Percent Auto 5.6 % (20-44); Mean Corpuscular HGB Conc 31 gm/dL (32-36); Mean Corpuscular Hemoglobin 31 pg (26-34); Mean Corpuscular Volume 97 fL (80-100); Monocytes Percent Auto 6.2 % (0.0-11.0); Neutrophils Percent Auto 86.7 % (42.0-72.0); Platelet Count* 211 K/uL (140-440); RDW Coefficient of Variation % 14.4 % (11.5-15.5); Red Blood Count 3.83 m/uL (4.30-5.90); Slide Review Reflex No; White Blood Count* 12.99 K/uL (4.50-11.00)
[2024-06-30] MEDS: RIVAROXABAN 10 MG TABLET 20 MG PO (17:54)
--- NOTE | 2024-06-30 19:19 | PC.NURSE ---
The patient is alert to self and place only, intermittent confusion noted as well throughout the day. Duong was removed and the patient has been voiding since. Foul smelling urine. No reports of pain this shift, afebrile. NS @ 75 in L forearm. Appetite is reassuring, poor PO intake. Alarms are on, The patients daughter visited today. Tele is sinus arrhythmia. Any HILARIO BSN
[2024-06-30] MEDS: DONEPEZIL 10 MG TABLET PO (20:17)
[2024-06-30] MEDS: SENNOSIDES/DOCUSATE TABLET 1 TAB PO (20:18)
[2024-06-30] MEDS: MELATONIN 3 MG TABLET 6 MG PO (20:19)
[2024-06-30] MEDS: ACETAMINOPHEN 325 MG TABLET 975 MG PO (21:41)
[2024-07-01] VITALS (7 sets, daily range): BP systolic 105–147; BP diastolic 73–95; PULSE 69–101; RESP 16–20; TEMP 36.4–36.6; O2SAT 92–97
[2024-07-01] MEDS: PIPERACILLIN/TAZOBACTAM 3.375 GM in 0.9 % SODIUM CHLORIDE Mini-bag 100 ML IVPB ×4 (00:42→19:00)
[2024-07-01] MEDS: 0.9 % SODIUM CHLORIDE 1000 ml 1,000 ML 75 ML IV ×2 (00:42→20:03)
--- NOTE | 2024-07-01 06:36 | PC.NURSE ---
Shift note: Patient continue to have confusion and disoriented to time, person and place per baseline dementia. He is easily re-directible. Ambulated with A1, walker and GB. Incontinence of bladder. Patient was awake as early as 330. Vital signs have remained stable throughout the shift. Denied pain, no fever recorded.
[2024-07-01 07:01] LABS: Chloride* 108 mmol/L (96-114); Sodium* 139 mmol/L (135-149)
[2024-07-01 07:02] LABS: Potassium* 3.6 mmol/L (3.6-5.1)
[2024-07-01 07:05] LABS: Anion Gap 4 mEq/L (7-15); Blood Urea Nitrogen* 22 mg/dL (7-30); Calcium* 8.3 mg/dL (8.4-10.6); Carbon Dioxide* 27 mmol/L (20-32); Creatinine* 0.9 mg/dL (0.5-1.5); Estimated Glomerular Filt Rate 83 ml/min; Glucose* 99 mg/dL (60-115)
[2024-07-01 07:24] LABS: C Reactive Protein* 11.7 mg/dL (0.5-1.0)
--- NOTE | 2024-07-01 08:11 | PM.IMPN1 ---
Assessment and Plan Assessment and plan (1) Sepsis: Problem comment: - + BLOOD CULTURE x2 GPC noted 07/01, awaiting further sensitivities - presented with + fevers at [place], hypotensive (MAP 70s), tachycardic, tachypneic, WBC 15.8 with left shift - lactate 1.6 (up to 5.2, then improved) - CXR without acute infectious process, CT chest abdomen pelvis without definite source for sepsis - history of E Coli UTI sepsis, current urine culture negative - on Zosyn and Vancomycin (06/29/24), IVFs. STOPPED Vancomycin 06/30 given negative MRSA screen, RESTARTED 07/01 given + Blood cultures - goals of care do not include transfer - MRI of R shoulder ordered 07/01 to evaluate Status: Acute (2) Urinary tract infection: Problem comment: - UA cloudy, 3+ blood, WBC 10/25, moderate bacteria, however nitrites and LE negative and culture NGTD - h/o E coli UTI Status: Acute (3) Elevated troponin: Problem comment: - POC troponin in ED 1.25 -> 1.31 (however, serum troponin negative) - EKG in the ER on admission without STEMI - Daughter verbalizes she does not want her father transferred for ICU or cardiac interventions, patient without CP so will not trend troponin Status: Acute (4) Weakness: Problem comment: - in setting of acute illness, therapies following Status: Acute (5) Shortness of breath: Problem comment: - subjectively noted on admission, improving - no hypoxia - CT negative for PE or acute pulmonary findings, shows basilar atelectasis, marked elevation left hemidiaphragm -chronic - BNP 3430 Status: Acute (6) History of pulmonary embolism: Problem comment: - on lifelong anticoagulation with rivaroxaban Status: Acute Plan - per above (continue IV abx, follow blood cultures, MRI shoulder) - plan pending further ID of bacteremia - daughter Nargis updated bedside, questions answered Subjective Date Seen: 07/01/24 Interval history: Judah was admitted to the hospital on 06/29/24 for presumed sepsis (fever, hypotension, WBC 15 with PMN predominance, elevated lactate). History of E Coli UTI with bacteremia, urine culture currently NGTD. CT C/A/P without obvious nidus of infection in ER. MRSA screen negative. This morning (07/01), 2/2 blood cultures + for GPC. WBC 12.99 (was 15.8 on admission) Remains on Zosyn and Vancomycin. Afebrile, stable on RA, BP has improved to baseline 130s/90s. This morning, has a little irritation in R eye (history of dry eyes, easily irritated, per daughter). No known foreign body. No changes in vision. Has had some shoulder pain (R>L) for a few weeks, worse with movement. No back pain. No recent dental visits. No chest pain. No skin concerns. Exam Narrative: Exam Narrative: GEN: Alert and sitting comfortably in bedside chair, nontoxic HEENT: EOMIs bilaterally, + mild conjunctival injection on R, no obvious foreign body CV: RRR, No concerning murmurs R: LCTA bilaterally without concerning wheezing Back: no ttp over spinous processes over thoracic and lumbar regions, no skin lesions Ext: wwp, no concerning edema MS: Full ROM of R shoulder with some discomfort during abduction. + ttp over inferolateral scapula Skin: No concerning skin lesions or rashes on exposed skin Neuro: No focal deficits Psych: Appropriate Const: Vital Signs, click to edit/add: Vital Signs - 24 hr 06/30/24 10:57 06/30/24 15:00 06/30/24 15:00 Temperature 98.3 F 97.8 F Pulse Rate Pulse Rate [Pulse Oximeter] 98 101 H Respiratory Rate 18 20 20 Blood Pressure [Le ft Arm] 133/80 122/74 Pulse Oximetry 93 94 Oxygen Delivery Me thod Room Air Room Air 06/30/24 19:00 06/30/24 22:38 06/30/24 22:38 Temperature 97.9 F 97.7 F Pulse Rate Pulse Rate [Pulse Oximeter] 101 H 72 72 Respiratory Rate 20 20 20 Blood Pressure [Le ft Arm] 117/77 121/72 Pulse Oximetry 93 93 Oxygen Delivery Dc thod Room Air Room Air 06/30/24 23:00 07/01/24 03:00 07/01/24 07:00 Temperature 97.9 F 97.7 F Pulse Rate 71 Pulse Rate [Pulse Oximeter] 69 82 Respiratory Rate 20 18 Blood Pressure [Le ft Arm] 105/73 131/93 H Pulse Oximetry 94 96 [facility] Room [facility] 07/01/24 07:00 Temperature Pulse Rate Pulse Rate [Pulse Oximeter] 79 Respiratory Rate 18 Blood Pressure [Le ft Arm] Pulse Oximetry Oxygen Delivery Me thod Labs Labs: Laboratory Results - last 24 hr 06/30/24 07/01/24 14:56 06:28 WBC 12.99 H RBC 3.83 L Hgb 11.7 L Hct 37.3 MCV 97 MCH 31 MCHC 31 L RDW Coeff of Marisa 14.4 Plt Count 211 Neut % (Auto) 86.7 H Lymph % (Auto) 5.6 L [place] % (Auto) 6.2 Eos % (Auto) 0.9 Baso % (Auto) 0.1 Neut # (Auto) 11.30 H Lymph # (Auto) 0.70 L [place] # (Auto) 0.80 Eos # (Auto) 0.10 Baso # (Auto) 0.00 Abs Immat Gran (auto) 0.10 Imm/Tot Granulo (auto) 0.5 Sodium 139 Potassium 3.6 Chloride 108 Carbon Dioxide 27 Anion Gap 4 L BUN 22 Creatinine 0.9 Estimated Creat Clear 58.20 Estimated GFR 83 Glucose 99 Calcium 8.3 L C-Reactive Protein 11.7 H
[2024-07-01] MEDS: VANCOMYCIN 1.75 GM/350 ML 1.75 GM/350 ML PIGGYBACK IVPB (08:24)
[2024-07-01] MEDS: ACETAMINOPHEN 325 MG TABLET 975 MG PO ×2 (09:07→21:25)
[2024-07-01] MEDS: SERTRALINE 100 MG TABLET 150 MG PO (09:08)
[2024-07-01] MEDS: TAMSULOSIN HCL 0.4 MG CAPSULE 0.8 MG PO (09:08)
--- NOTE | 2024-07-01 10:35 | CRLHL7_ITS ---
For Patients: As a result of the 21st Century Cures Act, medical imaging exams and procedure reports are released immediately into your electronic medical record. You may view this report before your referring provider. If you have questions, please contact your health care provider. CLINICAL INDICATION: Right shoulder pain. Positive blood culture. COMPARISON IMAGING STUDIES: None available at time of interpretation. TECHNICAL: Non-contrast MRI of the right shoulder. Axial, sagittal oblique and coronal oblique T1, PD, PD FS, T2 and T2 FS images. 1.5 Laura MR scanner. FINDINGS: GLENOHUMERAL JOINT: Effusion: Small right glenoid joint effusion with synovitis and intra-articular debris. Humeral Head Articular Cartilage: Mild osteophyte formation. There is high-grade humeral head cartilage wear (grade 3/4). Glenoid Articular Cartilage: Mild osteophyte formation. High-grade glenoid cartilage wear superiorly (grade 3/4). Alignment: Maintained. Capsule: No generalized capsular edema. OSSEOUS STRUCTURES: There is no acute fracture or avascular necrosis. CORACOACROMIAL ARCH: Acromial Morphology: Type 1 acromial morphology. No abnormal lateral or anterior downward sloping of the acromion. No os acromiale. No significant subacromial spur. Lateral acromial thickness is 9 mm. Acromiohumeral Interval: At its narrowest, the interval measures 7 mm. Coracohumeral Interval: At its narrowest, the coracohumeral interval measures 10 mm. Coracoid index is 9 mm. ACROMIOCLAVICULAR JOINT REGION: AC joint degenerative arthrosis. Coracoclavicular ligament intact. BURSAE: Mild subacromial-subdeltoid bursal edema without bursal fluid collection. ROTATOR CUFF TENDONS AND MUSCLES AND DELTOID: Supraspinatus and Infraspinatus: There is tendinosis of the distal supraspinatus and infraspinatus tendons. There is a small proximally 1 centimeter area of more focal severe tendon signal abnormality involving the supraspinatus tendon at the footplate which likely reflects a area of partial-thickness intrasubstance distal tendon tearing which is at least moderate grade in severity. Mild fraying of the tendons otherwise. No supraspinatus or infraspinatus muscle atrophy. There is edema involving posterior inferior fibers of the infraspinatus muscle. No intramuscular collection. Teres Minor: Distal teres minor tendon is intact. No significant muscle atrophy. Subscapularis: Distal subscapularis tendinosis with subcentimeter area of partial tearing superiorly. No muscle atrophy. Deltoid: There is posterior deltoid localized muscle edema without intramuscular collection. No muscle atrophy. BICEPS TENDON, LONG HEAD: Degenerative labral tearing extends to involve the biceps anchor. There is tendinosis of the proximal long head of the biceps tendon. No dislocation of tendon from bicipital groove. GLENOID LABRUM: Degenerative labral tearing is present both above and below the level of the equator. OTHER FINDINGS: No soft tissue fluid collection. IMPRESSION: 1. No soft tissue fluid collection to suggest an abscess. 2. 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 Small effusion with synovitis and debris. Extensive degenerative labral tearing. 3. Tendinosis of the rotator cuff tendons. Areas of partial-thickness tendon tearing involving the supraspinatus and subscapularis tendons. Additional tendon fraying. 4. Localized edema within the posterior deltoid muscle which could relate to localized myositis, strain or contusion versus recent injection. No intramuscular collection. 5. AC joint degenerative changes. 6. Degenerative labral tearing extends to involve the biceps anchor. Tendinosis of the proximal long head of the biceps tendon. Dictated by Jared Montes MD @ 07/01/2024 1:56:39 PM (Electronically Signed)
--- NOTE | 2024-07-01 15:15 | PC.SOCIAL ---
Discharge Planning: MAYDA called Monica at [facility] and provided update that patient will remain in the hospital likely for another day or so depending on cultures.
[2024-07-01] MEDS: RIVAROXABAN 10 MG TABLET 20 MG PO (19:00)
--- NOTE | 2024-07-01 19:24 | PC.NURSE ---
Nursing Care Hours: [id number] Pt this shift calm and cooperative, alert and oriented to self, year and month. C/o shoulder pain when lifting items and when pressure is applied. VSS with tele showing NSR to Sinus tach. Ax1 with walker and gait belt. At times will set chair alarm off but occasionally will use call light. Pt rubbing R eye this morning repeatedly with tissue and redness and watery drainage noted. Pt declined eye drops, hospitalist made aware. Throughout shift, eye continues to get more red and by late afternoon, goopy discharge noted. Staff advised to wash hands with soap and water after leaving pt room.
--- NOTE | 2024-07-01 19:30 | PC.NURSE ---
Nursing Care Hours: [phone] Pt this shift calm and cooperative, alert and oriented to self, month and year. Toward end of shift, pt made comment about little green people inside me and wondering if the team will have a meeting the next day to discuss what to do about them. Pt very pleasant. VSS with tele showing NSR to sinus tach. Ax1 with walker and gait belt. Left shoulder pain reported only when lifting items or when pressure applied. Pt was rubbing R eye repeatedly with tissue this AM with watery discharge noted. Pt declined eye drops, hospitalist made aware. Throughout the day, redness to R eye increasing and discharge becoming more purulent.
[2024-07-01] MEDS: SENNOSIDES/DOCUSATE TABLET 1 TAB PO ×2 (20:02→20:03)
[2024-07-01] MEDS: DONEPEZIL 10 MG TABLET PO (20:03)
[2024-07-01] MEDS: MELATONIN 3 MG TABLET 6 MG PO (20:07)
[2024-07-02] VITALS (7 sets, daily range): BP systolic 120–164; BP diastolic 83–104; PULSE 63–99; RESP 16–18; TEMP 36.1–36.4; O2SAT 91–96
[2024-07-02] MEDS: PIPERACILLIN/TAZOBACTAM 3.375 GM in 0.9 % SODIUM CHLORIDE Mini-bag 100 ML IVPB ×4 (01:31→19:53)
--- NOTE | 2024-07-02 06:06 | PC.NURSE ---
End of shift report [id number]: VSS. Afebrile. Denies pain. Pt is pleasantly confused, easily redirectable.?Pt pulled out his IV at?the beginning of this shift, tip was intact. New IV placed in L wrist. Pt has right eye redness, aware, no new orders. Tolerating regular diet. Ambulates 1A, GB, W.?Pt is resting in bed, bed alarm on, call light within reach.?
[2024-07-02 06:42] LABS: Basophils Absolute Auto 0.01 K/uL (0.00-0.30); Basophils Percent Auto 0.2 % (0.0-3.0); Eosinophils Absolute Auto 0.11 K/uL (0.00-0.50); Eosinophils Percent Auto 1.8 % (0.0-7.0); Hematocrit 38.9 % (37.0-53.0); Hemoglobin* 12.3 gm/dL (13.5-17.5); Immature Granulocytes Abs Auto 0.15 K/uL (0.00-0.30); Immature Granulocytes Pct Auto 2.5 %; Lymphocytes Percent Auto 13.7 % (20-44); Mean Corpuscular HGB Conc 32 gm/dL (32-36); Mean Corpuscular Hemoglobin 30 pg (26-34); Mean Corpuscular Volume 96 fL (80-100); Monocytes Percent Auto 8.4 % (0.0-11.0); Neutrophils Percent Auto 73.4 % (42.0-72.0); Platelet Count* 211 K/uL (140-440); RDW Coefficient of Variation % 14.1 % (11.5-15.5); Red Blood Count 4.04 m/uL (4.30-5.90); White Blood Count* 6.07 K/uL (4.50-11.00)
[2024-07-02 06:53] LABS: Slide Review Reflex No
[2024-07-02 07:00] LABS: Albumin* 3.4 g/dL (3.3-5.0); Chloride* 108 mmol/L (96-114); Potassium* 3.8 mmol/L (3.6-5.1); Sodium* 140 mmol/L (135-149)
[2024-07-02 07:02] LABS: Blood Urea Nitrogen* 16 mg/dL (7-30); Creatinine* 0.9 mg/dL (0.5-1.5); Estimated Glomerular Filt Rate 83 ml/min
[2024-07-02 07:03] LABS: Alanine Aminotransferase* 26 U/L (4-50); Alkaline Phosphatase* 54 U/L (40-150); Anion Gap 5 mEq/L (7-15); Aspartate Amino Transferase* 39 U/L (12-35); Bilirubin Direct* 0.2 mg/dL (0.0-0.5); Bilirubin Total* 0.4 mg/dL (0.1-1.5); Carbon Dioxide* 27 mmol/L (20-32); Total Protein* 6.3 g/dL (6.0-8.3)
[2024-07-02 07:04] LABS: Calcium* 8.5 mg/dL (8.4-10.6); Glucose* 97 mg/dL (60-115)
[2024-07-02 07:06] LABS: C Reactive Protein* 4.4 mg/dL (0.5-1.0)
[2024-07-02] MEDS: TAMSULOSIN HCL 0.4 MG CAPSULE 0.8 MG PO (09:10)
[2024-07-02] MEDS: SERTRALINE 100 MG TABLET 150 MG PO (09:11)
[2024-07-02] MEDS: ACETAMINOPHEN 325 MG TABLET 975 MG PO ×3 (09:11→22:43)
--- NOTE | 2024-07-02 10:42 | PC.SOCIAL ---
Discharge Planning: MAYDA called SULAIMAN Anderson at [facility], to provide update. MAYDA inquired about patient coming back on weekends. Monica explains that if we know patient will discharge on the weekend and have an exact date, she could have a nurse come out on Sunday to assess patient. Monica explains there will be no nursing on 07/03, but updates can be given to the front desk worker and then they will pass this on to Monica. MAYDA to continue to assist with discharge.
[2024-07-02] MEDS: 0.9 % SODIUM CHLORIDE 1000 ml 1,000 ML 75 ML IV (14:11)
--- NOTE | 2024-07-02 14:51 | P.IMPN_ITS ---
Assessment and Plan Assessment and plan (1) Sepsis: Problem comment: - + BLOOD CULTURE x2 GPC noted 07/01, awaiting further sensitivities - presented with + fevers at [place], hypotensive (MAP 70s), tachycardic, tachypneic, WBC 15.8 with left shift - lactate 1.6 (up to 5.2, then improved) - CXR without acute infectious process, CT chest abdomen pelvis without definite source for sepsis - history of E Coli UTI sepsis, current urine culture negative - on Zosyn and Vancomycin (06/29/24), IVFs. STOPPED Vancomycin 06/30 given negative MRSA screen, RESTARTED 07/01 given + Blood cultures - goals of care do not include transfer - MRI of R shoulder 07/01, no acute findings Status: Acute (2) Urinary tract infection: Problem comment: - UA cloudy, 3+ blood, WBC 10/25, moderate bacteria, however nitrites and LE negative and culture NGTD - h/o E coli UTI, currently culture NEGATIVE Status: Acute (3) Elevated troponin: Problem comment: - POC troponin in ED 1.25 -> 1.31 (however, serum troponin negative) - EKG in the ER on admission without STEMI - Daughter verbalizes she does not want her father transferred for ICU or cardiac interventions, patient without CP so will not trend troponin Status: Acute (4) Weakness: Problem comment: - in setting of acute illness, therapies following Status: Acute (5) History of pulmonary embolism: Problem comment: - on lifelong anticoagulation with rivaroxaban Status: Acute Plan - continue abx, await bacterial ID - SNF vs back to [facility] when medically appropriate for d/c - Xarelto for ppx - daughter Nargis updated bedside, questions answered Subjective Date Seen: 07/02/24 Interval history: Judah was admitted to the hospital on 06/29/24 for presumed sepsis (fever, hypotension, WBC 15 with PMN predominance, elevated lactate). History of E Coli UTI with bacteremia, urine culture currently NGTD. CT C/A/P without obvious nidus of infection in ER. MRSA screen negative. On 07/01, 2/2 blood cultures + for GPC, awaiting further identification. WBC down to 6 (was 15.8 on admission) Remains on Zosyn and Vancomycin. Afebrile, stable on RA, BP has improved to baseline 130s/90s. Source of bacteremia remains unclear, negative urine culture. No open skin wounds. MRI of R scapula (noted shoulder pain) negative for osteomyelitis. No back pain. No recent dental visits. No chest pain. TTE obtained 07/02 without acute abnormalities. Judah continues to feel better each day. Working with therapies. Exam Narrative: Exam Narrative: GEN: Alert and sitting comfortably in bedside chair, nontoxic HEENT: EOMIs bilaterally, mild R eye conjunctival injection is improved, eye opens fully CV: RRR, No concerning murmurs R: LCTA bilaterally without concerning wheezing Ab: Soft, no ttp Ext: wearing BLE Marcello hose Skin: No concerning rashes or lesions Neuro: No focal deficits, ambulating with walker Psych: MCI evident, no agitation Const: Vital Signs, click to edit/add: Vital Signs - 24 hr 07/01/24 15:00 07/01/24 15:00 07/01/24 15:00 Temperature 97.6 F Pulse Rate 70 Pulse Rate [Pulse Oximeter] 91 91 Respiratory Rate 18 18 Blood Pressure [Le ft Arm] 141/92 H Pulse Oximetry 92 Oxygen Delivery Me thod Room Air 07/01/24 19:00 07/01/24 22:36 07/01/24 23:00 Temperature 97.5 F L 97.6 F Pulse Rate 94 Pulse Rate [Pulse Oximeter] 98 97 Respiratory Rate 16 18 Blood Pressure [Le ft Arm] 134/94 H 147/95 H Pulse Oximetry 97 96 Oxygen Delivery Me thod Room Air Room Air 07/01/24 23:00 07/02/24 03:00 07/02/24 07:03 Temperature 97.6 F Pulse Rate 63 Pulse Rate [Pulse Oximeter] 97 80 Respiratory Rate 18 16 Blood Pressure [Le ft Arm] Pulse Oximetry 91 Oxygen Delivery Me thod Room Air 07/02/24 08:00 07/02/24 08:00 07/02/24 11:00 Temperature 96.9 F L 97.2 F L Pulse Rate Pulse Rate [Pulse Oximeter] 92 92 95 Respiratory Rate 16 16 18 Blood Pressure [Le ft Arm] 164/104 H 134/90 H Pulse Oximetry 94 95 Oxygen Delivery Me thod Room Air Room Air Labs Labs: Laboratory Results - last 24 hr 07/02/24 06:23 WBC 6.07 RBC 4.04 L Hgb 12.3 L Hct 38.9 MCV 96 MCH 30 MCHC 32 RDW Coeff of Marisa 14.1 Plt Count 211 Neut % (Auto) 73.4 H Lymph % (Auto) 13.7 L [place] % (Auto) 8.4 Eos % (Auto) 1.8 Baso % (Auto) 0.2 Neut # (Auto) 4.50 Lymph # (Auto) 0.80 L [place] # (Auto) 0.50 Eos # (Auto) 0.11 Baso # (Auto) 0.01 Abs Immat Gran (auto) 0.15 Imm/Tot Granulo (auto) 2.5 Sodium 140 Potassium 3.8 Chloride 108 Carbon Dioxide 27 Anion Gap 5 L BUN 16 Creatinine 0.9 Estimated Creat Clear 58.20 Estimated GFR 83 Glucose 97 Calcium 8.5 Total Bilirubin 0.4 Direct Bilirubin 0.2 AST 39 H ALT 26 Alkaline Phosphatase 54 C-Reactive Protein 4.4 H Total Protein 6.3 Albumin 3.4
[2024-07-02] MEDS: RIVAROXABAN 10 MG TABLET 20 MG PO (17:53)
[2024-07-02] MEDS: SENNOSIDES/DOCUSATE TABLET 1 TAB PO (20:15)
[2024-07-02] MEDS: DONEPEZIL 10 MG TABLET PO (20:15)
[2024-07-02] MEDS: SODIUM CHLORIDE 0.9 % (FLUSH) 10 ML SYRINGE 5 ML IVF (20:19)
[2024-07-02] MEDS: MELATONIN 3 MG TABLET 6 MG PO (20:19)
--- NOTE | 2024-07-02 22:46 | PC.NURSE ---
Shift Note [id number]: Pt friendly and cooperative. Able to verbalize his needs. Denies pain of any kind and VS WNL. Afebrile. Ambulated 150 ft around the nurses station with assist x1 with walker and GB. He tolerated ambulation well. Right eye still appears red and watery. Good appetite, ate 100% of his dinner tray and later drank 100% of vanilla Ensure, butterscotch pudding, and a Sprite zero. Pt showered prior to HS with assist x1, able to take cues and cleanse his upper half independently.
[2024-07-03 01:10] VITALS: BP 120/71; PULSE 75; RESP 20; TEMP 36.5; O2SAT 92
[2024-07-03] MEDS: PIPERACILLIN/TAZOBACTAM 3.375 GM in 0.9 % SODIUM CHLORIDE Mini-bag 100 ML IVPB ×2 (01:14→06:31)
[2024-07-03 02:40] VITALS: BP 131/87; PULSE 71; RESP 20; TEMP 36.8; O2SAT 93
[2024-07-03] MEDS: 0.9 % SODIUM CHLORIDE 1000 ml 1,000 ML 75 ML IV (04:42)
--- NOTE | 2024-07-03 05:27 | PC.NURSE ---
Pt is alert and oriented to self only. Afebrile. Pt denies pain, chest pain, SOB, and N/V. Pt is up A1/SBA with walker and gait belt, voiding and tolerating a regular diet. Pt?s voids soak through extra pad in brief. Pt had one large soft and liquid mixed incontinent BM. Pt slept intermittently throughout night. ??
[2024-07-03 06:42] LABS: Chloride* 110 mmol/L (96-114); Potassium* 3.8 mmol/L (3.6-5.1); Sodium* 139 mmol/L (135-149)
[2024-07-03 06:44] LABS: Blood Urea Nitrogen* 19 mg/dL (7-30)
[2024-07-03 06:45] LABS: Anion Gap 1 mEq/L (7-15); Calcium* 8.2 mg/dL (8.4-10.6); Carbon Dioxide* 28 mmol/L (20-32); Creatinine* 0.8 mg/dL (0.5-1.5); Estimated Glomerular Filt Rate 86 ml/min; Glucose* 101 mg/dL (60-115)
[2024-07-03 07:00] VITALS: PULSE 79
[2024-07-03] MEDS: LACTOBACILLUS ACIDOPHILUS 1 TABLET 1 TAB PO ×2 (07:32→12:46)
[2024-07-03 08:10] VITALS: BP 141/85; PULSE 76; RESP 16; TEMP 36.5; O2SAT 94
[2024-07-03] MEDS: TAMSULOSIN HCL 0.4 MG CAPSULE 0.8 MG PO (09:26)
[2024-07-03] MEDS: SERTRALINE 100 MG TABLET 150 MG PO (09:27)
[2024-07-03] MEDS: ACETAMINOPHEN 325 MG TABLET 975 MG PO (09:27)
[2024-07-03] MEDS: cefTRIAXone 2 GM in 0.9 % SODIUM CHLORIDE Mini-bag 100 ML IVPB (09:28)
[2024-07-03 11:56] VITALS: BP 145/104; PULSE 93; RESP 16; TEMP 36.6; O2SAT 94
--- NOTE | 2024-07-03 12:55 | P.DS_ITS ---
DS: Providers Provider Date Seen: 07/03/24 Date of admission: 06/29/24 13:42 Primary care physician: Ruperto Kearns MD Admitting Clinician: Jessa Martin MD Consults: OT, PT, ID, SW Attending Physician on discharge: Ana Butterfield MD Date of Discharge: 07/03/24 DS: Diagnosis Discharge Diagnosis (1) Sepsis: Status: Acute Problem details: - presented with + fevers at [place], hypotensive (MAP 70s), tachycardic, tachypneic, WBC 15.8 with left shift - lactate 1.6 (up to 5.2, then improved) - BLOOD CULTURES POSITIVE x2 for strep anginosis/intermedius - CXR without acute infectious process, CT chest abdomen pelvis without definite source for sepsis - history of E Coli UTI sepsis, current urine culture negative - treated with Zosyn and Vancomycin (06/29/24) - MRI of R shoulder 07/01, no acute findings - TTE 07/02 reassuring - reviewed with Dr. Cerda of ID 07/03: this particular bacteria usually results from small skin insult, not always an obvious source. Treat with 7 days of oral Ceftin (2) Urinary tract infection: Status: Acute Problem details: - UA cloudy, 3+ blood, WBC 10/25, moderate bacteria, however nitrites and LE negative and culture NGTD - h/o E coli UTI, currently culture NEGATIVE (3) Elevated troponin: Status: Acute Problem details: - POC troponin in ED 1.25 -> 1.31 (however, serum troponin negative) - EKG in the ER on admission without STEMI - did not trend troponin given goals of care, TTE 07/02: Final Impressions: 1. Normal LV size, normal wall thickness, normal global systolic function with an estimated EF of 60 - 65%. 2. The aortic valve is calcified and trileaflet, moderate stenosis and no regurgitation. The aortic valve peak velocity is 2.3 m/s, the peak gradient is 22 mmHg, and the mean gradient is 14 mmHg. The aortic valve area is 1.46 cm?? with a dimensionless index of 0.35. The stroke volume index is 31.6 ml/m??. 3. No definite findings of endocarditis but if continued concern - consider ROLANDA. (4) Weakness: Status: Acute Problem details: - in setting of acute illness, therapies following (5) History of pulmonary embolism: Status: Acute Problem details: - on lifelong anticoagulation with rivaroxaban DS: Summary Hospital Course Hospital Course: Judah was admitted to the hospital on 06/29/24 for presumed sepsis (fever, hypotension, WBC 15 with PMN predominance, elevated lactate). History of E Coli UTI with bacteremia, urine culture with no growth during stay. CT C/A/P without obvious nidus of infection in ER. MRSA screen negative. No open skin wounds. MRI of R scapula (noted shoulder pain) negative for osteomyelitis. No back pain. No recent dental visits. No chest pain. Did have 2 days of right eye irritation and mild conjunctival injection that self resolved (history of sensitive eyes, per patient and daughter) TTE obtained 07/02 without acute abnormalities. WBC was 15.8 on admission, normalized during stay. BP improved to baseline, did no require pressor support. Treated with Zosyn and Vancomycin. On 07/01, 2/2 blood cultures collected in ER + for GPC, Identified on 07/03 as strep anginosis/intermedius. Reviewed findings by phone with Dr. Cerda of ID 07/03: this particular bacteria usually results from small skin insult, not always an obvious source. She recommended treatment with 7 days of oral Ceftin. Bill was medically appropriate to d/c back to [facility] on 07/03/24 on oral antibiotics with Home Health PT/OT and close PCP f/u. Status at Discharge Functional status at discharge: uses cane/walker Overall status at discharge: patient is progressing back to baseline Time Spent with Patient Time attestation: Total time spent providing and/or coordinating discharge services: Time spent: Greater than 30 minutes Specific discharge activities: Medication reconciliation, patient education, multidisciplinary team conference Exam Narrative: Exam Narrative: GEN: Alert and sitting comfortably in bedside chair, conversing appropriately HEENT: Normal external ears, EOMIs bilaterally, no scleral icterus CV: RRR, No concerning murmurs R: Lungs without wheezing, air movement adequate Ext: mild BLE edema, symmetric Skin: No concerning skin lesions or rashes on exposed skin Neuro: No focal deficits Psych: Noted cognitive impairment (baseline), no agitation or anxiety Const: Vital Signs, click to edit/add: Vital Signs - 24 hr 07/02/24 15:00 07/02/24 15:00 07/02/24 19:00 Temperature 97.4 F L 97.1 F L Pulse Rate Pulse Rate [Pulse Oximeter] 88 88 99 Respiratory Rate 18 18 18 Blood Pressure [Le ft Arm] 137/86 120/83 Pulse Oximetry 96 95 Oxygen Delivery Me thod Room Air Room Air 07/02/24 23:00 07/03/24 01:10 07/03/24 01:10 Temperature 97.7 F Pulse Rate 91 Pulse Rate [Pulse Oximeter] 75 75 Respiratory Rate 20 Blood Pressure [Le ft Arm] 120/71 Pulse Oximetry 92 Oxygen Delivery Oh thod Room Air 07/03/24 02:40 07/03/24 07:00 07/03/24 08:10 Temperature 98.2 F 97.7 F Pulse Rate 79 Pulse Rate [Pulse Oximeter] 71 76 Respiratory Rate 20 16 Blood Pressure [Le ft Arm] 131/87 141/85 H Pulse Oximetry 93 94 Oxygen Delivery Oh thod Room Air Room Air 07/03/24 11:56 Temperature 97.9 F Pulse Rate Pulse Rate [Pulse Oximeter] 93 Respiratory Rate 16 Blood Pressure [Le ft Arm] 145/104 H Pulse Oximetry 94 Oxygen Delivery Me thod Room Air DS: Data Data Completed and Pending Labs on day of discharge: Labs from last 24 hours 07/03/24 06:02 Sodium 139 Potassium 3.8 Chloride 110 Carbon Dioxide 28 Anion Gap 1 L BUN 19 Creatinine 0.8 Estimated Creat Clear 58.20 Estimated GFR 86 Glucose 101 Calcium 8.2 L Preliminary micro results at discharge 06/29/24 11:44 Blood Culture - Preliminary Blood Gram positive cocci in chains 06/29/24 11:55 Blood Culture - Preliminary Blood Gram positive cocci in chains 07/01/24 08:44 Blood Culture - Preliminary Blood NO GROWTH AFTER 48 HOURS 07/01/24 08:39 Blood Culture - Preliminary Blood NO GROWTH AFTER 48 HOURS 07/02/24 06:23 Blood Culture - Preliminary Blood NO GROWTH AFTER 24 HOURS Discharge Plan Discharge Disposition: Home, Self-Care Date of Admission: 06/29/24 13:42 Attending Provider on Discharge: Ana Butterfield Primary Care Provider: Ruperto Kearns Condition: Improved Anticipated Discharge Date/Time: 07/03/24 10:40 Discharge Medications: New cefuroxime axetil 500 mg tablet 500 mg PO BID 7 Days Qty: 14 0RF Continued melatonin 5 mg tablet 5 mg PO HS donepezil 10 mg tablet 10 mg PO HS tamsulosin 0.4 mg capsule 0.8 mg PO DAILY Xarelto 20 mg tablet 20 mg PO QPM sertraline 100 mg tablet 150 mg PO QAM Discharge Orders: Discharge Order (Routine); Ordered 07/03/24 Ordered By: Ana Butterfield Patient Education: Cefuroxime (By mouth), Urinary Tract Infection in Older Adults (DC) Additional Instructions: Antibiotics twice/day for 7 more days. Add some type of probiotic daily while on these (yogurt, Kombucha, SAUERKRAUT!) Home PT and OT ordered Activity Level: Activity as Tolerated Activity Detail: per PT/OT Discharge Diet: Regular Follow Up Appointments: Ruperto Kearns MD [Primary Care Provider, Family Practice] - 07/09/24 11:45 am Referral Note: [facility] [[email or web address]] for hospital follow-up. Forms: [facility] Info Instructions
--- NOTE | 2024-07-03 13:06 | PC.SOCIAL ---
Discharge Planning: AMYDA informed that patient is ready for discharge. MAYDA called [facility] to see if patient could return today despite the main RN not being there today. MAYDA left message with from desk staff to pass this on to the RN. MAYDA received call from Monica who states that Marisela from [facility] is able to meet with patient today and provided MAYDA with Marisela's phone number - [phone]. MAYDA called Marisela and left a voicemail requesting a call back. MAYDA called patient's daughter Nargis to discuss home PT/OT order and transportation. Nargis states that if possible she would not like to use [facility] for home care as patient did not like the person last time. MAYDA sent the list of Home Health agencies to patient's daughter via email for her to review and choose a different agency. SW inquired about transportation for discharge and daughter states that she will transport him. MAYDA explained that we are waiting on [facility] for discharge. MAYDA called Marisela again, however, she didn't answer. MAYDA called [facility], Marisela's main site, to see if she was in today. The staff member states Marisela is at an assessment and will be back this afternoon. Nargis sent MAYDA request for [facility] or [facility]. MAYDA sent referrals to both and is awating to hear back. MAYDA received call from Marisela stating patient can discharge today and she will see him around 3:00/4:00 PM. MAYDA notified RN's and provider. MAYDA called Nargis and updated with discharge plan. Nargis plans to come around 1:30/1:45. MAYDA explained that she would call Nargis when a home care agency has been identified. MAYDA updated patient with discharge plans. MAYDA faxed orders to [facility].
--- NOTE | 2024-07-03 14:49 | PC.NURSE ---
The patient is alert to self only. Cooperative and calm. Not confused or agitated. Chronic incontinence of both bowel and bladder. Very weak of strength. Uses rolling walker to ambulate with assistance. Good appetite. Right eye appears somewhat red compared to their left. IV removed and patient educated on their condition and new medication before discharge. Daughter was present and involved. Care transferred to halfway facility.
--- NOTE | 2024-07-04 11:53 | PC.SOCIAL ---
Discharge planning: workers compensation manager spoke with a independent sales representative from [facility] today #[phone] and they are able to accept the pt for home care services. They have already contacted the pt and have him on the schedule. workers compensation manager left a message with the pt's daughter, Nargis, updating her of this information. Social work to follow-up as needed.
== END 2024-07-03 14:40 | disposition home or self-care (01) | DRG 872 ==
LOC: ED 10:42 → MEDSURG 13:41
PROVIDERS: Family Medicine; Admitting Provider Physician Assistant; Emergency Provider Emergency Medicine; PCP Family Medicine; Visit Provider Family Medicine
DX: A40.8 Other streptococcal sepsis (principal); N39.0 Urinary tract infection, site not specified; F33.9 Major depressive disorder, recurrent, unspecified; Z16.29 Resistance to other single specified antibiotic; B96.89 Other specified bacterial agents as the cause of diseases classified elsewhere; R06.02 Shortness of breath; R79.89 Other specified abnormal findings of blood chemistry; R53.1 Weakness; G30.9 Alzheimer's disease, unspecified; F02.80 Dementia in other diseases classified elsewhere, unspecified severity, without behavioral disturbance, psychotic disturbance, mood disturbance, and anxiety; N40.0 Benign prostatic hyperplasia without lower urinary tract symptoms; R32 Unspecified urinary incontinence; Z86.711 Personal history of pulmonary embolism; Z79.01 Long term (current) use of anticoagulants; I95.9 Hypotension, unspecified
CPT/HCPCS: 36415; 71045; 71275; 73221; 74177; 80048; 80053; 80076; 81001; 83605; 83735; 83880; 84145; 84443; 84484; 85025; 85027; 86140; 87040; 87077; 87081; 87086; 87186; 87631; 87800; 93005; 93306; 97110; 97116; 97162; 97165; 97530; 97535; 99283; 99284; 99285; A9270; J0696; J2543; J3372; J7030; J7120; Q9967

== ENCOUNTER 2024-07-29 14:59 | Outpatient (CLI) | payer MEDICARE, BC, SELFPAY | END 2024-07-29 15:00 | disposition home or self-care (01) | LOC: AMB 07-30 11:24 | PROVIDERS: PCP Family Medicine; Visit Provider Family Medicine | DX: R51.9 Headache, unspecified (principal); R41.82 Altered mental status, unspecified | CPT/HCPCS: A0425; A0427 ==

== ENCOUNTER 2024-07-29 15:19 | Emergency (ER) | payer MEDICARE, BC, SELFPAY ==
[2024-07-29] VITALS (23 sets, daily range): BP systolic 107–136; BP diastolic 68–94; PULSE 74–108; RESP 18; TEMP 36.6; O2SAT 89–97; BMI 27.9
--- OUTSIDE RECORDS SUMMARY | 2024-07-29 15:22 | XMS_ITS | Clinical Summary ---
Author Organization [employer] [facility] Address [facility] [place] [address] Care Team Providers Care Trial Examiner Name Role Phone Ruperto Kearns MD Primary Care Provider [phone] [facility] [place] Unavailable [phone] Allergies Active Allergy Reactions Criticality Noted Date Comments Aspirin Hives 12/01/2022 Medications rivaroxaban (Xarelto) 20 mg tabletIndicatio ns:Pulmonary embolism, bilateral (HC) Take 1 Tablet (20 mg) by mouth once daily with evening meal. 28 Tablet 02/26/19 25 Active tamsulosin 0.4 mg capsuleIndicati ons:BPH without urinary obstruction Take 2 Capsules (0.8 mg) by mouth once daily after a meal. 180 Capsule 02/26/19 25 Active donepeziL (ARICEPT) 10 mg tabletIndicatio ns:Dementia in Alzheimer's disease (HC) 1 tablet daily in the evening 2 hours before bed. 90 Tablet 02/26/19 25 Active melatonin 5 mg tab tabletIndicatio ns:Insomnia, idiopathic Take 1 Tablet (5 mg) by mouth at bedtime. 90 Tablet 02/26/19 25 Active sertraline 100 mg tabletIndicatio ns:Depression, recurrent Take 1.5 Tablets (150 mg) by mouth once daily in the morning. 135 Tablet 3 05/01/19 25 Active acetaminophen (TylenoL) 325 mg tablet Take 650 mg by mouth every 4 hours if needed for Pain. Max acetaminophen dose: 4000mg in 24 hrs. Active cefuroxime axetil 500 mg tabletIndicatio ns:sepsis Take 500 mg by mouth two times daily. Indications: sepsis 07/04/19 25 025 cephalexin 500 mg capsuleIndicati ons:sepsis Take 500 mg by mouth two times daily. 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 BPH without urinary obstruction 12/01/2022 Encounters Date Type Department Care Team Description 07/29/2024 9:45 AM CDT Home Care Visit [facility] [address] [place] [address] Raliegh Fontenot, PT PT - HOME VISIT 07/29/2024 Home Care Visit [facility] [address] [place] [phone] Linda Singer, PT CARE COORDINATION 07/29/2024 Telephone [facility] [address] [facility] [address] Raleigh Fontenot, PT Home Care 07/29/2024 Home Care Visit [facility] [address] [place] [phone] Raleigh Fontenot, PT CARE COORDINATION 07/28/2024 10:30 AM CDT Home Care Visit [facility] [address] [place] [phone] Lupe Olsen LINDERMAN MACHINE OPERATOR - HOME VISIT 07/25/2024 9:15 AM CDT Home Care Visit [facility] [address] [place] [phone] Raleigh Fontenot, PT PT - HOME VISIT 07/25/2024 Travel 07/24/2024 10:30 AM CDT Home Care Visit [facility] [address] [place] [address] Lupe Olsen LINDERMAN MACHINE OPERATOR - HOME VISIT 07/23/2024 10:30 AM CDT Home Care Visit [facility] [address] [place] [address] Tulio Combs, INSPECTOR FINISHING INSPECTOR FINISHING - INITIAL ASSESSMENT 07/23/2024 Home Care Visit [facility] [address] [place] [address], [place] [address] Tulio Combs, INSPECTOR FINISHING CARE COORDINATION 07/22/2024 9:15 AM CDT Home Care Visit [facility] [address] [place] [address], [place] [address] Raleigh Fontenot, PT PT - HOME VISIT 07/22/2024 Travel 07/21/2024 1:00 PM CDT Home Care Visit [facility] [address] [place] [phone] Vandana Dong, RN SN - DISCIPLINE DISCHARGE 07/21/2024 10:30 AM CDT Home Care Visit [facility] [address] [place] [phone] Lupe Olsen LINDERMAN MACHINE OPERATOR - HOME VISIT 07/18/2024 9:15 AM CDT Home Care Visit [facility] [address] [place] [phone] Raleigh oFntenot, PT PT - HOME VISIT 07/17/2024 11:45 AM CDT Home Care Visit [facility] [address] [place] [phone] Lupe Olsen LINDERMAN MACHINE OPERATOR - HOME VISIT 07/16/2024 9:30 AM CDT Home Care Visit [facility] [address] [place] [phone] Raleigh Fontenot, PT PT - HOME VISIT 07/14/2024 12:30 PM CDT Home Care Visit [facility] [address] [place] [address] Lupe Olsen LINDERMAN MACHINE OPERATOR - HOME VISIT 07/10/2024 1:00 PM CDT Home Care Visit [facility] [address] [place] [address] Lupe Olsen LINDERMAN MACHINE OPERATOR - HOME VISIT 07/10/2024 Home Care Visit [facility] [address] [place] [address] Missael Massey, PT CARE COORDINATION 07/09/2024 3:00 PM CDT Home Care Visit [facility] [address] [place] [address] Missael Massey, PT PT - INITIAL ASSESSMENT 07/09/2024 11:45 AM CDT Office Visit [facility] [address] [place] [address] Ruperto Kearns MD Hospital F/U (Follow up - sepsis) 07/09/2024 Travel 07/08/2024 1:00 PM CDT Home Care Visit [facility] [address] [place] [address] Vandana Dong, SULAIMAN SN - HOME VISIT 07/08/2024 Orders Only [facility] [address] [place] [address] Ruperto Kearns MD <No scans attached> 07/05/2024 1:00 PM CDT Home Care Visit [facility] [address] [place] [address] Vandana Dong, RN SN - OASIS START OF CARE 07/05/2024 Telephone [facility] [address] [facility] [place] [phone] Vandana Dong, RN Depression; Home Care 07/05/2024 Plan of Care Documentation [facility] [address] [place] [phone] 07/03/2024 Transcribe Orders [facility] [address] [place] [address] Ana Soler MD 07/02/2024 4:00 PM CDT Ancillary Procedure [facility] [address] [place] [address] 07/01/2024 Orders Only [facility] Scanner 1 scan: (1-Ord) [facility], MR SHOULDER RT W/O CONTRAST, 07/01/2024 06/29/2024 Orders Only [facility] Scanner 1 scan: (1-Ord) [facility], CT ABDOMEN PELVIS W CON, 06/29/2024 06/29/2024 Orders Only [facility] Scanner 1 scan: (1-Ord) [facility], CT ANGIO CHEST PE PROTOCOL, 06/29/2024 06/29/2024 Orders Only [facility] Scanner 1 scan: (1-Ord) [facility], XR CHEST 1V PORTABLE, 06/29/2024 05/28/2024 10:30 AM CDT Office Visit [facility] [address] [place] [address] Ruperto Kearns MD Medication Management (med check) 05/28/2024 Travel 04/30/2024 3:15 PM CDT Office Visit [facility] [address] [place] [address] Ruperto Kearns MD Anxiety; Depression (Symptoms getting worse) 04/30/2024 Travel from Last 3 Months Immunizations Immunization Administration [...] PHQ-2 Answer Date Recorded PHQ-2 TOTAL SCORE 5 07/09/2024 Social Connections Answer Date Recorded Do you [...] Sign Reading Time Taken Comments Blood Pressure 106/66 07/29/2024 10:16 AM CDT Pulse 96 07/29/2024 10:16 AM CDT Temperature 36.3 C (97.3 F) 07/29/2024 10:16 AM CDT Respiratory Rate 18 07/29/2024 10:16 AM CDT Oxygen Saturation 96% 07/29/2024 10:16 AM CDT Inhaled Oxygen Concentration - - Weight 97.2 kg (214 lb 3.2 oz) 07/09/2024 11:57 AM CDT Height 182.9 cm (6') 07/05/2024 1:15 PM CDT Body Mass Index 29.05 07/05/2024 1:15 PM CDT Plan of Treatment Upcoming Encounters Date Type Department Care Team ([facility] Contact Info) Description 07/30/2024 9:00 AM CDT Home Care Visit [address] [phone] Glenys Sifuentes RN 07/31/2024 10:30 AM CDT Home Care Visit [address] [phone] Lupe Olsen [address] [address] 08/01/2024 9:00 AM CDT Home Care Visit [address] [phone] Raleigh Fontenot, PT [address] [place] [address] 08/04/2024 10:30 AM CDT Home Care Visit [address] [phone] Lupe Olsen [address] [address] 08/06/2024 3:00 AM CDT Home Care Visit [address] [place] [address] Raleigh Fontenot, PT [address] [place] [address] 08/07/2024 10:30 AM CDT Home Care Visit [facility] [address] [place] [phone] Lupe Olsen [address] [place] [address] 08/13/2024 10:30 AM CDT Office Visit [facility] [address] [place] [address] Ruperto Kearns MD [address] [place] [address] Health Maintenance Due Date Last Done Comments Pneumococcal series for age 50+ (1 of 1 - PCV) 02/08/1988 RSV vaccine for adults or (1 - 1-dose 75+ series) 2013 Hepatitis B series for 19+ ( 2 of 3 - 19+ 3-dose series) 06/01/2015 05/04/2015 Zoster (shingles) series for age 50+ (2 of 2) 09/23/2019 07/29/2019 BMI (ht and wt on same day) for age 18+ 12/02/2023 12/01/2022 Medicare Wellness for age 65+ 02/27/2025 02/27/2024, 01/17/2023 Tetanus booster 09/30/2026 09/30/2016, 07/19/2004 Tdap Completed 09/30/2016 Influenza Vaccine Completed 02/27/2024, , 12/04/2018, Additional history exists COVID-19 vaccine series Completed 06/05/19, 02/27/2024, 11/27/2022, Additional history exists Procedures Procedure Name Priority Date/Time Associated Diagnosis Comments ECHO TTE COMPLETE WO CONTRAST Routine 07/02/2024 11:59 AM CDT Positive blood cultures SCAN-MRI INTERPRETATION 07/02/19 12:00 AM CDT SCAN-CT INTERPRETATION 5 12:00 AM CDT SCAN-CT INTERPRETATION 5 12:00 AM CDT SCAN-RADIOLOGY REPORT 06/29/2024 12:00 AM CDT from Last 3 Months Results * ECHO TTE COMPLETE WO CONTRAST (07/02/2024 11:59 AM CDT) AORTIC VALVE MEAN PG 14 mmHg LVEDD 4.3 cm EJECTION FRACTION 60 - 65% Anatomical Region Laterality Modality Ultrasound 07/02/2024 10:3 8 AM CDT Narrative 07/02/2024 12:22 PM CDT ECHOCARDIOGRAM LAMAR CHARLTON : 1940 84 years Study Date: 07/02/2024 10:38:26 AM Gender: M BP: 164/104 mmHg Height: 183.00 cm BSA: 2.21 m Weight: 99.00 kg Tech: CRISTOFER Referring MD: ANA SOLER Site: [facility] Reading Location: [facility] Patient Location: Inpatient. Procedure: 2D, Color Doppler and Spectral Doppler. Indication for study: Pisitive Blood Cultures Cardiac Rhythm: Regular.Study quality: Fair. Imaging limitations: This study was subject to imaging limitations due to Heart Placement within the chest shifted far to the right difficult to image apically due to sternum. Final Impressions: 1. Normal LV size, normal wall thickness, normal global systolic function with an estimated EF of 60 - 65%. 2. The aortic valve is calcified and trileaflet, moderate stenosis and no regurgitation. The aortic valve peak velocity is 2.3 m/s, the peak gradient is 22 mmHg, and the mean gradient is 14 mmHg. The aortic valve area is 1.46 cm with a dimensionless index of 0.35. The stroke volume index is 31.6 ml/m . 3. No definite findings of endocarditis but if continued concern - consider ROLANDA. Chamber Sizes and Function Normal left ventricular size, normal wall thickness, normal global systolic function with an estimated EF of 60 - 65%. No resting regional wall motion abnormality visualized. Left atrial size is not well visualized. Right ventricular cavity size is normal, global systolic RV function is normal. The right atrium is not well visualized. The pulmonary artery is of normal size and origin. The sinus of Valsalva is normal sized. The ascending aorta is normal sized. Valves, RV Pressures and Diastolic Function The aortic valve is calcified and trileaflet, moderate stenosis and no regurgitation. The mitral valve is normal in structure, mild mitral regurgitation. Mitral annular calcification is present. Normal diastolic function for age. The tricuspid valve is normal in structure, mild tricuspid regurgitation. The pulmonic valve is normal. No pulmonary regurgitation. Masses, Effusion, Shunts There is no pericardial effusion. The inferior vena cava is normal sized, respiratory size variation greater than 50%. No left to right shunting was detected by limited color flow Doppler interrogation of the interatrial septum. MEASUREMENTS AND CALCULATIONS 2-D Measurements and LV Function: LVID (d) 4.3 cm LV FS% (2D) 29 % LVID (s) 3.0 cm LVOT diameter 2.3 cm IVS (d) 1.1 cm HR 89 bpm LVPW (d) 1.1 cm Ao Sinus 3.5 cm Ao Sinus ULN 4.2 cm * Asc Ao 4.1 cm Asc Ao ULN 4.4 cm * LA 3.8 cm * Input BSA and age are outside of ranges, reported values correspond to BSA = 2.1 and Age = 80 Diastology: Mitral Tissue Doppler E Peak 0.8 m/s e', Septum 0.05 m/s A Peak 1.0 m/s e', Lateral 0.05 m/s E/A 0.7 E/e' Average 15.92 DT 246 msec Aortic Valve: Vmax 2.3 m/s VU (V) 1.57 cm VTI 0.48 m VU (I) 1.46 cm LVOT V max 0.9 m/s Max PG 22 mmHg LVOT VTI 0.17 m Mean PG 14 mmHg SV 70 ml Dim Index 0.35 SV index 32 ml/m CO 6.2 l/min CI 2.8 l/min/m Mitral Valve: MVA 3.1 cm MV P 1/2 71 msec . This study was interpreted by an [facility] accredited facility. CC: Med/Surg - IP [facility], HIM (med records) [facility]. Final Procedure Note Jacqueline Blair MD - 07/02/2024 ECHOCARDIOGRAM LAMAR CHARLTON : 1940 84 years Study Date: 07/02/2024 10:38:26 AM Gender: M BP: 164/104 mmHg Height: 183.00 cm BSA: 2.21 m Weight: 99.00 kg Tech: CRISTOFER Referring MD: ANA SOLER Site: [facility] Reading Location: [facility] Patient Location: Inpatient. Procedure: 2D, Color Doppler and Spectral Doppler. Indication for study: Pisitive Blood Cultures Cardiac Rhythm: Regular.Study quality: Fair. Imaging limitations: This study was subject to imaging limitations due toHeart Placement within the chest shifted far to the right difficult toimage apically due to sternum. Final Impressions: 1. Normal LV size, normal wall thickness, normal global systolic functionwith an estimated EF of 60 - 65%. 2. The aortic valve is calcified and trileaflet, moderate stenosis and noregurgitation. The aortic valve peak velocity is 2.3 m/s, the peakgradient is 22 mmHg, and the mean gradient is 14 mmHg. The aortic valvearea is 1.46 cm with a dimensionless index of 0.35. The stroke volumeindex is 31.6 ml/m . 3. No definite findings of endocarditis but if continued concern -consider ROLANDA. Chamber Sizes and Function Normal left ventricular size, normal wall thickness, normal globalsystolic function with an estimated EF of 60 - 65%. No resting regionalwall motion abnormality visualized. Left atrial size is not wellvisualized. Right ventricular cavity size is normal, global systolic RVfunction is normal. The right atrium is not well visualized. The pulmonaryartery is of normal size and origin. The sinus of Valsalva is normalsized. The ascending aorta is normal sized. Valves, RV Pressures and Diastolic Function The aortic valve is calcified and trileaflet, moderate stenosis and noregurgitation. The mitral valve is normal in structure, mild mitralregurgitation. Mitral annular calcification is present. Normal diastolicfunction for age. The tricuspid valve is normal in structure, mildtricuspid regurgitation. The pulmonic valve is normal. No pulmonaryregurgitation. Masses, Effusion, Shunts There is no pericardial effusion. The inferior vena cava is normal sized,respiratory size variation greater than 50%. No left to right shunting wasdetected by limited color flow Doppler interrogation of the interatrialseptum. MEASUREMENTS AND CALCULATIONS 2-D Measurements and LV Function: LVID (d) 4.3 cm LV FS% (2D)29 % LVID (s) 3.0 cm LVOT diameter2.3 cm IVS (d) 1.1 cm HR89 bpm LVPW (d) 1.1 cm Ao Sinus 3.5 cm Ao Sinus ULN 4.2 cm * Asc Ao 4.1 cm Asc Ao ULN 4.4 cm * LA 3.8 cm * Input BSA and age are outside of ranges, reported values correspond to BSA = 2.1 and Age = 78 Diastology: Mitral Tissue Doppler E Peak 0.8 m/s e', Septum 0.05 m/s A Peak 1.0 m/s e', Lateral 0.05 m/s E/A 0.7 E/e' Average 15.92 DT 246 msec Aortic Valve: Vmax 2.3 m/s VU (V) 1.57 cm VTI 0.48 m VU (I) 1.46 cm LVOT V max 0.9 m/s Max PG 22 mmHg LVOT VTI 0.17 m Mean PG 14 mmHg SV 70 ml Dim Index 0.35 SV index 32 ml/m CO 6.2 l/min CI 2.8 l/min/m Mitral Valve: MVA 3.1 cm MV P 1/2 71 msec . This study was interpreted by an [facility] accredited facility. CC: Med/Surg - IP [facility], [facility] (med [facility]) [facility]. Final us Ana Soler MD ECHO ORD Final Resu lt * SCAN-MRI INTERPRETATION (07/01/2024 12:00 AM CDT) Anatomical Region Laterality Modality Other us Scanner OTHER Final Result * SCAN-RADIOLOGY REPORT (06/29/2024 12:00 AM CDT) Anatomical Region Laterality Modality Other us Scanner OTHER Final Result * SCAN-CT INTERPRETATION (06/29/2024 12:00 AM CDT) Only the most recent of2 resultswithin the time period is included. 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
[2024-07-29 16:18] LABS: Bilirubin Urine Negative (Negative); Blood Urine Negative (Negative); Color Urine Yellow (Yellow); Glucose Urine Negative (Negative); Ketones Urine Negative (Negative); Leukocyte Esterase Urine 1+ (Negative); Nitrite Urine Negative (Negative); Protein Urine Negative (Negative); Urobilinogen Urine 0.2 (0.2-1.0); pH Urine 5.5 (5.0-8.5)
[2024-07-29 16:42] LABS: Appearance Urine Slightly Cloudy (Clear)
[2024-07-29 16:43] LABS: Amorphous Sediment Urine Few; Bacteria Urine Few; RBC Urine 0-2 (0-2)
--- NOTE | 2024-07-29 16:53 | ED.GENADULT ---
HPI - General Adult General Date Seen: 07/29/24 Chief complaint: Altered Mental Status Stated complaint: headache/confusion Time Seen by Provider: 07/29/24 16:26 History of Present Illness HPI narrative: Patient is an 84-year-old male sent in from [facility] because of concerns about possible recurrent UTI. He was admitted here in June with ultimately sepsis, source was not found his urine did not end up growing anything although blood cultures were positive. I actually saw him at that visit and he was fairly ill appearing at that time, febrile, and confused. Today, he is well-appearing, alert and answering questions appropriately. He does carry a diagnosis of Alzheimer's dementia but is oriented and able to give me a good history. He says earlier they were kind of concerned about his cognitive exam and sent him in because of that. He has been having some headache since yesterday, he says it is a throbbing sensation in the back of his head although it is not there right now. He believes they did give him some Tylenol earlier today. He denies having had fevers or urinary symptoms. He says since the of his he has been having more difficulty in general. He tells me his a couple of months ago he thinks although he is not certain about the timing. He denies other symptoms such as chest pain, shortness of breath, vomiting, diarrhea, abdominal or back pain. Related Data Home Medications ?Medication ?Instructions ?Recorded ?Confirmed donepezil 10 mg tablet 10 mg PO HS 03/12/23 06/29/24 rivaroxaban 20 mg tablet (Xarelto) 20 mg PO QPM 03/12/23 06/29/24 tamsulosin 0.4 mg capsule 0.8 mg PO DAILY 03/12/23 06/29/24 sertraline 100 mg tablet 150 mg PO QAM 06/15/23 06/29/24 melatonin 5 mg tablet 5 mg PO HS 06/29/24 06/29/24 Previous Rx's ?Medication ?Instructions ?Recorded cefuroxime axetil 500 mg tablet 500 mg PO BID 7 days #14 tabs 07/03/24 Allergies Allergy/AdvReac Type Severity Reaction Status Date / Time aspirin Allergy Verified 06/29/24 10:32 Review of Systems Status of ROS: Reports: 10 or more systems reviewed and unremarkable except as noted in History and below PFSH PFSH Medical History Sepsis ?A41.9 - Sepsis, unspecified organism (ICD-10) History of pulmonary embolism ?Z86.711 - Personal history of pulmonary embolism (ICD-10) Urinary incontinence ?R32 - Unspecified urinary incontinence (ICD-10) Depression, recurrent ?F33.9 - Major depressive disorder, recurrent, unspecified (ICD-10) Alzheimer dementia ?G30.9 - Alzheimer's disease, unspecified (ICD-10) ?F02.80 - Dementia in other diseases classified elsewhere, unspecified severity, without behavioral disturbance, psychotic disturbance, mood disturbance, and anxiety (ICD-10) BPH without obstruction/lower urinary tract symptoms ?N40.0 - Benign prostatic hyperplasia without lower urinary tract symptoms (ICD-10) Pulmonary embolism ?I26.99 - Other pulmonary embolism without acute cor pulmonale (ICD-10) COVID-19 ?U07.1 - COVID-19 (ICD-10) Health care directive on file ?Z78.9 - Other specified health status (ICD-10) Surgical History H/O abdominal surgery ?Z98.890 - Other specified postprocedural states (ICD-10) Social History Narrative: Living at [facility] with his . His daughter, Nargis, is here with him today. Denies tobacco or alcohol use. What is your current living situation?: I presently have a place to live Problems where you live: no known problems Problems where you live details: none In the past 12 months, utilities in danger of being shut off: no In past 12 months, lack of transportation kept you from medical appts, meetings, work, or getting things needed for daily living: yes In the past 12 mos, have been you worried that your food would run out before you had money to buy more?: never true In the past 12 mos, the food you bought just didn't last and you didn't have money to buy more?: never true Highest level of school completed/degree received: Bachelor's degree Smoking Status: Never smoker Do you use any of these nicotine containing products: None Second hand tobacco smoke exposure: No How often do you have a drink containing alcohol: monthly or less How many standard drinks containing alcohol do you have on a typical day: 1 or 2 How often do you have six or more drinks on one occasion: Never AUDIT-C Alcohol total score: 1 Non-prescribed substance use: denies use Caffeine: Yes (ceffee) How often does anyone, including family, friends and others, physically hurt you: never How often does anyone, including family, friends and others, insult or talk down to you: never How often does anyone, including family, friends and others, threaten you with harm: never How often does anyone, including family, friends and others, scream or curse at you: never service: No Health Related Social Needs: transportation insecurity (Z59.82) Exam Narrative: Exam Narrative: Vital signs reviewed In general, alert, nontoxic Elderly male. Head: Normocephalic, atraumatic. Eyes: Sclera clear. Pupils equal and reactive. ENT: Mucous membranes moist. Neck: Supple without adenopathy. Heart: Regular rate and rhythm without murmur. Lungs: Clear. No increased work of breathing, crackles or wheezes. Abdomen: Soft, nontender to palpation. Extremities: Well perfused, pulses intact. No significant edema. Neurologic: Alert, conversant. Speech fluent, face symmetric. Moves all extremities equally. He is oriented to person and place. Skin: Warm, dry well perfused. Affect: Normal. Const: Vital Signs, click to edit/add: Vital Signs - 24 hr 07/29/24 15:30 07/29/24 15:39 07/29/24 15:45 Temperature 97.8 F Pulse Rate 108 H 105 H Pulse Rate [Pulse Oximeter] 89 Respiratory Rate 18 Blood Pressure Blood Pressure [Le ft Upper Arm] 117/82 Pulse Oximetry 94 91 90 Oxygen Delivery Me thod Room Air 07/29/24 16:00 07/29/24 16:11 07/29/24 16:15 Temperature Pulse Rate 79 88 102 H Pulse Rate [Pulse Oximeter] Respiratory Rate Blood Pressure 136/94 H Blood Pressure [Le ft Upper Arm] Pulse Oximetry 97 95 96 Oxygen Delivery Me thod 07/29/24 16:30 07/29/24 16:31 07/29/24 16:32 Temperature Pulse Rate 92 92 101 H Pulse Rate [Pulse Oximeter] Respiratory Rate Blood Pressure 107/82 Blood Pressure [Le ft Upper Arm] Pulse Oximetry 92 90 93 Oxygen Delivery Me thod 07/29/24 16:45 07/29/24 17:00 07/29/24 17:02 Temperature Pulse Rate 94 93 97 Pulse Rate [Pulse Oximeter] Respiratory Rate Blood Pressure 119/78 Blood Pressure [Le ft Upper Arm] Pulse Oximetry 91 93 96 Oxygen Delivery Me thod 07/29/24 17:29 07/29/24 17:30 07/29/24 17:31 Temperature Pulse Rate 74 75 74 Pulse Rate [Pulse Oximeter] Respiratory Rate Blood Pressure 120/75 Blood Pressure [Le ft Upper Arm] Pulse Oximetry 96 93 94 Oxygen Delivery Me thod 07/29/24 17:45 07/29/24 18:00 07/29/24 18:02 Temperature Pulse Rate 93 83 88 Pulse Rate [Pulse Oximeter] Respiratory Rate Blood Pressure 117/68 Blood Pressure [Le ft Upper Arm] Pulse Oximetry 93 92 93 Oxygen Delivery Me thod 07/29/24 18:15 07/29/24 18:30 07/29/24 18:32 Temperature Pulse Rate 91 89 87 Pulse Rate [Pulse Oximeter] Respiratory Rate Blood Pressure 120/76 Blood Pressure [Le ft Upper Arm] Pulse Oximetry 89 89 97 Oxygen Delivery Me thod Course Course ED Course: I reviewed his previous records including my last note as well as his note from his visit the day before I saw him at which time he was again well-appearing and urine was negative. He did deteriorate pretty quickly in that 24 hours. We got a urine today, this is notable for 10-25 white blood cells and few bacteria. I do have some blood work pending. His exam certainly is not concerning to me at this time. He has had a headache over the past day but does not have any headache now, has nonfocal neurologic exam does not seem to have any significant confusion at this time. He is however anticoagulated, no reported history of falls but I think it will get a noncontrast head CT just to make sure that there is nothing air. Will rule out any evidence of more significant infection, he is afebrile with normal vital signs. Fall this is reassuring, I think I would err on the side of caution and put him on an antibiotic to cover for urinary tract infection given his rapid deterioration back in June. Other labs reviewed and reassuring. I reviewed his head CT, did not see any evidence of intracranial hemorrhage. Final radiology read is negative for anything acute. Will prescribe Keflex to cover for possible developing urinary tract infection. Return if needed for worsening symptoms, otherwise follow-up with primary care if headache persists. Vital Signs Vital signs: Initial Vital Signs Temperature 97.8 F 07/29/24 15:30 Temperature Source Temporal Artery Scan 07/29/24 15:30 Pulse Rate 89 07/29/24 15:30 Respiratory Rate 18 07/29/24 15:30 Blood Pressure 117/82 07/29/24 15:30 Blood Pressure Mean 93 07/29/24 15:30 Pulse Oximetry 94 07/29/24 15:30 Oxygen Delivery Method Room Air 07/29/24 15:30 Vital Signs Temperature 97.8 F 07/29/24 15:30 Pulse Rate 89 07/29/24 15:30 Respiratory Rate 18 07/29/24 15:30 Blood Pressure 117/82 07/29/24 15:30 Pulse Oximetry 94 07/29/24 15:30 Oxygen Delivery Method Room Air 07/29/24 15:30 Temperature 97.8 F 07/29/24 15:30 Pulse Rate 87 07/29/24 18:32 Respiratory Rate 18 07/29/24 15:30 Blood Pressure 120/76 07/29/24 18:32 Pulse Oximetry 97 07/29/24 18:32 Oxygen Delivery Method Room Air 07/29/24 15:30 Medical Decision Making Lab Data Labs: Lab Results 07/29/24 07/29/24 Range/Units 16:05 16:41 WBC 7.20 (4.50-11.00) K/uL RBC 4.26 L (4.30-5.90) m/uL Hgb 12.5 L (13.5-17.5) gm/dL Hct 41.0 (37.0-53.0) % MCV 96 (80-100) fL MCH 29 (26-34) pg MCHC 31 L (32-36) gm/dL RDW Coeff of Marisa 14.2 (11.5-15.5) % Plt Count 213 (140-440) K/uL Neut % (Auto) 74.0 H (42.0-72.0) % Lymph % (Auto) 16.1 L (20-44) % [place] % (Auto) 7.1 (0.0-11.0) % Eos % (Auto) 1.8 (0.0-7.0) % Baso % (Auto) 0.4 (0.0-3.0) % Neut # (Auto) 5.30 (1.7-7.0) K/uL Lymph # (Auto) 1.20 (0.90-2.90) K/uL [place] # (Auto) 0.50 (0.00-0.90) K/UL Eos # (Auto) 0.13 (0.00-0.50) K/uL Baso # (Auto) 0.03 (0.00-0.30) K/uL Abs Immat Gran (auto) 0.04 (0.00-0.30) K/uL Imm/Tot Granulo (auto) 0.6 % Sodium 137 (135-149) mmol/L Potassium 4.2 (3.6-5.1) mmol/L Chloride 99 (96-114) mmol/L Carbon Dioxide 30 (20-32) mmol/L Anion Gap 8 (7-15) mEq/L BUN 22 (7-30) mg/dL Creatinine 0.9 (0.5-1.5) mg/dL Estimated Creat Clear 58.20 Estimated GFR 83 ml/min Glucose 105 (60-115) mg/dL Calcium 8.9 (8.4-10.6) mg/dL C-Reactive Protein 0.6 (0.5-1.0) mg/dL Urine Color Yellow (Yellow) Urine Appearance Slightly Cloudy A (Clear) Urine pH 5.5 (5.0-8.5) Ur Specific [place] 1.020 (1.000-1.030) Urine Protein Negative (Negative) Urine Glucose (UA) Negative (Negative) Urine Ketones Negative (Negative) Urine Blood Negative (Negative) Urine Nitrite Negative (Negative) Urine Bilirubin Negative (Negative) Urine Urobilinogen 0.2 (0.2-1.0) Ur Leukocyte Esterase 1+ A (Negative) Urine RBC 0-2 (0-2) Urine WBC 10-25 A (0-5) Ur Squamous Epith Cells None (None-Few) Amorphous Sediment Few A (None) Urine Bacteria Few A (None) Imaging Data CT scan - head: Attestation: I have reviewed the pertinent imaging results. Radiologist's impression: Ordering Physician: Neha Spicer M.D. Date of Service: 07/29/24 Procedure(s): CT head/brain wo [facility] Accession Number(s): [id number] cc: Neha Spicer M.D.; Ruperto Kearns M.D.~ For Patients: As a result of the Cures Act, medical imaging exams and procedure reports are released immediately into your electronic medical record. You may view this report before your referring provider. If you have questions, please contact your health care provider. INDICATION: Headache, confusion. TECHNIQUE: Noncontrast CT of the head with multiplanar reconstruction utilizing bone and soft tissue algorithms. COMPARISON: CT head dated 10/29/2023. FINDINGS: No acute intracranial hemorrhage. Similar confluent hypoattenuation within the supratentorial white matter, nonspecific, but typical of moderate chronic small vessel ischemic changes. Mata-white matter differentiation is preserved. Unchanged caliber of the supratentorial ventricles. Similar moderate diffuse parenchymal volume loss. No abnormal extra-axial fluid collection. Intact skull base and calvarium. Bilateral pseudophakia. The paranasal sinuses and mastoid air cells are predominantly clear. IMPRESSION: 1. No acute intracranial abnormality. 2. Similar moderate diffuse parenchymal volume loss and chronic small vessel ischemic changes. Please note that all CT scans at this facility use dose modulation, iterative reconstruction, and/or weight-based dosing when appropriate to reduce radiation dose to as low as reasonably achievable. Dictated by Dc Rubio MD @ 07/29/2024 5:37:34 PM Discharge Plan Discharge Clinical Impression: Urinary tract infection Patient Disposition: Xfer SNF Condition: Stable Instructions: Urinary Tract Infection in Men (DC) Additional Instructions: your blood work looks good today, and your CT scan does not show any concerning cause for your headache. You can continue to use Tylenol if needed. Your urine does look like it may be infected so we will start you on an antibiotic for that. If you are feeling worse, develops high fevers, vomiting, shaking chills, increasing weakness or other worsening, return to the ER at any time. See your primary doctor if you continue to have problems with headaches. Prescriptions: No Action melatonin 5 mg tablet 5 mg PO HS cefuroxime axetil 500 mg tablet 500 mg PO BID 7 Days Qty: 14 0RF donepezil 10 mg tablet 10 mg PO HS tamsulosin 0.4 mg capsule 0.8 mg PO DAILY Xarelto 20 mg tablet 20 mg PO QPM sertraline 100 mg tablet 150 mg PO QAM Stand Alone Forms: My[facility] Info Instructions
[2024-07-29 17:04] LABS: Hemoglobin* 12.5 gm/dL (13.5-17.5); Lymphocytes Percent Auto 16.1 % (20-44); Mean Corpuscular HGB Conc 31 gm/dL (32-36); Mean Corpuscular Hemoglobin 29 pg (26-34); Mean Corpuscular Volume 96 fL (80-100); Platelet Count* 213 K/uL (140-440); RDW Coefficient of Variation % 14.2 % (11.5-15.5); Red Blood Count 4.26 m/uL (4.30-5.90)
[2024-07-29 17:05] LABS: Basophils Absolute Auto 0.03 K/uL (0.00-0.30); Basophils Percent Auto 0.4 % (0.0-3.0); Eosinophils Absolute Auto 0.13 K/uL (0.00-0.50); Eosinophils Percent Auto 1.8 % (0.0-7.0); Immature Granulocytes Abs Auto 0.04 K/uL (0.00-0.30); Immature Granulocytes Pct Auto 0.6 %; Monocytes Percent Auto 7.1 % (0.0-11.0)
--- NOTE | 2024-07-29 17:07 | CRLHL7_ITS ---
For Patients: As a result of the Century Cures Act, medical imaging exams and procedure reports are released immediately into your electronic medical record. You may view this report before your referring provider. If you have questions, please contact your health care provider. INDICATION: Headache, confusion. TECHNIQUE: Noncontrast CT of the head with multiplanar reconstruction utilizing bone and soft tissue algorithms. COMPARISON: CT head dated 10/29/2023. FINDINGS: No acute intracranial hemorrhage. Similar confluent hypoattenuation within the supratentorial white matter, nonspecific, but typical of moderate chronic small vessel ischemic changes. Mata-white matter differentiation is preserved. Unchanged caliber of the supratentorial ventricles. Similar moderate diffuse parenchymal volume loss. No abnormal extra-axial fluid collection. Intact skull base and calvarium. Bilateral pseudophakia. The paranasal sinuses and mastoid air cells are predominantly clear. IMPRESSION: 1. No acute intracranial abnormality. 2. Similar moderate diffuse parenchymal volume loss and chronic small vessel ischemic changes. Please note that all CT scans at this facility use dose modulation, iterative reconstruction, and/or weight-based dosing when appropriate to reduce radiation dose to as low as reasonably achievable. Dictated by Dc Rubio MD @ 07/29/2024 5:37:34 PM (Electronically Signed)
[2024-07-29 17:09] LABS: Chloride* 99 mmol/L (96-114); Potassium* 4.2 mmol/L (3.6-5.1); Sodium* 137 mmol/L (135-149)
[2024-07-29 17:10] LABS: Slide Review Reflex No
[2024-07-29 17:12] LABS: Blood Urea Nitrogen* 22 mg/dL (7-30); Creatinine* 0.9 mg/dL (0.5-1.5); Estimated Glomerular Filt Rate 83 ml/min
[2024-07-29 17:13] LABS: Anion Gap 8 mEq/L (7-15); Calcium* 8.9 mg/dL (8.4-10.6); Carbon Dioxide* 30 mmol/L (20-32); Glucose* 105 mg/dL (60-115)
[2024-07-29 17:15] LABS: C Reactive Protein* 0.6 mg/dL (0.5-1.0)
== END 2024-07-29 19:41 | disposition home or self-care (01) ==
PROVIDERS: Emergency Provider Emergency Medicine; PCP Family Medicine
DX: N39.0 Urinary tract infection, site not specified (principal); G30.9 Alzheimer's disease, unspecified; F02.80 Dementia in other diseases classified elsewhere, unspecified severity, without behavioral disturbance, psychotic disturbance, mood disturbance, and anxiety; R51.9 Headache, unspecified
CPT/HCPCS: 36415; 70450; 70551; 80048; 81001; 85025; 86140; 87086; 99284; 99285

== ENCOUNTER 2024-07-29 19:25 | Outpatient (CLI) | payer MEDICARE, BC, SELFPAY ==
--- OUTSIDE RECORDS SUMMARY | 2024-08-06 00:21 | XMS_ITS | Clinical Summary ---
Author Organization [facility] Address [address] [place] [address] Care Team Providers Care Route Delivery Manager Name Role Phone Ruperto Kearns MD Primary Care Provider [phone]- [phone] [facility], [place] Unavailable Allergies Active Allergy Reactions Criticality Noted [...] Encounters Date Type Department Care Team Description 08/05/2024 10:30 AM CDT Office Visit [facility] [address] [place] [address] Mina Ray, [facility] Visit 08/05/2024 Travel 08/04/2024 10:30 AM CDT Home Care Visit [facility] [address] [place] [address] Lupe Olsen CORK TIPPER - HOME VISIT 08/01/2024 10:00 AM CDT Home Care Visit [facility] [address] [place] [address] Marylou Whiting LISW BIOPROCESS ENGINEER - INITIAL ASSESSMENT 08/01/2024 9:00 AM CDT Home Care Visit [facility] [address] [place] [address] Raleigh Fontenot, PT PT - HOME VISIT 08/01/2024 Orders Only [facility] Scanner 1 scan: (1-Ord) [place], MR HEAD/BRAIN WO CON, 08/01/2024 08/01/2024 Travel 07/31/2024 10:30 AM CDT Home Care Visit [facility] [address] [place] [address] Lupe Olsen CORK TIPPER - HOME VISIT 07/29/2024 1:00 PM CDT Home Care Visit [facility] [address] [place] [address] Tulio Combs, RESEARCH LIBRARIAN RESEARCH LIBRARIAN - HOME VISIT 07/29/2024 9:45 AM CDT Home Care Visit [facility] [address] [place] [address], [place] [address] Raleigh Fontenot, PT PT - HOME VISIT 07/29/2024 Orders Only [facility] Scanner 1 scan: (1-Ord) [place], CT HEAD/BRAIN WO CON, 07/29/2024 07/29/2024 Home Care Visit [facility] [address] [place] [address], [place] [address] Raleigh Fontenot, PT CARE TRANSITION NOTE 07/29/2024 Home Care Visit [facility] [address] [place] [address], [place] [address] Raleigh Fontenot, PT CARE COORDINATION 07/29/2024 Telephone [facility] [address] [place] [address] Tulio Combs, RESEARCH LIBRARIAN Home Care (Request for [facility] health referral ) 07/29/2024 Home Care Visit [facility] [address] [place] [phone] Linda Singer, PT CARE COORDINATION 07/29/2024 Telephone [facility] [address] [place] [address] Raleigh Fontenot, PT Home Care 07/29/2024 Home Care Visit [facility] [address] [place] [phone] Raleigh Fontenot, PT CARE COORDINATION 07/28/2024 10:30 AM CDT Home Care Visit [facility] [address] [place] [phone] Lupe Olsen CORK TIPPER - HOME VISIT 07/25/2024 9:15 AM CDT Home Care Visit [facility] [address] [place] [address] [place] [address] Raleigh Fontenot, PT PT - HOME VISIT 07/25/2024 Travel 07/24/2024 10:30 AM CDT Home Care Visit [facility] [address] [place] [phone] Lupe Olsen CORK TIPPER - HOME VISIT 07/23/2024 10:30 AM CDT Home Care Visit [facility] [address] [place] [address], [place] [address] Tulio Combs, RESEARCH LIBRARIAN RESEARCH LIBRARIAN - INITIAL ASSESSMENT 07/23/2024 Home Care Visit [facility] [address] [place] [phone] Tulio Combs, RESEARCH LIBRARIAN CARE COORDINATION 07/22/2024 9:15 AM CDT Home Care Visit [facility] [address] [place] [phone] Raleigh Fontenot, PT PT - HOME VISIT 07/22/2024 Travel 07/21/2024 1:00 PM CDT Home Care Visit [facility] [address] [place] [phone] Vandana Dong, RN SN - DISCIPLINE DISCHARGE 07/21/2024 10:30 AM CDT Home Care Visit [facility] [address] [place] [phone] Lupe Olsen CORK TIPPER - HOME VISIT 07/18/2024 9:15 AM CDT Home Care Visit [facility] [address] [place] [phone] Raleigh Fontenot, PT PT - HOME VISIT 07/17/2024 11:45 AM CDT Home Care Visit [facility] [address] [place] [phone] Lupe Olsen CORK TIPPER - HOME VISIT 07/16/2024 9:30 AM CDT Home Care Visit [facility] [address] [place] [phone] Raleigh Fontenot, PT PT - HOME VISIT 07/14/2024 12:30 PM CDT Home Care Visit [facility] [address] [place] [address], [place] [address] Lupe Olsen CORK TIPPER - HOME VISIT 07/10/2024 1:00 PM CDT Home Care Visit [facility] [address] [place] [address] Lupe Olsen CORK TIPPER - HOME VISIT 07/10/2024 Home Care Visit [facility] [address] [place] [address] Missael Massey, PT CARE COORDINATION 07/09/2024 3:00 PM CDT Home Care Visit [facility] [address] [place] [address], [place] [address] Missael Massey, PT PT - INITIAL ASSESSMENT 07/09/2024 11:45 AM CDT Office Visit [facility] [address] [place] [address] Ruperto Kearns MD Hospital F/U (Follow up - sepsis) 07/09/2024 Travel 07/08/2024 1:00 PM CDT Home Care Visit [facility] [address] [place] [phone] Vandana Dong RN SN - HOME VISIT 07/08/2024 Orders Only [facility] [address] [place] [address] Ruperto Kearns MD <No scans attached> 07/05/2024 1:00 PM CDT Home Care Visit [facility] [address] [place] [phone] Vandana Dong, SULAIMAN SN - OASIS START OF CARE 07/05/2024 Telephone [facility] [address] [facility] [place] [address] Vandana Dong, RN Depression; Home Care 07/05/2024 Plan of Care Documentation [facility] [address] [place] [address] 07/03/2024 Transcribe Orders [facility] [address] [place] [address] Ana Soler MD 07/02/2024 4:00 PM CDT Ancillary Procedure [facility] [address] [place] [address] 07/01/2024 Orders Only [facility] Scanner 1 scan: (1-Ord) [facility], MR SHOULDER RT W/O CONTRAST, 07/01/2024 06/29/2024 Orders Only [facility] Scanner 1 scan: (1-Ord) [facility], CT ABDOMEN PELVIS W CON, 06/29/2024 06/29/2024 Orders Only [facility] Scanner 1 scan: (1-Ord) [facility], CT ANGIO CHEST PE PROTOCOL, 06/29/2024 06/29/2024 Orders Only [facility] Scanner 1 scan: (1-Ord) [facility], XR CHEST 1V PORTABLE, 06/29/2024 05/28/2024 10:30 AM CDT Office Visit [facility] [address] [place] [address] Ruperto Kearns MD Medication Management (med check) [...] Care Team (Late st Contact Info) Description 08/06/2024 9:00 AM CDT Home Care Visit [facility] [address] [place] [phone] Raleigh Fontenot, PT [address] [place] [address] 08/07/2024 10:30 AM CDT Home Care Visit [address] [phone] Lupe Olsen [address] [address] 08/07/2024 1:00 PM CDT Home Care Visit [place] [id number] [place] [phone] Tulio Combs, RESEARCH LIBRARIAN [address] [place] [address] 08/13/2024 10:30 AM CDT Office Visit [facility] [address] [place] [address] Ruperto Kearns MD [address] [place] [address] Health Maintenance Due Date Last Done Comments [...] Tech: CRISTOFER Referring MD: ANA SOLER Site: [facility] Reading Location: [facility] Patient Location: Inpatient. Procedure: 2D, Color Doppler [...] . This study was interpreted by an [facility] accredited facility. CC: Med/Surg - IP [facility], HIM (med records) [facility]. Final Procedure Note Jacqueline Blair MD - 07/02/2024 ECHOCARDIOGRAM LAMAR CHARLTON : 1940 84 years Study Date: 07/02/2024 10:38:26 AM Gender: M BP: 164/104 mmHg Height: 183.00 cm BSA: 2.21 m Weight: 99.00 kg Tech: CRISTOFER Referring MD: ANA SOLER Site: [facility] Reading Location: [facility] Patient Location: Inpatient. Procedure: 2D, Color Doppler [...] . This study was interpreted by an [facility] accredited facility. CC: Med/Surg - IP [facility], [facility] (med records) [facility]. Final us Ana Soler MD ECHO ORD Final Resu lt * SCAN-RADIOLOGY REPORT (06/29/2024 12:00 AM CDT) Anatomical Region Laterality Modality Other us Scanner OTHER Final Result from Last 3 Months Insurance [address] [place] [address] [employer] [phone] [address] [facility] [address] [place] [address] MEDICARE PPS [employer] [place] [place] BLUE HB ONLY Advance Directives Documents on File Type Date Recorded Patient Technical Solutions Director Expl anation POLST 07/09/2024 POLST 04/22/2024 3:34 PM POLST 04/22 Care Teams Route Delivery Manager Relationship Specialty Start Date End Date Ruperto Kearns MD [address] [place] [address] PCP - General Family Practice 09/05/22 [facility] [place] [address] [place] [address] 07/03/24
== END 2024-07-29 19:26 | disposition home or self-care (01) ==
LOC: AMB 08-05 10:43
PROVIDERS: PCP Family Medicine; Visit Provider Emergency Medicine Emergency Medical Services
DX: R51.9 Headache, unspecified (principal)
CPT/HCPCS: A0425; A0428

== ENCOUNTER 2024-08-01 12:08 | Outpatient (CLI) | payer MEDICARE, BC, SELFPAY ==
--- OUTSIDE RECORDS SUMMARY | 2024-08-05 00:29 | XMS_ITS | Clinical Summary ---
Author Organization [employer] Address [address] [place] [address] Care Team Providers Care Rim Buster Name Role Phone Rupetro Kearns MD Primary Care Provider [phone] [facility], [place] Unavailable [phone] Allergies Active Allergy Reactions Criticality Noted Date [...] Encounters Date Type Department Care Team Description 08/04/2024 10:30 AM CDT Home Care Visit [facility] [address] [place] [phone] Lupe Olsen WOOD CABINETMAKER - HOME VISIT 08/01/2024 10:00 AM CDT Home Care Visit [facility] [address] [place] [phone] Marylou Whiting LISW MANAGER PRODUCT SUPPORT - INITIAL ASSESSMENT 08/01/2024 9:00 AM CDT Home Care Visit [address] [phone] Raleigh Fnotenot, PT PT - HOME VISIT 08/01/2024 Orders Only [facility] Scanner 1 scan: (1-Ord) PANTERAFORMERLY [facility], HEAD/BRAIN WO CON, 08/01/2024 08/01/2024 Travel 07/31/2024 10:30 AM CDT Home Care Visit [place] [id number] [place] [phone] Lupe Olsen WOOD CABINETMAKER - HOME VISIT 07/29/2024 1:00 PM CDT Home Care Visit [facility] [address] [place] [phone] Tulio Combs, LABVIEW PROGRAMMER LABVIEW PROGRAMMER - HOME VISIT 07/29/2024 9:45 AM CDT Home Care Visit [address] [place] [address] Raleigh Fontenot, PT PT - HOME VISIT 07/29/2024 Orders Only [facility] Scanner 1 scan: (1-Ord) [place], CT HEAD/BRAIN WO CON, 07/29/2024 07/29/2024 Home Care Visit [facility] [address] [place] [address], [place] [address] Raleigh Fontenot, PT CARE TRANSITION NOTE 07/29/2024 Home Care Visit [facility] [address] [place] [address], [place] [phone] Raleigh Fontenot, PT CARE COORDINATION 07/29/2024 Telephone [facility] [address] [place] [phone] Tulio Combs, LABVIEW PROGRAMMER Home Care (Request for [facility] health referral ) 07/29/2024 Home Care Visit [facility] [address] [place] [phone] Linda Singer, PT CARE COORDINATION 07/29/2024 Telephone [facility] [address], [place] [address] Raleigh Fontenot, PT Home Care 07/29/2024 Home Care Visit [facility] [address] [place] [phone] Raleigh Fontenot, PT CARE COORDINATION 07/28/2024 10:30 AM CDT Home Care Visit [facility] [address] [place] [phone] Lupe Olsen WOOD CABINETMAKER - HOME VISIT 07/25/2024 9:15 AM CDT Home Care Visit [facility] [address] [place] [phone] Raleigh Fontenot, PT PT - HOME VISIT 07/25/2024 Travel 07/24/2024 10:30 AM CDT Home Care Visit [facility] [address] [place] [address] [place] [phone] Lupe Olsen WOOD CABINETMAKER - HOME VISIT 07/23/2024 10:30 AM CDT Home Care Visit [facility] [address] [facility] [place] [address] Tulio Combs, LABVIEW PROGRAMMER LABVIEW PROGRAMMER - INITIAL ASSESSMENT 07/23/2024 Home Care Visit [facility] [address] [place] [phone] Tulio Combs, LABVIEW PROGRAMMER CARE COORDINATION 07/22/2024 9:15 AM CDT Home Care Visit [facility] [address] [place] [phone] Raleigh Fontenot, PT PT - HOME VISIT 07/22/2024 Travel 07/21/2024 1:00 PM CDT Home Care Visit [facility] [address] [place] [phone] Vandana Dong, RN SN - DISCIPLINE DISCHARGE 07/21/2024 10:30 AM CDT Home Care Visit [facility] [address] [place] [phone] Lupe Olsen WOOD CABINETMAKER - HOME VISIT 07/18/2024 9:15 AM CDT Home Care Visit [facility] [address] [place] [phone] Raleigh Fontenot, PT PT - HOME VISIT 07/17/2024 11:45 AM CDT Home Care Visit [facility] [address] [place] [phone] Lupe Olsen WOOD CABINETMAKER - HOME VISIT 07/16/2024 9:30 AM CDT Home Care Visit [facility] [address] [place] [phone] Raleigh Fontenot, PT PT - HOME VISIT 07/14/2024 12:30 PM CDT Home Care Visit [facility] [address] [place] [phone] Lupe Olsen WOOD CABINETMAKER - HOME VISIT 07/10/2024 1:00 PM CDT Home Care Visit [facility] [address] [facility] [place] [address] Lupe Olsen WOOD CABINETMAKER - HOME VISIT 07/10/2024 Home Care Visit [facility] [address] [facility] [place] [address] Missael Massey, PT CARE COORDINATION 07/09/2024 3:00 PM CDT Home Care Visit [facility] [address] [facility] [place] [address] Missael Massey, PT PT - INITIAL ASSESSMENT 07/09/2024 11:45 AM CDT Office Visit [facility] [address] [place] [address] Ruperto Kearns MD Hospital F/U (Follow up - sepsis) 07/09/2024 Travel 07/08/2024 1:00 PM CDT Home Care Visit [facility] [address] [place] [address] Vandana Dong, RN SN - HOME VISIT 07/08/2024 Orders Only [facility] [address] [place] [address] Ruperto Kearns MD <No scans attached> 07/05/2024 1:00 PM CDT Home Care Visit [facility] [address] [place] [address] Vandana Dong, RN SN - OASIS START OF CARE 07/05/2024 Telephone [facility] [address] [facility] [place] [address] Vandana Dong, RN Depression; Home Care 07/05/2024 Plan of Care Documentation [facility] [address] [place] [phone] 07/03/2024 Transcribe Orders [facility] [address] [place] [phone] Ana Soler MD 07/02/2024 4:00 PM CDT Ancillary Procedure [facility] [address] [place] [address] 07/01/2024 Orders Only [facility] Scanner 1 scan: (1-Ord) [facility], MR SHOULDER RT W/O CONTRAST, 07/01/2024 06/29/2024 Orders Only [facility] Scanner 1 scan: (1-Ord) [facility], CT ABDOMEN PELVIS W CON, 06/29/2024 06/29/2024 Orders Only [facility] Scanner 1 scan: (1-Ord) [facility], CT ANGIO CHEST PE PROTOCOL, 06/29/2024 06/29/2024 Orders Only [facility] Scanner 1 scan: (1-Ord) [facility], XR CHEST 1V PORTABLE, 06/29/2024 05/28/2024 10:30 AM CDT Office Visit [facility] [address] [place] [address] Ruperto Kearns MD Medication Management (med check) [...] Care Team (Late st Contact Info) Description 08/05/2024 7:00 AM CDT Home Care Visit [place] [address] [place] [phone] 08/05/2024 10:30 AM CDT Office Visit [facility] [address] [place] [address] Mina Ray, [facility] [address] [place] [address] 08/06/2024 9:00 AM CDT Home Care Visit [place] [address] [place] [phone] Raleigh Fontenot, PT [address] [place] [address] 08/07/2024 10:30 AM CDT Home Care Visit [address] [phone] Lupe Olsen [address] [address] 08/07/2024 1:00 PM CDT Home Care Visit [place] [address] [place] [phone] Tulio Combs, LABVIEW PROGRAMMER [address] [place] [address] 08/13/2024 10:30 AM CDT Office Visit [facility] [address] [place] [address] Ruperto Kearns MD [address] [place] [address] Health Maintenance Due Date Last Done Comments [...] Procedure Name Priority Date/Time Associated Diagnosis Comments SCAN-MRI INTERPRETATION 08/02/19 12:00 AM CDT SCAN-CT INTERPRETATION 5 12:00 AM CDT ECHO TTE COMPLETE WO CONTRAST Routine 07/02/2024 11:59 AM CDT Positive blood cultures SCAN-MRI INTERPRETATION 07/02/19 12:00 AM CDT SCAN-CT INTERPRETATION 12:00 AM CDT SCAN-CT INTERPRETATION 5 12:00 AM CDT SCAN-RADIOLOGY REPORT 06/29/2024 12:00 AM CDT from Last 3 Months Results * SCAN-MRI INTERPRETATION (08/01/2024 12:00 AM CDT) Only the most recent of2 resultswithin the time period is included. Anatomical Region Laterality Modality Other us Scanner OTHER Final Result * SCAN-CT INTERPRETATION (07/29/2024 12:00 AM CDT) [...] Narrative 07/02/2024 12:22 PM CDT ECHOCARDIOGRAM LAMAR CHARLOTN : 1940 84 years Study Date: 07/02/2024 10:38:26 AM Gender: M BP: 164/104 mmHg Height: 183.00 cm BSA: 2.21 m Weight: 99.00 kg Tech: CRISTOFER Referring MD: ANA SOLER Site: [facility] Reading Location: [facility] Patient Location: Inpatient. Procedure: 2D, [...] [facility] accredited facility. CC: Med/Surg - IP [facility], HIM (med records) [facility]. Final Procedure Note Jacqueline Blair MD - 07/02/2024 ECHOCARDIOGRAM LAMAR CHARLTON : 1940 84 years Study Date: 07/02/2024 10:38:26 AM Gender: M BP: 164/104 mmHg Height: 183.00 cm BSA: 2.21 m Weight: 99.00 kg Tech: CRISTOFER Referring MD: ANA SOLER Site: [facility] Reading Location: [facility] Patient Location: Inpatient. Procedure: 2D, [...] [facility]AC accredited facility. CC: Med/Surg - IP [facility], [facility] (med [facility]) [facility]. Final us Ana Soler MD ECHO ORD Final Resu lt * SCAN-RADIOLOGY REPORT (06/29/2024 12:00 AM CDT) Anatomical Region Laterality Modality Other us Scanner OTHER Final Result from Last 3 Months Insurance [place] [phone] MEDICARE P[place] [place] ONLY Advance Directives Documents on File Type Date Recorded Patient Custom Furrier Expl anation POLST 07/09/2024 POLST 04/22/2024 3:34 PM POLST 04/22 Care Teams Rim Buster Relationship Specialty Start Date End Date Ruperto Kearns MD [address] PANTERAFORMERLY [facility] [place] [address] PCP - General Family Practice 09/05/22 [place] [id number] [address] 07/03/24
== END 2024-08-01 12:09 | disposition home or self-care (01) ==
LOC: AMB 08-04 09:34
PROVIDERS: PCP Family Medicine; Visit Provider Internal Medicine
DX: R51.9 Headache, unspecified (principal)
CPT/HCPCS: A0425; A0433

== ENCOUNTER 2024-08-01 12:49 | Emergency (ER) | payer MEDICARE, BC, SELFPAY ==
--- OUTSIDE RECORDS SUMMARY | 2024-08-01 12:51 | XMS_ITS | Clinical Summary ---
Author Organization [facility] Address [address] [place] [address] Care Team Providers Care Psych Sales Specialist Name Role Phone Ruperto Kearns MD Primary Care Provider [phone] [facility], [place] Unavailable Allergies Active Allergy Reactions Criticality Noted Date Comments Aspirin Hives 12/01/2022 Medications rivaroxaban (Xarelto) 20 mg tabletIndicatio ns:Pulmonary embolism, bilateral (HC) Take 1 Tablet (20 mg) by mouth once daily with evening meal. 28 Tablet 12 02/26/19 25 Active tamsulosin 0.4 mg capsuleIndicati ons:BPH without urinary obstruction Take 2 Capsules (0.8 mg) by mouth once daily after a meal. 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 90 Tablet 3 02/26/19 25 Active melatonin 5 mg tab [...] Encounters Date Type Department Care Team Description 08/01/2024 10:00 AM CDT Home Care Visit [facility] [address] [place] [phone] Marylou Whiting LISW ENVIRONMENTAL HEALTH SAFETY MANAGER - INITIAL ASSESSMENT 08/01/2024 9:00 AM CDT Home Care Visit [facility] [address] [place] [phone] Raleigh Fontenot, PT PT - HOME VISIT 08/01/2024 Travel 07/31/2024 10:30 AM CDT Home Care Visit [facility] [address] [place] [phone] Lupe Olsen CITY PLANNER - HOME VISIT 07/29/2024 1:00 PM CDT Home Care Visit [facility] [address] [place] [phone] Tulio Combs, GENERAL MERCHANDISE MANAGER GENERAL MERCHANDISE MANAGER - HOME VISIT 07/29/2024 9:45 AM CDT Home Care Visit [facility] [address] [place] [phone] Raleigh Fontenot, PT PT - HOME VISIT 07/29/2024 Orders Only [facility] Scanner 1 scan: (1-Ord) [place], CT HEAD/BRAIN WO CON, 07/29/2024 07/29/2024 Home Care Visit [facility] [address] [place] [phone] Raleigh Fontenot, PT CARE TRANSITION NOTE 07/29/2024 Home Care Visit [facility] [address] [place] [address] Raleigh Fontenot, PT CARE COORDINATION 07/29/2024 [facility]phone [facility] [address] [place] [address] Tulio Combs, GENERAL MERCHANDISE MANAGER Home Care (Request for metal health referral ) 07/29/2024 Home Care Visit [facility] [address] [place] [address] Linda Singer, PT CARE COORDINATION 07/29/2024 Telephone [facility] [address] [place] [address] Raleigh Fontenot, PT Home Care 07/29/2024 Home Care Visit [facility] [address] [place] [address] Raleigh Fontenot, PT CARE COORDINATION 07/28/2024 10:30 AM CDT Home Care Visit [facility] [address] [place] [address] Lupe Olsen CITY PLANNER - HOME VISIT 07/25/2024 9:15 AM CDT Home Care Visit [facility] [address] [place] [phone] Raleigh Fontenot, PT PT - HOME VISIT 07/25/2024 Travel 07/24/2024 10:30 AM CDT Home Care Visit [facility] [address] [place] [phone] Lupe Olsen CITY PLANNER - HOME VISIT 07/23/2024 10:30 AM CDT Home Care Visit [facility] [address] [place] [phone] Tulio Combs, GENERAL MERCHANDISE MANAGER GENERAL MERCHANDISE MANAGER - INITIAL ASSESSMENT 07/23/2024 Home Care Visit [facility] [address] [facility] [place] [address] Tulio Combs, GENERAL MERCHANDISE MANAGER CARE COORDINATION 07/22/2024 9:15 AM CDT Home Care Visit [facility] [address] [place] [phone] Raleigh Fontenot, PT PT - HOME VISIT 07/22/2024 Travel 07/21/2024 1:00 PM CDT Home Care Visit [facility] [address] [place] [address] Vandana Dong, RN SN - DISCIPLINE DISCHARGE 07/21/2024 10:30 AM CDT Home Care Visit [facility] [address] [place] [phone] Lupe Olsen CITY PLANNER - HOME VISIT 07/18/2024 9:15 AM CDT Home Care Visit [facility] [address] [place] [phone] Raleigh Fontenot, PT PT - HOME VISIT 07/17/2024 11:45 AM CDT Home Care Visit [facility] [address] [place] [phone] Lupe Olsen CITY PLANNER - HOME VISIT 07/16/2024 9:30 AM CDT Home Care Visit [facility] [address] [place] [phone] Raleigh Fontenot, PT PT - HOME VISIT 07/14/2024 12:30 PM CDT Home Care Visit [facility] [address] [place] [phone] Lupe Olsen CITY PLANNER - HOME VISIT 07/10/2024 1:00 PM CDT Home Care Visit [facility] [address] [place] [phone] Lupe Olsen CITY PLANNER - HOME VISIT 07/10/2024 Home Care Visit [facility] [address] [place] [phone] Missael aMssey, PT CARE COORDINATION 07/09/2024 3:00 PM CDT Home Care Visit [facility] [address] [place] [address] Missael Massey, PT PT - INITIAL ASSESSMENT 07/09/2024 11:45 AM CDT Office Visit [facility] [address] [place] [address] Ruperto Kearns MD Hospital F/U (Follow up - sepsis) 07/09/2024 Travel 07/08/2024 1:00 PM CDT Home Care Visit [facility] [address] [place] [address] Vandana Dong, RN SN - HOME VISIT 07/08/2024 Orders Only [facility] [address] [place] [address] Ruperto Kearns MD <No scans attached> 07/05/2024 1:00 PM CDT Home Care Visit [facility] [address] [place] [address] Vandana Dong, SULAIMAN SN - OASIS START OF CARE 07/05/2024 Telephone [facility] [address] [place] [address] Vandana Dong, RN Depression; Home Care 07/05/2024 Plan of Care Documentation [facility] [address] [place] [phone] 07/03/2024 Transcribe Orders [facility] [address] [place] [phone] Ana Soler MD 07/02/2024 4:00 PM CDT Ancillary Procedure [facility] [address] [place] [address] 07/01/2024 Orders Only [facility] Scanner 1 scan: (1-Ord) [facility], MR SHOULDER RT W/O CONTRAST, 07/01/2024 06/29/2024 Orders Only [facility] Scanner 1 scan: (1-Ord) [facility], CT ABDOMEN PELVIS W CON, 06/29/2024 06/29/2024 Orders Only [facility] Scanner 1 scan: (1-Ord) [facility], CT ANGIO CHEST PE PROTOCOL, 06/29/2024 06/29/2024 Orders Only [facility] Scanner 1 scan: (1-Ord) [facility], XR CHEST 1V PORTABLE, 06/29/2024 05/28/2024 10:30 AM CDT Office Visit [facility] [address] [place] [address] Ruperto Kearns MD Medication Management (med check) 05/28/2024 Travel from Last 3 Months Immunizations Immunization [...] Sign Reading Time Taken Comments Blood Pressure 114/68 08/01/2024 9:36 AM CDT Pulse 92 08/01/2024 9:36 AM CDT Temperature 36.3 C (97.3 F) 08/01/2024 9:36 AM CDT Respiratory Rate 16 08/01/2024 9:36 AM CDT Oxygen Saturation 93% 08/01/2024 9:36 AM CDT Inhaled Oxygen Concentration - - Weight 97.2 kg (214 lb 3.2 oz) 07/09/2024 11:57 AM CDT Height 182.9 cm (6') 07/05/2024 1:15 PM CDT Body Mass Index 29.05 07/05/2024 1:15 PM CDT Plan of Treatment Upcoming Encounters Date Type Department Care Team (Late st Contact Info) Description 08/04/2024 10:30 AM CDT Home Care Visit [facility] [address] [place] [phone] Lupe Olsen [address] [place] [address] 08/05/2024 10:30 AM CDT Office Visit [facility] [address] [place] [address] Mina Ray, [facility] [address] [place] [address] 08/06/2024 3:00 AM CDT Home Care Visit [facility] [address] [place] [phone] Raleigh Fontenot, PT [address] [place] [address] 08/07/2024 10:30 AM CDT Home Care Visit [facility] [address] [place] [phone] Lupe Olsen [address] [place] [address] 08/07/2024 1:00 PM CDT Home Care Visit [facility] [address] [place] [phone] Tulio Combs, GENERAL MERCHANDISE MANAGER [address] [place] [address] 08/13/2024 10:30 AM CDT Office Visit [facility] [address] [place] [address] Ruperto Kearns MD [address] [place] [address] Health Maintenance Due Date Last Done Comments [...] Diagnosis Comments SCAN-CT INTERPRETATION 12:00 AM CDT ECHO TTE COMPLETE WO CONTRAST Routine 07/02/2024 11:59 AM CDT Positive blood cultures SCAN-MRI INTERPRETATION 07/02/19 12:00 AM CDT SCAN-CT INTERPRETATION 12:00 AM CDT SCAN-CT INTERPRETATION 12:00 AM CDT SCAN-RADIOLOGY REPORT 06/29/2024 12:00 AM CDT from Last 3 Months Results * SCAN-CT INTERPRETATION (07/29/2024 12:00 AM CDT) Only the most recent of3 resultswithin the time period is included. Anatomical Region Laterality Modality Other us Scanner OTHER Final Result * ECHO TTE COMPLETE WO CONTRAST (07/02/2024 [...] Tech: CRISTOFER Referring MD: ANA SOLER Site: [facility] Reading Location: [facility] Patient Location: Inpatient. Procedure: 2D, [...] . This study was interpreted by an [facility] accredited facility. CC: Med/Surg - IP [facility], [facility] (med records) [facility]. Final Procedure Note Jacqueline Blair MD - 07/02/2024 ECHOCARDIOGRAM LAMAR CHARLTON : 1940 84 years Study Date: 07/02/2024 10:38:26 AM Gender: M BP: 164/104 mmHg Height: 183.00 cm BSA: 2.21 m Weight: 99.00 kg Tech: CRISTOFER Referring MD: ANA SOLER Site: [facility] Reading Location: [facility] Patient Location: Inpatient. Procedure: 2D, [...] [facility] accredited facility. CC: Med/Surg - IP [facility], [facility] (med records) [facility]. Final us Ana Soler MD ECHO ORD Final Resu lt * SCAN-MRI INTERPRETATION (07/01/2024 12:00 AM CDT) Anatomical Region Laterality Modality Other us Scanner OTHER Final Result * SCAN-RADIOLOGY REPORT (06/29/2024 12:00 AM CDT) Anatomical Region Laterality Modality Other us Scanner OTHER Final Result from Last 3 Months Insurance [address] [place] [address] [place] BL[place] MR PB ONLY [place] [id number] [address] [facility] [address] [facility] [place] [address] MEDICARE PPS [place] [address] Advance Directives Documents on File Type Date Recorded Patient Technologist Infectious Disease Expl anation POLST 07/09/2024 POLST 04/22/2024 3:34 PM POLST 04/22 Care Teams Psych Sales Specialist Relationship Specialty Start Date End Date Ruperto Kearns MD [facility] [place] [address] PCP - General Family Practice [facility] [address] [facility] [place] [address] 07/03/24
[2024-08-01 12:59] VITALS: BP 136/66; PULSE 87; RESP 18; TEMP 2.6; TEMP 36.7; O2SAT 93
--- NOTE | 2024-08-01 13:09 | CRLHL7_ITS ---
For Patients: As a result of the Century Cures Act, medical imaging exams and procedure reports are released immediately into your electronic medical record. You may view this report before your referring provider. If you have questions, please contact your health care provider. Indication: Headaches. Technique: Multiplanar multisequence noncontrast MR images of the brain. Comparison: CT brain 07/29/2024. Findings: Moderate diffuse cerebral volume loss. No mass effect or midline shift. Patchy FLAIR hyperintensities in the supratentorial white matter and damien, typical for moderate chronic microvascular ischemic changes. No diffusion restriction to suggest acute infarction. Punctate susceptibility anterior right frontal lobe may represent a chronic microhemorrhage or mineralization. No recent intracranial hemorrhage or pathologic extra-axial fluid collection. The major arterial flow voids of the skull base are preserved. Thinning of the ocular lenses. Mild paranasal sinus mucosal thickening. Mastoid air cells are clear. Impression: 1. No acute intracranial abnormality. 2. Moderate chronic microvascular ischemic changes and diffuse cerebral volume loss. Dictated by Lucian Bradley MD @ 08/01/2024 4:49:11 PM (Electronically Signed)
--- NOTE | 2024-08-01 13:10 | ED.GENADULT ---
HPI - General Adult General Chief complaint: Headache/Migraine <Mirlande Perry MD - Last Filed: 08/04/24 15:53> Stated complaint: Headache <Mirlande Perry MD - Last Filed: 08/04/24 15:53> Time Seen by Provider: 08/01/24 13:00 <Mirlande Perry MD - Last Filed: 08/04/24 15:53> Source: patient <Mirlande Perry MD - Last Filed: 08/04/24 15:53> Mode of arrival: EMS <Mirlande Perry MD - Last Filed: 08/04/24 15:53> Limitations: other (Dementia) <Mirlande Perry MD - Last Filed: 08/04/24 15:53> History of Present Illness HPI narrative: 84-year-old male brought in via EMS for headache. Patient states he has been having a daily headache for approximately 4 or 5 days now. He states that it is throbbing starts in the back of the head and then shoots around the top and into the front of his face. He says that it is debilitating and he can not function when the headache comes. It comes and goes throughout the day. He says that it makes his vision go blurry, it makes his whole body shakes sometimes. He was recently seen on the where he was diagnosed with a UTI on this and sent home a on Keflex. At that time he was already having a headache. Because of that they also did a head CT during his ER visit and that did not show any acute findings. Patient did receive 100 mcg of fentanyl on the way to the ED, he states that the throbbing has subsided. He cannot tell me if he feels weak or disoriented when the headaches come, he cannot tell me how many times a day they come and he cannot tell me how long they last. <Mirlande Perry MD - Last Filed: 08/04/24 15:53> Related Data Home medications: Home Medications ?Medication ?Instructions ?Recorded ?Confirmed donepezil 10 mg tablet 10 mg PO HS 03/12/23 08/01/24 rivaroxaban 20 mg tablet (Xarelto) 20 mg PO QPM 03/12/23 08/01/24 tamsulosin 0.4 mg capsule 0.8 mg PO DAILY 03/12/23 08/01/24 sertraline 100 mg tablet 150 mg PO QAM 06/15/23 08/01/24 melatonin 5 mg tablet 5 mg PO HS 06/29/24 08/01/24 cephalexin 500 mg capsule mg PO 08/01/24 Previous Rx's ?Medication ?Instructions ?Recorded cefuroxime axetil 500 mg tablet 500 mg PO BID 7 days #14 tabs 07/03/24 <Mirlande Perry MD - Last Filed: 08/04/24 15:53> Allergies/adverse reactions: Allergies Allergy/AdvReac Type Severity Reaction Status Date / Time aspirin Allergy Verified 08/01/24 14:26 <Mirlande Perry MD - Last Filed: 08/04/24 15:53> Review of Systems Status of ROS: Reports: 10 or more systems reviewed and unremarkable except as noted in History and below <Mirlande Perry MD - Last Filed: 08/04/24 15:53> [facility] Medical History: Medical History Sepsis ?A41.9 - Sepsis, unspecified organism (ICD-10) History of pulmonary embolism ?Z86.711 - Personal history of pulmonary embolism (ICD-10) Urinary incontinence ?R32 - Unspecified urinary incontinence (ICD-10) Depression, recurrent ?F33.9 - Major depressive disorder, recurrent, unspecified (ICD-10) Alzheimer dementia ?G30.9 - Alzheimer's disease, unspecified (ICD-10) ?F02.80 - Dementia in other diseases classified elsewhere, unspecified severity, without behavioral disturbance, psychotic disturbance, mood disturbance, and anxiety (ICD-10) BPH without obstruction/lower urinary tract symptoms ?N40.0 - Benign prostatic hyperplasia without lower urinary tract symptoms (ICD-10) Pulmonary embolism ?I26.99 - Other pulmonary embolism without acute cor pulmonale (ICD-10) COVID-19 ?U07.1 - COVID-19 (ICD-10) Health care directive on file ?Z78.9 - Other specified health status (ICD-10) <Mirlande Perry MD - Last Filed: 08/04/24 15:53> Surgical History: Surgical History H/O abdominal surgery ?Z98.890 - Other specified postprocedural states (ICD-10) <Mirlande Perry MD - Last Filed: 08/04/24 15:53> Social History: Social History Narrative: Living at [facility] with his . His daughter, Nargis, is here with him today. Denies tobacco or alcohol use. What is your current living situation?: I presently have a place to live Problems where you live: no known problems Problems where you live details: none In the past 12 months, utilities in danger of being shut off: no In past 12 months, lack of transportation kept you from medical appts, meetings, work, or getting things needed for daily living: yes In the past 12 mos, have been you worried that your food would run out before you had money to buy more?: never true In the past 12 mos, the food you bought just didn't last and you didn't have money to buy more?: never true Highest level of school completed/degree received: Bachelor's degree Smoking Status: Never smoker Do you use any of these nicotine containing products: None Second hand tobacco smoke exposure: No How often do you have a drink containing alcohol: monthly or less How many standard drinks containing alcohol do you have on a typical day: 1 or 2 How often do you have six or more drinks on one occasion: Never AUDIT-C Alcohol total score: 1 Non-prescribed substance use: denies use Caffeine: Yes (ceffee) How often does anyone, including family, friends and others, physically hurt you: never How often does anyone, including family, friends and others, insult or talk down to you: never How often does anyone, including family, friends and others, threaten you with harm: never How often does anyone, including family, friends and others, scream or curse at you: never service: No Health Related Social Needs: transportation insecurity (Z59.82) <Mirlande Perry MD - Last Filed: 08/04/24 15:53> Exam Narrative: Exam Narrative: Well-nourished well-developed patient in no acute distress. Cooperative. Answers questions appropriately. Mood and affect are appropriate. Patient is not appear to be in any respiratory distress. HEENT: Normocephalic atraumatic. Pupils are equally round reactive to light. Extraocular muscles are intact. Conjunctivae are moist without any icterus noted. Moist mucous membranes. Cardiovascular: Heart is regular rate and rhythm S1 and S2 are present , he does have a 2/6 systolic murmur that is heard only on the right sternal border. Lungs: Clear to auscultation bilaterally no wheezes rhonchi or rales are appreciated. Patient takes deep breaths without any discomfort. Abdomen: Soft and nontender nondistended with normal bowel sounds. Protuberant. Extremities: Bilateral lower extremities show trace edema bilaterally. Skin: Well perfused. Strength is 4/5 of the lower extremities, symmetric. 5/5 of the upper extremities. Hand product development director is symmetric. Reflexes are 2+ and symmetric at the knees. There is no nystagmus either horizontally or vertically. <Mirlande Perry MD - Last Filed: 08/04/24 15:53> Const: Vital Signs, click to edit/add: Vital Signs - 24 hr 08/01/24 12:59 08/01/24 14:00 08/01/24 17:03 Temperature 36.7 F L Pulse Rate 80 72 Pulse Rate [Pulse Oximeter] 87 Respiratory Rate 18 14 18 Blood Pressure 116/68 116/74 Blood Pressure [Le ft Upper Arm] 136/66 Pulse Oximetry 93 93 93 Oxygen Delivery Me thod Room Air Room Air Room Air <Mirlande Perry MD - Last Filed: 08/04/24 15:53> Vital Signs, click to edit/add: Vital Signs - 24 hr 08/01/24 12:59 08/01/24 14:00 08/01/24 17:03 Temperature 36.7 F L Pulse Rate 80 72 Pulse Rate [Pulse Oximeter] 87 Respiratory Rate 18 14 18 Blood Pressure 116/68 116/74 Blood Pressure [Le ft Upper Arm] 136/66 Pulse Oximetry 93 93 93 Oxygen Delivery Me thod Room Air Room Air Room Air <Mirlande Uriostegui MD - Last Filed: 08/01/24 17:36> Course Course ED Course: Differential diagnoses includes cluster headaches, tension headache, migraine headache, recurrent TIA. Because the patient is a poor historian, headaches continue and patient has now been seen twice for this issue, I do think further imaging is necessary. MRI of the brain has been ordered. Patient is currently symptom free after receiving 100 mcg of fentanyl in the ambulance. Patient care transferred to oncoming physician will review patient's MRI results. <Mirlande Perry MD - Last Filed: 08/04/24 15:53> Vital Signs Vital signs: Initial Vital Signs Temperature 36.7 F L 08/01/24 12:59 Temperature Source Temporal Artery Scan 08/01/24 12:59 Pulse Rate 87 08/01/24 12:59 Respiratory Rate 18 08/01/24 12:59 Blood Pressure 136/66 08/01/24 12:59 Blood Pressure Mean 89 08/01/24 12:59 Pulse Oximetry 93 08/01/24 12:59 Oxygen Delivery Method Room Air 08/01/24 12:59 Vital Signs Temperature 36.7 F L 08/01/24 12:59 Pulse Rate 87 08/01/24 12:59 Respiratory Rate 18 08/01/24 12:59 Blood Pressure 136/66 08/01/24 12:59 Pulse Oximetry 93 08/01/24 12:59 Oxygen Delivery Method Room Air 08/01/24 12:59 Temperature 36.7 F L 08/01/24 12:59 Pulse Rate 72 08/01/24 17:03 Respiratory Rate 18 08/01/24 17:03 Blood Pressure 116/74 08/01/24 17:03 Pulse Oximetry 93 08/01/24 17:03 Oxygen Delivery Method Room Air 08/01/24 17:03 <Mirlande Perry MD - Last Filed: 08/04/24 15:53> Initial Vital Signs Temperature 36.7 F L 08/01/24 12:59 Temperature Source Temporal Artery Scan 08/01/24 12:59 Pulse Rate 87 08/01/24 12:59 Respiratory Rate 18 08/01/24 12:59 Blood Pressure 136/66 08/01/24 12:59 Blood Pressure Mean 89 08/01/24 12:59 Pulse Oximetry 93 08/01/24 12:59 Oxygen Delivery Method Room Air 08/01/24 12:59 Vital Signs Temperature 36.7 F L 08/01/24 12:59 Pulse Rate 87 08/01/24 12:59 Respiratory Rate 18 08/01/24 12:59 Blood Pressure 136/66 08/01/24 12:59 Pulse Oximetry 93 08/01/24 12:59 Oxygen Delivery Method Room Air 08/01/24 12:59 Temperature 36.7 F L 08/01/24 12:59 Pulse Rate 72 08/01/24 17:03 Respiratory Rate 18 08/01/24 17:03 Blood Pressure 116/74 08/01/24 17:03 Pulse Oximetry 93 08/01/24 17:03 Oxygen Delivery Method Room Air 08/01/24 17:03 <Mirlande Uriostegui MD - Last Filed: 08/01/24 17:36> Medical Decision Making MDM Narrative Medical decision making narrative: 84-year-old male with recurrent headache. <Mirlande Perry MD - Last Filed: 08/04/24 15:53> Imaging Data MRI brain: Attestation: I have reviewed the pertinent imaging results. <Mirlande Uriostegui MD - Last Filed: 08/01/24 17:36> Radiologist's impression: Patient: LAMAR CHARLTON Facility:?[facility] Patient ID:?[id number] Site Patient ID:?[id number]. Site :?[id number] Study:?MRI-Head W/O-08/01/2024 4:39:04 PM Ordering Physician:Lacho Nogueira Final Report: Indication: Headaches. Technique: Multiplanar multisequence noncontrast MR images of the brain. Comparison: CT brain 07/29/2024. Findings: Moderate diffuse cerebral volume loss. No mass effect or midline shift. Patchy FLAIR hyperintensities in the supratentorial white matter and damien, typical for moderate chronic microvascular ischemic changes. No diffusion restriction to suggest acute infarction. Punctate susceptibility anterior right frontal lobe may represent a chronic microhemorrhage or mineralization. No recent intracranial hemorrhage or pathologic extra-axial fluid collection. The major arterial flow voids of the skull base are preserved. Thinning of the ocular lenses. Mild paranasal sinus mucosal thickening. Mastoid air cells are clear. Impression: 1. No acute intracranial abnormality. 2. Moderate chronic microvascular ischemic changes and diffuse cerebral volume loss. Dictated by Lucian Bradley MD @ 08/01/2024 4:49:11 PM (Electronic Signature) <Mirlande Uriostegui MD - Last Filed: 08/01/24 17:36> Discharge Plan Discharge Clinical Impression: Headache <Mirlande Perry MD - Last Filed: 08/04/24 15:53> Patient Disposition: Home, Self-Care <Mirlande Perry MD - Last Filed: 08/04/24 15:53> Condition: Stable <Mirlande Perry MD - Last Filed: 08/04/24 15:53> Instructions: Acute Headache (ED) <Mirlande Perry MD - Last Filed: 08/04/24 15:53> Additional Instructions: MRI shows no structural lesion. You need to follow-up with your primary care provider for further discussion of headaches. May need to be referred to Neurology. Baseline would have you try Tylenol 1000 mg with onset of headache, can be repeated twice every 8 hours in a 24 hour period. It is important to stay hydrated, this does help prevent headaches. <Mirlande Perry MD - Last Filed: 08/04/24 15:53> Activity Level: Activity as Tolerated <Mirlande Perry MD - Last Filed: 08/04/24 15:53> Activity as Tolerated <Mirlande Uriostegui MD - Last Filed: 08/01/24 17:36> Prescriptions: No Action melatonin 5 mg tablet 5 mg PO HS cefuroxime axetil 500 mg tablet 500 mg PO BID 7 Days Qty: 14 0RF donepezil 10 mg tablet 10 mg PO HS tamsulosin 0.4 mg capsule 0.8 mg PO DAILY Xarelto 20 mg tablet 20 mg PO QPM sertraline 100 mg tablet 150 mg PO QAM cephalexin 500 mg capsule PO <Mirlande Perry MD - Last Filed: 08/04/24 15:53> Follow Up/Referrals: Ruperto Kearns MD [Primary Care Provider, Family Practice] <Mirlande Perry MD - Last Filed: 08/04/24 15:53> Stand Alone Forms: MyHealth Info Instructions <Mirlande Perry MD - Last Filed: 08/04/24 15:53>
[2024-08-01 14:00] VITALS: BP 116/68; PULSE 80; RESP 14; O2SAT 93
[2024-08-01 14:26] VITALS: BMI 30.2
[2024-08-01 17:03] VITALS: BP 116/74; PULSE 72; RESP 18; O2SAT 93
== END 2024-08-01 18:15 | disposition home or self-care (01) ==
PROVIDERS: Emergency Provider Family Medicine; PCP Family Medicine
DX: R51.9 Headache, unspecified (principal)
CPT/HCPCS: 70551; 99284; 99285

== ENCOUNTER 2024-08-24 16:43 | Outpatient (CLI) | payer MEDICARE, BC, SELFPAY | END 2024-08-24 16:44 | disposition home or self-care (01) | LOC: AMB 08-25 17:04 | PROVIDERS: PCP Family Medicine; Visit Provider Family Medicine | DX: S79.912A Unspecified injury of left hip, initial encounter (principal); W01.0XXA Fall on same level from slipping, tripping and stumbling without subsequent striking against object, initial encounter; Y92.129 Unspecified place in nursing home as the place of occurrence of the external cause | CPT/HCPCS: A0425; A0427 ==

== ENCOUNTER 2024-08-24 17:15 | Observation (INO) | payer MEDICARE, BC, SELFPAY ==
--- OUTSIDE RECORDS SUMMARY | 2002-11-24 03:00 | XMS_ITS | Continuity of Care Document ---
Author Organization [facility] Address [address] [address] [place] [address] Phone Care Team Providers Care County Auditor Name Role Phone Eric Iglesias MD Unavailable Unavailable Advance Directives Directive Yes / No Effective Date File Name No Information Encounters Encounter Description Practice Location Reason(s) For Visit Diagnoses Date Provider Providers Copied on Encounter [facility], [address] [address], [place], [place], [id number], [place] tel:[phone] [facility] No Information Harris Reyes. [address] [facility], [facility] [address], [place], [place], [id number], [place]. tel:[phone] Referring Provider: Romain Strickland MD, [facility] [place], [address]. tel:[phone] Family History Family Member Type Diagnosis Age At Onset No Information Payers Payer name Insurance type Covered constitution party ID Authorpinga jaylen(s) [employer] [id number] Social History Type Description Quantity Date Captured [...]
--- OUTSIDE RECORDS SUMMARY | 2002-11-24 03:00 | XMS_ITS | Continuity of Care Document ---
Author Organization [facility] Address [address] [address] [place] [address] Phone Care Team Providers Care Centrifuge Operator Name Role Phone Eric Iglesias MD Unavailable Unavailable Advance Directives Directive Yes / No Effective Date File Name No Information Encounters Encounter Description Practice Location Reason(s) For Visit Diagnoses Date Provider Providers Copied on Encounter [facility], [address] [address], [place], [place], [id number], [place] tel:[phone] [facility] No Information Harris Reyes. [address] [facility], [facility] [address], [place], [place], [address], [place]. tel:[phone] Referring Provider: Romain Strickland MD, [facility] [place], [address]. tel:[phone] Family History Family Member Type Diagnosis Age At Onset No Information Payers Payer name Insurance type Covered green party ID Authorpinga jaylen(s) [employer] [id number] Social History Type Description Quantity Date Captured [...]
[2024-08-24] VITALS (21 sets, daily range): BP systolic 91–141; BP diastolic 61–93; PULSE 77–110; RESP 14–18; TEMP 36.4–36.9; O2SAT 91–99; BMI 34.3
--- OUTSIDE RECORDS SUMMARY | 2024-08-24 17:17 | XMS_ITS | Clinical Summary ---
Author Organization [employer] [facility] Address [address] [place] [id number] Care Team Providers Care Assistant Merchandiser Name Role Phone Ruperto Kearns MD Primary Care Provider [phone] [facility], [place] Unavailable Allergies Active Allergy Reactions Criticality Noted [...] at bedtime. 90 Tablet 02/26/19 25 Active acetaminophen (TylenoL) 325 mg tablet Take 650 mg by mouth every 4 hours if needed for Pain. Max acetaminophen dose: 4000mg in 24 hrs. Active sertraline (ZOLOFT) 100 mg tabletIndicatio ns:Depression, recurrent Take 2 Tablets (200 mg) by mouth once daily in the morning. 180 Tablet 1 08/20/19 25 Active sertraline 100 mg tabletIndicatio ns:Depression, recurrent Take 1.5 Tablets (150 mg) by mouth once daily in the morning. 135 Tablet 3 05/01/19 25 025 Discontin ued(*Medi cation adjustmen t) buPROPion 100 mg Sustained-Relea se tabletIndicatio ns:Depression, recurrent,Demen tia in Alzheimer's disease (HC) Take 1 Tablet (100 mg) by mouth once daily in the morning. 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 Pulmonary embolism on right 12/01/2022 Overview (12/01/2022): He was told he needed to be on lifelong anticoagulation. BPH without urinary obstruction 12/01/2022 Encounters Date Type Department Care Team Description 08/22/2024 Home Care Visit [facility] [address] [place] [phone] Marylou Whiting LISW CARE COORDINATION 08/21/2024 2:00 PM CDT Office Visit [facility] [address] [place] [address] Mina Ray, [facility] Visit 08/21/2024 9:00 AM CDT Home Care Visit [facility] [address] [place] [phone] Tulio Combs, MEMORIAL COUNSELOR MEMORIAL COUNSELOR - REASSESSMENT 08/21/2024 Home Care Visit [facility] [address] [place] [phone] Marylou Whiting LISW ASSEMBLER GOLD FRAME - TELEHEALTH VISIT 08/20/2024 3:30 PM CDT Home Care Visit [facility] [address] [place] [address] [place] [address] Raleigh Fontenot, PT PT - DISCIPLINE DISCHARGE 08/20/2024 Home Care Visit [facility] [address] [place] [phone] Raleigh Fontenot, PT CARE COORDINATION 08/20/2024 Travel 08/19/2024 Telephone [facility] [address] [place] [address] Ruperto Kearns MD Follow Up 08/18/2024 10:20 AM CDT Home Care Visit [facility] [address] [place] [phone] Corby De La Fuente MAITRE D - HOME VISIT 08/18/2024 Refill [facility] [address] [place] [address] Ruperto Kearns MD Refill Request (BUPROPION HCL ) 08/15/2024 Home Care Visit [facility] [address] [place] [phone] Marylou Whiting LISW ASSEMBLER GOLD FRAME - CASE COMMUNICATION 08/14/2024 9:00 AM CDT Home Care Visit [facility] [address] [place] [phone] Tulio Combs, MEMORIAL COUNSELOR MEMORIAL COUNSELOR - HOME VISIT 08/14/2024 E-Consult [facility] [address] [facility] [address] [place] [phone] Karena Hanely DO 08/13/2024 12:45 PM CDT Home Care Visit [facility] [address] [place] [phone] Marylou Whiting LISW ASSEMBLER GOLD FRAME - HOME VISIT 08/13/2024 10:30 AM CDT Office Visit [facility] [address] [place] [address] Ruperto Kearns MD Follow Up (Follow Up depression. ); Medication Management (Med Check ) 08/13/2024 8:00 AM CDT Home Care Visit [facility] [address] [place] [address] Kaitlynn Vicente, COOK CASHIER FOOD PREP PT - HOME VISIT 08/13/2024 Home Care Visit [facility] [address] [place] [address] Kaitlynn Vicente, COOK CASHIER FOOD PREP CARE COORDINATION 08/12/2024 3:00 PM CDT Office Visit [address] [address] Gopal Jiang, AuD Hearing Aid 08/12/2024 Travel 08/11/2024 10:30 AM CDT Home Care Visit [facility] [address] [place] [address], [place] [address] Lupe Olsen MAITRE D - HOME VISIT 08/08/2024 Home Care Visit [facility] [address] [place] [phone] Raleigh Fontenot, PT CARE COORDINATION 08/08/2024 Home Care Visit [facility] [address] [place] [phone] Raleigh Fontenot, PT CARE COORDINATION 08/07/2024 1:00 PM CDT Home Care Visit [facility] [address] [place] [phone] Tulio Combs, MEMORIAL COUNSELOR MEMORIAL COUNSELOR - HOME VISIT 08/07/2024 10:30 AM CDT Home Care Visit [facility] [address] [place] [phone] Lupe Olsen MAITRE D - HOME VISIT 08/07/2024 Home Care Visit [facility] [address] [place] [phone] Tulio Combs, MEMORIAL COUNSELOR CARE COORDINATION 08/06/2024 9:00 AM CDT Home Care Visit [facility] [address] [place] [phone] Raleigh Fontenot, PT PT - REASSESSMENT 08/05/2024 10:30 AM CDT Office Visit [facility] [address] [place] [address] Mina Ray, [facility] Visit 08/05/2024 Travel 08/04/2024 10:30 AM CDT Home Care Visit [facility] [address] [place] [address] Lupe Olsen MAITRE D - HOME VISIT 08/01/2024 10:00 AM CDT Home Care Visit [facility] [address] [facility] [address] Marylou Whiting LISW ASSEMBLER GOLD FRAME - INITIAL ASSESSMENT 08/01/2024 9:00 AM CDT Home Care Visit [facility] [address] [place] [address] Raleigh Fontenot, PT PT - HOME VISIT 08/01/2024 Orders Only [facility] Scanner 1 scan: (1-Ord) [place], MR HEAD/BRAIN WO CON, 08/01/2024 08/01/2024 Travel 07/31/2024 10:30 AM CDT Home Care Visit [facility] [address] [place] [address] Lupe Olsen MAITRE D - HOME VISIT 07/29/2024 1:00 PM CDT Home Care Visit [facility] [address] [facility] [address] Tulio Combs, MEMORIAL COUNSELOR MEMORIAL COUNSELOR - HOME VISIT 07/29/2024 9:45 AM CDT Home Care Visit [facility] [address] [place] [address] Raleigh Fontenot, PT PT - HOME VISIT 07/29/2024 Orders Only [facility] Scanner 1 scan: (1-Ord) [place], CT HEAD/BRAIN WO CON, 07/29/2024 07/29/2024 Home Care Visit [facility] [address] [place] [address] Raleigh Fontenot, PT CARE TRANSITION NOTE 07/29/2024 Home Care Visit [facility] [address] [place] [address] Raleigh Fontenot, PT CARE COORDINATION 07/29/2024 Telephone [facility] [address] [place] [address] Tulio Combs, MEMORIAL COUNSELOR Home Care (Request for metal health referral ) 07/29/2024 Home Care Visit [facility] [address] [place] [address] Linda Singer, PT CARE COORDINATION 07/29/2024 Telephone [facility] [address], [place] [address] Raleigh Fontenot, PT Home Care 07/29/2024 Home Care Visit [facility] [address] [place] [address] Raleigh Fontenot, PT CARE COORDINATION 07/28/2024 10:30 AM CDT Home Care Visit [facility] [address] [place] [phone] Lupe Olsen MAITRE D - HOME VISIT 07/25/2024 9:15 AM CDT Home Care Visit [facility] [address] [place] [phone] Raleigh Fontenot, PT PT - HOME VISIT 07/25/2024 Travel 07/24/2024 10:30 AM CDT Home Care Visit [facility] [address] [place] [phone] Lupe Olsen MAITRE D - HOME VISIT 07/23/2024 10:30 AM CDT Home Care Visit [facility] [address] [place] [phone] Tulio Combs, MEMORIAL COUNSELOR MEMORIAL COUNSELOR - INITIAL ASSESSMENT 07/23/2024 Home Care Visit [facility] [address] [place], [place] [address], [place] [address] Tulio Combs, MEMORIAL COUNSELOR CARE COORDINATION 07/22/2024 9:15 AM CDT Home Care Visit [facility] [address] [place] [address] Raleigh Fontenot, PT PT - HOME VISIT 07/22/2024 Travel 07/21/2024 1:00 PM CDT Home Care Visit [facility] [address] [place] [address] Vandana Dong, RN SN - DISCIPLINE DISCHARGE 07/21/2024 10:30 AM CDT Home Care Visit [facility] [address] [place] [phone] Lupe Olsen MAITRE D - HOME VISIT 07/18/2024 9:15 AM CDT Home Care Visit [facility] [address] [place] [phone] Raleigh Fontenot, PT PT - HOME VISIT 07/17/2024 11:45 AM CDT Home Care Visit [facility] [address] [place] [phone] Lupe Olsen MAITRE D - HOME VISIT 07/16/2024 9:30 AM CDT Home Care Visit [facility] [address] [place] [phone] Raleigh Fontenot, PT PT - HOME VISIT 07/14/2024 12:30 PM CDT Home Care Visit [facility] [address] [place] [phone] Lupe Olsen MAITRE D - HOME VISIT 07/10/2024 1:00 PM CDT Home Care Visit [facility] [address] [place] [phone] Lupe Olsen MAITRE D - HOME VISIT 07/10/2024 Home Care Visit [facility] [address] [place] [phone] Missael Massey, PT CARE COORDINATION 07/09/2024 3:00 PM CDT Home Care Visit [facility] [address] [place] [address] Missael Massey, PT PT - INITIAL ASSESSMENT 07/09/2024 11:45 AM CDT Office Visit [facility] [address] [place] [address] Ruperto Kearns MD Hospital F/U (Follow up - sepsis) 07/09/2024 Travel 07/08/2024 1:00 PM CDT Home Care Visit [facility] [address] [place] [address] Vandana Dong, RN SN - HOME VISIT 07/08/2024 Orders Only [facility] [address] [place] [address] Ruperto Kearns MD <No scans attached> 07/05/2024 1:00 PM CDT Home Care Visit [facility] [address] [place] [address] Vandana Dong, RN SN - OASIS START OF CARE 07/05/2024 Telephone [facility] [address] [place] [address] Vandana Dong, RN Depression; Home Care 07/05/2024 Plan of Care Documentation [facility] [address] [place] [phone] 07/03/2024 Transcribe Orders [facility] [address] [place] [phone] Ana Soler MD 07/02/2024 4:00 PM CDT Ancillary Procedure [facility] [address] [place] [address] 07/01/2024 Orders Only [facility] Scanner 1 scan: (1-Ord) [facility], MR SHOULDER RT W/O CONTRAST, 07/01/2024 06/29/2024 Orders Only [facility] Scanner 1 scan: (1-Ord) [facility], CT ABDOMEN PELVIS W CON, 06/29/2024 06/29/2024 Orders Only [facility] Scanner 1 scan: (1-Ord) [facility], CT ANGIO CHEST PE PROTOCOL, 06/29/2024 06/29/2024 Orders Only [facility] Scanner 1 scan: (1-Ord) [facility], XR CHEST 1V PORTABLE, 06/29/2024 05/28/2024 10:30 AM CDT Office Visit [facility] [address] [place] [address] Ruperto Kearns MD Medication Management (med check) [...] Past Smokeless Tobacco: Never Tobacco Cessation:Counseling Given: No Alcohol Use Standard Drinks/Week Comments Not Currently 0 (1 standard drink = 0.6 oz pur e alcohol) PHQ-2 Answer Date Recorded PHQ-2 TOTAL SCORE 4 08/13/2024 Social Connections Answer Date Recorded Do you [...] Sign Reading Time Taken Comments Blood Pressure 111/58 08/21/2024 9:25 AM CDT Pulse 85 08/21/2024 9:25 AM CDT Temperature 36.1 C (96.9 F) 08/21/2024 9:25 AM CDT Respiratory Rate 18 08/21/2024 9:25 AM CDT Oxygen Saturation 95% 08/21/2024 9:25 AM CDT Inhaled Oxygen Concentration - - Weight 97.2 kg (214 lb 3.2 oz) 08/13/2024 10:43 AM CDT Height 182.9 cm (6') 07/05/2024 1:15 PM CDT Body Mass Index 29.05 07/05/2024 1:15 PM CDT Plan of Treatment Upcoming Encounters Date Type Department Care Team (Late st Contact Info) Description 08/27/2024 9:15 AM CDT Appointment [facility] [address] [place] [address] Tulio Combs, MEMORIAL COUNSELOR [address] [place] [address] 10/08/2024 9:40 AM CDT Office Visit [facility] [address] [place] [address] Ruperto Kearns MD [address] [place] [address] Health Maintenance Due Date Last Done Comments [...] same day) for age 18+ 12/02/2023 12/01/2022 Influenza Vaccine (#1) 2024 , 10/27/2019, 12/04/2018, Additional history exists Medicare Wellness for age 65+ 02/27/2025 02/27/2024, 01/17/2023 Tetanus booster 09/30/2026 09/30/2016, 07/19/2004 COVID-19 vaccine series Completed 06/05/19, 02/27/2024, 11/27/2022, Additional history exists Procedures Procedure Name Priority Date/Time Associated Diagnosis Comments SCAN-MRI INTERPRETATION 08/02/19 12:00 AM CDT SCAN-CT INTERPRETATION 12:00 AM CDT ECHO TTE [...] Tech: CRISTOFER Referring MD: ANA SOLER Site: [facility] Reading Location: [facility] Patient Location: Inpatient. Procedure: 2D, Color Doppler [...] . This study was interpreted by an [facility] accredited facility. CC: Med/Surg - IP [facility], HIM (med records) [facility]. Final Procedure Note Jacqueline Blair MD - 07/02/2024 ECHOCARDIOGRAM LAMAR CHARLTON : 1940 84 years Study Date: 07/02/2024 10:38:26 AM Gender: M BP: 164/104 mmHg Height: 183.00 cm BSA: 2.21 m Weight: 99.00 kg Tech: CRISTOFER Referring MD: ANA SOLER Site: [facility] Reading Location: [facility] Patient Location: Inpatient. Procedure: 2D, Color Doppler [...] [facility] accredited facility. CC: Med/Surg - IP [facility], HIM (med records) [facility]. Final us Ana Soler MD ECHO ORD Final Resu lt * SCAN-RADIOLOGY REPORT (06/29/2024 12:00 AM CDT) Anatomical Region Laterality Modality Other us Scanner OTHER Final Result from Last 3 Months Insurance [address] [place] [address] [employer] [place] BLUE MR PB ONLY [address] [place] [address] MEDICARE PPS [employer] [place] BLUE HB ONLY Advance Directives Documents on File Type Date Recorded Patient Pharmacy Cashier Expl anation POLST 07/09/2024 POLST 04/22/2024 3:34 PM POLST 04/22 Care Teams Assistant Merchandiser Relationship Specialty Start Date End Date Ruperto Kearns MD [address] [place] [address] PCP - General Family Practice 09/05/22 [facility] [address], [place] [address] 07/03/24
--- NOTE | 2024-08-24 17:26 | ED.GENADULT ---
HPI - General Adult General Date Seen: 08/24/24 Chief complaint: Fall/Minor Trauma Stated complaint: fall Time Seen by Provider: 08/24/24 17:25 History of Present Illness HPI narrative: 84-year-old male with a past medical history including UTI last month on July 28, treated with Keflex. Also history of pulmonary embolism and is on rivaroxaban, depression, dementia, BPH. He presents to the ER today from his assisted living at [facility]. He describes having had a fall yesterday. He says he was doing some yd work in his yd outside of his assisted living. He was doing some sort of a rash that hold a and he had a rack incorrect and that back fell over and hit him in the back and knocked him over. He injured his low back and left hip and has had pain since then. However, history from EMS who brought him in is that actually fell at around 1:00 p.m. today, not yesterday. He he apparently was a in his assisted living apartment and then was not discovered till about 430 this afternoon when his staff member found him on the floor and help him out. Staff also report that he had fallen several times this week and have concern about potential UTI. Patient says he did not hit his head and was not knocked out. He was on the floor for a while (an hour or 2? ) and apparently could not get up without assistance from the staff. Related Data Home Medications ?Medication ?Instructions ?Recorded ?Confirmed donepezil 10 mg tablet 10 mg PO HS 03/12/23 08/01/24 rivaroxaban 20 mg tablet (Xarelto) 20 mg PO QPM 03/12/23 08/01/24 tamsulosin 0.4 mg capsule 0.8 mg PO DAILY 03/12/23 08/01/24 sertraline 100 mg tablet 150 mg PO QAM 06/15/23 08/01/24 melatonin 5 mg tablet 5 mg PO HS 06/29/24 08/01/24 cephalexin 500 mg capsule mg PO 08/01/24 Previous Rx's ?Medication ?Instructions ?Recorded cefuroxime axetil 500 mg tablet 500 mg PO BID 7 days #14 tabs 07/03/24 Allergies Allergy/AdvReac Type Severity Reaction Status Date / Time aspirin Allergy Verified 08/24/24 18:55 PFSH PFS Medical History Sepsis ?A41.9 - Sepsis, unspecified organism (ICD-10) History of pulmonary embolism ?Z86.711 - Personal history of pulmonary embolism (ICD-10) Urinary incontinence ?R32 - Unspecified urinary incontinence (ICD-10) Depression, recurrent ?F33.9 - Major depressive disorder, recurrent, unspecified (ICD-10) Alzheimer dementia ?G30.9 - Alzheimer's disease, unspecified (ICD-10) ?F02.80 - Dementia in other diseases classified elsewhere, unspecified severity, without behavioral disturbance, psychotic disturbance, mood disturbance, and anxiety (ICD-10) BPH without obstruction/lower urinary tract symptoms ?N40.0 - Benign prostatic hyperplasia without lower urinary tract symptoms (ICD-10) Pulmonary embolism ?I26.99 - Other pulmonary embolism without acute cor pulmonale (ICD-10) COVID-19 ?U07.1 - COVID-19 (ICD-10) Health care directive on file ?Z78.9 - Other specified health status (ICD-10) Surgical History H/O abdominal surgery ?Z98.890 - Other specified postprocedural states (ICD-10) Social History Narrative: Living at [facility] with his . His daughter, Nargis, is here with him today. Denies tobacco or alcohol use. What is your current living situation?: I presently have a place to live Problems where you live: no known problems Problems where you live details: none In the past 12 months, utilities in danger of being shut off: no In past 12 months, lack of transportation kept you from medical appts, meetings, work, or getting things needed for daily living: yes In the past 12 mos, have been you worried that your food would run out before you had money to buy more?: never true In the past 12 mos, the food you bought just didn't last and you didn't have money to buy more?: never true Highest level of school completed/degree received: Bachelor's degree Smoking Status: Never smoker Do you use any of these nicotine containing products: None Second hand tobacco smoke exposure: No How often do you have a drink containing alcohol: monthly or less How many standard drinks containing alcohol do you have on a typical day: 1 or 2 How often do you have six or more drinks on one occasion: Never AUDIT-C Alcohol total score: 1 Non-prescribed substance use: denies use Caffeine: Yes (ceffee) How often does anyone, including family, friends and others, physically hurt you: never How often does anyone, including family, friends and others, insult or talk down to you: never How often does anyone, including family, friends and others, threaten you with harm: never How often does anyone, including family, friends and others, scream or curse at you: never service: No Health Related Social Needs: transportation insecurity (Z59.82) Exam Narrative: Exam Narrative: Constitutional: Appears well-developed and well-nourished. Alert. Conversant but poor historian. Endorses that he has dementia and does not always remember things.. Non toxic. HENT: Head: Atraumatic. Nose: Nose normal. Mouth/Throat: Oral mucosa is clear and moist. no trismus. Pharynx normal. Tonsils symmetric. No tonsillar enlargement, erythema, or exudate. Eyes: Conjunctivae normal. EOM normal. Pupils equal, round, and reactive to light. No scleral icterus. Neck: Normal range of motion. Neck supple. No tracheal deviation present. No neck pain or tenderness. No midline step-off. Cardiovascular: Normal rate, regular rhythm. No gallop. No friction rub. No murmur heard. Symmetric radial and PT artery pulses Pulmonary/Chest: Effort normal. No stridor. No respiratory distress. No wheezes. No rales. No rhonchi . Left posterolateral rib tenderness. Abdominal: Soft. Bowel sounds normal. No distension. No mass. No anterior tenderness. No rebound. No guarding. Left CVA tenderness. Musculoskeletal: RUE: Normal range of motion. No tenderness. No deformity LUE: Normal range of motion. No tenderness. No deformity No T-spine midline tenderness. No L-spine midline tenderness but he does have tenderness to the left lumbar paraspinous muscles. RLE: Normal range of motion. 1+ edema. No tenderness. No deformity hip is nontender. Normal range of motion the hip. Femur, knee, lower leg, ankle, foot are nontender. LLE: Marked tenderness over lateral left hip. Range of motion is left hip limited by pain to about 30? of flexion. Femur, knee, lower leg, ankle, foot are nontender.. 1+ edema. No tenderness. No deformity Neurological: Alert and oriented to person, place, but not day of the week.. Normal strength. CN II-VII intact. No sensory deficit. GCS eye subscore is 4. GCS verbal subscore is 5. GCS motor subscore is 6. Normal coordination polite. Skin: Skin is warm and dry. No rash noted. No pallor. Normal capillary refill. Psychiatric: Normal mood. Normal affect. Const: Vital Signs, click to edit/add: Vital Signs - 24 hr 08/24/24 17:27 08/24/24 17:28 08/24/24 17:30 Temperature 98.4 F Pulse Rate 94 91 Pulse Rate [Pulse Oximeter] 92 Respiratory Rate 18 Blood Pressure Blood Pressure [Ri ght Upper Arm] 141/93 H Pulse Oximetry 94 92 98 [facility] 08/24/24 17:45 08/24/24 18:00 08/24/24 18:15 Temperature Pulse Rate 102 H 100 96 Pulse Rate [Pulse Oximeter] Respiratory Rate Blood Pressure Blood Pressure [Ri ght Upper Arm] Pulse Oximetry 92 96 95 Oxygen Delivery Mt thod 08/24/24 18:34 08/24/24 19:05 08/24/24 19:15 Temperature Pulse Rate 95 108 H 108 H Pulse Rate [Pulse Oximeter] Respiratory Rate Blood Pressure Blood Pressure [Ri ght Upper Arm] Pulse Oximetry 96 96 97 [facility] 08/24/24 19:30 08/24/24 19:45 08/24/24 20:00 Temperature Pulse Rate 102 H 83 Pulse Rate [Pulse Oximeter] Respiratory Rate 16 17 Blood Pressure Blood Pressure [Ri ght Upper Arm] Pulse Oximetry 93 98 Oxygen Delivery Mt thod 08/24/24 20:15 08/24/24 20:25 08/24/24 20:30 Temperature Pulse Rate 110 H 89 77 Pulse Rate [Pulse Oximeter] Respiratory Rate 14 18 18 Blood Pressure 96/63 Blood Pressure [Ri ght Upper Arm] Pulse Oximetry 98 99 98 [facility] 08/24/24 20:31 Temperature Pulse Rate 80 Pulse Rate [Pulse Oximeter] Respiratory Rate 16 Blood Pressure 104/61 Blood Pressure [Ri ght Upper Arm] Pulse Oximetry 97 Oxygen Delivery Me thod Course Vital Signs Vital signs: Initial Vital Signs Temperature 98.4 F 08/24/24 17:27 Temperature Source Temporal Artery Scan 08/24/24 17:27 Pulse Rate 92 08/24/24 17:27 Respiratory Rate 18 08/24/24 17:27 Blood Pressure 141/93 H 08/24/24 17:27 Blood Pressure Mean 109 H 08/24/24 17:27 Pulse Oximetry 94 08/24/24 17:27 Oxygen Delivery Method Room Air 08/24/24 17:27 Vital Signs Temperature 98.4 F 08/24/24 17:27 Pulse Rate 92 08/24/24 17:27 Respiratory Rate 18 08/24/24 17:27 Blood Pressure 141/93 H 08/24/24 17:27 Pulse Oximetry 94 08/24/24 17:27 Oxygen Delivery Method Room Air 08/24/24 17:27 Temperature 98.4 F 08/24/24 17:27 Pulse Rate 80 08/24/24 20:31 Respiratory Rate 16 08/24/24 20:31 Blood Pressure 104/61 08/24/24 20:31 Pulse Oximetry 97 08/24/24 20:31 Oxygen Delivery Method Room Air 08/24/24 17:27 Medications Administered Medications: Discontinued Medications Generic Name Dose Route Start Last Admin Trade Name Corey PRN Reason Stop Dose Admin Acetaminophen 1,000 mg 08/24/24 19:45 08/24/24 19:55 Acetaminophen 500 Mg Tablet PO 08/24/24 19:46 1,000 mg ONCE ONE Administration Fentanyl 25 mcg 08/24/24 18:01 08/24/24 18:50 Fentanyl 100 Mcg/2 Ml Inj IVP 08/24/24 18:02 25 mcg ONCE ONE Administration Medical Decision Making MDM Narrative Medical decision making narrative: Very pleasant 84-year-old male with a history of dementia brought to the ER today after he had a fall. He reportedly fell while doing yd work but it sounds like actually fell in his assisted living apartment. He does have several recent falls this week, per his assisted living staff. In terms of injuries from the fall, fortunately there is no sign of any serious or surgical injury. He does have a fairly large left hip contusion/hematoma but no evidence for associated hip or pelvic fracture on CT imaging. No evidence for other intra-abdominal or intrapelvic injury, thoracic injury. Head CT is normal. It sounds like he was on the floor of his apartment for a couple of hours before he was found today. It does not sound like this is a long down time, but we did check CK to look for possible muscle breakdown a rhabdo. CK is normal at 105. In terms of evaluation for potential causes of weakness and falls, workup was undertaken. BMP shows normal electrolytes, kidney function. Normal blood sugar. EKG shows no definite arrhythmia or ischemia. He is not having any chest pain. We did check a screening troponin is undetectable. He does have recent UTI but you cath urinalysis today is normal. No signs of active urinary infection. He is not febrile. White count is minimally elevated at 11.2 but no clear evidence for infection or sepsis. Discussed results with the patient and his family. At this point were concerned about his recurrent falls, dementia, weakness. He still having a lot a hip pain even though there is no visible fracture on the abdomen/pelvis CT. Will admit him to the hospitalist service for observation overnight. May need further evaluation tomorrow by physical therapy with regard to his balance and gait to see why he is falling. Also of his hip pain is unimproved, may need MRI to look for possible occult fracture. Dr. Singh graciously accepts for admission. Please see hospitalist notes for further details about admission status and further workup. Lab Data Labs: Lab Results 08/24/24 08/24/24 08/24/24 Range/Units 18:02 18:02 18:02 WBC (4.50-11.00) K/uL RBC (4.30-5.90) m/uL Hgb (13.5-17.5) gm/dL Hct (37.0-53.0) % MCV (80-100) fL MCH (26-34) pg MCHC (32-36) gm/dL RDW Coeff of Marisa (11.5-15.5) % Plt Count (140-440) K/uL Neut % (Auto) (42.0-72.0) % Lymph % (Auto) (20-44) % [place] % (Auto) (0.0-11.0) % Eos % (Auto) (0.0-7.0) % Baso % (Auto) (0.0-3.0) % Neut # (Auto) (1.7-7.0) K/uL Lymph # (Auto) (0.90-2.90) K/uL [place] # (Auto) (0.00-0.90) K/UL Eos # (Auto) (0.00-0.50) K/uL Baso # (Auto) (0.00-0.30) K/uL Abs Immat Gran (auto) (0.00-0.30) K/uL Imm/Tot Granulo (auto) % INR (0.91-1.10) Sodium (135-149) mmol/L Potassium (3.6-5.1) mmol/L Chloride (96-114) mmol/L Carbon Dioxide (20-32) mmol/L Anion Gap (7-15) mEq/L BUN (7-30) mg/dL Creatinine (0.5-1.5) mg/dL Estimated Creat Clear Estimated GFR ml/min Glucose (60-115) mg/dL Lactate (0.5-1.9) mmol/L Calcium (8.4-10.6) mg/dL Total Creatine Kinase (54-186) U/L Troponin I (0.01-0.04) ng/mL Urine Color Cancelled Yellow Urine Appearance Cancelled Clear Urine pH Cancelled Ur Specific [place] Urine Protein Urine Glucose (UA) Urine Ketones Urine Blood Urine Nitrite Urine Bilirubin Urine Urobilinogen Ur Leukocyte Esterase Urine RBC Urine WBC Urine WBC Clumps Ur Squamous Epith Cells [place] Biurate Crystals Calcium Carbonate Cryst Calcium Phosphate Cryst Calcium Oxalate Crystal Cystine Crystals Uric Acid Crystals Triple Phos Crystals Sulfur Crystals Cholesterol Crystals Tyrosine Crystals Hippuric Acid Crystals Amorphous Sediment Other Sediment Urine Bacteria Fatty Casts Hyaline Casts Fine Granular Casts Coarse Granular Casts Waxy Casts RBC Casts WBC Casts Other Casts Urine Starch Urine Mucus Urine Trichomonas Urine Yeast 08/24/24 08/24/24 08/24/24 Range/Units 18:02 18:02 18:02 WBC (4.50-11.00) K/uL RBC (4.30-5.90) m/uL Hgb (13.5-17.5) gm/dL Hct (37.0-53.0) % MCV (80-100) fL MCH (26-34) pg MCHC (32-36) gm/dL RDW Coeff of Marisa (11.5-15.5) % Plt Count (140-440) K/uL Neut % (Auto) (42.0-72.0) % Lymph % (Auto) (20-44) % [place] % (Auto) (0.0-11.0) % Eos % (Auto) (0.0-7.0) % Baso % (Auto) (0.0-3.0) % Neut # (Auto) (1.7-7.0) K/uL Lymph # (Auto) (0.90-2.90) K/uL [place] # (Auto) (0.00-0.90) K/UL Eos # (Auto) (0.00-0.50) K/uL Baso # (Auto) (0.00-0.30) K/uL Abs Immat Gran (auto) (0.00-0.30) K/uL Imm/Tot Granulo (auto) % INR (0.91-1.10) Sodium (135-149) mmol/L Potassium (3.6-5.1) mmol/L Chloride (96-114) mmol/L Carbon Dioxide (20-32) mmol/L Anion Gap (7-15) mEq/L BUN (7-30) mg/dL Creatinine (0.5-1.5) mg/dL Estimated Creat Clear Estimated GFR ml/min Glucose (60-115) mg/dL Lactate (0.5-1.9) mmol/L Calcium (8.4-10.6) mg/dL Total Creatine Kinase (54-186) U/L Troponin I (0.01-0.04) ng/mL Urine Color Urine Appearance Urine pH 5.5 Ur Specific [place] Cancelled <= 1.005 Urine Protein Cancelled Negative Urine Glucose (UA) Cancelled Urine Ketones Urine Blood Urine Nitrite Urine Bilirubin Urine Urobilinogen Ur Leukocyte Esterase Urine RBC Urine WBC Urine WBC Clumps Ur Squamous Epith Cells [place] Biurate Crystals Calcium Carbonate Cryst Calcium Phosphate Cryst Calcium Oxalate Crystal Cystine Crystals Uric Acid Crystals Triple Phos Crystals Sulfur Crystals Cholesterol Crystals Tyrosine Crystals Hippuric Acid Crystals Amorphous Sediment Other Sediment Urine Bacteria Fatty Casts Hyaline Casts Fine Granular Casts Coarse Granular Casts Waxy Casts RBC Casts WBC Casts Other Casts Urine Starch Urine Mucus Urine Trichomonas Urine Yeast 08/24/24 08/24/24 08/24/24 Range/Units 18:02 18:02 18:02 WBC (4.50-11.00) K/uL RBC (4.30-5.90) m/uL Hgb (13.5-17.5) gm/dL Hct (37.0-53.0) % MCV (80-100) fL MCH (26-34) pg MCHC (32-36) gm/dL RDW Coeff of Marisa (11.5-15.5) % Plt Count (140-440) K/uL Neut % (Auto) (42.0-72.0) % Lymph % (Auto) (20-44) % [place] % (Auto) (0.0-11.0) % Eos % (Auto) (0.0-7.0) % Baso % (Auto) (0.0-3.0) % Neut # (Auto) (1.7-7.0) K/uL Lymph # (Auto) (0.90-2.90) K/uL [place] # (Auto) (0.00-0.90) K/UL Eos # (Auto) (0.00-0.50) K/uL Baso # (Auto) (0.00-0.30) K/uL Abs Immat Gran (auto) (0.00-0.30) K/uL Imm/Tot Granulo (auto) % INR (0.91-1.10) Sodium (135-149) mmol/L Potassium (3.6-5.1) mmol/L Chloride (96-114) mmol/L Carbon Dioxide (20-32) mmol/L Anion Gap (7-15) mEq/L BUN (7-30) mg/dL Creatinine (0.5-1.5) mg/dL Estimated Creat Clear Estimated GFR ml/min Glucose (60-115) mg/dL Lactate (0.5-1.9) mmol/L Calcium (8.4-10.6) mg/dL Total Creatine Kinase (54-186) U/L Troponin I (0.01-0.04) ng/mL Urine Color Urine Appearance Urine pH Ur Specific [place] Urine Protein Urine Glucose (UA) Negative Urine Ketones Cancelled Negative Urine Blood Cancelled Negative Urine Nitrite Cancelled Urine Bilirubin Urine Urobilinogen Ur Leukocyte Esterase Urine RBC Urine WBC Urine WBC Clumps Ur Squamous Epith Cells [place] Biurate Crystals Calcium Carbonate Cryst Calcium Phosphate Cryst Calcium Oxalate Crystal Cystine Crystals Uric Acid Crystals Triple Phos Crystals Sulfur Crystals Cholesterol Crystals Tyrosine Crystals Hippuric Acid Crystals Amorphous Sediment Other Sediment Urine Bacteria Fatty Casts Hyaline Casts Fine Granular Casts Coarse Granular Casts Waxy Casts RBC Casts WBC Casts Other Casts Urine Starch Urine Mucus Urine Trichomonas Urine Yeast 08/24/24 08/24/24 08/24/24 Range/Units 18:02 18:02 18:02 WBC (4.50-11.00) K/uL RBC (4.30-5.90) m/uL Hgb (13.5-17.5) gm/dL Hct (37.0-53.0) % MCV (80-100) fL MCH (26-34) pg MCHC (32-36) gm/dL RDW Coeff of Marisa (11.5-15.5) % Plt Count (140-440) K/uL Neut % (Auto) (42.0-72.0) % Lymph % (Auto) (20-44) % [place] % (Auto) (0.0-11.0) % Eos % (Auto) (0.0-7.0) % Baso % (Auto) (0.0-3.0) % Neut # (Auto) (1.7-7.0) K/uL Lymph # (Auto) (0.90-2.90) K/uL [place] # (Auto) (0.00-0.90) K/UL Eos # (Auto) (0.00-0.50) K/uL Baso # (Auto) (0.00-0.30) K/uL Abs Immat Gran (auto) (0.00-0.30) K/uL Imm/Tot Granulo (auto) % INR (0.91-1.10) Sodium (135-149) mmol/L Potassium (3.6-5.1) mmol/L Chloride (96-114) mmol/L Carbon Dioxide (20-32) mmol/L Anion Gap (7-15) mEq/L BUN (7-30) mg/dL Creatinine (0.5-1.5) mg/dL Estimated Creat Clear Estimated GFR ml/min Glucose (60-115) mg/dL Lactate (0.5-1.9) mmol/L Calcium (8.4-10.6) mg/dL Total Creatine Kinase (54-186) U/L Troponin I (0.01-0.04) ng/mL Urine Color Urine Appearance Urine pH Ur Specific [place] Urine Protein Urine Glucose (UA) Urine Ketones Urine Blood Urine Nitrite Negative Urine Bilirubin Cancelled Negative Urine Urobilinogen Cancelled 1.0 Ur Leukocyte Esterase Cancelled Urine RBC Urine WBC Urine WBC Clumps Ur Squamous Epith Cells [place] Biurate Crystals Calcium Carbonate Cryst Calcium Phosphate Cryst Calcium Oxalate Crystal Cystine Crystals Uric Acid Crystals Triple Phos Crystals Sulfur Crystals Cholesterol Crystals Tyrosine Crystals Hippuric Acid Crystals Amorphous Sediment Other Sediment Urine Bacteria Fatty Casts Hyaline Casts Fine Granular Casts Coarse Granular Casts Waxy Casts RBC Casts WBC Casts Other Casts Urine Starch Urine Mucus Urine Trichomonas Urine Yeast 08/24/24 08/24/24 08/24/24 Range/Units 18:02 18:02 18:02 WBC (4.50-11.00) K/uL RBC (4.30-5.90) m/uL Hgb (13.5-17.5) gm/dL Hct (37.0-53.0) % MCV (80-100) fL MCH (26-34) pg MCHC (32-36) gm/dL RDW Coeff of Marisa (11.5-15.5) % Plt Count (140-440) K/uL Neut % (Auto) (42.0-72.0) % Lymph % (Auto) (20-44) % [place] % (Auto) (0.0-11.0) % Eos % (Auto) (0.0-7.0) % Baso % (Auto) (0.0-3.0) % Neut # (Auto) (1.7-7.0) K/uL Lymph # (Auto) (0.90-2.90) K/uL [place] # (Auto) (0.00-0.90) K/UL Eos # (Auto) (0.00-0.50) K/uL Baso # (Auto) (0.00-0.30) K/uL Abs Immat Gran (auto) (0.00-0.30) K/uL Imm/Tot Granulo (auto) % INR (0.91-1.10) Sodium (135-149) mmol/L Potassium (3.6-5.1) mmol/L Chloride (96-114) mmol/L Carbon Dioxide (20-32) mmol/L Anion Gap (7-15) mEq/L BUN (7-30) mg/dL Creatinine (0.5-1.5) mg/dL Estimated Creat Clear Estimated GFR ml/min Glucose (60-115) mg/dL Lactate (0.5-1.9) mmol/L Calcium (8.4-10.6) mg/dL Total Creatine Kinase (54-186) U/L Troponin I (0.01-0.04) ng/mL Urine Color Urine Appearance Urine pH Ur Specific [place] Urine Protein Urine Glucose (UA) Urine Ketones Urine Blood Urine Nitrite Urine Bilirubin Urine Urobilinogen Ur Leukocyte Esterase Negative Urine RBC Cancelled 0-2 Urine WBC Cancelled 0-2 Urine WBC Clumps Cancelled Ur Squamous Epith Cells Cancelled [place] Biurate Crystals Calcium Carbonate Cryst Calcium Phosphate Cryst Calcium Oxalate Crystal Cystine Crystals Uric Acid Crystals Triple Phos Crystals Sulfur Crystals Cholesterol Crystals Tyrosine Crystals Hippuric Acid Crystals Amorphous Sediment Other Sediment Urine Bacteria Fatty Casts Hyaline Casts Fine Granular Casts Coarse Granular Casts Waxy Casts RBC Casts WBC Casts Other Casts Urine Starch Urine Mucus Urine Trichomonas Urine Yeast 08/24/24 08/24/24 08/24/24 Range/Units 18:02 18:02 18:45 WBC 11.28 H (4.50-11.00) K/uL RBC 4.25 L (4.30-5.90) m/uL Hgb 12.2 L (13.5-17.5) gm/dL Hct 39.7 (37.0-53.0) % MCV 93 (80-100) fL MCH 29 (26-34) pg MCHC 31 L (32-36) gm/dL RDW Coeff of Marisa 13.9 (11.5-15.5) % Plt Count 198 (140-440) K/uL Neut % (Auto) 84.2 H (42.0-72.0) % Lymph % (Auto) 6.9 L (20-44) % [place] % (Auto) 8.2 (0.0-11.0) % Eos % (Auto) 0.2 (0.0-7.0) % Baso % (Auto) 0.3 (0.0-3.0) % Neut # (Auto) 9.50 H (1.7-7.0) K/uL Lymph # (Auto) 0.80 L (0.90-2.90) K/uL [place] # (Auto) 0.90 (0.00-0.90) K/UL Eos # (Auto) 0.00 (0.00-0.50) K/uL Baso # (Auto) 0.00 (0.00-0.30) K/uL Abs Immat Gran (auto) 0.00 (0.00-0.30) K/uL Imm/Tot Granulo (auto) 0.2 % INR 1.35 H (0.91-1.10) Sodium 136 (135-149) mmol/L Potassium 4.0 (3.6-5.1) mmol/L Chloride 102 (96-114) mmol/L Carbon Dioxide 30 (20-32) mmol/L Anion Gap 4 L (7-15) mEq/L BUN 19 (7-30) mg/dL Creatinine 0.9 (0.5-1.5) mg/dL Estimated Creat Clear 53.03 Estimated GFR 83 ml/min Glucose 116 H (60-115) mg/dL Lactate 1.7 (0.5-1.9) mmol/L Calcium 8.8 (8.4-10.6) mg/dL Total Creatine Kinase 106 (54-186) U/L Troponin I < 0.01 (0.01-0.04) ng/mL Urine Color Urine Appearance Urine pH Ur Specific [place] Urine Protein Urine Glucose (UA) Urine Ketones Urine Blood Urine Nitrite Urine Bilirubin Urine Urobilinogen Ur Leukocyte Esterase Urine RBC Urine WBC Urine WBC Clumps Ur Squamous Epith Cells Few [place] Biurate Crystals Cancelled Calcium Carbonate Cryst Cancelled Calcium Phosphate Cryst Cancelled Calcium Oxalate Crystal Cancelled Cystine Crystals Cancelled Uric Acid Crystals Cancelled Triple Phos Crystals Cancelled Sulfur Crystals Cancelled Cholesterol Crystals Cancelled Tyrosine Crystals Cancelled Hippuric Acid Crystals Cancelled Amorphous Sediment Cancelled Other Sediment Cancelled Urine Bacteria Cancelled None Fatty Casts Cancelled Hyaline Casts Cancelled Fine Granular Casts Cancelled Coarse Granular Casts Cancelled Waxy Casts Cancelled RBC Casts Cancelled WBC Casts Cancelled Other Casts Cancelled Urine Starch Cancelled Urine Mucus Cancelled Urine Trichomonas Cancelled Urine Yeast Cancelled Imaging Data CT scan - head: Attestation: I have reviewed the pertinent imaging results. Radiologist's impression: IMPRESSION: 1. No radiographic evidence of acute intracranial abnormalities. 2. Moderate cerebral atrophy. 3. Moderate supratentorial white matter changes that are non-specific, but statistically most likely related to chronic small vessel ischemic disease. CT Chest/Ab/Pelvis: Attestation: I have reviewed the pertinent imaging results. Radiologist's impression: IMPRESSION: 1. Large soft tissue contusion overlying the posterolateral left hip. No underlying fracture. 2. No other evidence of an acute traumatic injury within the chest, abdomen, or pelvis. 2. Several chronic findings, as above. ECG Data Attestation: I personally reviewed and interpreted this ECG as follows: Interpretation: Sinus tachycardia with premature atrial complexes Rate 106 TX interval 174 Normal QRS axis. No pathologic Q-waves but does have tiny cues in leads V1 and V2. He does have increased R to S ratio in lead V1 and early R-wave progression in the precordial leads. No ST segment elevation or depression. QTC 467 Discharge Plan Discharge Clinical Impression: Fall, Contusion of hip, Dementia Patient Disposition: Admitted As Observation
--- NOTE | 2024-08-24 18:00 | CRLHL7_ITS ---
For Patients: As a result of the Century Cures Act, medical imaging exams and procedure reports are released immediately into your electronic medical record. You may view this report before your referring provider. If you have questions, please contact your health care provider. INDICATION: FALL, DEMENTIA, LT FLANK PAIN, LOW BACK PAIN. TECHNIQUE: CT chest, abdomen and pelvis acquired with 114 cc of Isovue 370 IV contrast. COMPARISON: CT chest and CT abdomen and pelvis 06/29/2024. FINDINGS: CHEST: Cardiovascular structures: Heart size is normal. Thoracic aorta and main pulmonary artery are normal in caliber. Coronary artery and thoracic aorta atherosclerotic calcification. Mitral annulus calcification. Mediastinum and shruthi: No mass or adenopathy. Lungs and pleura: Lungs and pleural spaces are clear. No suspicious nodules, infiltrates, or effusions. Elevated left hemidiaphragm Chest wall and axilla: No mass or adenopathy. Bones: Unchanged mild T8 compression deformity. No aggressive osseous lesion. ABDOMEN AND PELVIS: Liver: Unremarkable. No sign of acute injury. Gallbladder and bile ducts: Unremarkable. Pancreas: Unremarkable. Spleen: Unremarkable. No sign of acute injury. Adrenal glands: Unremarkable. Kidneys: Multifocal renal cortical scarring in the kidneys bilaterally. No stone, mass, hydronephrosis. GI tract: Unchanged surgical anastomosis in the region of the sigmoid colon with a patulous stool filled segment of colon. No bowel obstruction or mural thickening. The appendix is not visualized Vascular structures: Unremarkable. Mesenteric arteries are patent. Lymph nodes: Unremarkable. Miscellaneous: Large soft tissue contusion overlying the posterolateral left hip. No free air or significant free fluid. Pelvic Organs: Unremarkable. Bones: No acute fracture or dislocation. IMPRESSION: 1. Large soft tissue contusion overlying the posterolateral left hip. No underlying fracture. 2. No other evidence of an acute traumatic injury within the chest, abdomen, or pelvis. 2. Several chronic findings, as above. Please note that all CT scans at this facility use dose modulation, iterative reconstruction, and/or weight-based dosing when appropriate to reduce radiation dose to as low as reasonably achievable. Dictated by Jaren Cortes MD @ 08/24/2024 8:07:40 PM (Electronically Signed)
--- NOTE | 2024-08-24 18:01 | CRLHL7_ITS ---
For Patients: As a result of the Century Cures Act, medical imaging exams and procedure reports are released immediately into your electronic medical record. You may view this report before your referring provider. If you have questions, please contact your health care provider. INDICATION: Trauma. Dementia TECHNIQUE: Noncontrast axial CT of the head is submitted. COMPARISON: Compared to prior study from July 29, 2024 FINDINGS: Moderate cerebral atrophy. The ventricles, sulci and gyri are of normal size, shape and contour for age and degree of atrophy. Midline structures are centrally located. No convincing evidence of suspicious intra- or extra-axial fluid collections. Moderate patchy regions of decreased attenuation within the periventricular and subcortical white matter of both cerebral hemispheres. IMPRESSION: 1. No radiographic evidence of acute intracranial abnormalities. 2. Moderate cerebral atrophy. 3. Moderate supratentorial white matter changes that are non-specific, but statistically most likely related to chronic small vessel ischemic disease. Please note that all CT scans at this facility use dose modulation, iterative reconstruction, and/or weight-based dosing when appropriate to reduce radiation dose to as low as reasonably achievable. Dictated by Dany Nunes MD @ 08/24/2024 7:19:53 PM (Electronically Signed)
[2024-08-24 19:03] LABS: Lactate* 1.7 mmol/L (0.5-1.9)
[2024-08-24 19:08] LABS: Hematocrit 39.7 % (37.0-53.0); Hemoglobin* 12.2 gm/dL (13.5-17.5); Immature Granulocytes Pct Auto 0.2 %; Mean Corpuscular HGB Conc 31 gm/dL (32-36); Mean Corpuscular Hemoglobin 29 pg (26-34); Mean Corpuscular Volume 93 fL (80-100); RDW Coefficient of Variation % 13.9 % (11.5-15.5); Red Blood Count 4.25 m/uL (4.30-5.90); White Blood Count* 11.28 K/uL (4.50-11.00)
[2024-08-24 19:13] LABS: Immature Granulocytes Abs Auto 0.00 K/uL (0.00-0.30); Lymphocytes Absolute Auto 0.80 K/uL (0.90-2.90); Slide Review Reflex No
[2024-08-24 19:22] LABS: Chloride* 102 mmol/L (96-114); Potassium* 4.0 mmol/L (3.6-5.1); Sodium* 136 mmol/L (135-149)
[2024-08-24 19:23] LABS: INR 1.35 (0.91-1.10); Prothrombin Time 17.6 Seconds
[2024-08-24 19:25] LABS: Anion Gap 4 mEq/L (7-15); Blood Urea Nitrogen* 19 mg/dL (7-30); Calcium* 8.8 mg/dL (8.4-10.6); Carbon Dioxide* 30 mmol/L (20-32); Creatine Kinase* 106 U/L (54-186); Creatinine* 0.9 mg/dL (0.5-1.5); Est. Creatinine Clearance* 53.03; Estimated Glomerular Filt Rate 83 ml/min; Glucose* 116 mg/dL (60-115)
[2024-08-24] MEDS: ACETAMINOPHEN 500 MG TABLET 1000 MG PO (19:55)
--- NOTE | 2024-08-24 20:00 | PC.NURSE ---
went to do glydo for cath and pt started voiding, caught urine and sent to lab
[2024-08-24 20:06] LABS: Appearance Urine Clear (Clear)
--- NOTE | 2024-08-24 22:31 | PM.IMHP1 ---
Assessment and Plan Assessment and plan (1) Frequent falls: Problem comment: Multifactorial. Unclear if he can continue to live in assisted living and ambulate independently. Status: Acute (2) Dementia: Problem comment: [place] score in January 2023 was 17/30. Repeat assessment Status: Acute (3) Recurrent urinary tract infection: Problem comment: July 2024 had Pseudomonas infection. Treated with Keflex. Currently, 08/24/2024, no symptoms and relatively normal urinalysis Status: Acute (4) Frail elderly: Problem comment: According to family appears to need more assistance. Status: Acute Plan Patient is admitted the hospital to evaluate for evidence of acute illness or treatable underlying condition contributing to his falls or evidence of disabling injury from his falls. Total Time Spent Total Time Spent: Total time spent today is 65 minutes in coordination of care and discussing with other providers ongoing management of falls and frailty Hospitalist- H&P: HPI History of Present Illness Date Seen: 08/24/24 Chief complaint: fall Narrative: Judah Roger is a 84 year old male with dementia, history of pulmonary embolism, BPH with recurrent urinary infections admitted through the emergency department with increased falls recently. He tells me that he fell yesterday while doing some yd work. He indicates he is having some generalized pain from his falls. He is unable to give much history of recent events due to dementia. Family members were present but had left by the time I saw the patient. According to the emergency room doctor the family felt he was not safe to be living at assisted living at [facility] due to recurrent falls. A month ago he was seen in our emergency room and diagnosed with the urinary tract infection. He was treated with Keflex. Culture eventually grew Pseudomonas but he never had specific treatment for Pseudomonas that I can determine from reviewing his records. He is not having any urinary symptoms and his urinalysis is quite normal now. He denies having a fever. He is getting ongoing outpatient psychotherapy for anxiety and depression. Review of Systems Narrative: He reports generalized pain from falls. Medical Decision Making Medical Decision Making Code Status: DNR Has patient completed a Health Care Directive: Yes PFSH PFSH Medical History History of pulmonary embolism ?Z86.711 - Personal history of pulmonary embolism (ICD-10) BPH without obstruction/lower urinary tract symptoms ?N40.0 - Benign prostatic hyperplasia without lower urinary tract symptoms (ICD-10) Frail elderly ?R54 - Age-related physical debility (ICD-10) Recurrent urinary tract infection ?N39.0 - Urinary tract infection, site not specified (ICD-10) Frequent falls ?R29.6 - Repeated falls (ICD-10) Sepsis ?A41.9 - Sepsis, unspecified organism (ICD-10) Urinary incontinence ?R32 - Unspecified urinary incontinence (ICD-10) Depression, recurrent ?F33.9 - Major depressive disorder, recurrent, unspecified (ICD-10) Alzheimer dementia ?G30.9 - Alzheimer's disease, unspecified (ICD-10) ?F02.80 - Dementia in other diseases classified elsewhere, unspecified severity, without behavioral disturbance, psychotic disturbance, mood disturbance, and anxiety (ICD-10) Pulmonary embolism ?I26.99 - Other pulmonary embolism without acute cor pulmonale (ICD-10) COVID-19 ?U07.1 - COVID-19 (ICD-10) Health care directive on file ?Z78.9 - Other specified health status (ICD-10) Surgical History H/O abdominal surgery ?Z98.890 - Other specified postprocedural states (ICD-10) Family History (Updated 08/24/24 @ 22:35 by Inder Jonas MD) Father Coronary artery disease Mother Sarcoidosis Social History (Updated 08/24/24 @ 22:36 by Inder Jonas MD) Narrative: Living at [facility]. His daughter, Nargis, is here with him today. Denies tobacco or alcohol use. DNR. What is your current living situation?: I presently have a place to live Problems where you live: no known problems Problems where you live details: none In the past 12 months, utilities in danger of being shut off: no In past 12 months, lack of transportation kept you from medical appts, meetings, work, or getting things needed for daily living: yes In the past 12 mos, have been you worried that your food would run out before you had money to buy more?: never true In the past 12 mos, the food you bought just didn't last and you didn't have money to buy more?: never true Highest level of school completed/degree received: Bachelor's degree Smoking Status: Never smoker Do you use any of these nicotine containing products: None Second hand tobacco smoke exposure: No How often do you have a drink containing alcohol: monthly or less How many standard drinks containing alcohol do you have on a typical day: 1 or 2 How often do you have six or more drinks on one occasion: Never AUDIT-C Alcohol total score: 1 Non-prescribed substance use: denies use Caffeine: Yes (ceffee) How often does anyone, including family, friends and others, physically hurt you: never How often does anyone, including family, friends and others, insult or talk down to you: never How often does anyone, including family, friends and others, threaten you with harm: never How often does anyone, including family, friends and others, scream or curse at you: never service: No Health Related Social Needs: transportation insecurity (Z59.82) Meds Home Medications and Allergies Home Medications ?Medication ?Instructions ?Recorded ?Confirmed ?Type donepezil 10 mg tablet 10 mg PO HS 03/12/23 08/01/24 History rivaroxaban 20 mg tablet (Xarelto) 20 mg PO QPM 03/12/23 08/01/24 History tamsulosin 0.4 mg capsule 0.8 mg PO DAILY 03/12/23 08/01/24 History sertraline 100 mg tablet 150 mg PO QAM 06/15/23 08/01/24 History melatonin 5 mg tablet 5 mg PO HS 06/29/24 08/01/24 History cefuroxime axetil 500 mg tablet 500 mg PO BID 7 days #14 tabs 07/03/24 Rx cephalexin 500 mg capsule mg PO 08/01/24 History Allergies Allergy/AdvReac Type Severity Reaction Status Date / Time aspirin Allergy Verified 08/24/24 18:55 Exam Narrative: Exam Narrative: He is alert and appears in no distress. Speech is fluent. He is quite forgetful about recent events. He is oriented to being in the hospital. Head is without trauma. Eyes normal. Oropharynx normal. No facial asymmetry. Extraocular movements are full. Visual caballero are intact. Neck is supple without mass adenopathy or tenderness. Respirations are clear to auscultation. Breathing is unlabored. Cardiovascular: S1, S2, regular rate and rhythm. No murmur gallop or rub. Abdomen: Bowel sounds active. Abdomen is soft without tenderness or mass. External genitalia normal. Minimal erythema in the skin folds of the inguinal creases. He moves all 4 extremities well with full and symmetric strength. He struggles to sit up in bed using the hand rails on the bed. He requires prompting and instruction to do this. Rmkaym-lolh-qphtzy is accurate. Heel-hollingsworth is accurate. He has intact pedal pulses. No significant edema. Const: Vital Signs, click to edit/add: Vital Signs - 24 hr 08/24/24 17:27 08/24/24 17:28 08/24/24 17:30 Temperature 98.4 F Pulse Rate 94 91 Pulse Rate [Pulse Oximeter] 92 Respiratory Rate 18 Blood Pressure Blood Pressure [Ri ght Upper Arm] 141/93 H Pulse Oximetry 94 92 98 Oxygen Delivery Me thod Room Air 08/24/24 17:45 08/24/24 18:00 08/24/24 18:15 Temperature Pulse Rate 102 H 100 96 Pulse Rate [Pulse Oximeter] Respiratory Rate Blood Pressure Blood Pressure [Ri ght Upper Arm] Pulse Oximetry 92 96 95 Oxygen Delivery Me thod 08/24/24 18:34 08/24/24 19:05 08/24/24 19:15 Temperature Pulse Rate 95 108 H 108 H Pulse Rate [Pulse Oximeter] Respiratory Rate Blood Pressure Blood Pressure [Ri ght Upper Arm] Pulse Oximetry 96 96 97 Oxygen Delivery Me thod 08/24/24 19:30 08/24/24 19:45 08/24/24 20:00 Temperature Pulse Rate 102 H 83 Pulse Rate [Pulse Oximeter] Respiratory Rate 16 17 Blood Pressure Blood Pressure [Ri ght Upper Arm] Pulse Oximetry 93 98 Oxygen Delivery Me thod 08/24/24 20:15 08/24/24 20:25 08/24/24 20:30 Temperature Pulse Rate 110 H 89 77 Pulse Rate [Pulse Oximeter] Respiratory Rate 14 18 18 Blood Pressure 96/63 Blood Pressure [Ri ght Upper Arm] Pulse Oximetry 98 99 98 Oxygen Delivery Me thod 08/24/24 20:31 Temperature Pulse Rate 80 Pulse Rate [Pulse Oximeter] Respiratory Rate 16 Blood Pressure 104/61 Blood Pressure [Ri ght Upper Arm] Pulse Oximetry 97 Oxygen Delivery Me thod Documenting provider has reviewed patient's vital signs: yes Hospitalist - H&P: Result Labs Labs: Short CBC 08/24/24 Range/Units 18:45 WBC 11.28 H (4.50-11.00) K/uL Hgb 12.2 L (13.5-17.5) gm/dL Hct 39.7 (37.0-53.0) % Plt Count 198 (140-440) K/uL BMP 08/24/24 18:45 Sodium 136 Potassium 4.0 Chloride 102 Carbon Dioxide 30 BUN 19 Creatinine 0.9 Glucose 116 H Calcium 8.8 Cardiac Enzymes 08/24/24 Range/Units 18:45 Total Creatine Kinase 106 (54-186) U/L Troponin I < 0.01 (0.01-0.04) ng/mL Urine 08/24/24 08/24/24 08/24/24 Range/Units 18:02 18:02 18:02 Urine Color Cancelled Yellow Urine Appearance Cancelled Clear Urine pH Cancelled Ur Specific [place] Urine Protein Urine Glucose (UA) 08/24/24 08/24/24 08/24/24 Range/Units 18:02 18:02 18:02 Urine Color Urine Appearance Urine pH 5.5 Ur Specific [place] Cancelled <= 1.005 Urine Protein Cancelled Negative Urine Glucose (UA) Cancelled 08/24/24 Range/Units 18:02 Urine Color Urine Appearance Urine pH Ur Specific [place] Urine Protein Urine Glucose (UA) Negative Imaging CT Chest/Ab/Pelvis: Radiologist's impression: INDICATION: FALL, DEMENTIA, LT FLANK PAIN, LOW BACK PAIN. TECHNIQUE: CT chest, abdomen and pelvis acquired with 114 cc of Isovue 370 IV contrast. COMPARISON: CT chest and CT abdomen and pelvis 06/29/2024. FINDINGS: CHEST: Cardiovascular structures: Heart size is normal. Thoracic aorta and main pulmonary artery are normal in caliber. Coronary artery and thoracic aorta atherosclerotic calcification. Mitral annulus calcification. Mediastinum and shruthi: No mass or adenopathy. Lungs and pleura: Lungs and pleural spaces are clear. No suspicious nodules, infiltrates, or effusions. Elevated left hemidiaphragm Chest wall and axilla: No mass or adenopathy. Bones: Unchanged mild T8 compression deformity. No aggressive osseous lesion. ABDOMEN AND PELVIS: Liver: Unremarkable. No sign of acute injury. Gallbladder and bile ducts: Unremarkable. Pancreas: Unremarkable. Spleen: Unremarkable. No sign of acute injury. Adrenal glands: Unremarkable. Kidneys: Multifocal renal cortical scarring in the kidneys bilaterally. No stone, mass, hydronephrosis. GI tract: Unchanged surgical anastomosis in the region of the sigmoid colon with a patulous stool filled segment of colon. No bowel obstruction or mural thickening. The appendix is not visualized Vascular structures: Unremarkable. Mesenteric arteries are patent. Lymph nodes: Unremarkable. Miscellaneous: Large soft tissue contusion overlying the posterolateral left hip. No free air or significant free fluid. Pelvic Organs: Unremarkable. Bones: No acute fracture or dislocation. IMPRESSION: 1. Large soft tissue contusion overlying the posterolateral left hip. No underlying fracture. 2. No other evidence of an acute traumatic injury within the chest, abdomen, or pelvis. 2. Several chronic findings, as above. CT scan - head: Radiologist's impression: INDICATION: Trauma. Dementia TECHNIQUE: Noncontrast axial CT of the head is submitted. COMPARISON: Compared to prior study from July 29, 2024 FINDINGS: Moderate cerebral atrophy. The ventricles, sulci and gyri are of normal size, shape and contour for age and degree of atrophy. Midline structures are centrally located. No convincing evidence of suspicious intra- or extra-axial fluid collections. Moderate patchy regions of decreased attenuation within the periventricular and subcortical white matter of both cerebral hemispheres. IMPRESSION: 1. No radiographic evidence of acute intracranial abnormalities. 2. Moderate cerebral atrophy. 3. Moderate supratentorial white matter changes that are non-specific, but statistically most likely related to chronic small vessel ischemic disease.
[2024-08-25 03:00] VITALS: BP 106/75; PULSE 99; RESP 16; TEMP 36.2; O2SAT 94
[2024-08-25 07:00] VITALS: BP 96/65; PULSE 106; RESP 16; TEMP 36.6; O2SAT 95
--- NOTE | 2024-08-25 07:08 | PC.NURSE ---
[id number]: Pt pleasant, alert and oriented to self. VSS, though BPs were softer. Pt incontinent, checked and changed. Denies pain. Pt in bed, appears to be resting, call light within reach.??
[2024-08-25] MEDS: SERTRALINE 100 MG TABLET 150 MG PO (08:24)
[2024-08-25] MEDS: TAMSULOSIN HCL 0.4 MG CAPSULE 0.8 MG PO (08:25)
[2024-08-25] MEDS: SODIUM CHLORIDE 0.9 % (FLUSH) 10 ML SYRINGE 5 ML IVF (08:26)
[2024-08-25 09:48] VITALS: BMI 35.9
[2024-08-25 10:33] VITALS: BP 112/67; BP 68/47; BP 90/60; PULSE 112; PULSE 120; PULSE 124
[2024-08-25 10:51] VITALS: RESP 16; TEMP 36.6; O2SAT 98
--- NOTE | 2024-08-25 13:28 | P.DS_ITS ---
DS: Providers Provider Date Seen: 08/25/24 Date of admission: 08/24/24 22:20 Primary care physician: Ruperto Kearns MD Admitting Clinician: Inder Jonas MD Consults: 08/24/24 22:41 Consult to Occupational Therapy [CONS] Routine Comment: Reason(s) for OT Consult:: Evaluate and Treat Any Restrictions?:: No Restrictions Consult to Physical Therapy [CONS] Routine Comment: Reason(s) for PT Consult:: Evaluate and Treat Any Restrictions?:: No Restrictions Consult to Cardboard Inserter [CONS] Routine Comment: Reason for Consult:: Discharge Planning Needs 08/24/24 22:58 Consult to Cardboard Inserter [CONS] Routine Comment: Reason for Consult:: Possible SNF placement Attending Physician on discharge: Nancy Godinez [facility] Date of Discharge: 08/25/24 DS: Diagnosis Discharge Diagnosis (1) Frequent falls: Status: Acute Problem details: Multifactorial. Unclear if he can continue to live in assisted living and ambulate independently. CT head without acute intracranial findings. CT chest abdomen pelvis notable for contusion posterolateral hip, left. No other traumatic findings. health services coordinator assisting with discharge. Family would like patient to return to his usual living arrangement. OT and PT recommending increase level of care at discharge to provide SBA with all mobility. Accepted back to [facility]. Outpatient follow-up with PCP for ongoing management. (2) Dementia: Status: Acute Problem details: [place] score in January 2023 was 17/30. Continue home medications. Ongoing management with PCP. (3) Recurrent urinary tract infection: Status: Acute Problem details: July 2024 had Pseudomonas infection. Treated with Keflex. Currently, 08/24/2024, no symptoms and relatively normal urinalysis. (4) Frail elderly: Status: Acute Problem details: According to family appears to need more assistance. health services coordinator spoke with Nargis who would like for patient to return to his current living residence. This has been arranged. (5) Contusion of leg, left: Status: Acute Problem details: CT shows large soft tissue contusion overlying the posterolateral left hip. No underlying fracture. Symptomatic cares with Tylenol, ice/heat. Encourage mobility. Patient is on Xarelto. Hemoglobin is 12.2, at baseline. Monitor for new or worsening symptoms. DS: Summary Hospital Course Hospital Course: 84-year-old male with recurrent falls. Returning to current living residence per family request. PT OT consulted, recommending SBA with all mobilities. Outpatient follow-up with PCP. Status at Discharge Functional status at discharge: uses cane/walker Overall status at discharge: patient is back to baseline Time Spent with Patient Time attestation: Total time spent providing and/or coordinating discharge services: Time spent: Greater than 30 minutes Exam Narrative: Exam Narrative: PHYSICAL EXAM General: Very pleasant, conversant, NAD Cardiovascular: RRR Pulmonary: No dyspnea Neurological: Alert, answering questions appropriately this morning Skin: Warm, dry. Const: Vital Signs, click to edit/add: Vital Signs - 24 hr 08/24/24 17:27 08/24/24 17:28 08/24/24 17:30 Temperature 98.4 F Pulse Rate 94 91 Pulse Rate [Pulse Oximeter] 92 Pulse Rate [orthos tatic lying Pulse Oximeter] Pulse Rate [orthos tatic sitting Puls e Oximeter] Pulse Rate [orthos tatic standing Pul se Oximeter] Respiratory Rate 18 Blood Pressure Blood Pressure [Le ft Arm] Blood Pressure [Ri ght Upper Arm] 141/93 H Blood Pressure [or thostatic lying Ri ght Arm] Blood Pressure [or thostatic sitting Right Arm] Blood Pressure [or thostatic standing Right Arm] Pulse Oximetry 94 92 98 Oxygen Delivery Me thod Room Air 08/24/24 17:45 08/24/24 18:00 08/24/24 18:15 Temperature Pulse Rate 102 H 100 96 Pulse Rate [Pulse Oximeter] Pulse Rate [orthos tatic lying Pulse Oximeter] Pulse Rate [orthos tatic sitting Puls e Oximeter] Pulse Rate [orthos tatic standing Pul se Oximeter] Respiratory Rate Blood Pressure Blood Pressure [Le ft Arm] Blood Pressure [Ri ght Upper Arm] Blood Pressure [or thostatic lying Ri ght Arm] Blood Pressure [or thostatic sitting Right Arm] Blood Pressure [or thostatic standing Right Arm] Pulse Oximetry 92 96 95 Oxygen Delivery Me thod 08/24/24 18:34 08/24/24 19:05 08/24/24 19:15 Temperature Pulse Rate 95 108 H 108 H Pulse Rate [Pulse Oximeter] Pulse Rate [orthos tatic lying Pulse Oximeter] Pulse Rate [orthos tatic sitting Puls e Oximeter] Pulse Rate [orthos tatic standing Pul se Oximeter] Respiratory Rate Blood Pressure Blood Pressure [Le ft Arm] Blood Pressure [Ri ght Upper Arm] Blood Pressure [or thostatic lying Ri ght Arm] Blood Pressure [or thostatic sitting Right Arm] Blood Pressure [or thostatic standing Right Arm] Pulse Oximetry 96 96 97 Oxygen Delivery Me thod 08/24/24 19:30 08/24/24 19:45 08/24/24 20:00 Temperature Pulse Rate 102 H 83 Pulse Rate [Pulse Oximeter] Pulse Rate [orthos tatic lying Pulse Oximeter] Pulse Rate [orthos tatic sitting Puls e Oximeter] Pulse Rate [orthos tatic standing Pul se Oximeter] Respiratory Rate 16 17 Blood Pressure Blood Pressure [Le ft Arm] Blood Pressure [Ri ght Upper Arm] Blood Pressure [or thostatic lying Ri ght Arm] Blood Pressure [or thostatic sitting Right Arm] Blood Pressure [or thostatic standing Right Arm] Pulse Oximetry 93 98 Oxygen Delivery Mi thod 08/24/24 20:00 08/24/24 20:15 08/24/24 20:25 Temperature Pulse Rate 110 H 89 Pulse Rate [Pulse Oximeter] Pulse Rate [orthos tatic lying Pulse Oximeter] Pulse Rate [orthos tatic sitting Puls e Oximeter] Pulse Rate [orthos tatic standing Pul se Oximeter] Respiratory Rate 14 18 Blood Pressure 96/63 Blood Pressure [Le ft Arm] Blood Pressure [Ri ght Upper Arm] Blood Pressure [or thostatic lying Ri ght Arm] Blood Pressure [or thostatic sitting Right Arm] Blood Pressure [or thostatic standing Right Arm] Pulse Oximetry 97 98 99 Oxygen Delivery Mi thod 08/24/24 20:30 08/24/24 20:31 08/24/24 22:39 Temperature 98.4 F Pulse Rate 77 80 Pulse Rate [Pulse Oximeter] 85 Pulse Rate [orthos tatic lying Pulse Oximeter] Pulse Rate [orthos tatic sitting Puls e Oximeter] Pulse Rate [orthos tatic standing Pul se Oximeter] Respiratory Rate 18 16 16 Blood Pressure 104/61 Blood Pressure [Le ft Arm] Blood Pressure [Ri ght Upper Arm] 125/74 Blood Pressure [or thostatic lying Ri ght Arm] Blood Pressure [or thostatic sitting Right Arm] Blood Pressure [or thostatic standing Right Arm] Pulse Oximetry 98 97 97 Oxygen Delivery Mi thod Room Air 07/13/25 22:41 08/24/24 22:42 08/24/24 22:42 Temperature 98.4 F Pulse Rate Pulse Rate [Pulse Oximeter] 85 103 H Pulse Rate [orthos tatic lying Pulse Oximeter] Pulse Rate [orthos tatic sitting Puls e Oximeter] Pulse Rate [orthos tatic standing Pul se Oximeter] Respiratory Rate 16 16 16 Blood Pressure Blood Pressure [Le ft Arm] 98/62 Blood Pressure [Ri ght Upper Arm] 125/74 Blood Pressure [or thostatic lying Ri ght Arm] Blood Pressure [or thostatic sitting Right Arm] Blood Pressure [or thostatic standing Right Arm] Pulse Oximetry 97 97 Oxygen Delivery Me thod Room Air Room Air 08/24/24 23:00 08/24/24 23:43 08/25/24 03:00 Temperature 97.6 F 97.2 F L Pulse Rate Pulse Rate [Pulse Oximeter] 102 H 102 H 99 Pulse Rate [orthos tatic lying Pulse Oximeter] Pulse Rate [orthos tatic sitting Puls e Oximeter] Pulse Rate [orthos tatic standing Pul se Oximeter] Respiratory Rate 16 16 16 Blood Pressure Blood Pressure [Le ft Arm] 91/66 106/75 Blood Pressure [Ri ght Upper Arm] Blood Pressure [or thostatic lying Ri ght Arm] Blood Pressure [or thostatic sitting Right Arm] Blood Pressure [or thostatic standing Right Arm] Pulse Oximetry 91 94 Oxygen Delivery Me thod Room Air Room Air 08/25/24 07:00 08/25/24 10:33 08/25/24 10:51 Temperature 97.9 F 97.8 F Pulse Rate Pulse Rate [Pulse Oximeter] 106 H Pulse Rate [orthos tatic lying Pulse Oximeter] 112 H Pulse Rate [orthos tatic sitting Puls e Oximeter] 120 H Pulse Rate [orthos tatic standing Pul se Oximeter] 124 H Respiratory Rate 16 16 Blood Pressure Blood Pressure [Le ft Arm] 96/65 Blood Pressure [Ri ght Upper Arm] Blood Pressure [or thostatic lying Ri ght Arm] 112/67 Blood Pressure [or thostatic sitting Right Arm] 90/60 Blood Pressure [or thostatic standing Right Arm] 68/47 L Pulse Oximetry 95 98 Oxygen Delivery Me thod Room Air Room Air DS: Data Data Completed and Pending Completed studies during hospitalization: Procedures Introduction of Other Gas into Respiratory Tract, Via Natural or Artificial Opening (06/29/24) Labs on day of discharge: Labs from last 24 hours 08/24/24 08/24/24 08/24/24 18:45 18:02 18:02 WBC 11.28 H RBC 4.25 L Hgb 12.2 L Hct 39.7 MCV 93 MCH 29 MCHC 31 L RDW Coeff of Marisa 13.9 Plt Count 198 Neut % (Auto) 84.2 H Lymph % (Auto) 6.9 L [place] % (Auto) 8.2 Eos % (Auto) 0.2 Baso % (Auto) 0.3 Neut # (Auto) 9.50 H Lymph # (Auto) 0.80 L [place] # (Auto) 0.90 Eos # (Auto) 0.00 Baso # (Auto) 0.00 Abs Immat Gran (auto) 0.00 Imm/Tot Granulo (auto) 0.2 INR 1.35 H Sodium 136 Potassium 4.0 Chloride 102 Carbon Dioxide 30 Anion Gap 4 L BUN 19 Creatinine 0.9 Estimated Creat Clear 53.03 Estimated GFR 83 Glucose 116 H Lactate 1.7 Calcium 8.8 Total Creatine Kinase 106 Troponin I < 0.01 Urine Color Urine Appearance Urine pH Ur Specific [place] Urine Protein Urine Glucose (UA) Urine Ketones Urine Blood Urine Nitrite Urine Bilirubin Urine Urobilinogen Ur Leukocyte Esterase Urine RBC Urine WBC Urine WBC Clumps Ur Squamous Epith Cells Few [place] Biurate Crystals Cancelled Calcium Carbonate Cryst Cancelled Calcium Phosphate Cryst Cancelled Calcium Oxalate Crystal Cancelled Cystine Crystals Cancelled Uric Acid Crystals Cancelled Triple Phos Crystals Cancelled Sulfur Crystals Cancelled Cholesterol Crystals Cancelled Tyrosine Crystals Cancelled Hippuric Acid Crystals Cancelled Amorphous Sediment Cancelled Other Sediment Cancelled Urine Bacteria None Cancelled Fatty Casts Cancelled Hyaline Casts Cancelled Fine Granular Casts Cancelled Coarse Granular Casts Cancelled Waxy Casts Cancelled RBC Casts Cancelled WBC Casts Cancelled Other Casts Cancelled Urine Starch Cancelled Urine Mucus Cancelled Urine Trichomonas Cancelled Urine Yeast Cancelled 08/24/24 08/24/24 08/24/24 18:02 18:02 18:02 WBC RBC Hgb Hct MCV MCH MCHC RDW Coeff of Marisa Plt Count Neut % (Auto) Lymph % (Auto) [place] % (Auto) Eos % (Auto) Baso % (Auto) Neut # (Auto) Lymph # (Auto) [place] # (Auto) Eos # (Auto) Baso # (Auto) Abs Immat Gran (auto) Imm/Tot Granulo (auto) INR Sodium Potassium Chloride Carbon Dioxide Anion Gap BUN Creatinine Estimated Creat Clear Estimated GFR Glucose Lactate Calcium Total Creatine Kinase Troponin I Urine Color Urine Appearance Urine pH Ur Specific [place] Urine Protein Urine Glucose (UA) Urine Ketones Urine Blood Urine Nitrite Urine Bilirubin Urine Urobilinogen Ur Leukocyte Esterase Negative Urine RBC 0-2 Cancelled Urine WBC 0-2 Cancelled Urine WBC Clumps Cancelled Ur Squamous Epith Cells Cancelled [place] Biurate Crystals Calcium Carbonate Cryst Calcium Phosphate Cryst Calcium Oxalate Crystal Cystine Crystals Uric Acid Crystals Triple Phos Crystals Sulfur Crystals Cholesterol Crystals Tyrosine Crystals Hippuric Acid Crystals Amorphous Sediment Other Sediment Urine Bacteria Fatty Casts Hyaline Casts Fine Granular Casts Coarse Granular Casts Waxy Casts RBC Casts WBC Casts Other Casts Urine Starch Urine Mucus Urine Trichomonas Urine Yeast 08/24/24 08/24/24 08/24/24 18:02 18:02 18:02 WBC RBC Hgb Hct MCV MCH MCHC RDW Coeff of Marisa Plt Count Neut % (Auto) Lymph % (Auto) [place] % (Auto) Eos % (Auto) Baso % (Auto) Neut # (Auto) Lymph # (Auto) [place] # (Auto) Eos # (Auto) Baso # (Auto) Abs Immat Gran (auto) Imm/Tot Granulo (auto) INR Sodium Potassium Chloride Carbon Dioxide Anion Gap BUN Creatinine Estimated Creat Clear Estimated GFR Glucose Lactate Calcium Total Creatine Kinase Troponin I Urine Color Urine Appearance Urine pH Ur Specific [place] Urine Protein Urine Glucose (UA) Urine Ketones Urine Blood Urine Nitrite Negative Urine Bilirubin Negative Cancelled Urine Urobilinogen 1.0 Cancelled Ur Leukocyte Esterase Cancelled Urine RBC Urine WBC Urine WBC Clumps Ur Squamous Epith Cells [place] Biurate Crystals Calcium Carbonate Cryst Calcium Phosphate Cryst Calcium Oxalate Crystal Cystine Crystals Uric Acid Crystals Triple Phos Crystals Sulfur Crystals Cholesterol Crystals Tyrosine Crystals Hippuric Acid Crystals Amorphous Sediment Other Sediment Urine Bacteria Fatty Casts Hyaline Casts Fine Granular Casts Coarse Granular Casts Waxy Casts RBC Casts WBC Casts Other Casts Urine Starch Urine Mucus Urine Trichomonas Urine Yeast 08/24/24 08/24/24 08/24/24 18:02 18:02 18:02 WBC RBC Hgb Hct MCV MCH MCHC RDW Coeff of Marisa Plt Count Neut % (Auto) Lymph % (Auto) [place] % (Auto) Eos % (Auto) Baso % (Auto) Neut # (Auto) Lymph # (Auto) [place] # (Auto) Eos # (Auto) Baso # (Auto) Abs Immat Gran (auto) Imm/Tot Granulo (auto) INR Sodium Potassium Chloride Carbon Dioxide Anion Gap BUN Creatinine Estimated Creat Clear Estimated GFR Glucose Lactate Calcium Total Creatine Kinase Troponin I Urine Color Urine Appearance Urine pH Ur Specific [place] Urine Protein Urine Glucose (UA) Negative Urine Ketones Negative Cancelled Urine Blood Negative Cancelled Urine Nitrite Cancelled Urine Bilirubin Urine Urobilinogen Ur Leukocyte Esterase Urine RBC Urine WBC Urine WBC Clumps Ur Squamous Epith Cells [place] Biurate Crystals Calcium Carbonate Cryst Calcium Phosphate Cryst Calcium Oxalate Crystal Cystine Crystals Uric Acid Crystals Triple Phos Crystals Sulfur Crystals Cholesterol Crystals Tyrosine Crystals Hippuric Acid Crystals Amorphous Sediment Other Sediment Urine Bacteria Fatty Casts Hyaline Casts Fine Granular Casts Coarse Granular Casts Waxy Casts RBC Casts WBC Casts Other Casts Urine Starch Urine Mucus Urine Trichomonas Urine Yeast 08/24/24 08/24/24 08/24/24 18:02 18:02 18:02 WBC RBC Hgb Hct MCV MCH MCHC RDW Coeff of Marisa Plt Count Neut % (Auto) Lymph % (Auto) [place] % (Auto) Eos % (Auto) Baso % (Auto) Neut # (Auto) Lymph # (Auto) [place] # (Auto) Eos # (Auto) Baso # (Auto) Abs Immat Gran (auto) Imm/Tot Granulo (auto) INR Sodium Potassium Chloride Carbon Dioxide Anion Gap BUN Creatinine Estimated Creat Clear Estimated GFR Glucose Lactate Calcium Total Creatine Kinase Troponin I Urine Color Urine Appearance Urine pH 5.5 Ur Specific [place] <= 1.005 Cancelled Urine Protein Negative Cancelled Urine Glucose (UA) Cancelled Urine Ketones Urine Blood Urine Nitrite Urine Bilirubin Urine Urobilinogen Ur Leukocyte Esterase Urine RBC Urine WBC Urine WBC Clumps Ur Squamous Epith Cells [place] Biurate Crystals Calcium Carbonate Cryst Calcium Phosphate Cryst Calcium Oxalate Crystal Cystine Crystals Uric Acid Crystals Triple Phos Crystals Sulfur Crystals Cholesterol Crystals Tyrosine Crystals Hippuric Acid Crystals Amorphous Sediment Other Sediment Urine Bacteria Fatty Casts Hyaline Casts Fine Granular Casts Coarse Granular Casts Waxy Casts RBC Casts WBC Casts Other Casts Urine Starch Urine Mucus Urine Trichomonas Urine Yeast 07/08/24/24 08/24/24 18:02 18:02 18:02 WBC RBC Hgb Hct MCV MCH MCHC RDW Coeff of Marisa Plt Count Neut % (Auto) Lymph % (Auto) [place] % (Auto) Eos % (Auto) Baso % (Auto) Neut # (Auto) Lymph # (Auto) [place] # (Auto) Eos # (Auto) Baso # (Auto) Abs Immat Gran (auto) Imm/Tot Granulo (auto) INR Sodium Potassium Chloride Carbon Dioxide Anion Gap BUN Creatinine Estimated Creat Clear Estimated GFR Glucose Lactate Calcium Total Creatine Kinase Troponin I Urine Color Yellow Cancelled Urine Appearance Clear Cancelled Urine pH Cancelled Ur Specific [place] Urine Protein Urine Glucose (UA) Urine Ketones Urine Blood Urine Nitrite Urine Bilirubin Urine Urobilinogen Ur Leukocyte Esterase Urine RBC Urine WBC Urine WBC Clumps Ur Squamous Epith Cells [place] Biurate Crystals Calcium Carbonate Cryst Calcium Phosphate Cryst Calcium Oxalate Crystal Cystine Crystals Uric Acid Crystals Triple Phos Crystals Sulfur Crystals Cholesterol Crystals Tyrosine Crystals Hippuric Acid Crystals Amorphous Sediment Other Sediment Urine Bacteria Fatty Casts Hyaline Casts Fine Granular Casts Coarse Granular Casts Waxy Casts RBC Casts WBC Casts Other Casts Urine Starch Urine Mucus Urine Trichomonas Urine Yeast Imaging CT scan - head: Attestation: I have reviewed the pertinent imaging results. Radiologist's impression: Moderate cerebral atrophy. The ventricles, sulci and gyri are of normal size, shape and contour for age and degree of atrophy. Midline structures are centrally located. No convincing evidence of suspicious intra- or extra-axial fluid collections. Moderate patchy regions of decreased attenuation within the periventricular and subcortical white matter of both cerebral hemispheres. IMPRESSION: 1. No radiographic evidence of acute intracranial abnormalities. 2. Moderate cerebral atrophy. 3. Moderate supratentorial white matter changes that are non-specific, but statistically most likely related to chronic small vessel ischemic disease. CT Chest/Ab/Pelvis: Attestation: I have reviewed the pertinent imaging results. Radiologist's impression: CHEST: Cardiovascular structures: Heart size is normal. Thoracic aorta and main pulmonary artery are normal in caliber. Coronary artery and thoracic aorta atherosclerotic calcification. Mitral annulus calcification. Mediastinum and shruthi: No mass or adenopathy. Lungs and pleura: Lungs and pleural spaces are clear. No suspicious nodules, infiltrates, or effusions. Elevated left hemidiaphragm Chest wall and axilla: No mass or adenopathy. Bones: Unchanged mild T8 compression deformity. No aggressive osseous lesion. ABDOMEN AND PELVIS: Liver: Unremarkable. No sign of acute injury. Gallbladder and bile ducts: Unremarkable. Pancreas: Unremarkable. Spleen: Unremarkable. No sign of acute injury. Adrenal glands: Unremarkable. Kidneys: Multifocal renal cortical scarring in the kidneys bilaterally. No stone, mass, hydronephrosis. GI tract: Unchanged surgical anastomosis in the region of the sigmoid colon with a patulous stool filled segment of colon. No bowel obstruction or mural thickening. The appendix is not visualized Vascular structures: Unremarkable. Mesenteric arteries are patent. Lymph nodes: Unremarkable. Miscellaneous: Large soft tissue contusion overlying the posterolateral left hip. No free air or significant free fluid. Pelvic Organs: Unremarkable. Bones: No acute fracture or dislocation. IMPRESSION: 1. Large soft tissue contusion overlying the posterolateral left hip. No underlying fracture. 2. No other evidence of an acute traumatic injury within the chest, abdomen, or pelvis. 2. Several chronic findings, as above. Discharge Plan Discharge Disposition: [facility] Discharge Location: [facility] Date of Admission: 08/24/24 22:20 Attending Provider on Discharge: Nancy Godinez Primary Care Provider: Ruperto Kearns Condition: Improved Discharge Medications: Continued melatonin 5 mg tablet 5 mg PO HS donepezil 10 mg tablet 10 mg PO HS tamsulosin 0.4 mg capsule 0.8 mg PO DAILY Xarelto 20 mg tablet 20 mg PO QPM sertraline 100 mg tablet 150 mg PO QAM Discharge Orders: Discharge Order (Routine); Ordered 08/25/24 Ordered By: Nancy Godinez Activity Level: Activity as Tolerated Discharge Diet: Regular Follow Up Appointments: Ruperto Kearns MD [Primary Care Provider, Family Practice] Referral Note: Post hospital follow-up recurrent falls 3-5 days Forms: MyHealth Info Instructions Admit to: Assisted Living Can use facility standing orders?: Yes Code Status: DNR/DNI Oxygen: No Urinary Catheter: No Orders are good >30 days: No Signature: BRENDON Menchaca, PA-[facility] Hospitalist
--- NOTE | 2024-08-25 13:33 | PC.SOCIAL ---
Discharge planning: Called pt's dtr Nargis ([phone]) to discus discharge plans. Dtr confirmed pt lives at [facility] and that she wants him to return there at discharge. Dtr denied any family concerns about pt returning to [facility] or needing increased care. Dtr states she will transport pt back today if he is ready. Called [facility] and spoke with nurse, Marisela, who stated she will come to facility and meet with pt prior to admit back. Secure emailed requested information to Marisela for review. REceived call after Marisela had visited pt, confirming [facility] can accept pt back today. Called dtr, Nargis, who will pick pt up around 2:00 today for discharge back to [facility]. Discharge orders have been secured emailed to [facility].
[2024-08-25 14:27] VITALS: BP 104/71; BP 127/87; PULSE 122; PULSE 131
--- NOTE | 2024-08-25 14:31 | PC.NURSE ---
Pt discharged @ 1420 via wheelchair, accompanied by family member. Back to [facility] [employer] folder sent. Discharge form signed. IV removed. Pt in good condition. Final room check complete.
== END 2024-08-25 14:20 ==
LOC: ED 21:56 → MEDSURG 22:20
PROVIDERS: Admitting Provider Family Medicine; Emergency Provider Emergency Medicine; PCP Family Medicine; Visit Provider Family Medicine
DX: S70.02XA Contusion of left hip, initial encounter (principal); M54.50 Low back pain, unspecified; W18.30XA Fall on same level, unspecified, initial encounter; Y93.H2 Activity, gardening and landscaping; Y92.096 Garden or yard of other non-institutional residence as the place of occurrence of the external cause; R54 Age-related physical debility; Z91.81 History of falling; G30.9 Alzheimer's disease, unspecified; F02.80 Dementia in other diseases classified elsewhere, unspecified severity, without behavioral disturbance, psychotic disturbance, mood disturbance, and anxiety; Z86.711 Personal history of pulmonary embolism; Z79.01 Long term (current) use of anticoagulants; Z59.82 Transportation insecurity; Z87.440 Personal history of urinary (tract) infections; N40.1 Benign prostatic hyperplasia with lower urinary tract symptoms
CPT/HCPCS: 36415; 70450; 71260; 74177; 80048; 81001; 82550; 83605; 84484; 85025; 85610; 87081; 93005; 94761; 96374; 97161; 97166; 97535; 99285; A9270; G0378; J3010; Q9967

== ENCOUNTER 2024-08-27 05:35 | Outpatient (CLI) | payer MEDICARE, BC, SELFPAY | END 2024-08-27 05:36 | disposition home or self-care (01) | PROVIDERS: PCP Family Medicine; Visit Provider Family Medicine | DX: R41.82 Altered mental status, unspecified (principal); R53.1 Weakness | CPT/HCPCS: A0425; A0427 ==

== ENCOUNTER 2024-08-27 06:07 | Emergency (ER) | payer MEDICARE, BC, SELFPAY ==
--- OUTSIDE RECORDS SUMMARY | 2002-11-24 03:00 | XMS_ITS | Continuity of Care Document ---
Author Organization [facility] Address [address] [address] [place] [address] Phone Care Team Providers Care Care Team Coordinator Scheduler Name Role Phone Eric Iglesias MD Unavailable Unavailable Advance Directives Directive Yes / No Effective Date File Name No Information Encounters Encounter Description Practice Location Reason(s) For Visit Diagnoses Date Provider Providers Copied on Encounter [facility], [address] [address], [place], [place], [id number], [place] tel:[phone] [facility] No Information Harris Reyes. [address] [facility], [facility] [address], [place], [place], [id number], [place]. tel:[phone] Referring Provider: Romain Strickland MD, [facility] [place], [address]. tel:[phone] Family History Family Member Type Diagnosis Age At Onset No Information Payers Payer name Insurance type Covered democrat ID Authorpinga jaylen(s) [employer] [id number] Social History Type Description Quantity Date Captured [...]
--- OUTSIDE RECORDS SUMMARY | 2002-11-24 03:00 | XMS_ITS | Continuity of Care Document ---
Author Organization [facility] Address [address] [address] [place] [address] Phone Care Team Providers Care Cloth Opener Hand Name Role Phone Eric Iglesias MD Unavailable Unavailable Advance Directives Directive Yes / No Effective Date File Name No Information Encounters Encounter Description Practice Location Reason(s) For Visit Diagnoses Date Provider Providers Copied on Encounter [facility], [address] [address], [place], [place], [id number], [place] tel:[phone] [facility] No Information Harris Reyes. [address] [facility], [facility] [address], [place], [place], [id number], [place]. tel:[phone] Referring Provider: Romain Strickland MD, [facility] [place], [address]. tel:[phone] Family History Family Member Type Diagnosis Age At Onset No Information Payers Payer name Insurance type Covered green party ID Authorpinga jaylen(s) [employer] [id number] Social History Type Description Quantity Date Captured [...]
--- OUTSIDE RECORDS SUMMARY | 2024-08-27 06:08 | XMS_ITS | Clinical Summary ---
Author Organization [employer] Address [facility] [place] [address] Care Team Providers Care Horser Up Name Role Phone Ruperto Kearns MD Primary Care Provider [phone] [facility], Norvell Unavailable [phone] Allergies Active Allergy Reactions Criticality Noted Date [...] Encounters Date Type Department Care Team Description 08/26/2024 Home Care Visit [facility] [address] [place] [phone] Maryolu Whiting LISW HUNTER - HOME VISIT 08/26/2024 Telephone [facility] [address] [place] [address] Ruperto Kearns MD Imaging 08/24/2024 Orders Only [facility] Scanner 1 scan: (1-Ord) MEADOW, CHEST ABDOMEN PELV W CON, 08/24/2024 08/24/2024 Orders Only [facility] Scanner 1 scan: (1-Ord) MEADOW, HEAD/BRAIN WO CON, 08/24/2024 08/22/2024 Home Care Visit [facility] [address] [place] [phone] Marylou Whiting LISW CARE COORDINATION 08/21/2024 2:00 PM CDT Office Visit [facility] [address] [place] [address] Mina Ray, [facility] Visit 08/21/2024 9:00 AM CDT Home Care Visit [facility] [address] [place] [address] Tulio Combs, LIVESTOCK PRODUCER LIVESTOCK PRODUCER - REASSESSMENT 08/21/2024 Home Care Visit [facility] [address] [place] [phone] Marylou Whiting LISW HUNTER - TELEHEALTH VISIT 08/20/2024 3:30 PM CDT Home Care Visit [facility] [address] [place] [phone] Raleigh Fontenot, PT PT - DISCIPLINE DISCHARGE 08/20/2024 Home Care Visit [facility] [address] [place] [phone] Raleigh Fontenot, PT CARE COORDINATION 08/20/2024 Travel 08/19/2024 Telephone [facility] [address] [place] [address] Ruperto Kearns MD Follow Up 08/18/2024 10:20 AM CDT Home Care Visit [facility] [address] [place] [phone] Corby De La Fuente SHOE HANDLER - HOME VISIT 08/18/2024 Refill [facility] [address] [place] [address] Ruperto Kearns MD Refill Request (BUPROPION HCL ) 08/15/2024 Home Care Visit [facility] [address] [place] [phone] Marylou Whiting LISW HUNTER - CASE COMMUNICATION 08/14/2024 9:00 AM CDT Home Care Visit [facility] [address] [place] [phone] Tulio Combs, LIVESTOCK PRODUCER LIVESTOCK PRODUCER - HOME VISIT 08/14/2024 E-Consult [facility] [address] [place] [address] Karena Hanley DO 08/13/2024 12:45 PM CDT Home Care Visit [facility] [address] [place] [address] Marylou Whiting LISW HUNTER - HOME VISIT 08/13/2024 10:30 AM CDT Office Visit [facility] [address] [place] [address] Ruperto Kearns MD Follow Up (Follow Up depression. ); Medication Management (Med Check ) 08/13/2024 8:00 AM CDT Home Care Visit [facility] [address] [place] [address] Kaitlynn Vicente, ROAD FREIGHT BRAKE COUPLER PT - HOME VISIT 08/13/2024 Home Care Visit [facility] [address] [place] [phone] Kaitlynn Vicente, ROAD FREIGHT BRAKE COUPLER CARE COORDINATION 08/12/2024 3:00 PM CDT Office Visit [facility] [address] [place] [address] Gopal Jiang, AuD Hearing Aid 08/12/2024 Travel 08/11/2024 10:30 AM CDT Home Care Visit [facility] [address] [place] [phone] Lupe Olsen SHOE HANDLER - HOME VISIT 08/08/2024 Home Care Visit [facility] [address] [place] [phone] Raleigh Fontenot, PT CARE COORDINATION 08/08/2024 Home Care Visit [facility] [address] [place] [phone] Raleigh Fontenot, PT CARE COORDINATION 08/07/2024 1:00 PM CDT Home Care Visit [facility] [address] [place] [phone] Tulio Combs, LIVESTOCK PRODUCER LIVESTOCK PRODUCER - HOME VISIT 08/07/2024 10:30 AM CDT Home Care Visit [facility] [address] [place] [address], [place] [phone] Lupe Olsen SHOE HANDLER - HOME VISIT 08/07/2024 Home Care Visit [facility] [address] [place] [phone] Tulio Combs, LIVESTOCK PRODUCER CARE COORDINATION 08/06/2024 9:00 AM CDT Home Care Visit [facility] [address] [place] [address], [place] [phone] Raleigh Fontenot, PT PT - REASSESSMENT 08/05/2024 10:30 AM CDT Office Visit [facility] [address] [place] [address] Mina Ray, [facility] Visit 08/05/2024 Travel 08/04/2024 10:30 AM CDT Home Care Visit [facility] [address] [place] [address], [place] [phone] Lupe Olsen SHOE HANDLER - HOME VISIT 08/01/2024 10:00 AM CDT Home Care Visit [facility] [address] [place] [address], [place] [phone] Marylou Whiting LISW HUNTER - INITIAL ASSESSMENT 08/01/2024 9:00 AM CDT Home Care Visit [facility] [address] [place] [phone] Raleigh Fontenot, PT PT - HOME VISIT 08/01/2024 Orders Only [facility] Scanner 1 scan: (1-Ord) PANTERA, MR HEAD/BRAIN WO CON, 08/01/2024 08/01/2024 Travel 07/31/2024 10:30 AM CDT Home Care Visit [facility] [address] [place] [address], [place] [phone] Lupe Olsen SHOE HANDLER - HOME VISIT 07/29/2024 1:00 PM CDT Home Care Visit [facility] [address] [place] [address] Tulio Combs, LIVESTOCK PRODUCER LIVESTOCK PRODUCER - HOME VISIT 07/29/2024 9:45 AM CDT Home Care Visit [facility] [address] [place] [address] Raleigh Fontenot, PT PT - HOME VISIT 07/29/2024 Orders Only [facility] Scanner 1 scan: (1-Ord) [place], CT HEAD/BRAIN WO CON, 07/29/2024 07/29/2024 Home Care Visit [facility] [address] [place] [phone] Raleigh Fontenot, PT CARE TRANSITION NOTE 07/29/2024 Home Care Visit [facility] [address] [place] [address] Raleigh Fontenot, PT CARE COORDINATION 07/29/2024 Telephone [facility] [address] [place] [address] Tulio Combs, LIVESTOCK PRODUCER Home Care (Request for metal health referral ) 07/29/2024 Home Care Visit [facility] [address] [place] [address] Linda Singer, PT CARE COORDINATION 07/29/2024 Telephone [facility] [address] [place] [address] Raleigh Fontenot, PT Home Care 07/29/2024 Home Care Visit [facility] [address] [place] [address], [place] [phone] Raleigh Fontenot, PT CARE COORDINATION 07/28/2024 10:30 AM CDT Home Care Visit [facility] [address] [place] [address], [place] [address] Lupe Olsen SHOE HANDLER - HOME VISIT 07/25/2024 9:15 AM CDT Home Care Visit [facility] [address] [place] [address] Raleigh Fontenot, PT PT - HOME VISIT 07/25/2024 Travel 07/24/2024 10:30 AM CDT Home Care Visit [facility] [address] [place] [address] Lupe Olsen SHOE HANDLER - HOME VISIT 07/23/2024 10:30 AM CDT Home Care Visit [facility] [address] [place] [address] Tulio Combs, LIVESTOCK PRODUCER LIVESTOCK PRODUCER - INITIAL ASSESSMENT 07/23/2024 Home Care Visit [facility] [address] [place] [phone] Tulio Combs, LIVESTOCK PRODUCER CARE COORDINATION 07/22/2024 9:15 AM CDT Home Care Visit [facility] [address] [place] [address] Raleigh Fontenot, PT PT - HOME VISIT 07/22/2024 Travel 07/21/2024 1:00 PM CDT Home Care Visit [facility] [address] [place] [phone] Vandana Dong, RN SN - DISCIPLINE DISCHARGE 07/21/2024 10:30 AM CDT Home Care Visit [facility] [address] [place] [phone] Lupe Olsen SHOE HANDLER - HOME VISIT 07/18/2024 9:15 AM CDT Home Care Visit [facility] [address] [place] [phone] Raleigh Fontenot, PT PT - HOME VISIT 07/17/2024 11:45 AM CDT Home Care Visit [facility] [address] [place] [phone] Lupe Olsen SHOE HANDLER - HOME VISIT 07/16/2024 9:30 AM CDT Home Care Visit [facility] [address] [place] [phone] Raleigh Fontenot, PT PT - HOME VISIT 07/14/2024 12:30 PM CDT Home Care Visit [facility] [address] [place] [address] Lupe Olsen SHOE HANDLER - HOME VISIT 07/10/2024 1:00 PM CDT Home Care Visit [facility] [address] [place] [address] Lupe Olsen SHOE HANDLER - HOME VISIT 07/10/2024 Home Care Visit [facility] [address] [place] [address] Missael Massey, PT CARE COORDINATION 07/09/2024 3:00 PM CDT Home Care Visit [facility] [address] [place] [address] Missael Massey, PT PT - INITIAL ASSESSMENT 07/09/2024 11:45 AM CDT Office Visit [facility] [address] [place] [address] Ruperto Kearns MD Hospital F/U (Follow up - sepsis) 07/09/2024 Travel 07/08/2024 1:00 PM CDT Home Care Visit [facility] [address] [place] [address] Vandana Dong, RN SN - HOME VISIT 07/08/2024 Orders Only [facility] [address] [place] [address] Ruperto Kearns MD <No scans attached> 07/05/2024 1:00 PM CDT Home Care Visit [facility] [address] [place] [address] Vandana Dong, SULAIMAN SN - OASIS START OF CARE 07/05/2024 Telephone [facility] [address] [place] [address] Vandana Dong, RN Depression; Home Care 07/05/2024 Plan of Care Documentation [facility] [address] [place] [address] 07/03/2024 Transcribe Orders [facility] [address] [place] [address] Ana Soler MD 07/02/2024 4:00 PM CDT Ancillary Procedure [facility] [address] [place] [address] 07/01/2024 Orders Only [facility] Scanner 1 scan: (1-Ord) [facility], MR SHOULDER RT W/O CONTRAST, 07/01/2024 06/29/2024 Orders Only [facility] Scanner 1 scan: (1-Ord) [facility], CT ABDOMEN PELVIS W CON, 06/29/2024 06/29/2024 Orders Only [facility] Scanner 1 scan: (1-Ord) [facility], CT ANGIO CHEST PE PROTOCOL, 06/29/2024 06/29/2024 Orders Only [facility] Scanner 1 scan: (1-Ord) [facility], XR CHEST 1V PORTABLE, 06/29/2024 05/28/2024 10:30 AM CDT Office Visit [facility] [address] [place] [address] Ruperto Kearns MD Medication Management (med check) [...] Info) Description 08/27/2024 9:15 AM CDT Appointment [facility] [address] [place] [address] Tulio Combs, LIVESTOCK PRODUCER [address] [place] [address] 10/08/2024 9:40 AM CDT Office Visit [facility] [address] [place] [address] Ruperto Kearns MD [address] [place] [address] Health Maintenance Due Date Last Done Comments [...] Diagnosis Comments SCAN-CT INTERPRETATION 12:00 AM CDT SCAN-CT INTERPRETATION 12:00 AM CDT SCAN-MRI INTERPRETATION 08/02/19 12:00 AM CDT SCAN-CT INTERPRETATION 5 12:00 AM CDT ECHO TTE COMPLETE WO CONTRAST Routine 07/02/2024 11:59 AM CDT Positive blood cultures SCAN-MRI INTERPRETATION 07/02/19 12:00 AM CDT SCAN-CT INTERPRETATION 12:00 AM CDT SCAN-CT INTERPRETATION 12:00 AM CDT SCAN-RADIOLOGY REPORT 06/29/2024 12:00 AM CDT from Last 3 Months Results * SCAN-CT INTERPRETATION (08/24/2024 12:00 AM CDT) Only the most recent of5 resultswithin the time period is included. Anatomical Region Laterality Modality Other us Scanner OTHER Final Result * SCAN-MRI INTERPRETATION (08/01/2024 12:00 AM CDT) [...] [facility] Reading Location: [facility] Patient Location: Inpatient. Procedure: 2D, Color [...] . This study was interpreted by an [facility] accredited facility. CC: Med/Surg - IP [facility], HIM (med records) [facility]. Final Procedure Note Jacqueline Blair MD - 07/02/2024 ECHOCARDIOGRAM LAMAR CHARLTON : 1940 84 years Study Date: 07/02/2024 10:38:26 AM Gender: M BP: 164/104 mmHg Height: 183.00 cm BSA: 2.21 m Weight: 99.00 kg Tech: CRISTOFER Referring MD: ANA SOLER Site: [facility] Reading Location: [facility] Patient Location: Inpatient. Procedure: 2D, Color [...] CC: Med/Surg - IP [facility], [facility] (med records) [facility]. 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
--- NOTE | 2024-08-27 06:09 | ED.GENADULT ---
HPI - General Adult General Time Seen by Provider: 06:09 Date Seen: 08/27/24 Chief complaint: Weakness Stated complaint: conffusion Time Seen by Provider: 08/27/24 06:09 Source: patient, EMS, RN notes reviewed and old records reviewed Mode of arrival: EMS Limitations: no limitations History of Present Illness HPI narrative: 84-year-old male who presents from [facility] today with concern for confusion. Patient has history of dementia. Patient called EMS today and says that he has continued to have some pain in the left buttock and hip after a fall last week. He initially tells me he has not had this fall since then but then says he did have another fall. He denies chest pain, abdominal pain, nausea, vomiting, diarrhea. Says he is eating and drinking well. Does not complain of any back pain or head pain. No fever chills, no cough, shortness of breath. Related Data Home Medications ?Medication ?Instructions ?Recorded ?Confirmed donepezil 10 mg tablet 10 mg PO HS 03/12/23 08/25/24 rivaroxaban 20 mg tablet (Xarelto) 20 mg PO QPM 03/12/23 08/25/24 tamsulosin 0.4 mg capsule 0.8 mg PO DAILY 03/12/23 08/25/24 sertraline 100 mg tablet 150 mg PO QAM 06/15/23 08/25/24 melatonin 5 mg tablet 5 mg PO HS 06/29/24 08/25/24 Allergies Allergy/AdvReac Type Severity Reaction Status Date / Time aspirin Allergy Verified 08/24/24 18:55 PFSH PFS Medical History History of pulmonary embolism ?Z86.711 - Personal history of pulmonary embolism (ICD-10) BPH without obstruction/lower urinary tract symptoms ?N40.0 - Benign prostatic hyperplasia without lower urinary tract symptoms (ICD-10) Frail elderly ?R54 - Age-related physical debility (ICD-10) Recurrent urinary tract infection ?N39.0 - Urinary tract infection, site not specified (ICD-10) Frequent falls ?R29.6 - Repeated falls (ICD-10) Sepsis ?A41.9 - Sepsis, unspecified organism (ICD-10) Urinary incontinence ?R32 - Unspecified urinary incontinence (ICD-10) Depression, recurrent ?F33.9 - Major depressive disorder, recurrent, unspecified (ICD-10) Alzheimer dementia ?G30.9 - Alzheimer's disease, unspecified (ICD-10) ?F02.80 - Dementia in other diseases classified elsewhere, unspecified severity, without behavioral disturbance, psychotic disturbance, mood disturbance, and anxiety (ICD-10) Pulmonary embolism ?I26.99 - Other pulmonary embolism without acute cor pulmonale (ICD-10) COVID-19 ?U07.1 - COVID-19 (ICD-10) Health care directive on file ?Z78.9 - Other specified health status (ICD-10) Surgical History H/O abdominal surgery ?Z98.890 - Other specified postprocedural states (ICD-10) Family History (Updated 08/24/24 @ 22:35 by Inder Jonas MD) Father Coronary artery disease Mother Sarcoidosis Social History (Updated 08/24/24 @ 22:36 by Inder Jonas MD) Narrative: Living at [facility]. His daughter, Nargis, is here with him today. Denies tobacco or alcohol use. DNR. What is your current living situation?: I presently have a place to live Problems where you live: no known problems Problems where you live details: none In the past 12 months, utilities in danger of being shut off: no In past 12 months, lack of transportation kept you from medical appts, meetings, work, or getting things needed for daily living: yes In the past 12 mos, have been you worried that your food would run out before you had money to buy more?: never true In the past 12 mos, the food you bought just didn't last and you didn't have money to buy more?: never true Highest level of school completed/degree received: Bachelor's degree Smoking Status: Never smoker Do you use any of these nicotine containing products: None Second hand tobacco smoke exposure: No How often do you have a drink containing alcohol: 2-3 times a week Alcohol type: beer How many standard drinks containing alcohol do you have on a typical day: 1 or 2 How often do you have six or more drinks on one occasion: Never AUDIT-C Alcohol total score: 3 Non-prescribed substance use: denies use Caffeine: Yes (coffee) How often does anyone, including family, friends and others, physically hurt you: never How often does anyone, including family, friends and others, insult or talk down to you: never How often does anyone, including family, friends and others, threaten you with harm: never How often does anyone, including family, friends and others, scream or curse at you: never service: No Health Related Social Needs: transportation insecurity (Z59.82) Exam Narrative: Exam Narrative: General: Well-developed and well-nourished, no acute distress Head: Atraumatic and normocephalic Eyes: Pupils are equal reactive, extraocular motions intact, conjunctiva clear ENT: External nose and ears are normal, posterior pharynx without erythema or exudate Neck: No midline cervical tenderness, full spontaneous range of motion the neck, trachea midline, no adenopathy Heart: Regular rate and rhythm no murmurs or thrills Lungs: Clear to auscultation bilaterally without wheezes or crackles Abdomen: Soft, nontender, nondistended with active bowel sounds Musculoskeletal: Tenderness of the left buttock with swelling and bruising Neurologic: Awake, alert, becomes confused during conversation especially about timing is detergents the recent past, no gross focal neurologic deficits, cranial nerves intact as tested Psych: Mood and affect are appropriate Skin: No rashes Const: Vital Signs, click to edit/add: Vital Signs - 24 hr 08/27/24 06:11 08/27/24 07:37 Temperature 97.7 F Pulse Rate [Pulse Oximeter] 87 89 Respiratory Rate 16 16 Blood Pressure [Ri ght Upper Arm] 142/84 H 118/75 Pulse Oximetry 97 97 Oxygen Delivery Me thod Room Air Room Air Course Course ED Course: Reviewed most recent home care visit from yesterday, at that time patient was complaining of buttock pain related to a formal, patient had a fairly positive attitude at that time. Also reviewed most recent emergency department visit from August 24 when patient was seen after a fall, at that time head CT as well as CT scan chest, abdomen and pelvis all negative for acute findings. Patient presents today with continued pain of the left buttock, reported increased confusion as well although this is from EMS. Patient called EMS himself due to left hip pain which is ongoing since his last visit. Unclear if he has had another fall since then. On exam he is finally stable, confused with difficulty maintaining his timeline of recent events. No focal neurologic deficits weakness. He does have bruising and swelling of the left buttock. Given patient poor historian and possible new fall, repeat head CT and CT scan of the pelvis are ordered. He has no back pain, no chest pain, no nausea vomiting. Does have a history of urinary infections in with reported increased weakness urinalysis will be performed. Reevaluation(s) Time of Reevaluation #1: 07:00 Reevaluation #1: CT scan of the head demonstrates diffuse encephalomalacia but no acute findings. CT scan of the pelvis independently interpreted by me read demonstrates large left gluteal contusion and hematoma but no new acute fracture or bony abnormality Time of Reevaluation #2: 07:22 Reevaluation #2: Lives independently interpreted by me with leukocytosis white blood cell count 11.26, hemoglobin 10.6 which is down from 12.2 which likely is related to the hematoma in the left gluteal area. Urinalysis with 5-10 white blood cells and few bacteria. I reviewed most recent culture from 03/19 which showed Pseudomonas which was pansensitive. Basic panel is reassuring. Time of Reevaluation #3: 07:35 Reevaluation #3: Care discussed with Nancy Ricardo PA-C. After discussion, will have social work see patient in the emergency department for possible retirement placement, currently in assisted living. If unable to find placement today, patient can be admitted. Will also recheck hemoglobin at 9:00 a.m. given drop in hemoglobin for couple of days ago related to buttock hematoma. Plan to hold Xarelto for a couple of days given acute bleed. Sign out to oncoming provider. Vital Signs Vital signs: Initial Vital Signs Temperature 97.7 F 08/27/24 06:11 Temperature Source Temporal Artery Scan 08/27/24 06:11 Pulse Rate 87 08/27/24 06:11 Respiratory Rate 16 08/27/24 06:11 Blood Pressure 142/84 H 08/27/24 06:11 Blood Pressure Mean 103 08/27/24 06:11 Blood Pressure Position Semi-Fowlers 08/27/24 06:11 Pulse Oximetry 97 08/27/24 06:11 Oxygen Delivery Method Room Air 08/27/24 06:11 Vital Signs Temperature 97.7 F 08/27/24 06:11 Pulse Rate 87 08/27/24 06:11 Respiratory Rate 16 08/27/24 06:11 Blood Pressure 142/84 H 08/27/24 06:11 Pulse Oximetry 97 08/27/24 06:11 Oxygen Delivery Method Room Air 08/27/24 06:11 Temperature 97.7 F 08/27/24 06:11 Pulse Rate 89 08/27/24 07:37 Respiratory Rate 16 08/27/24 07:37 Blood Pressure 118/75 08/27/24 07:37 Pulse Oximetry 97 08/27/24 07:37 Oxygen Delivery Method Room Air 08/27/24 07:37 Medical Decision Making Lab Data Labs: Lab Results 08/27/24 08/27/24 Range/Units 06:47 06:48 WBC 11.26 H (4.50-11.00) K/uL RBC 3.57 L (4.30-5.90) m/uL Hgb 10.6 L (13.5-17.5) gm/dL Hct 33.8 L (37.0-53.0) % MCV 95 (80-100) fL MCH 30 (26-34) pg MCHC 31 L (32-36) gm/dL RDW Coeff of Marisa 14.3 (11.5-15.5) % Plt Count 213 (140-440) K/uL Neut % (Auto) 82.3 H (42.0-72.0) % Lymph % (Auto) 6.7 L (20-44) % [place] % (Auto) 9.1 (0.0-11.0) % Eos % (Auto) 0.9 (0.0-7.0) % Baso % (Auto) 0.4 (0.0-3.0) % Neut # (Auto) 9.30 H (1.7-7.0) K/uL Lymph # (Auto) 0.80 L (0.90-2.90) K/uL [place] # (Auto) 1.00 H (0.00-0.90) K/UL Eos # (Auto) 0.10 (0.00-0.50) K/uL Baso # (Auto) 0.00 (0.00-0.30) K/uL Abs Immat Gran (auto) 0.10 (0.00-0.30) K/uL Imm/Tot Granulo (auto) 0.6 % Sodium 139 (135-149) mmol/L Potassium 4.0 (3.6-5.1) mmol/L Chloride 104 (96-114) mmol/L Carbon Dioxide 30 (20-32) mmol/L Anion Gap 5 L (7-15) mEq/L BUN 20 (7-30) mg/dL Creatinine 0.8 (0.5-1.5) mg/dL Estimated Creat Clear 53.03 Estimated GFR 86 ml/min Glucose 122 H (60-115) mg/dL Calcium 8.5 (8.4-10.6) mg/dL Magnesium 2.2 (1.5-2.6) mg/dL Urine Color Yellow (Yellow) Urine Appearance Clear (Clear) Urine pH 6.0 (5.0-8.5) Ur Specific [place] 1.025 (1.000-1.030) Urine Protein Negative (Negative) Urine Glucose (UA) Negative (Negative) Urine Ketones Negative (Negative) Urine Blood Negative (Negative) Urine Nitrite Negative (Negative) Urine Bilirubin Negative (Negative) Urine Urobilinogen 0.2 (0.2-1.0) Ur Leukocyte Esterase Negative (Negative) Urine RBC 0-2 (0-2) Urine WBC 5-10 A (0-5) Ur Squamous Epith Cells None (None-Few) Urine Bacteria Few A (None) Discharge Plan Discharge Clinical Impression: Hematoma of left buttock, Acute blood loss anemia, History of pulmonary embolism, Dementia, Frequent falls, Anticoagulated on Xarelto Instructions: Dementia (ED), Hematoma (ED), Acute Posthemorrhagic Anemia (DC) Additional Instructions: Do not take Xarelto until August 29 Prescriptions: No Action melatonin 5 mg tablet 5 mg PO HS donepezil 10 mg tablet 10 mg PO HS tamsulosin 0.4 mg capsule 0.8 mg PO DAILY Xarelto 20 mg tablet 20 mg PO QPM sertraline 100 mg tablet 150 mg PO QAM Follow Up/Referrals: Ruperto Kearns MD [Primary Care Provider, Family Practice]
[2024-08-27 06:11] VITALS: BP 142/84; PULSE 87; RESP 16; TEMP 36.5; O2SAT 97; BMI 31.5
--- NOTE | 2024-08-27 06:30 | CRLHL7_ITS ---
For Patients: As a result of the Century Cures Act, medical imaging exams and procedure reports are released immediately into your electronic medical record. You may view this report before your referring provider. If you have questions, please contact your health care provider. INDICATION: confusion ?fall. (Sic) COMPARISON: None available. TECHNIQUE: CT of the head without intravenous contrast. Please note that all CT scans at this facility use dose modulation, iterative reconstruction, and/or weight-based dosing when appropriate to reduce radiation dose to as low as reasonably achievable. FINDINGS: No acute traumatic injury is identified. No acute infarct. No intracranial mass or mass effect. No intracranial hemorrhage. In addition to age-appropriate involutional changes, ventriculomegaly, bilateral sylvian fissure widening, an acute callosal angle, and narrow sulci and subarachnoid spaces at the vertex are consistent with disproportionately enlarged subarachnoid space hydrocephalus. In the absence of neurologic symptoms to indicate normal pressure hydrocephalus these findings are compatible with asymptomatic ventriculomegaly with features of idiopathic normal pressure hydrocephalus. RapidAI ASPECTS Score: Not performed/available at the time of dictation. Intact skull base and cranial vault. Visualized orbits are without significant incidental findings. Bilateral lens implants are noted incidentally. Visualized paranasal sinuses and mastoid air cells are clear. Unremarkable soft tissues. IMPRESSION: 1. No acute traumatic injury is identified. 2. Incidental findings consistent with normal pressure hydrocephalus as described above. 3. Additional findings as above. Please note that all CT scans at this facility use dose modulation, iterative reconstruction, and/or weight-based dosing when appropriate to reduce radiation dose to as low as reasonably achievable. Dictated by Gordy Recinos MD @ 08/27/2024 7:15:12 AM (Electronically Signed)
--- NOTE | 2024-08-27 06:30 | CRLHL7_ITS ---
For Patients: As a result of the Century Cures Act, medical imaging exams and procedure reports are released immediately into your electronic medical record. You may view this report before your referring provider. If you have questions, please contact your health care provider. INDICATION: ?new fall, left hip/buttock pain. (Sic) No additional clinical history is given. Review of the patient`s recent prior medical record is notable for a history of a fall with associated low back and left flank pain as stated in the indication for the recent prior CT of the chest, abdomen and pelvis dated 08/24/2024. COMPARISON: 08/24/2024, 06/29/2024 TECHNIQUE: CT of the pelvis without intravenous contrast. Please note that all CT scans at this facility use dose modulation, iterative reconstruction, and/or weight-based dosing when appropriate to reduce radiation dose to as low as reasonably achievable. FINDINGS: The study is performed without intravenous contrast. This limits the sensitivity of the exam for the detection bowel pathology, focal lesions of the pelvic viscera and vascular pathology including significant vascular stenosis, occlusion and dissection. BODY WALL Redemonstration of a mixed attenuation left gluteal intramuscular hematoma with indistinct margins measuring approximately 9.2 cm in greatest axial dimension (series 3; image 94). Assessment of possible active bleeding is not possible on this noncontrast study. Review of the recent prior examination dated 08/24/2024 is notable for a cloudlike focal contrast blush associated with this finding (series 8; image 162), a finding suspicious for active bleeding on that single phase examination. Associated subcutaneous fat stranding in the overlying soft tissues consistent with edema/hemorrhage extending to the lower flank and proximal left upper thigh posteriorly. An infraumbilical anterior midline abdominal wall laparotomy scar is noted incidentally. PELVIS Large volume rectosigmoid fecal burden without findings to indicate stercoral proctocolitis. Re-demonstration of an anastomotic suture line associated with the sigmoid colon consistent with prior sigmoid resection. Dependent perirectal fat stranding consistent with nonspecific edema. No bladder lesion is identified. No significant incidental findings related to the prostate or seminal vesicles. Patency and luminal caliber of the adominal aorta, IVC and bilateral iliac arteries and veins cannot be evaluated on this noncontrast study. No significant ascites. No adenopathy. SKELETON Spine: No significant spondylolisthesis, widening of the intervertebral disc spaces, interfacetal joints or interspinous distances. Vertebral bodies, pedicles, laminae, articular, transverse and spinous processes are intact. Bony pelvis: No pelvic fracture is identified. Visualized appendicular skeleton: No fracture is identified. IMPRESSION: 1. Redemonstration of a mixed attenuation left gluteal intramuscular hematoma with indistinct margins measuring approximately 9.2 cm in greatest axial dimension (series 3; image 94). 2. Assessment of possible active bleeding is not possible on this noncontrast study. 3. Review of the recent prior examination dated 08/24/2024 is notable for a cloudlike focal contrast blush associated with this finding (series 8; image 162), a finding suspicious for active bleeding on that single phase examination. Close clinical follow-up is recommended. 4. Associated subcutaneous fat stranding in the overlying soft tissues consistent with edema/hemorrhage extending to the lower flank and proximal left upper thigh posteriorly. 5. No fracture is identified. Please note that all CT scans at this facility use dose modulation, iterative reconstruction, and/or weight-based dosing when appropriate to reduce radiation dose to as low as reasonably achievable. Dictated by Gordy Recinos MD @ 08/27/2024 7:26:51 AM (Electronically Signed)
[2024-08-27 06:53] LABS: Appearance Urine Clear (Clear)
[2024-08-27 07:02] LABS: Hematocrit* 33.8 % (37.0-53.0); Hemoglobin* 10.6 gm/dL (13.5-17.5); Immature Granulocytes Pct Auto 0.6 %; Mean Corpuscular HGB Conc 31 gm/dL (32-36); Mean Corpuscular Hemoglobin 30 pg (26-34); Mean Corpuscular Volume 95 fL (80-100); RDW Coefficient of Variation % 14.3 % (11.5-15.5); Red Blood Count* 3.57 m/uL (4.30-5.90); White Blood Count* 11.26 K/uL (4.50-11.00)
[2024-08-27 07:05] LABS: Chloride* 104 mmol/L (96-114); Sodium* 139 mmol/L (135-149)
[2024-08-27 07:06] LABS: Potassium* 4.0 mmol/L (3.6-5.1)
[2024-08-27 07:07] LABS: Immature Granulocytes Abs Auto 0.10 K/uL (0.00-0.30); Lymphocytes Absolute Auto 0.80 K/uL (0.90-2.90); Slide Review Reflex No
[2024-08-27 07:08] LABS: Anion Gap 5 mEq/L (7-15); Blood Urea Nitrogen* 20 mg/dL (7-30); Carbon Dioxide* 30 mmol/L (20-32); Creatinine* 0.8 mg/dL (0.5-1.5); Est. Creatinine Clearance* 53.03; Estimated Glomerular Filt Rate 86 ml/min
[2024-08-27 07:09] LABS: Calcium* 8.5 mg/dL (8.4-10.6); Glucose* 122 mg/dL (60-115)
[2024-08-27 07:37] VITALS: BP 118/75; PULSE 89; RESP 16; O2SAT 97
[2024-08-27] MEDS: ACETAMINOPHEN 500 MG TABLET 1000 MG PO (07:52)
[2024-08-27 09:35] LABS: Hemoglobin* 10.4 gm/dL (13.5-17.5)
[2024-08-27 09:52] VITALS: BP 119/74; RESP 16
[2024-08-27 10:43] VITALS: PULSE 104; O2SAT 96
[2024-08-27 11:47] VITALS: BP 106/81; PULSE 104; O2SAT 96
--- NOTE | 2024-08-27 15:10 | PC.SOCIAL ---
Discharge planning: Pt was accepted at [facility] for short-term rehab from the ED. Pt will need to private pay with a $10,000.00 down payment to [facility] upon admission. Family is aware and is fine with that. Family had requested that the pt go to [facility] from the ED and cost was discussed at that time, as well. Pt was transported to [facility] via non-emergent EMS. glassworker spoke to pt's daughter, Nargis Roger, about the cost of non-emergent EMS and she was in agreement with paying for the hon-emergent EMS if insurance did not cover it. glassworker explained that the cost would be $113.00([id number]= 113) if insurance does not cover it. Pt's daughter, Nargis Roger, was in agreement with signing the non-emergent EMS wheelchair form verbally via phone. Pre-admission screening confirmation number was sent to Betzy at [facility] via secure email. [id number]. Discharge orders were also secure emailed to Betzy at [facility]. Pt and his family were thankful for the assistance. Social work to follow-up as needed.
== END 2024-08-27 13:17 ==
PROVIDERS: Emergency Provider Family Medicine; PCP Family Medicine
DX: S30.0XXA Contusion of lower back and pelvis, initial encounter (principal); D62 Acute posthemorrhagic anemia; F03.90 Unspecified dementia, unspecified severity, without behavioral disturbance, psychotic disturbance, mood disturbance, and anxiety; R53.1 Weakness; Z91.81 History of falling; Z79.01 Long term (current) use of anticoagulants; Z87.440 Personal history of urinary (tract) infections
CPT/HCPCS: 36415; 70450; 72192; 80048; 81001; 83735; 85018; 85025; 87086; 99285; A9270

== ENCOUNTER 2024-08-27 13:06 | Outpatient (CLI) | payer MEDICARE, BC, SELFPAY | END 2024-08-27 13:07 | disposition home or self-care (01) | PROVIDERS: PCP Family Medicine; Visit Provider Family Medicine | DX: R53.1 Weakness (principal); Z99.3 Dependence on wheelchair | CPT/HCPCS: A0425; A0428 ==

== ENCOUNTER 2024-08-29 16:11 | Outpatient (REF) | payer MEDICARE, BC, SELFPAY ==
[2024-08-29 16:38] LABS: Hemoglobin* 10.0 gm/dL (13.5-17.5)
== END 2024-08-29 16:12 | disposition home or self-care (01) ==
LOC: NPINS 16:11
PROVIDERS: PCP Family Medicine; Visit Provider Nurse Practitioner Gerontology
DX: Z86.711 Personal history of pulmonary embolism (principal)
CPT/HCPCS: 36415; 85018

== ENCOUNTER 2024-10-06 21:24 | Outpatient (REF) | payer MEDICARE, BC, SELFPAY ==
[2024-10-06 22:04] LABS: Appearance Urine Cloudy (Clear)
--- OUTSIDE RECORDS SUMMARY | 2024-10-07 00:16 | XMS_ITS | Clinical Summary ---
Author Organization [facility] Address [facility] [place] [address] Care Team Providers Care Extracorporeal Circulation Specialist Name Role Phone Ruperto Kearns MD Primary Care Provider [phone]- [phone] Allergies Active Allergy Reactions Criticality Noted Date Comments Aspirin Hives 12/01/2022 Medications rivaroxaban (Xarelto) 20 mg tabletIndicatio ns:Pulmonary embolism, bilateral (HC) Take 1 Tablet (20 mg) by mouth once daily with evening meal. 28 Tablet 12 5 Active tamsulosin 0.4 mg capsuleIndicati ons:BPH without urinary obstruction Take 2 Capsules (0.8 mg) by mouth once daily after a meal. 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 90 Tablet 3 5 Active melatonin 5 mg tab tabletIndicatio ns:Insomnia, idiopathic Take 1 Tablet (5 mg) by mouth at bedtime. 90 Tablet 3 5 Active acetaminophen (TylenoL) 325 mg tablet Take 650 mg by mouth every 4 hours if needed for Pain. Max acetaminophen dose: 4000mg in 24 hrs. Active sertraline (ZOLOFT) 100 mg tabletIndicatio ns:Depression, recurrent Take 2 Tablets (200 mg) by mouth once daily in the morning. 180 Tablet 1 5 Active Active Problems Problem Noted Date [...] Encounters Date Type Department Care Team Description 10/06/2024 Lab Requisition [facility] [phone] Cheryl Ho, MULTIPLE NEEDLE STITCHER 09/02/2024 Home Care Visit [facility] [address] [place] [address] Linda Singer, PT EPISODE DISCHARGE 09/01/2024 Lab Requisition [facility] [phone] Cheryl Ho, MULTIPLE NEEDLE STITCHER 08/28/2024 Home Care Visit [facility] [address] [place] [address] Linda Singer, PT PT - OASIS TRANSFER 08/28/2024 Home Care Visit [facility] [address] [place] [address] Linda Singer, PT CARE COORDINATION 08/27/2024 Orders Only [facility] Scanner 1 scan: (1-Ord) [facility], PELVIS W/O CONTRAST, 08/27/2024 08/27/2024 Orders Only [facility] Scanner 1 scan: (1-Ord) [place], HEAD/BRAIN WO CON , 08/27/2024 08/27/2024 Telephone [facility] [address] [place] [address] Gopal Jiang, AuD 08/27/2024 Orders Only [facility] Scanner 1 scan: (1-Ord) [facility], CT HEAD/BRAIN, 08/27/2024 08/26/2024 Home Care Visit [facility] [address] [place] [address] Linda Singer, PT CARE COORDINATION 08/26/2024 Home Care Visit [facility] [address] [place] [address] Marylou Whiting LISW FAIRGROUND OPERATOR - HOME VISIT 08/26/2024 Telephone [facility] [address] [place] [address] Ruperto Kearns MD Imaging 08/24/2024 Orders Only [facility] Scanner 1 scan: (1-Ord) [place], CHEST ABDOMEN PELV W CON, 08/24/2024 08/24/2024 Orders Only [facility] Scanner 1 scan: (1-Ord) [place], HEAD/BRAIN WO CON, 08/24/2024 08/22/2024 Home Care Visit [facility] [address] [place] [address] Marylou Whiting LISW CARE COORDINATION 08/21/2024 2:00 PM CDT Office Visit [facility] [address] [place] [address] Mina Ray, [facility] Visit 08/21/2024 9:00 AM CDT Home Care Visit [facility] [address] [place] [address] Tulio Combs, TAG MARKER TAG MARKER - REASSESSMENT 08/21/2024 Home Care Visit [facility] [address] [place] [address], [place] [address] Marylou Whiting LISW FAIRGROUND OPERATOR - TELEHEALTH VISIT 08/20/2024 3:30 PM CDT Home Care Visit [facility] [address] [place] [address] Raleigh Fontenot, PT PT - DISCIPLINE DISCHARGE 08/20/2024 Home Care Visit [facility] [address] [place] [address] Raleigh Fontenot, PT CARE COORDINATION 08/20/2024 Travel 08/19/2024 Telephone [facility] [address] [place] [address] Ruperto Kearns MD Follow Up 08/18/2024 10:20 AM CDT Home Care Visit [facility] [address] [place] [address] Corby De La Fuente Audrey RECORDS COORDINATOR - HOME VISIT 08/18/2024 Refill [facility] [address] [place] [address] Ruperto Kearns MD Refill Request (BUPROPION HCL ) 08/15/2024 Home Care Visit [facility] [address] [place] [address] Marylou Whiting LISW FAIRGROUND OPERATOR - CASE COMMUNICATION 08/14/2024 9:00 AM CDT Home Care Visit [facility] [address] [place] [phone] Tulio Combs, TAG MARKER TAG MARKER - HOME VISIT 08/14/2024 E-Consult [facility] [address] [place] [address] Karena Hanley DO 08/13/2024 12:45 PM CDT Home Care Visit [facility] [address] [place] [phone] Marylou Whiting LISW FAIRGROUND OPERATOR - HOME VISIT 08/13/2024 10:30 AM CDT Office Visit [facility] [address] [place] [address] Ruperto Kearns MD Follow Up (Follow Up depression. ); Medication Management (Med Check ) 08/13/2024 8:00 AM CDT Home Care Visit [facility] [address] [place] [address] Kaitlynn Vicente, BULKHEAD CARPENTER PT - HOME VISIT 08/13/2024 Home Care Visit [facility] [address] [place] [phone] Kaitlynn Vicente, BULKHEAD CARPENTER CARE COORDINATION 08/12/2024 3:00 PM CDT Office Visit [facility] [address] [place] [address] Gopal Jiang, AuD Hearing Aid 08/12/2024 Travel 08/11/2024 10:30 AM CDT Home Care Visit [facility] [address] [place] [address] Lupe Olsen RECORDS COORDINATOR - HOME VISIT 08/08/2024 Home Care Visit [facility] [address] [place] [phone] Raleigh Fontenot, PT CARE COORDINATION 08/08/2024 Home Care Visit [facility] [address] [place] [phone] Raleigh Fontenot, PT CARE COORDINATION 08/07/2024 1:00 PM CDT Home Care Visit [facility] [address] [place] [phone] Tulio Combs, TAG MARKER TAG MARKER - HOME VISIT 08/07/2024 10:30 AM CDT Home Care Visit [facility] [address] [place] [phone] Lupe Olsen RECORDS COORDINATOR - HOME VISIT 08/07/2024 Home Care Visit [facility] [address] [place] [phone] Tulio Combs, TAG MARKER CARE COORDINATION 08/06/2024 9:00 AM CDT Home Care Visit [facility] [address] [place] [phone] Raleigh Fontenot, PT PT - REASSESSMENT 08/05/2024 10:30 AM CDT Office Visit [facility] [address] [place] [address] Mina Ray, [facility] Visit 08/05/2024 Travel 08/04/2024 10:30 AM CDT Home Care Visit [facility] [address] [place] [address] [place] [address] Lupe Olsen RECORDS COORDINATOR - HOME VISIT 08/01/2024 10:00 AM CDT Home Care Visit [facility] [address] [place] [address] HenokMarylou tom LPN MEDICAL ASSISTANT FAIRGROUND OPERATOR - INITIAL ASSESSMENT 08/01/2024 9:00 AM CDT Home Care Visit [facility] [address] [place] [address], [place] [address] Raleigh Fontenot, PT PT - HOME VISIT 08/01/2024 Orders Only [facility] Scanner 1 scan: (1-Ord) [place], MR HEAD/BRAIN WO CON, 08/01/2024 08/01/2024 Travel 07/31/2024 10:30 AM CDT Home Care Visit [facility] [address] [place] [address], [place] [address] Lupe Olsen RECORDS COORDINATOR - HOME VISIT 07/29/2024 1:00 PM CDT Home Care Visit [facility] [address] [place] [address], [place] [address] Tulio Combs, TAG MARKER TAG MARKER - HOME VISIT 07/29/2024 9:45 AM CDT Home Care Visit [facility] [address] [place] [address], [place] [address] Raleigh Fontenot, PT PT - HOME VISIT 07/29/2024 Orders Only [facility] Scanner 1 scan: (1-Ord) [place], CT HEAD/BRAIN WO CON, 07/29/2024 07/29/2024 Home Care Visit [facility] [address] [place] [address], [place] [address] Raleigh Fontenot, PT CARE TRANSITION NOTE 07/29/2024 Home Care Visit [facility] [address] [place] [address], [place] [address] Raleigh Fontenot, PT CARE COORDINATION 07/29/2024 Telephone [facility] [address] [place] [address] Tulio Combs, TAG MARKER Home Care (Request for metal health referral ) 07/29/2024 Home Care Visit [facility] [address] [place] [address] Linda Singer, PT CARE COORDINATION 07/29/2024 Telephone [facility] [address] [place] [address] Raleigh Fontenot, PT Home Care 07/29/2024 Home Care Visit [facility] [address] [place] [address] Raleigh Fontenot, PT CARE COORDINATION 07/28/2024 10:30 AM CDT Home Care Visit [facility] [address] [place] [address] Lupe Olsen RECORDS COORDINATOR - HOME VISIT 07/25/2024 9:15 AM CDT Home Care Visit [facility] [address] [place] [address], [place] [address] Raleigh Fontenot, PT PT - HOME VISIT 07/25/2024 Travel 07/24/2024 10:30 AM CDT Home Care Visit [facility] [address] [place] [address], [place] [address] Lupe Olsen RECORDS COORDINATOR - HOME VISIT 07/23/2024 10:30 AM CDT Home Care Visit [facility] [address] [place] [address] Tulio Combs, TAG MARKER TAG MARKER - INITIAL ASSESSMENT 07/23/2024 Home Care Visit [facility] [address] [place] [phone] Tulio Combs, TAG MARKER CARE COORDINATION 07/22/2024 9:15 AM CDT Home Care Visit [facility] [address] [place] [phone] Raleigh Fontenot, PT PT - HOME VISIT 07/22/2024 Travel 07/21/2024 1:00 PM CDT Home Care Visit [facility] [address] [place] [address] Vandana Dong, SULAIMAN SN - DISCIPLINE DISCHARGE 07/21/2024 10:30 AM CDT Home Care Visit [facility] [address] [place] [phone] Lupe Olsen RECORDS COORDINATOR - HOME VISIT 07/18/2024 9:15 AM CDT Home Care Visit [facility] [address] [place] [phone] Raleigh Fontenot, PT PT - HOME VISIT 07/17/2024 11:45 AM CDT Home Care Visit [facility] [address] [place] [phone] Lupe Olsen RECORDS COORDINATOR - HOME VISIT 07/16/2024 9:30 AM CDT Home Care Visit [facility] [address] [place] [phone] Raleigh Fontenot, PT PT - HOME VISIT 07/14/2024 12:30 PM CDT Home Care Visit [facility] [address] [place] [phone] Lupe Olsen RECORDS COORDINATOR - HOME VISIT 07/10/2024 1:00 PM CDT Home Care Visit [facility] [address] [place] [phone] Lupe Olsen RECORDS COORDINATOR - HOME VISIT 07/10/2024 Home Care Visit [facility] [address] [place] [phone] Missael Massey, PT CARE COORDINATION 07/09/2024 3:00 PM CDT Home Care Visit [facility] [address] [place] [phone] Missael Massey, PT PT - INITIAL ASSESSMENT 07/09/2024 11:45 AM CDT Office Visit [address] [address] Ruperto Kearns MD Hospital F/U (Follow up - sepsis) 07/09/2024 Travel 07/08/2024 1:00 PM CDT Home Care Visit [facility] [address] [place] [address] Vandana Dong RN SN - HOME VISIT 07/08/2024 Orders Only [facility] [address] [place] [address] Ruperto Kearns MD <No scans attached> from Last 3 Months Immunizations Immunization Administration [...] 07/05/2024 1:15 PM CDT Plan of Treatment Health Maintenance Due Date Last Done Comments [...] Associated Diagnosis Comments BASIC METABOLIC PANEL Routine 09/02/2024 7:20 AM CDT Encounter for issue of repeat prescription Anemia, unspecified HEMOGLOBIN Routine 09/02/2024 7:20 AM CDT Encounter for issue of repeat prescription Anemia, unspecified SCAN-CT INTERPRETATION 5 12:00 AM CDT SCAN-CT INTERPRETATION 5 12:00 AM CDT SCAN-CT INTERPRETATION 5 12:00 AM CDT SCAN-CT INTERPRETATION 5 12:00 AM CDT SCAN-CT INTERPRETATION 5 12:00 AM CDT SCAN-MRI INTERPRETATION 08/01/2024 12:00 AM CDT SCAN-CT INTERPRETATION 5 12:00 AM CDT from Last 3 Months Results * (ABNORMAL) HEMOGLOBIN (09/02/2024 7:20 AM CDT) HEMOGLOBIN 10.3(L) 13.5 - 17.5 g/dL 09/02/2024 8:45 AM CDT [facility] MCV 94 80 - 100 fL 09/02/2024 8:45 AM CDT [facility] Blood BLOOD SPECIMEN / Unknown Venipuncture / Unknown 09/02/2024 7:20 AM CDT 09/02/2024 8:36 AM CDT us Cheryl Ho MULTIPLE NEEDLE STITCHER HEMATOLOGY Final Resul t [facility] [address] [facility] [place] [address] * (ABNORMAL) BASIC METABOLIC PANEL (09/02/2024 7:20 AM CDT) SODIUM 141 136 - 145 mmol/L 09/02/2024 9:05 AM [facility] POTASSIUM 4.3 3.5 - 5.1 mmol/L 09/02/2024 9:05 AM [facility] CHLORIDE 104 98 - 107 mmol/L 09/02/2024 9:05 AM [facility] CO2,TOTAL 27 22 - 29 mmol/L 09/02/2024 9:05 AM [facility] ANION GAP 10 5 - 18 09/02/2024 9:05 AM [facility] GLUCOSE 93 70 - 99 mg/dL 09/02/2024 9:05 AM [facility] CALCIUM 8.6(L) 8.8 - 10.4 mg/dL 09/02/2024 9:05 AM [facility] Comment: Reference ranges for this test were updated on 12/18/2023 to reflect our healthy population more accurately. Reference range changes are not retroactively applied to results, but previous results using the same methodology can be interpreted in the context of the new reference range. BUN 12 8 - 23 mg/dL 09/02/2024 9:05 AM [facility] CREATININE 0.76 0.70 - 1.20 mg/dL 09/02/2024 9:05 AM [facility] BUN/CREAT RATIO 16 10 - 20 9:05 AM [facility] eGFR 88(L) >90 mL/min/1. 73m2 09/02/2024 9:05 AM [facility] Comment:As of 2021, eG FR is calculated by the CKD-EPI creatinine equation without race adjustment. eGFR can be influenced by muscle mass, exercise, and diet. The reported eGFR is an estimation only and is only applicable if the renal function is stable. Blood BLOOD SPECIMEN / Unknown Venipuncture / Unknown 09/02/2024 7:20 AM CDT 09/02/2024 8:36 AM CDT us Cheryl Ho NP CHEMISTRY Final Resul t [facility] [address] [place] [address] * SCAN-CT INTERPRETATION (08/27/2024 12:00 AM CDT) Only the most recent of6 resultswithin the time period is included. Anatomical Region Laterality Modality Other us Scanner OTHER Final Result * SCAN-MRI INTERPRETATION (08/01/2024 12:00 AM CDT) Anatomical Region Laterality Modality Other us Scanner OTHER Final Result from Last 3 Months Insurance BLUE CROSS [employer] [place] [address] HC MEDICARE PPS BLUE CROSS [place] [address] Advance Directives Documents on File Type Date Recorded Patient Process Control Operator Expl anation POLST 07/09/2024 POLST 04/22/2024 3:34 PM POLST 04/22 Care Teams Extracorporeal Circulation Specialist Relationship Specialty Start Date End Date Ruperto Kearns MD [address] [place] [address] PCP - General Family Practice 09/05/22
== END 2024-10-06 21:25 | disposition home or self-care (01) ==
LOC: NPINS 21:24
PROVIDERS: PCP Family Medicine; Visit Provider Nurse Practitioner Gerontology
DX: R41.0 Disorientation, unspecified (principal)
CPT/HCPCS: 81001; 87086

== ENCOUNTER 2024-12-16 20:32 | Outpatient (REF) | payer MEDICARE, BC, SELFPAY ==
--- OUTSIDE RECORDS SUMMARY | 2002-11-24 02:00 | XMS_ITS | Continuity of Care Document ---
Author Organization [facility] Address [address] [address] [place] [address] Phone Care Team Providers Care Pipeline Superintendent Name Role Phone Eric Iglesias MD Unavailable Unavailable Advance Directives Directive Yes / No Effective Date File Name No Information Encounters Encounter Description Practice Location Reason(s) For Visit Diagnoses Date Provider Providers Copied on Encounter [facility], [address] [address], [place], [place], [id number], [place] tel:[phone] [facility] No Information Harris Reyes. [address] [facility], [facility] [address], [place], [place], [id number], [place]. tel:[phone] Referring Provider: Romain Strickland MD, [facility] [place], [address]. tel:[phone] Family History Family Member Type Diagnosis Age At Onset No Information Payers Payer name Insurance type Covered green party ID Authorpinga jaylen(s) [employer] [id number] Social History Type Description Quantity Date Captured Comments Sex Male Smoking Status No Information Chief Complaint And Reason For Visit No Information Reason For Referral Reason For Referral No Information History Of Present Illness Encounter Date Complaint History Of Prese nt Illness No Information Functional Status Date Functional Assessmen t No Information Instructions Date Instruction Additional Infor mation No Information Assessments Type Assessment Date No Information Patient Care Teams Name Effective Dates (start - stop) Status Members No Information
[2024-12-16 20:57] LABS: Appearance Urine Cloudy (Clear)
--- OUTSIDE RECORDS SUMMARY | 2024-12-17 00:28 | XMS_ITS | Clinical Summary ---
Author Organization [employer] [facility] Address [facility] [place] [address] Care Team Providers Care Sanitary Inspector Name Role Phone Ruperto Kearns MD Primary Care Provider +1- [phone] Allergies Active Allergy Reactions Criticality Noted Date [...] 08/14/2024. Pulmonary embolism on right 12/01/2022 Overview (11/21/2024): He was told he needed to be on lifelong anticoagulation. Diagnosis Code replaced due to regulatory update BPH without urinary obstruction 12/01/2022 Encounters Date Type Department Care Team Description 11/24/2024 Lab Requisition [facility] [phone] Cheryl Ho NP 10/06/2024 Lab Requisition [facility] [phone] Cheryl Ho, FERNANDO from Last 3 Months Immunizations Immunization Administration [...] 02/27/2024, 01/17/2023 Tetanus booster 09/30/2026 09/30/2016, 07/19/2004 Procedures Procedure Name Priority Date/Time Associated Diagnosis Comments CBC WITH AUTO DIFFERENTIAL Routine 11/25/2024 9:00 AM CDT Disorientation, unspecified BASIC METABOLIC PANEL Routine 11/25/2024 9:00 AM CDT Disorientation, unspecified CBC WITH AUTO DIFFERENTIAL Routine 11/25/2024 9:00 AM CDT Disorientation, unspecified CBC WITH AUTO DIFFERENTIAL Routine 10/07/2024 7:25 AM CDT Confusional arousals BASIC METABOLIC PANEL Routine 10/07/2024 7:25 AM CDT Confusional arousals CBC WITH AUTO DIFFERENTIAL Routine 10/07/2024 7:25 AM CDT Confusional arousals from Last 3 Months Results * (ABNORMAL) CBC WITH AUTO DIFFERENTIAL (11/25/2024 9:00 AM CDT) Only the most recent of2 resultswithin the time period is included. WHITE BLOOD COUNT 7.2 4.5 - 11.0 thou/cu mm 11/25/2024 9:50 AM [facility] RED BLOOD COUNT 4.85 4.30 - 5.90 mil/cu mm 11/25/2024 9:50 AM [facility] HEMOGLOBIN 13.7 13.5 - 17.5 g/dL 11/25/2024 9:50 AM [facility] HEMATOCRIT 44.2 37.0 - 53.0 % 11/25/2024 9:50 AM [facility] MCV 91 80 - 100 fL 11/25/2024 9:50 AM [facility] MCH 28.2 26.0 - 34.0 pg 11/25/2024 9:50 AM [facility] MCHC 31.0(L) 32.0 - 36.0 g/dL 11/25/2024 9:50 AM [facility] RDW 17.4(H) 11.5 - 15.5 % 11/25/2024 9:50 AM [facility] PLATELET COUNT 181 140 - 440 thou/cu mm 11/25/2024 9:50 AM [facility] MPV 9.8 6.5 - 11.0 fL 11/25/2024 9:50 AM [facility] % NEUT 74.9 % 11/25/2024 9:50 AM [facility] % LYMPH 14.0 % 11/25/2024 9:50 AM [facility] % MONO 7.8 % 11/25/2024 9:50 AM [facility] % EOS 2.9 % 11/25/2024 9:50 AM [facility] % BASO 0.4 % 11/25/2024 9:50 AM [facility] ABSOLUTE NEUTROPHILS 5.4 1.7 - 7.0 thou/cu mm 11/25/2024 9:50 AM [facility] ABSOLUTE LYMPHOCYTES 1.0 0.9 - 2.9 thou/cu mm 11/25/2024 9:50 AM [facility] ABSOLUTE MONOCYTES 0.6 <0.9 thou/cu mm 11/25/2024 9:50 AM [facility] ABSOLUTE EOSINOPHILS 0.2 <0.5 thou/cu mm 11/25/2024 9:50 AM [facility] ABSOLUTE BASOPHILS 0.0 <0.3 thou/cu mm 11/25/2024 9:50 AM T [facility] Blood BLOOD SPECIMEN / Unknown Venipuncture / Unknown 11/25/2024 9:00 AM CDT 11/25/2024 9:34 AM CDT us Cheryl Ho 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 SODIUM 141 136 - 145 mmol/L 11/25/2024 9:58 AM [facility] POTASSIUM 4.1 3.5 - 5.1 mmol/L 11/25/2024 9:58 AM [facility] CHLORIDE 101 98 - 107 mmol/L 11/25/2024 9:58 AM [facility] CO2,TOTAL 29 22 - 29 mmol/L 11/25/2024 9:58 AM [facility] ANION GAP 11 5 - 18 11/25/2024 9:58 AM [facility] GLUCOSE 126(H) 70 - 99 mg/dL 11/25/2024 9:58 AM [facility] CALCIUM 9.3 8.8 - 10.4 mg/dL 11/25/2024 9:58 AM [facility] Comment: Reference ranges for this test were updated on 12/18/2023 to reflect our healthy population more accurately. Reference range changes are not retroactively applied to results, but previous results using the same methodology can be interpreted in the context of the new reference range. BUN 20 8 - 23 mg/dL 11/25/2024 9:58 AM CDT [facility] CREATININE 1.04 0.70 - 1.20 mg/dL 11/25/2024 9:58 AM T [facility] BUN/CREAT RATIO 19 10 - 20 9:58 AM [facility] eGFR 70(L) >90 mL/min/1. 73m2 11/25/2024 9:58 AM [facility] Comment:As of 2021, eG FR is calculated by the CKD-EPI creatinine equation without race adjustment. eGFR can be influenced by muscle mass, exercise, and diet. The reported eGFR is an estimation only and is only applicable if the renal function is stable. 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
== END 2024-12-16 20:33 | disposition home or self-care (01) ==
LOC: NPINS 20:32
PROVIDERS: PCP Family Medicine; Visit Provider Nurse Practitioner Gerontology
DX: R53.1 Weakness (principal); R29.6 Repeated falls
CPT/HCPCS: 81001; 81003; 87086